=== PATIENT | male | born 1960 | race Caucasian/White ===

== ENCOUNTER 2017-08-20 17:11 | Emergency (ER) | payer MEDICARE, MEDICAID ==
[~2017-08-20] VITALS: Ht 185.4 cm; Wt 86.0 kg
[~2017-08-20 17:11] MED LIST: ALBU8.5H8 IH; ALBU8.5H8 INH; DIPH-423 PO; METH4TAB81 PO; VITC500T PO
[2017-08-20 17:20] VITALS: BP 121/67
[2017-08-20] MEDS ORDERED: THI100T PO (17:27)
[2017-08-20] MEDS ORDERED: LORA-269 PO (17:27)
[2017-08-20] MEDS ORDERED: FOLI0.4T2 PO (17:27)
[2017-08-20] MEDS ORDERED: MULT-38 PO (17:27)
== END 2017-08-20 17:44 | disposition home or self-care (01) ==
LOC: ER 17:13
DX: F10.10 Alcohol abuse, uncomplicated (principal); F84.0 Autistic disorder; G89.29 Other chronic pain; J44.9 Chronic obstructive pulmonary disease, unspecified; Z79.899 Other long term (current) drug therapy; Y90.9 Presence of alcohol in blood, level not specified
CPT/HCPCS: 99283

== ENCOUNTER 2017-08-25 20:06 | Emergency (ER) | payer MEDICARE, MEDICAID ==
[~2017-08-25] VITALS: Ht 185.4 cm; Wt 83.0 kg
[~2017-08-25 20:06] MED LIST changes: +FOLI0.4T2 PO; +LORA-269 PO; +MULT-38 PO; +THI100T PO
[2017-08-25 21:52] LABS: URINE AMPHETAMINE SCREEN NEGATIVE (Neg); URINE BARBITUATE SCREEN NEGATIVE (Neg); URINE BENZODIAZEPINES SCREEN NEGATIVE (Neg); URINE CANNABINOID SCREEN POSITIVE (Neg); URINE COCAINE SCREEN NEGATIVE (Neg); URINE METHADONE SCREEN NEGATIVE (Neg); URINE OPIATE SCREEN NEGATIVE (Neg); URINE PHENCYCLIDINE SCREEN NEGATIVE (Neg)
[2017-08-25] MEDS ORDERED: ondansetron 4mg rapidly disintigrating tab PO ONE (22:00)
[2017-08-25 22:09] LABS: BASOPHILS # (AUTO) 0.1 X10'3 (0-0.2); BASOPHILS % (AUTO) 1.3 % (0-1); EOSINOPHILS # (AUTO) 0.1 X10'3 (0-0.9); EOSINOPHILS % (AUTO) 1.6 % (0-6); HEMATOCRIT 44.8 % (42.0-52.0); HEMOGLOBIN 15.6 g/dl (14.0-17.9); LYMPHOCYTES # (AUTO) 1.2 X10'3 (1.1-4.8); LYMPHOCYTES % (AUTO) 13.4 % (21-51); MEAN CORPUSCULAR HEMOGLOBIN 32.9 PG (27.0-31.0); MEAN CORPUSCULAR HGB CONC 34.7 % (33.0-36.5); MEAN CORPUSCULAR VOLUME 94.7 FL (78-98); MONOCYTES # (AUTO) 0.9 X10'3 (0-0.9); NEUTROPHILS # (AUTO) 6.8 X10'3 (1.8-7.7); NEUTROPHILS % (AUTO) 73.7 % (42-75); PLATELET COUNT 386 X10'3 (140-440); RED BLOOD COUNT 4.73 X10'6 (4.70-6.10); RED CELL DISTRIBUTION WIDTH 13.9 % (11.5-14.5); WHITE BLOOD COUNT 9.2 X10'3 (4.5-11.0)
[2017-08-25 22:23] LABS: ALANINE AMINOTRANSFERASE 26 U/L (12-78); ALBUMIN 3.2 G/DL (3.4-5.0); ALBUMIN/GLOBULIN RATIO 0.7 (1.1-1.5); ALKALINE PHOSPHATASE 90 IU/L (46-116); ANION GAP 12 (8-16); ASPARTATE AMINO TRANSFERASE 15 U/L (10-37); BILIRUBIN,TOTAL 0.5 MG/DL (0.1-1.0); BLOOD UREA NITROGEN 11 MG/DL (7-18); BUN/CREATININE RATIO 12.9 (5.4-32.0); CHLORIDE 102 MMOL/L (99-107); CREATININE 0.85 MG/DL (0.60-1.10); ETHANOL 0.014 GM/DL (0.0-0.010); GLUCOSE 87 MG/DL (70-104); POTASSIUM 4.5 MMOL/L (3.5-5.1); SODIUM 140 MMOL/L (135-145); TOTAL CARBON DIOXIDE 25.7 MMOL/L (24-32); TOTAL PROTEIN 8.1 G/DL (6.4-8.2); eGFR > 90 ML/MIN
[2017-08-26] MEDS ORDERED: nicotine 14mg patch - 24hr TD ONE (06:05)
[2017-08-26] MEDS ORDERED: LORazepam 1 MG tablet PO ONE (07:05)
[2017-08-27] MEDS ORDERED: ziprasidone 20mg capsule PO PRN (00:10)
[2017-08-27] MEDS ORDERED: LORazepam 1 MG tablet PO PRN ×2 (00:10→00:30)
[2017-08-27] MEDS ORDERED: ziprasidone IM 20mg inj **IM only IM PRN (00:10)
[2017-08-27] MEDS ORDERED: nicotine 14mg patch - 24hr TD ONE (05:00)
[2017-08-27 05:59] VITALS: BP 119/82
[2017-08-27] MEDS ORDERED: gabapentin 100mg capsule PO SCH (08:00)
== END 2017-08-27 13:11 | disposition home or self-care (01) ==
LOC: ER 20:07
DX: R45.851 Suicidal ideations (principal); F10.20 Alcohol dependence, uncomplicated; Y90.9 Presence of alcohol in blood, level not specified; F12.10 Cannabis abuse, uncomplicated; G89.29 Other chronic pain; J45.909 Unspecified asthma, uncomplicated; M19.90 Unspecified osteoarthritis, unspecified site; F41.9 Anxiety disorder, unspecified; F32.9 Major depressive disorder, single episode, unspecified; Z88.8 Allergy status to other drugs, medicaments and biological substances; Z98.890 Other specified postprocedural states; Z90.89 Acquired absence of other organs; Z79.899 Other long term (current) drug therapy
CPT/HCPCS: 36415; 80053; 80305; 80320; 84443; 85025; 99284; J7030

== ENCOUNTER 2017-08-30 15:34 | Emergency (ER) | payer MEDICARE, MEDICAID ==
[~2017-08-30] VITALS: Ht 6122.6 cm; Wt 83.5 kg
[~2017-08-30 15:34] MED LIST changes: -DIPH-423 PO; -METH4TAB81 PO; -VITC500T PO
[2017-08-30 20:34] LABS: CLARITY,URINE CLEAR (Clear); COLOR,URINE YELLOW (Yellow); GLUCOSE, URINE NEGATIVE (Neg); KETONES,URINE NEGATIVE (Neg); LEUKOCYTE ESTERASE ,URINE NEGATIVE (Neg); NITRITES, URINE NEGATIVE (Neg); OCCULT BLOOD,URINE NEGATIVE (Neg); PH,URINE 5.5 (4.8-8.0); PROTEIN,URINE NEGATIVE (Neg); UROBILINOGEN,URINE 0.2 E.U/dL (0.2-1.0)
[2017-08-30 20:41] LABS: URINE AMPHETAMINE SCREEN NEGATIVE (Neg); URINE BARBITUATE SCREEN NEGATIVE (Neg); URINE BENZODIAZEPINES SCREEN NEGATIVE (Neg); URINE CANNABINOID SCREEN POSITIVE (Neg); URINE COCAINE SCREEN NEGATIVE (Neg); URINE METHADONE SCREEN NEGATIVE (Neg); URINE OPIATE SCREEN NEGATIVE (Neg); URINE PHENCYCLIDINE SCREEN NEGATIVE (Neg)
[2017-08-30 20:44] LABS: UA COLLECTION TYPE CLN CATCH MIDSTREAM
[2017-08-30 20:52] LABS: BASOPHILS # (AUTO) 0.1 X10'3 (0-0.2); BASOPHILS % (AUTO) 0.7 % (0-1); EOSINOPHILS # (AUTO) 0.1 X10'3 (0-0.9); EOSINOPHILS % (AUTO) 1.8 % (0-6); HEMATOCRIT 41.5 % (42.0-52.0); HEMOGLOBIN 14.3 g/dl (14.0-17.9); LYMPHOCYTES # (AUTO) 2.3 X10'3 (1.1-4.8); LYMPHOCYTES % (AUTO) 28.9 % (21-51); MEAN CORPUSCULAR HEMOGLOBIN 33.1 PG (27.0-31.0); MEAN CORPUSCULAR HGB CONC 34.3 % (33.0-36.5); MEAN CORPUSCULAR VOLUME 96.3 FL (78-98); MEAN PLATELET VOLUME 7.3 FL (7.4-10.4); MONOCYTES # (AUTO) 0.5 X10'3 (0-0.9); MONOCYTES % (AUTO) 6.2 % (2-12); NEUTROPHILS % (AUTO) 62.4 % (42-75); PLATELET COUNT 456 X10'3 (140-440); RED BLOOD COUNT 4.32 X10'6 (4.70-6.10); RED CELL DISTRIBUTION WIDTH 14.1 % (11.5-14.5); WHITE BLOOD COUNT 7.9 X10'3 (4.5-11.0)
[2017-08-30 21:16] LABS: ALANINE AMINOTRANSFERASE 26 U/L (12-78); ALBUMIN 3.3 G/DL (3.4-5.0); ALBUMIN/GLOBULIN RATIO 0.8 (1.1-1.5); ALKALINE PHOSPHATASE 77 IU/L (46-116); ANION GAP 12 (8-16); ASPARTATE AMINO TRANSFERASE 13 U/L (10-37); BILIRUBIN,TOTAL 0.8 MG/DL (0.1-1.0); BLOOD UREA NITROGEN 13 MG/DL (7-18); BUN/CREATININE RATIO 14.1 (5.4-32.0); CALCIUM 9.3 MG/DL (8.5-10.1); CHLORIDE 103 MMOL/L (99-107); CREATININE 0.92 MG/DL (0.60-1.10); GLUCOSE 115 MG/DL (70-104); POTASSIUM 3.8 MMOL/L (3.5-5.1); SODIUM 141 MMOL/L (135-145); TOTAL CARBON DIOXIDE 25.7 MMOL/L (24-32); TOTAL PROTEIN 7.6 G/DL (6.4-8.2); eGFR 85 ML/MIN
[2017-08-30 21:29] LABS: ETHANOL < 0.010 GM/DL (0.0-0.010)
[2017-08-30] MEDS ORDERED: LORazepam 2 mg/ml vial IM ONE (22:00)
[2017-08-30] MEDS ORDERED: haloperidol lactate 5mg/ml inj IM ONE (22:00)
[2017-08-30] MEDS ORDERED: diphenhydrAMINE 50 mg/ml inj IM ONE (22:00)
[2017-08-31] MEDS ORDERED: LORA1TAB PO (18:02)
[2017-08-31] MEDS ORDERED: MONT10TA24 PO (18:02)
[2017-08-31] MEDS ORDERED: TIOT4MIS5 IH (18:02)
[2017-08-31] MEDS ORDERED: ZIPR20CA2 PO (18:02)
[2017-08-31] MEDS ORDERED: ALBU18HF2 IH (18:02)
[2017-08-31] MEDS ORDERED: albuterol 2.5 MG/3 ML nebule NEB PRN (18:15)
[2017-08-31] MEDS: ipratropium 0.5 MG/2.5ML nebule IH SCH (20:54)
[2017-09-01] MEDS: ipratropium 0.5 MG/2.5ML nebule IH SCH ×4 (03:07→21:32)
[2017-09-01] MEDS: ziprasidone 20mg capsule PO PRN ×2 (06:34→13:39)
[2017-09-01] MEDS: LORazepam 1 MG tablet PO PRN ×2 (08:11→21:25)
[2017-09-01] MEDS: montelukast 10mg tablet PO SCH (08:11)
[2017-09-02] MEDS: ipratropium 0.5 MG/2.5ML nebule IH SCH ×4 (03:39→20:22)
[2017-09-02] MEDS: montelukast 10mg tablet PO SCH (07:39)
[2017-09-02] MEDS: LORazepam 1 MG tablet PO PRN ×2 (15:32→19:55)
[2017-09-03] MEDS: ipratropium 0.5 MG/2.5ML nebule IH SCH ×4 (02:30→20:20)
[2017-09-03] MEDS ORDERED: ibuprofen tablet 400 MG TABLET PO PRN (06:40)
[2017-09-03] MEDS: montelukast 10mg tablet PO SCH (06:59)
[2017-09-03] MEDS: LORazepam 1 MG tablet PO PRN (09:03)
[2017-09-03] MEDS: ziprasidone 20mg capsule PO PRN (09:03)
[2017-09-04] MEDS: LORazepam 1 MG tablet PO PRN (00:22)
[2017-09-04] MEDS: ipratropium 0.5 MG/2.5ML nebule IH SCH ×4 (02:19→22:01)
[2017-09-04] MEDS: montelukast 10mg tablet PO SCH (09:28)
[2017-09-04] MEDS: ziprasidone 20mg capsule PO PRN (16:46)
[2017-09-04] MEDS: ziprasidone 20mg capsule PO SCH (21:07)
[2017-09-05] MEDS: ipratropium 0.5 MG/2.5ML nebule IH SCH ×2 (02:35→09:00)
[2017-09-05] MEDS: montelukast 10mg tablet PO SCH (09:02)
[2017-09-05] MEDS: ziprasidone 20mg capsule PO SCH ×2 (09:02→14:33)
[2017-09-05] MEDS: ziprasidone 20mg capsule PO PRN (19:18)
[2017-09-06] MEDS: ziprasidone 20mg capsule PO PRN ×3 (01:23→12:41)
[2017-09-06] MEDS: ipratropium 0.5 MG/2.5ML nebule IH SCH ×2 (01:34→11:36)
[2017-09-06 05:22] VITALS: BP 115/78
[2017-09-06] MEDS: ziprasidone 20mg capsule PO SCH (07:36)
[2017-09-06] MEDS: montelukast 10mg tablet PO SCH (07:36)
[2017-09-06] MEDS: LORazepam 1 MG tablet PO PRN ×2 (07:37→12:41)
[2017-09-06] MEDS ORDERED: nicotine 14mg patch - 24hr TD ONE (08:00)
== END 2017-09-06 17:39 ==
LOC: ER 15:37
DX: R45.851 Suicidal ideations (principal); F10.129 Alcohol abuse with intoxication, unspecified; G89.29 Other chronic pain; M19.90 Unspecified osteoarthritis, unspecified site; J45.909 Unspecified asthma, uncomplicated; F12.10 Cannabis abuse, uncomplicated; F17.200 Nicotine dependence, unspecified, uncomplicated; Z59.0 Homelessness; Z88.8 Allergy status to other drugs, medicaments and biological substances; Z79.899 Other long term (current) drug therapy; Y90.0 Blood alcohol level of less than 20 mg/100 ml
CPT/HCPCS: 36415; 80053; 80305; 80320; 81003; 84443; 85025; 94640; 94760; 99285

== ENCOUNTER 2017-09-07 09:09 | Emergency (ER) | payer MEDICARE, MEDICAID ==
[~2017-09-07] VITALS: Ht 165.1 cm; Wt 81.0 kg
[~2017-09-07 09:09] MED LIST changes: +ALBU18HF2 IH; -ALBU8.5H8 IH; -ALBU8.5H8 INH; -FOLI0.4T2 PO; -LORA-269 PO; +LORA1TAB PO; +MONT10TA24 PO; -MULT-38 PO; -THI100T PO; +TIOT4MIS5 IH; +ZIPR20CA2 PO
[2017-09-07] MEDS ORDERED: normal saline 1000ML IV soln IVB ONE (09:50)
[2017-09-07] MEDS ORDERED: LORazepam 2 mg/ml vial IV ONE (09:50)
[2017-09-07 10:04] LABS: BASOPHILS % (AUTO) 0.1 % (0-1); EOSINOPHILS # (AUTO) 0.2 X10'3 (0-0.9); EOSINOPHILS % (AUTO) 1.5 % (0-6); HEMATOCRIT 50.3 % (42.0-52.0); HEMOGLOBIN 17.2 g/dl (14.0-17.9); LYMPHOCYTES # (AUTO) 1.5 X10'3 (1.1-4.8); LYMPHOCYTES % (AUTO) 10.6 % (21-51); MEAN CORPUSCULAR HEMOGLOBIN 32.5 PG (27.0-31.0); MEAN CORPUSCULAR HGB CONC 34.2 % (33.0-36.5); MEAN CORPUSCULAR VOLUME 95.2 FL (78-98); MEAN PLATELET VOLUME 8.5 FL (7.4-10.4); MONOCYTES # (AUTO) 0.5 X10'3 (0-0.9); MONOCYTES % (AUTO) 3.7 % (2-12); NEUTROPHILS % (AUTO) 84.1 % (42-75); PLATELET COUNT 347 X10'3 (140-440); RED BLOOD COUNT 5.29 X10'6 (4.70-6.10); RED CELL DISTRIBUTION WIDTH 14.2 % (11.5-14.5); WHITE BLOOD COUNT 14.3 X10'3 (4.5-11.0)
[2017-09-07 10:39] LABS: ALANINE AMINOTRANSFERASE 32 U/L (12-78); ALBUMIN 3.9 G/DL (3.4-5.0); ALBUMIN/GLOBULIN RATIO 0.9 (1.1-1.5); ALKALINE PHOSPHATASE 97 IU/L (46-116); ANION GAP 15 (8-16); ASPARTATE AMINO TRANSFERASE 18 U/L (10-37); BILIRUBIN,TOTAL 0.6 MG/DL (0.1-1.0); BLOOD UREA NITROGEN 15 MG/DL (7-18); BUN/CREATININE RATIO 14.4 (5.4-32.0); CALCIUM 9.1 MG/DL (8.5-10.1); CHLORIDE 103 MMOL/L (99-107); CREATININE 1.04 MG/DL (0.60-1.10); ETHANOL < 0.010 GM/DL (0.0-0.010); GLUCOSE 113 MG/DL (70-104); POTASSIUM 4.1 MMOL/L (3.5-5.1); SODIUM 140 MMOL/L (135-145); TOTAL CARBON DIOXIDE 21.8 MMOL/L (24-32); TOTAL PROTEIN 8.2 G/DL (6.4-8.2); eGFR 74 ML/MIN
[2017-09-07 10:58] LABS: PARTIAL THROMBOPLASTIN TIME 28 SECONDS (22-32); PROTHROMBIN TIME 10.3 SECONDS (9.0-12.0)
[2017-09-07 11:23] LABS: CLARITY,URINE CLEAR (Clear); COLOR,URINE YELLOW (Yellow); GLUCOSE, URINE NEGATIVE (Neg); KETONES,URINE NEGATIVE (Neg); LEUKOCYTE ESTERASE ,URINE NEGATIVE (Neg); NITRITES, URINE NEGATIVE (Neg); OCCULT BLOOD,URINE NEGATIVE (Neg); PH,URINE 5.5 (4.8-8.0); PROTEIN,URINE NEGATIVE (Neg); UROBILINOGEN,URINE 0.2 E.U/dL (0.2-1.0)
[2017-09-07 11:24] LABS: UA COLLECTION TYPE CLN CATCH MIDSTREAM
[2017-09-07 11:32] LABS: URINE AMPHETAMINE SCREEN NEGATIVE (Neg); URINE BARBITUATE SCREEN NEGATIVE (Neg); URINE BENZODIAZEPINES SCREEN NEGATIVE (Neg); URINE CANNABINOID SCREEN NEGATIVE (Neg); URINE COCAINE SCREEN NEGATIVE (Neg); URINE METHADONE SCREEN NEGATIVE (Neg); URINE OPIATE SCREEN NEGATIVE (Neg); URINE PHENCYCLIDINE SCREEN NEGATIVE (Neg)
[2017-09-07 12:47] VITALS: BP 143/102
== END 2017-09-07 12:48 | disposition home or self-care (01) ==
LOC: ER 09:10
DX: M54.9 Dorsalgia, unspecified (principal); M19.90 Unspecified osteoarthritis, unspecified site; F12.10 Cannabis abuse, uncomplicated; Z88.8 Allergy status to other drugs, medicaments and biological substances
CPT/HCPCS: 36415; 80053; 80305; 80320; 81003; 82140; 84484; 85025; 85610; 85730; 93005; 96361; 96374; 99285; J2060; J7030

== ENCOUNTER 2018-01-25 13:19 | Emergency (ER) | payer MEDICARE, MEDICAID ==
[~2018-01-25] VITALS: Ht 185.4 cm; Wt 76.7 kg
[2018-01-25] MEDS ORDERED: symbicort INH (15:26)
[2018-01-25 15:48] LABS: BASOPHILS % (AUTO) 0.4 % (0-1); EOSINOPHILS # (AUTO) 0.1 X10'3 (0-0.9); EOSINOPHILS % (AUTO) 1.9 % (0-6); HEMATOCRIT 42.7 % (42.0-52.0); LYMPHOCYTES # (AUTO) 0.7 X10'3 (1.1-4.8); LYMPHOCYTES % (AUTO) 9.5 % (21-51); MEAN CORPUSCULAR HEMOGLOBIN 33.6 PG (27.0-31.0); MEAN CORPUSCULAR HGB CONC 35.1 % (33.0-36.5); MEAN CORPUSCULAR VOLUME 95.8 FL (78-98); MEAN PLATELET VOLUME 7.7 FL (7.4-10.4); MONOCYTES # (AUTO) 0.5 X10'3 (0-0.9); MONOCYTES % (AUTO) 7.1 % (2-12); NEUTROPHILS # (AUTO) 5.7 X10'3 (1.8-7.7); NEUTROPHILS % (AUTO) 81.1 % (42-75); PLATELET COUNT 188 X10'3 (140-440); RED BLOOD COUNT 4.46 X10'6 (4.70-6.10); RED CELL DISTRIBUTION WIDTH 14.5 % (11.5-14.5)
[2018-01-25] MEDS ORDERED: dexamethasone 4mg tablet PO ONE (15:50)
[2018-01-25 16:03] LABS: ALANINE AMINOTRANSFERASE 27 U/L (12-78); ALBUMIN 3.4 G/DL (3.4-5.0); ALKALINE PHOSPHATASE 88 IU/L (46-116); ANION GAP 7 (8-16); ASPARTATE AMINO TRANSFERASE 23 U/L (10-37); BILIRUBIN,TOTAL 0.6 MG/DL (0.1-1.0); BLOOD UREA NITROGEN 8 MG/DL (7-18); BUN/CREATININE RATIO 9.1 (5.4-32.0); CALCIUM 8.6 MG/DL (8.5-10.1); CHLORIDE 99 MMOL/L (99-107); CREATININE 0.88 MG/DL (0.60-1.10); ETHANOL < 0.010 GM/DL (0.0-0.010); GLUCOSE 137 MG/DL (70-104); POTASSIUM 3.7 MMOL/L (3.5-5.1); SODIUM 133 MMOL/L (135-145); TOTAL CARBON DIOXIDE 27.3 MMOL/L (24-32); TOTAL PROTEIN 6.7 G/DL (6.4-8.2); eGFR 89 ML/MIN
[2018-01-25 16:13] LABS: URINE AMPHETAMINE SCREEN NEGATIVE (Neg); URINE BARBITUATE SCREEN NEGATIVE (Neg); URINE BENZODIAZEPINES SCREEN NEGATIVE (Neg); URINE CANNABINOID SCREEN POSITIVE (Neg); URINE COCAINE SCREEN NEGATIVE (Neg); URINE METHADONE SCREEN NEGATIVE (Neg); URINE OPIATE SCREEN NEGATIVE (Neg); URINE PHENCYCLIDINE SCREEN NEGATIVE (Neg)
[2018-01-25 16:37] LABS: CLARITY,URINE CLEAR (Clear); COLOR,URINE YELLOW (Yellow); GLUCOSE, URINE NEGATIVE (Neg); KETONES,URINE NEGATIVE (Neg); LEUKOCYTE ESTERASE ,URINE NEGATIVE (Neg); NITRITES, URINE NEGATIVE (Neg); OCCULT BLOOD,URINE TRACE-LYSED (Neg); PROTEIN,URINE NEGATIVE (Neg)
[2018-01-25 16:41] LABS: BACTERIA,URINE NONE SEEN /HPF (Neg); RBC,URINE 0-2 /HPF (0-2); SQUAMOUS EPITHELIAL CELL,UR FEW /LPF (FEW); UA COLLECTION TYPE CLN CATCH MIDSTREAM; WBC,URINE 0-4 /HPF (0-4)
[2018-01-25] MEDS: BUDESONIDE 0.25 MG/2 ML AMPUL.NEB IH SCH (21:03)
[2018-01-26] MEDS: LORazepam 0.5 MG tablet PO PRN ×2 (00:53→19:27)
[2018-01-26] MEDS: haloperidol 1mg tablet PO PRN ×2 (00:54→19:27)
[2018-01-26] MEDS: BUDESONIDE 0.25 MG/2 ML AMPUL.NEB IH SCH ×2 (09:44→20:45)
[2018-01-27] MEDS: LORazepam 0.5 MG tablet PO PRN ×2 (04:41→19:45)
[2018-01-27] MEDS ORDERED: acetaminophen 325mg tablet PO ONE (05:10)
[2018-01-27] MEDS: nicotine 14mg patch - 24hr TD SCH (08:34)
[2018-01-27] MEDS: BUDESONIDE 0.25 MG/2 ML AMPUL.NEB IH SCH ×2 (09:10→21:13)
[2018-01-27] MEDS: acetaminophen 325mg tablet PO PRN ×2 (12:39→19:45)
[2018-01-27] MEDS: haloperidol 1mg tablet PO PRN (19:46)
[2018-01-28 05:30] VITALS: BP 121/72
[2018-01-28] MEDS: nicotine 14mg patch - 24hr TD SCH (07:09)
[2018-01-28] MEDS: acetaminophen 325mg tablet PO PRN (07:10)
[2018-01-28] MEDS: LORazepam 0.5 MG tablet PO PRN (07:10)
[2018-01-28] MEDS: BUDESONIDE 0.25 MG/2 ML AMPUL.NEB IH SCH (09:42)
== END 2018-01-28 12:54 ==
LOC: ER 13:19
DX: F32.9 Major depressive disorder, single episode, unspecified (principal); F23 Brief psychotic disorder; F41.9 Anxiety disorder, unspecified; J45.909 Unspecified asthma, uncomplicated; M19.90 Unspecified osteoarthritis, unspecified site; G89.29 Other chronic pain; F12.90 Cannabis use, unspecified, uncomplicated; Z98.890 Other specified postprocedural states; Z59.0 Homelessness; Z88.8 Allergy status to other drugs, medicaments and biological substances; Z79.899 Other long term (current) drug therapy
CPT/HCPCS: 36415; 80053; 80305; 80320; 81001; 85025; 94640; 94760; 99285; J8540

== ENCOUNTER 2018-02-01 20:20 | Emergency (ER) | payer MEDICARE, MEDICAID ==
[~2018-02-01] VITALS: Ht 185.4 cm; Wt 78.6 kg
[~2018-02-01 20:20] MED LIST changes: -ALBU18HF2 IH; -LORA1TAB PO; -MONT10TA24 PO; -TIOT4MIS5 IH; -ZIPR20CA2 PO; +symbicort INH
[2018-02-01 20:35] VITALS: BP 104/69
[2018-02-01] MEDS ORDERED: DICL50TA8 PO (20:56)
== END 2018-02-01 21:15 | disposition home or self-care (01) ==
LOC: ER 20:21
DX: M54.5 Low back pain (principal); F12.10 Cannabis abuse, uncomplicated; J45.909 Unspecified asthma, uncomplicated; G89.29 Other chronic pain; F41.9 Anxiety disorder, unspecified; F32.9 Major depressive disorder, single episode, unspecified; Z59.0 Homelessness; Z88.8 Allergy status to other drugs, medicaments and biological substances
CPT/HCPCS: 99283

== ENCOUNTER 2018-05-08 06:15 | Emergency (ER) | payer MEDICARE, MEDICAID ==
[~2018-05-08] VITALS: Ht 185.4 cm; Wt 77.2 kg
[~2018-05-08 06:15] MED LIST changes: +DICL50TA8 PO
[2018-05-08] MEDS ORDERED: albuterol 2.5 MG/3 ML nebule CONTNEB PRN (06:25)
[2018-05-08] MEDS ORDERED: methylPREDNISolone sod succ 125mg/2ml vial IV ONE (06:25)
[2018-05-08] MEDS ORDERED: ipratropium/albuterol 3ml nebule NEB ONE (06:25)
[2018-05-08] MEDS ORDERED: normal saline 1000ML IV soln IVB ONE (06:25)
[2018-05-08] MEDS ORDERED: azithromycin 250mg tablet PO ONE (06:30)
[2018-05-08] MEDS ORDERED: PRED20TA PO (07:55)
[2018-05-08] MEDS ORDERED: AZIT-63 PO (07:55)
[2018-05-08] MEDS ORDERED: ALBU8.5H8 IH (07:55)
[2018-05-08 08:16] VITALS: BP 137/83
== END 2018-05-08 08:19 | disposition home or self-care (01) ==
LOC: ER 06:16
DX: J45.901 Unspecified asthma with (acute) exacerbation (principal); M19.90 Unspecified osteoarthritis, unspecified site; G89.29 Other chronic pain; F12.90 Cannabis use, unspecified, uncomplicated; F17.200 Nicotine dependence, unspecified, uncomplicated; Z86.69 Personal history of other diseases of the nervous system and sense organs; Z98.890 Other specified postprocedural states; Z59.0 Homelessness; Z88.8 Allergy status to other drugs, medicaments and biological substances; Z79.2 Long term (current) use of antibiotics; Z79.899 Other long term (current) drug therapy
CPT/HCPCS: 94644; 94760; 96361; 96374; 99285; J2930; 94640

== ENCOUNTER 2018-06-07 08:15 | Emergency (ER) | payer MEDICARE, MEDICAID ==
[~2018-06-07] VITALS: Ht 185.4 cm; Wt 78.0 kg
[~2018-06-07 08:15] MED LIST changes: +ALBU8.5H8 IH
[2018-06-07] MEDS ORDERED: ketorolac tromethamine 15mg/ml inj. IM ONE (08:45)
[2018-06-07] MEDS ORDERED: orphenadrine citrate 60mg/2ml inj. IM ONE (08:45)
[2018-06-07 08:46] VITALS: BP_SYST 101
[2018-06-07 09:15] VITALS: BP_DIAS 101
== END 2018-06-07 09:16 | disposition home or self-care (01) ==
LOC: ER 08:16
DX: S00.03XA Contusion of scalp, initial encounter (principal); F10.20 Alcohol dependence, uncomplicated; J45.909 Unspecified asthma, uncomplicated; G89.29 Other chronic pain; F12.90 Cannabis use, unspecified, uncomplicated; F17.210 Nicotine dependence, cigarettes, uncomplicated; Z90.89 Acquired absence of other organs; Z98.890 Other specified postprocedural states; Z88.8 Allergy status to other drugs, medicaments and biological substances; Z59.0 Homelessness; Y90.9 Presence of alcohol in blood, level not specified; Y04.0XXA Assault by unarmed brawl or fight, initial encounter; Y93.89 Activity, other specified; Y92.89 Other specified places as the place of occurrence of the external cause; Y99.8 Other external cause status
CPT/HCPCS: 96372; 99284; J1885; J2360

== ENCOUNTER 2018-07-22 06:02 | Emergency (ER) | payer MEDICARE, OTHER ==
[~2018-07-22] VITALS: Ht 185.4 cm; Wt 74.5 kg
[2018-07-22 07:28] LABS: BASOPHILS % (AUTO) 0.9 % (0-1); EOSINOPHILS % (AUTO) 0.2 % (0-6); HEMATOCRIT 45.2 % (42.0-52.0); HEMOGLOBIN 15.7 g/dl (14.0-17.9); LYMPHOCYTES # (AUTO) 0.9 X10'3 (1.1-4.8); LYMPHOCYTES % (AUTO) 15.8 % (21-51); MEAN CORPUSCULAR HGB CONC 34.7 g/dL (33.0-36.5); MEAN PLATELET VOLUME 7.6 FL (7.4-10.4); MONOCYTES # (AUTO) 0.2 X10'3 (0-0.9); MONOCYTES % (AUTO) 3.6 % (2-12); NEUTROPHILS # (AUTO) 4.3 X10'3 (1.8-7.7); NEUTROPHILS % (AUTO) 79.5 % (42-75); PLATELET COUNT 319 X10'3 (140-440); RED BLOOD COUNT 4.62 X10'6 (4.70-6.10); RED CELL DISTRIBUTION WIDTH 14.1 % (11.5-14.5); WHITE BLOOD COUNT 5.4 X10'3 (4.5-11.0)
[2018-07-22 07:42] LABS: ALANINE AMINOTRANSFERASE 28 U/L (12-78); ALBUMIN 3.9 G/DL (3.4-5.0); ALBUMIN/GLOBULIN RATIO 1.1 (1.1-1.5); ALKALINE PHOSPHATASE 82 IU/L (46-116); ANION GAP 18 (8-16); ASPARTATE AMINO TRANSFERASE 38 U/L (10-37); BILIRUBIN,TOTAL 0.6 MG/DL (0.1-1.0); BLOOD UREA NITROGEN 7 MG/DL (7-18); BUN/CREATININE RATIO 8.5 (5.4-32.0); CALCIUM 8.7 MG/DL (8.5-10.1); CHLORIDE 99 MMOL/L (99-107); CREATININE 0.82 MG/DL (0.60-1.10); GLUCOSE 63 MG/DL (70-104); POTASSIUM 4.4 MMOL/L (3.5-5.1); SODIUM 139 MMOL/L (135-145); TOTAL CARBON DIOXIDE 22.3 MMOL/L (24-32); TOTAL PROTEIN 7.3 G/DL (6.4-8.2); eGFR > 90 ML/MIN
[2018-07-22 07:52] LABS: ETHANOL 0.094 GM/DL (0.0-0.010)
[2018-07-22 08:22] LABS: CLARITY,URINE CLEAR (Clear); COLOR,URINE YELLOW (Yellow); GLUCOSE, URINE NEGATIVE (Neg); KETONES,URINE 15 mg/dl (Neg); LEUKOCYTE ESTERASE ,URINE NEGATIVE (Neg); NITRITES, URINE NEGATIVE (Neg); OCCULT BLOOD,URINE NEGATIVE (Neg); PROTEIN,URINE NEGATIVE (Neg); UROBILINOGEN,URINE 0.2 E.U/dL (0.2-1.0)
[2018-07-22 08:27] LABS: UA COLLECTION TYPE NON-SPECIFIED
[2018-07-22 08:34] LABS: URINE AMPHETAMINE SCREEN NEGATIVE (Neg); URINE BARBITUATE SCREEN NEGATIVE (Neg); URINE BENZODIAZEPINES SCREEN NEGATIVE (Neg); URINE CANNABINOID SCREEN NEGATIVE (Neg); URINE COCAINE SCREEN NEGATIVE (Neg); URINE METHADONE SCREEN NEGATIVE (Neg); URINE OPIATE SCREEN NEGATIVE (Neg); URINE PHENCYCLIDINE SCREEN NEGATIVE (Neg)
[2018-07-22] MEDS ORDERED: TIOT4MIS5 INH (08:48)
[2018-07-22] MEDS ORDERED: ALBU18HF2 INH (08:49)
--- NOTE | 2018-07-22 09:40 | NUR ---
SOC PSYCHIATRIST CALLS FOR A REPORT. TELE PSYCH IS IN THE ROOM AND READY FOR HIS CALL.
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
[2018-07-22] MEDS: TYPE IN GENERIC & BRAND NAME OF PATIENT MED STRENGTH & FORM IH SCH (11:15)
[2018-07-22] MEDS ORDERED: albuterol 2.5 MG/3 ML nebule NEB PRN (11:15)
--- NOTE | 2018-07-22 11:17 | NUR ---
REPORT GIVEN TO KENNETH MARIANO IN OVERFLOW. PT AMBULATES FROM ROOM 13 WITH TECH TO OF BED 27 IN FRONT OF NURSING STATION.
[2018-07-22] MEDS: QUEtiapine 25mg tablet PO SCH ×2 (11:22→19:53)
[2018-07-22] MEDS: clonazePAM 1mg tablet PO SCH ×2 (11:22→19:53)
[2018-07-22] MEDS ORDERED: nicotine 21mg patch - 24 hr TD ONE (11:30)
--- NOTE | 2018-07-22 11:31 | NUR ---
Pt. to martinez bed 27 from main ED after receiving report from Rose MARIANO. Meds given to pt. without incident. Pt. talking to himself. Apologizing to staff repeatedly but not making sense.
--- NOTE | 2018-07-22 13:33 | NUR ---
Pt. eating lunch. No longer talking out loud to self.
--- NOTE | 2018-07-22 18:29 | NUR ---
Rec'd report from GARCÍA Flaherty. The patient is sitting calmly on on side of bed eating dinner, he is A&O x3 and LION however he is mumbling and talking to himself. I will continue to monitor.
[2018-07-22] MEDS: quetiapine 100mg tablet PO SCH (21:00)
[2018-07-23] MEDS: TYPE IN GENERIC & BRAND NAME OF PATIENT MED STRENGTH & FORM IH SCH (05:46)
[2018-07-23] MEDS: clonazePAM 1mg tablet PO SCH ×2 (07:24→20:22)
[2018-07-23] MEDS ORDERED: ibuprofen tablet 400 MG TABLET PO ONE (07:45)
--- NOTE | 2018-07-23 08:01 | NUR ---
Pt. awake and cooperative. C/O hand pain secondary to "arthritis." Requesting Ibuprofen. RN obtained order for Motrin from Dr. Fuller. Motrin given to pt.
--- NOTE | 2018-07-23 13:50 | NUR ---
Pt. lying on right side with eyes closed. Even, unlabored respirations noted. Nieves from [facility] stated she will write a 5150 for pt.
--- NOTE | 2018-07-23 19:21 | NUR ---
PT RESTING IN BED AFTER DINNER. PT COOPERATIVE, AND GIVEN DECAF COFFEE REQUESTED. PT MAKING GRANDIOSE STATEMENTS OF BEING ROYALTY. MANIC BEHAVIOR, BUT COMPLIANT. NO S/S OF DISTRESS OR PAIN. WILL CONTINUE TO MONITOR.
[2018-07-23] MEDS: quetiapine 100mg tablet PO SCH (20:22)
--- NOTE | 2018-07-23 20:43 | NUR ---
PT GAVE ME HIS "CALL LIST": "CALL LIST ONE OF IMPORTANCE AUGUSTINE [facility], OR SHE CALLS ME BUY MY [facility] TITLE AND OUR [place] IS CANCELED AND TERMINATED."
--- NOTE | 2018-07-23 22:28 | NUR ---
PT RESTING IN BED. OCCASIONALLY UP TO TOILET. PT ON RIGHT SIDE, 15 BREATHS PER MINUTE. NO S/S OF DISTRESS OR PAIN. WILL CONTINUE TO MONITOR.
--- NOTE | 2018-07-24 02:19 | NUR ---
PATIENT IN BED EYES CLOSED COVERS ON RR EVEN UN LABORED NO S/S OF ACUTE STRESS AT THIS TIME
--- NOTE | 2018-07-24 03:07 | NUR ---
PATIENT LEFT ME A NOTE TIMED/DATE STAMP PATIENT STICKER AND IN BINGER
--- NOTE | 2018-07-24 04:54 | NUR ---
PATIENT LYING ON RIGHT SIDE IN BED COVERS ON EYES CLOSED RR EVEN UN LABORED NO OBSERVABLE S/S OF ACUTE STRESS AT THIS TIME
--- NOTE | 2018-07-24 06:30 | NUR ---
report from edgar greene
[2018-07-24] MEDS: TYPE IN GENERIC & BRAND NAME OF PATIENT MED STRENGTH & FORM IH SCH (07:18)
[2018-07-24] MEDS: QUEtiapine 25mg tablet PO SCH (07:18)
[2018-07-24] MEDS: clonazePAM 1mg tablet PO SCH ×2 (07:18→20:11)
[2018-07-24] MEDS ORDERED: nicotine 14mg patch - 24hr TD ONE (07:25)
--- NOTE | 2018-07-24 08:30 | NUR ---
pt ate breakfast took meds, got nicotine patch ordered from pt thankful for patch.
--- NOTE | 2018-07-24 10:36 | NUR ---
pt resting james, will continue to monitor
--- NOTE | 2018-07-24 12:30 | NUR ---
pt eating lunch, pt got decaf coffee
--- NOTE | 2018-07-24 16:15 | NUR ---
talking to brother on the phone
--- NOTE | 2018-07-24 17:38 | NUR ---
pt talked to brother on phone and now resting quietly
--- NOTE | 2018-07-24 18:32 | NUR ---
report given to edgar nation
--- NOTE | 2018-07-24 19:45 | NUR ---
PATIENT IS CONVERSING WITH PATIENT IN ROOM 22
[2018-07-24] MEDS: quetiapine 100mg tablet PO SCH (20:11)
--- NOTE | 2018-07-24 22:00 | NUR ---
SPOKE WITH SUZETTE MARIANO FROM [facility] IN [place]
--- NOTE | 2018-07-24 22:30 | NUR ---
SPOKE WITH GENE [facility] ACCE[facility]ED THE PATIENT [phone] MARTELL PT TO BE PICKED UP AT 0700
--- NOTE | 2018-07-25 00:57 | NUR ---
PATIENT APPEARS TO BE SLEEPING ON HIS RIGHT SIDE RR EVEN AND UNLABORED
--- NOTE | 2018-07-25 02:30 | NUR ---
patient appears to be sleeping on his back rr even unlabored
--- NOTE | 2018-07-25 04:28 | NUR ---
PATIENT APPEARS TO BE SLEEPING LYING ON LEFT SIDE RR EVN UNLABORED
[2018-07-25 05:47] VITALS: BP 121/69
--- NOTE | 2018-07-25 06:30 | NUR ---
PATIENT APPEARS TO BE SLEEPING
[2018-07-25] MEDS: clonazePAM 1mg tablet PO SCH (07:46)
[2018-07-25] MEDS: QUEtiapine 25mg tablet PO SCH (07:46)
[2018-07-25] MEDS: TYPE IN GENERIC & BRAND NAME OF PATIENT MED STRENGTH & FORM IH SCH (08:00)
--- NOTE | 2018-07-25 09:00 | NUR ---
PATIENT SITTING UP AT BEDSIDE EATING BREAKFAST. ATE 100%
--- NOTE | 2018-07-25 11:30 | NUR ---
PATIENT UP TO BATHROOM
--- NOTE | 2018-07-25 12:37 | NUR ---
REPORT TO KATLYN MARIANO. PT CO LOW BACK PAIN, MD AWARE TYLENOL ORDERED. PATIENT SITTING IN CHAIR CALM AFFECT
--- NOTE | 2018-07-25 12:39 | NUR ---
PATIENT DOING STRETCHING EXCERSIZES
[2018-07-25] MEDS ORDERED: acetaminophen 325mg tablet PO ONE (12:40)
--- NOTE | 2018-07-25 13:06 | NUR ---
LUNCH MEAL TRAY PLACED AT PT BEDSIDE, PT SITTING UP IN BED EATING NOW
== END 2018-07-25 15:10 ==
LOC: ER 06:03
DX: F32.9 Major depressive disorder, single episode, unspecified (principal); R45.851 Suicidal ideations; F10.129 Alcohol abuse with intoxication, unspecified; Y90.9 Presence of alcohol in blood, level not specified; J45.909 Unspecified asthma, uncomplicated; M19.90 Unspecified osteoarthritis, unspecified site; G89.29 Other chronic pain; Z90.89 Acquired absence of other organs; Z98.890 Other specified postprocedural states; F12.90 Cannabis use, unspecified, uncomplicated; Z88.5 Allergy status to narcotic agent; Z88.8 Allergy status to other drugs, medicaments and biological substances; Z79.899 Other long term (current) drug therapy; Z59.0 Homelessness
CPT/HCPCS: 36415; 80053; 80305; 80320; 81003; 84443; 85025; 99285

== ENCOUNTER 2019-08-22 16:28 | Emergency (ER) | payer MEDICARE ==
[~2019-08-22] VITALS: Ht 185.4 cm; Wt 68.0 kg
[~2019-08-22 16:28] MED LIST changes: +ALBU18HF2 INH; -ALBU8.5H8 IH; -DICL50TA8 PO; +TIOT4MIS5 INH; -symbicort INH
[2019-08-22 17:33] LABS: BASOPHILS # (AUTO) 0.1 X10'3 (0-0.2); BASOPHILS % (AUTO) 0.5 % (0-1); EOSINOPHILS % (AUTO) 0.2 % (0-6); HEMOGLOBIN 16.1 g/dl (14.0-17.9); LYMPHOCYTES # (AUTO) 1.5 X10'3 (1.1-4.8); LYMPHOCYTES % (AUTO) 14.2 % (21-51); MEAN CORPUSCULAR HEMOGLOBIN 33.2 PG (27.0-31.0); MEAN CORPUSCULAR HGB CONC 34.2 g/dL (33.0-36.5); MEAN CORPUSCULAR VOLUME 97.1 FL (78-98); MEAN PLATELET VOLUME 8.5 FL (7.4-10.4); MONOCYTES # (AUTO) 0.7 X10'3 (0-0.9); MONOCYTES % (AUTO) 6.6 % (2-12); NEUTROPHILS # (AUTO) 8.4 X10'3 (1.8-7.7); NEUTROPHILS % (AUTO) 78.5 % (42-75); PLATELET COUNT 291 X10'3 (140-440); RED BLOOD COUNT 4.84 X10'6 (4.70-6.10); RED CELL DISTRIBUTION WIDTH 14.2 % (11.5-14.5); WHITE BLOOD COUNT 10.7 X10'3 (4.5-11.0)
[2019-08-22 18:01] LABS: ALANINE AMINOTRANSFERASE 51 U/L (12-78); ALBUMIN/GLOBULIN RATIO 1.2 (1.1-1.5); ALKALINE PHOSPHATASE 80 IU/L (46-116); ANION GAP 10 (8-16); ASPARTATE AMINO TRANSFERASE 162 U/L (10-37); BILIRUBIN,TOTAL 1.3 MG/DL (0.1-1.0); BLOOD UREA NITROGEN 11 MG/DL (7-18); BUN/CREATININE RATIO 10.9 (5.4-32.0); CALCIUM 9.6 MG/DL (8.5-10.1); CHLORIDE 102 MMOL/L (99-107); CREATININE 1.01 MG/DL (0.60-1.10); GLUCOSE 129 MG/DL (70-104); SODIUM 138 MMOL/L (135-145); TOTAL CARBON DIOXIDE 25.9 MMOL/L (24-32); TOTAL PROTEIN 7.3 G/DL (6.4-8.2); eGFR 76 ML/MIN
[2019-08-22 18:08] LABS: ETHANOL < 0.010 GM/DL (0.0-0.010); VALPROATE < 3.0 UG/ML (50-100)
[2019-08-22 18:12] LABS: ACETAMINOPHEN < 2.0 UG/ML (10-30)
[2019-08-22 18:53] LABS: CLARITY,URINE CLEAR (Clear); COLOR,URINE YELLOW (Yellow); GLUCOSE, URINE NEGATIVE (Neg); KETONES,URINE 15 mg/dl (Neg); LEUKOCYTE ESTERASE ,URINE TRACE (Neg); NITRITES, URINE NEGATIVE (Neg); OCCULT BLOOD,URINE NEGATIVE (Neg); PH,URINE 6.5 (4.8-8.0); PROTEIN,URINE TRACE mg/dl (Neg)
[2019-08-22 19:04] LABS: URINE AMPHETAMINE SCREEN NEGATIVE (Neg); URINE BARBITUATE SCREEN NEGATIVE (Neg); URINE BENZODIAZEPINES SCREEN NEGATIVE (Neg); URINE CANNABINOID SCREEN POSITIVE (Neg); URINE COCAINE SCREEN NEGATIVE (Neg); URINE METHADONE SCREEN NEGATIVE (Neg); URINE OPIATE SCREEN NEGATIVE (Neg); URINE PHENCYCLIDINE SCREEN NEGATIVE (Neg)
[2019-08-22 19:06] LABS: UA COLLECTION TYPE URINAL
[2019-08-22 19:09] LABS: BACTERIA,URINE NONE SEEN /HPF (Neg); MUCUS STRANDS MANY /LPF (Neg); RBC,URINE NONE SEEN /HPF (0-2); SQUAMOUS EPITHELIAL CELL,UR FEW /LPF (FEW); YEAST MODERATE /HPF (NEGATIVE)
--- NOTE | 2019-08-22 20:00 | NUR ---
PT SLEEPING, LYING ON HIS BACK WITH BLANKETS COVERING TO HER CHEST. RR 14 AND UNLABORED. PT MOVED FROM MAIN ER ROOM 15 TO OVERFLOW 27. TRANSFERED TO NEW ROOM WITH NO PROBLEMS.
--- NOTE | 2019-08-22 20:15 | NUR ---
Patient arrived from [facility]. He was reported to be sleeping quietly prior to moving to Overflow room 27. This patient is oriented to person, place, and time. Patient exhibits much anxiety, he is paranoid, patient states his family is Lumanati and Gestapo, "my mother would have done Hitler proud." Patient is responding to internal stimuli. He denies hallucinations. The patient denies S/I or H/I, "but I can become suicidal at any time because of stress and my family." This continuity writer will consult with the ER FLAVOR TANK TENDER about an Ativan order for anxiety.
[2019-08-22] MEDS ORDERED: LORazepam 1 MG tablet PO PRN (20:30)
[2019-08-22] MEDS ORDERED: LORazepam 1 MG tablet PO ONE (20:30)
--- NOTE | 2019-08-22 20:44 | NUR ---
Patient is mid fowlers position in bed. He has eaten a sandwich and consumed juice. Ativan has been given PO for anxiety. The patient is cooperative with this bond writer at this time.
--- NOTE | 2019-08-22 21:44 | NUR ---
Patient is awake, he is sitting up eating bishop crackers.
[2019-08-22] MEDS ORDERED: albuterol 2.5 MG/3 ML nebule NEB PRN (21:55)
--- NOTE | 2019-08-22 23:00 | NUR ---
Patient sleeping quietly on his left side. On occasion patient talks in his sleep.
--- NOTE | 2019-08-23 01:39 | NUR ---
Patient awakens, states he is afraid his blood sugar is going to drop! Patient is not a diabetic. Patient is reassured that he is safe. Patient still exhibits paranoia and responds to some sort of internal stimuli. After a snack the patient returns to sleep.
--- NOTE | 2019-08-23 02:30 | NUR ---
Patient sleeping on his right side in bed.
--- NOTE | 2019-08-23 03:18 | NUR ---
Patient awakens from a slumber. He is mumbling statements about the Nazi's. Patient then falls back to sleep.
--- NOTE | 2019-08-23 04:10 | NUR ---
Patient is sleeping on his left side in bed.
--- NOTE | 2019-08-23 05:10 | NUR ---
Patient sleeping quietly.
--- NOTE | 2019-08-23 06:04 | NUR ---
Patient is sleeping on his left side in bed.
--- NOTE | 2019-08-23 06:27 | NUR ---
PACKET FAXED TO [facility] OFFICE.
[2019-08-23] MEDS ORDERED: nicotine 14mg patch - 24hr TD ONE (08:00)
[2019-08-23] MEDS ORDERED: ipratropium 0.5 MG/2.5ML nebule NEB PRN (08:00)
[2019-08-23] MEDS ORDERED: ipratropium 0.5 MG/2.5ML nebule NEB SCH (08:00)
--- NOTE | 2019-08-23 09:25 | NUR ---
assumed care, pt is in bed eyes open, calm, no s/s of agitation observed
--- NOTE | 2019-08-23 10:15 | NUR ---
Hailey from [facility] at bedside, pt calm and agreeable to discussion
--- NOTE | 2019-08-23 11:00 | NUR ---
Pt placed on [facility] per [facility]
--- NOTE | 2019-08-23 11:20 | NUR ---
pt is sitting up in bed drinking coffee and eating crackers, calm no agitation observed
--- NOTE | 2019-08-23 12:34 | NUR ---
pt is laying on his left side, blanket over his head, regular breathing observed, does not appear to be in distress
--- NOTE | 2019-08-23 13:36 | NUR ---
pt is laying on his left side, blanket over his head, was just speaking with staff, no s/s of agitation observed
--- NOTE | 2019-08-23 14:46 | NUR ---
pt just finished his lunch, he is laying on his left side, calm
--- NOTE | 2019-08-23 15:28 | NUR ---
PT MOTHER CALLED, PT STATES THAT "HE DOES NOT WANT TO TALK TO "THAT BITUZAIR" STARTED CUSSING AND CRYING, HE ASKED THAT HIS BROTHER KELLI SHOULD BRING HIS BELONGINGS, I TOLD HIM THAT HE WOULD NOT BE ALLOWED TO HAVE HIS THINGS UNTIL HE LEFT, HE STATES HE KNOWS THAT HE IS BEING TRANSFERED TO [facility].. PT CALMED DOWN
--- NOTE | 2019-08-23 16:25 | NUR ---
PT IS AWAKE COMMENTING ON OTHER PATIENTS
--- NOTE | 2019-08-23 18:19 | NUR ---
pt is supine in bed, eyes open, regular breathing no agitaion observed
--- NOTE | 2019-08-23 19:22 | NUR ---
This patient is well oriented, dellusional, and responding to internal stimuli. Neida Garcia, director of assessing from the Behavioral [facility] has just phoned and she states they are prepared to accept this patient to their unit. Admitting is completing their side of the admission proccess. Patient is cooperative with staff.
[2019-08-23 19:30] VITALS: BP 142/98
== END 2019-08-23 19:38 ==
LOC: ER 16:30
DX: R45.851 Suicidal ideations (principal); F32.9 Major depressive disorder, single episode, unspecified; F43.10 Post-traumatic stress disorder, unspecified; J45.909 Unspecified asthma, uncomplicated; M19.90 Unspecified osteoarthritis, unspecified site; G89.29 Other chronic pain; F41.9 Anxiety disorder, unspecified; F17.200 Nicotine dependence, unspecified, uncomplicated; F12.90 Cannabis use, unspecified, uncomplicated; Z98.890 Other specified postprocedural states; Z86.69 Personal history of other diseases of the nervous system and sense organs; Z59.0 Homelessness; Z88.8 Allergy status to other drugs, medicaments and biological substances; Z79.899 Other long term (current) drug therapy
CPT/HCPCS: 36415; 80053; 80164; 80178; 80305; 80320; 80329; 81001; 84443; 85025; 99285

== ENCOUNTER 2019-08-23 16:55 | Inpatient (IN) | payer MEDICARE ==
[~2019-08-23] VITALS: Ht 185.4 cm; Wt 83.5 kg
[2019-08-23] MEDS ORDERED: mag hydrox/Alum hydrox/simeth 30ml oral suspension PO PRN (21:05)
[2019-08-23] MEDS ORDERED: loperamide 2mg capsule PO PRN (21:05)
[2019-08-23] MEDS ORDERED: magnesium hydroxide 30ml (MOM) UD suspension PO PRN (21:05)
[2019-08-23] MEDS ORDERED: acetaminophen 325mg tablet PO PRN (21:05)
[2019-08-23 22:28] VITALS: BP 130/90
[2019-08-23] MEDS: LORazepam 1 MG tablet PO PRN (23:09)
--- NOTE | 2019-08-23 23:39 | NUR ---
ADMIT NOTE: LEGAL HOLD: 5150 for DTS. Client arrived on unit at 21:15 in a wheelchair accompanied by Polly Scott. The clients personal belongings were inventoried, vital signs, a physical, and skin assessment were performed. The client took a shower and changed into green scrubs. He was cooperative throughout the admission process. Client was admitted to ED after making threats of suicide. He stated, "If I'm discharged I'll kill myself." Client was living with his parents and reported he was "kicked-out and started a downward spiral". The client believes he is being persecuted by the illuminati and that his parents are members. Client is particularly angry with his mother and stated, "Today is her birthday, and I don't care! F*ck her! Let the Nazi's have her!". When not discussing his family, client is pleasant and cooperative.
[2019-08-24 07:19] LABS: CHOL/HDL RATIO 2.4 (0.00-4.99); CHOLESTEROL 153 MG/DL (0-200); HDL CHOLESTEROL 63 MG/DL (35-60); LDL CHOLESTEROL 75 MG/DL (50-100); TRIGLYCERIDES 74 MG/DL (20-135)
[2019-08-24 07:31] LABS: HEMOGLOBIN A1C 5.3 % (4.5-6.2)
[2019-08-24] MEDS: ipratropium 0.5 MG/2.5ML nebule NEB SCH ×3 (08:00→20:26)
[2019-08-24 08:46] VITALS: BP 105/64
[2019-08-24] MEDS: albuterol 2.5 MG/3 ML nebule NEB PRN (09:48)
--- NOTE | 2019-08-24 10:01 | NUR ---
Pt states he smokes 1 pack a day and requests a nicotine patch.
[2019-08-24] MEDS: nicotine 21mg patch - 24 hr TD SCH (15:25)
--- NOTE | 2019-08-24 16:59 | NUR ---
[facility] Nursing Progress Note: LEGAL HOLD: 5150 for DTS. Why they are here: Client was admitted to ED after making threats of suicide. He stated, "If I'm discharged I'll kill myself." Client was living with his parents and reported he was "kicked-out and started a downward spiral". The client believes he is being persecuted by the illuminati and that his parents are members. Client is particularly angry with his mother and stated, "Today is her birthday, and I don't care! F*ck her! Let the Nazi's have her!". Assessment What has happened this shift: Pt was up before breakfast in tv room. Attended breakfast and was engaging with other residents without difficulty. He showered on day shift and shaved with PCT observation. Pt agrees to nicotine patch and states this helps his anxiety. Assessment difficult to obtain as pt is happy but very tangential and when asked how he is doing the conversation shifts and he becomes agitated and aggressively starts talking about natzis or illuiminati. He then went to dining room and watched a movie and talked with other residents. S/I, H/I: Denies A/VH: Denies Sleep: 5.5 per noc shift assessment ADL's: Independent Group attendance: Yes Were Meds taken: Yes Any med S/E: None noted Mental Status Exam Appearance: Showered on day shift. Shaved with PCT observation. Eye contact: Direct Behavior: Engaging. Cooperative. Speech: WNL. Mood: Good Affect: Somewhat congruent to mood. Thought process: Tangential Thought Content: Difficult to assess or understand Cognition: A/O X 4 Insight: Fair Judgment: Poor Interventions PRN's used: None Therapeutic interventions: 1:1 assessment, active listening, therapeutic conversation, medication administration/education/monitoring, behavior monitoring and intervention; reality orientation, limit setting, show of support, positive reinforcement, Q15 minute safety checks. Restraints/seclusion/emergency medication: N/A Justification of Continued Inpatient Treatment: Continued therapeutic support and medication management needed to provide stabilization, prevent decompensation, and improve coping mechanisms decreasing risk to patient and re-admittance.
[2019-08-24 19:00] VITALS: BP 111/92
[2019-08-24] MEDS: hydrOXYzine 25 MG tablet PO PRN (21:26)
[2019-08-24] MEDS: LORazepam 1 MG tablet PO PRN (21:26)
[2019-08-25] MEDS: ipratropium 0.5 MG/2.5ML nebule NEB SCH ×4 (02:00→20:00)
--- NOTE | 2019-08-25 02:55 | NUR ---
Nursing Progress Note: LEGAL HOLD: 5150 for DTS. Report received from GARCÍA Mistry with use of SBAR: Why they are here: Client was admitted to ED after making threats of suicide. He stated, "If I'm discharged I'll kill myself." Client was living with his parents and reported he was "kicked-out and started a downward spiral". The client believes he is being persecuted by the illuminati and that his parents are members. Client is particularly angry with his mother and stated, "Today is her birthday, and I don't care! F*ck her! Let the Nazi's have her!". Assessment What has happened this shift: This patient is self isolating in bed following shift change. The patient is well oriented, some minor internal stimuli is evident. This patients thought process is linear. The patient denies S/I, H/I, or hallucinations. Later when passing medications and speaking with the patient in the community room, he presents as labile at times, his speech is tangential at times, his speech is fast and animated. Calming measures are used with fair success. The patient eventually retires to bed. S/I, H/I: Denies. A/VH: Denies Sleep: Will tally in am. ADL's: Independent Group attendance: No group on nights. Were Meds taken: Yes, patient is medication compliant. Any med S/E: None. Mental Status Exam Appearance: Patient is clean but unkept. Eye contact: Direct. Behavior: Self isolating. Speech: Rapid and loud. Mood: Good Affect: Somewhat congruent to mood. Thought process: Tangential. Thought Content: Difficult to assess or understand Cognition: A/O X 4 Insight: Fair Judgment: Poor Interventions PRN's used: None Therapeutic interventions: 1:1 assessment, active listening, therapeutic conversation, medication administration/education/monitoring, behavior monitoring and intervention; reality orientation, limit setting, show of support, positive reinforcement, Q15 minute safety checks. Restraints/seclusion/emergency medication: N/A Justification of Continued Inpatient Treatment: Continued therapeutic support and medication management needed to provide stabilization, prevent decompensation, and improve coping mechanisms decreasing risk to patient and re-admittance.
[2019-08-25 08:00] VITALS: BP 110/73
[2019-08-25] MEDS: nicotine 21mg patch - 24 hr TD SCH (09:00)
[2019-08-25] MEDS: albuterol 2.5 MG/3 ML nebule NEB PRN (09:41)
--- NOTE | 2019-08-25 17:01 | NUR ---
Nursing Progress Note: LEGAL HOLD: 5150 for DTS. Why they are here: Client was admitted to ED after making threats of suicide. He stated, "If I'm discharged I'll kill myself." Client was living with his parents and reported he was "kicked-out and started a downward spiral". The client believes he is being persecuted by the illuminati and that his parents are members. Client is particularly angry with his mother and stated, "Today is her birthday, and I don't care! F*ck her! Let the Nazi's have her!". Assessment What has happened this shift: Received Pt in bed sleeping w/o distress at beginning of shift. Pt pleasant and cooperative with vitals and ate breakfast late by self in community room. Pt hyperverbal at times, mixing facts with his own delusions and in a funny way at times. He speaks about corrupt politicians, judges and people who run the [employer]. Pt often switches topics rapidly and has difficulty with staff attempts to change subjects or get concrete answers. Pt got his hair cut today and showered. Took a nap in morning and afternoon. S/I, H/I: Denies A/VH: Denies Sleep: Napped ADL's: Independent Group attendance: No groups today Were Meds taken: Nicotine Patch only Any med S/E: None noted Mental Status Exam Appearance: Casual. Eye contact: Direct Behavior: Engaging. Cooperative. Speech: Pressured speech Mood: Tense Affect: Congruent with mood Thought process: Tangential Thought Content: Difficult to assess or understand Cognition: A/O X 4 Insight: Fair Judgment: Poor Interventions PRN's used: None Therapeutic interventions: 1:1 assessment, active listening, therapeutic conversation, medication administration/education/monitoring, behavior monitoring and intervention; reality orientation, limit setting, show of support, positive reinforcement, Q15 minute safety checks. Restraints/seclusion/emergency medication: N/A Justification of Continued Inpatient Treatment: Continued therapeutic support and medication management needed to provide stabilization, prevent decompensation, and improve coping mechanisms decreasing risk to patient and re-admittance.
[2019-08-25 20:29] VITALS: BP 141/86
--- NOTE | 2019-08-25 22:12 | NUR ---
[facility]am[facility] Progress Note: LEGAL HOLD: 5150 for DTS. Why they are here: Client was admitted to ED after making threats of suicide. He stated, "If I'm discharged I'll kill myself." Client was living with his parents and reported he was "kicked-out and started a downward spiral". The client believes he is being persecuted by the illuminati and that his parents are members. Client is particularly angry with his mother and stated, "Today is her birthday, and I don't care! F*ck her! Let the Nazi's have her!". Assessment What has happened this shift: Received Pt in bed sleeping w/o distress at beginning of shift. Pt pleasant and cooperative with vitals and isolated to his room. Pt hyperverbal at times, mixing facts with his own delusions. Pt refused his nebulizer txand went to bed. S/I, H/I: Denies A/VH: Denies Sleep: Napped ADL's: Independent Group attendance: No groups today Were Meds taken: Nicotine Patch only Any med S/E: None noted Mental Status Exam Appearance: Casual. Eye contact: Direct Behavior: Engaging. Cooperative. Speech: Pressured speech Mood: Tense Affect: Congruent with mood Thought process: Tangential Thought Content: Difficult to assess or understand Cognition: A/O X 4 Insight: Fair Judgment: Poor Interventions PRN's used: None Therapeutic interventions: 1:1 assessment, active listening, therapeutic conversation, medication administration/education/monitoring, behavior monitoring and intervention; reality orientation, limit setting, show of support, positive reinforcement, Q15 minute safety checks. Restraints/seclusion/emergency medication: N/A Justification of Continued Inpatient Treatment: Continued therapeutic support and medication management needed to provide stabilization, prevent decompensation, and improve coping mechanisms decreasing risk to patient and re-admittance.
[2019-08-26] MEDS: ipratropium 0.5 MG/2.5ML nebule NEB SCH ×4 (02:00→20:00)
[2019-08-26 08:00] VITALS: BP 118/74
[2019-08-26] MEDS: nicotine 21mg patch - 24 hr TD SCH (09:09)
[2019-08-26] MEDS: acetaminophen 325mg tablet PO PRN ×2 (09:53→17:22)
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
[2019-08-26 20:00] VITALS: BP 127/82
--- NOTE | 2019-08-26 21:33 | NUR ---
Nursing Progress Note: LEGAL HOLD: 5150 for DTS. Why they are here: Client was admitted to ED after making threats of suicide. He stated, "If I'm discharged I'll kill myself." Client was living with his parents and reported he was "kicked-out and started a downward spiral". The client believes he is being persecuted by the illuminati and that his parents are members. Client is particularly angry with his mother and stated, "Today is her birthday, and I don't care! F*ck her! Let the Nazi's have her!". Assessment What has happened this shift: Pt up dressed and watching TV at the begining of shift. Pt pleasant and cooperative with vitals and ate snack in community room. Pt hyperverbal at times, mixing facts with his own delusions and in a funny way at times. He speaks about people of [employer] audra, then states I am not anti- semintic though. Pt often switches topics rapidly and has difficulty with staff attempts to change subjects or get concrete answers. S/I, H/I: Denies A/VH: Denies Sleep: Napped ADL's: Independent Group attendance: No groups today Were Meds taken: Nicotine Patch only Any med S/E: None noted Mental Status Exam Appearance: Casual. Eye contact: Direct Behavior: Engaging. Cooperative. Speech: Pressured speech Mood: Tense Affect: Congruent with mood Thought process: Tangential Thought Content: Difficult to assess or understand Cognition: A/O X 4 Insight: Fair Judgment: Poor Interventions PRN's used: Therapeutic interventions: 1:1 assessment, active listening, therapeutic conversation, medication administration/education/monitoring, behavior monitoring and intervention; reality orientation, limit setting, show of support, positive reinforcement, Q15 minute safety checks. Restraints/seclusion/emergency medication: N/A Justification of Continued Inpatient Treatment: Continued therapeutic support and medication management needed to provide stabilization, prevent decompensation, and improve coping mechanisms decreasing risk to patient and re-admittance.
[2019-08-27] MEDS: ipratropium 0.5 MG/2.5ML nebule NEB SCH ×4 (02:00→20:00)
[2019-08-27] MEDS: LORazepam 1 MG tablet PO PRN ×2 (02:03→20:46)
[2019-08-27 07:48] VITALS: BP 109/75
[2019-08-27] MEDS: nicotine 21mg patch - 24 hr TD SCH (08:06)
--- NOTE | 2019-08-27 11:20 | NUR ---
Initial: Pt admit with depression with SI. Currently on a regular diet documented with 100% PO intake meeting nutrient needs. LBM 08/25. No edema or wounds. No nutrition diagnosis at this time. Will continue to follow. Recommendations: 1) Continue regular diet 2) Bowel care PRN 3) Wt per rx Addendum: 08/27/19 at [address] Amended: Links added.
--- NOTE | 2019-08-27 14:32 | NUR ---
Nursing Progress Note: LEGAL HOLD: 5250 Client on involuntary status for DTS Why they are here: Client was admitted to ED after making threats of suicide. He stated, "If I'm discharged I'll kill myself." Client was living with his parents and reported he was "kicked-out and started a downward spiral". The client believes he is being persecuted by the illuminati and that his parents are members. Client is particularly angry with his mother and stated, "Today is her birthday, and I don't care! F*ck her! Let the Nazi's have her!". Assessment What has happened this shift: Pt was up for breakfast laughing, hyperverbal, rambling. Pt is disorganized and tangential. Pt mumbled something about the [employer] then stated, "I don't care if you don't believe me." Pt was cooperative with meds and physical assessment. Pt watches TV at times in the rec room. Observed pt watching Alejandro Kirk in black and white. Pt spoke of watching black and white TV as a child until his dad got a color RCA then "it was like the Wizard of Oz everyday." Pt laughed after telling the story. Pt denied depression, SI/AH/VH/HI. Pt asked why we ask him about this every shift. 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 Pt spoke of how hard it is to quit smoking cigarettes, stated that patches are the only thing that helps, not gum or lozenges. Pt continues on routine nebulizer treatments. S/I, H/I: Pt denies A/VH: Pt denies Sleep: Pt slept 6.25 hours per noc shift report. ADL's: Independent Group attendance: No groups today Were Meds taken: Yes Any med S/E: None noted or reported. Mental Status Exam Appearance: Clean, dressed in street clothes. Eye contact: Good Behavior: Disorganized, cooperative Speech: Pressured, hyperverbal, mumbles, difficult to understand at times. Mood: Good Affect: Cheerful Thought process: Tangential, delusional Thought Content: Believes he doesn't have mental health issues only autism and ADHD. Cognition: A/O X 4 Insight: Poor Judgment: Poor Interventions PRN's used: None Therapeutic interventions: 1:1 assessment, active listening, therapeutic conversation, medication administration/education/monitoring, behavior monitoring and intervention; reality orientation, Q15 minute safety checks. Restraints/seclusion/emergency medication: N/A Justification of Continued Inpatient Treatment: Continued therapeutic support and medication management needed to provide stabilization, prevent decompensation, and improve coping mechanisms decreasing risk to patient and re-admittance.
[2019-08-27 19:42] VITALS: BP 118/80
--- NOTE | 2019-08-27 22:16 | NUR ---
Nursing Progress Note: LEGAL HOLD: 5250 Client on involuntary status for DTS Report recvd from Fede MARIANO Why they are here: Client was admitted to ED after making threats of suicide. He stated, "If I'm discharged I'll kill myself." Client was living with his parents and reported he was "kicked-out and started a downward spiral". The client believes he is being persecuted by the illuminati and that his parents are members. Client is particularly angry with his mother and stated, "Today is her birthday, and I don't care! F*ck her! Let the Nazi's have her!". Assessment What has happened this shift: Pt was in rec room watching tv and talking about government conspiracies at change of shift. Pt spent evening in rec room watching tv and engaging with peers. Pt took meds but states he is a member of the "[place] [employer]" and if he becomes ill from the medicines he will come after the hospital. He warns he will "go ballistic" if he gets sick from medicines. Pt talks about being sick in the past from medication. S/I, H/I: Pt denies A/VH: Pt denies Sleep: Pt reports not sleeping well previous night ADL's: Independent Group attendance: No groups today Were Meds taken: Yes Any med S/E: None noted or reported. Mental Status Exam Appearance: Clean, dressed in street clothes. Eye contact: Good Behavior: Disorganized, cooperative Speech: Pressured, hyperverbal, mumbles, difficult to understand at times. Mood: Good Affect: Cheerful Thought process: Tangential, delusional Thought Content: talking about getting sick from medication and being a member of the [employer]. Cognition: A/O X 4 Insight: Poor Judgment: Poor Interventions PRN's used: None Therapeutic interventions: 1:1 assessment, active listening, therapeutic conversation, medication administration/education/monitoring, behavior monitoring and intervention; reality orientation, Q15 minute safety checks. Restraints/seclusion/emergency medication: N/A Justification of Continued Inpatient Treatment: Continued therapeutic support and medication management needed to provide stabilization, prevent decompensation, and improve coping mechanisms decreasing risk to patient and re-admittance.
[2019-08-28] MEDS: ipratropium 0.5 MG/2.5ML nebule NEB SCH ×4 (02:00→21:06)
[2019-08-28] MEDS: nicotine 21mg patch - 24 hr TD SCH (07:42)
[2019-08-28 08:24] VITALS: BP 106/64
[2019-08-28] MEDS: acetaminophen 325mg tablet PO PRN (12:46)
--- NOTE | 2019-08-28 14:51 | NUR ---
NURSING PROGRESS NOTE LEGAL HOLD: 5250 Client on involuntary status for DTS Report received from VAZQUEZ Huitron with use of SBAR Why they are here: Client was admitted to ED after making threats of suicide. He stated, "If I'm discharged I'll kill myself." Client was living with his parents and reported he was "kicked-out and started a downward spiral". The client believes he is being persecuted by the illuminati and that his parents are members. Client is particularly angry with his mother and stated, "Today is her birthday, and I don't care! F*ck her! Let the Nazi's have her!". Assessment What has happened this shift: Up and having coffee early in group room with roommate. Eats all food at meals and snacks, medication compliant. Hyperverbal, pressured speech, laughing. disorganized and tangential thoughts. Jumps form [employer] [place], the [employer], to wanting construction paper for [employer]. Asks nurse, "Were you a model?" Answer no. "Well you should be." Then tells nurse, matter of factly, "We'll go out later." In afternoon asked for Tylenol for back pain, which was given and patient fell asleep. Denies all SI, HI, VH, AH. S/I, H/I: Pt denies A/VH: Pt denies Sleep: napped ADL's: Independent Group attendance: No groups today Were Meds taken: Yes Any med S/E: None noted or reported. Mental Status Exam Appearance: Clean, dressed in street clothes. Eye contact: Good Behavior: Disorganized, cooperative Speech: Pressured, hyperverbal Mood: "Great" Affect: Cheerful Thought process: Tangential, delusional Thought Content: Tangential Cognition: Alert Insight: Poor Judgment: Poor Interventions PRN's used: Tylenol x1 Therapeutic interventions: 1:1 assessment, active listening, therapeutic conversation, medication administration/education/monitoring, behavior monitoring and intervention; reality orientation, Q15 minute safety checks. Restraints/seclusion/emergency medication: N/A Justification of Continued Inpatient Treatment: Continued therapeutic support and medication management needed to provide stabilization, prevent decompensation, and improve coping mechanisms decreasing risk to patient and re-admittance.
[2019-08-28 20:01] VITALS: BP 136/76
[2019-08-28] MEDS: LORazepam 1 MG tablet PO PRN (20:16)
--- NOTE | 2019-08-28 23:27 | NUR ---
NURSING PROGRESS NOTE LEGAL HOLD: 5250 Client on involuntary status for DTS Report received from VAZQUEZ Huitron with use of SBAR Why they are here: Client was admitted to ED after making threats of suicide. He stated, "If I'm discharged I'll kill myself." Client was living with his parents and reported he was "kicked-out and started a downward spiral". The client believes he is being persecuted by the illuminati and that his parents are members. Client is particularly angry with his mother and stated, "Today is her birthday, and I don't care! F*ck her! Let the Nazi's have her!". Assessment What has happened this shift: Pt was watching news in the rec room and talking about the [place] [employer] and being tired of Trump. Pt is pleasant and complimentary to staff and pers. Pt became agitated during med pass, threatening that the [place] [employer] will be angry about his meds increasing and calling staff liars. Pt did eventually agree to take increase dose of medication and apologized for yelling stating "Im not a bad vivien." S/I, H/I: Pt denies A/VH: Pt denies Sleep: napped ADL's: Independent Group attendance: No groups today Were Meds taken: Yes Any med S/E: None noted or reported. Mental Status Exam Appearance: Clean, dressed in street clothes. Eye contact: Good Behavior: Disorganized, cooperative Speech: Pressured, hyperverbal Mood: euthymic Affect: Cheerful Thought process: Tangential, delusional Thought Content: talking about [place] [employer] and using romanian words Cognition: Alert Insight: Poor Judgment: Poor Interventions PRN's used: ativan Therapeutic interventions: 1:1 assessment, active listening, therapeutic conversation, medication administration/education/monitoring, behavior monitoring and intervention; reality orientation, Q15 minute safety checks. Restraints/seclusion/emergency medication: N/A Justification of Continued Inpatient Treatment: Continued therapeutic support and medication management needed to provide stabilization, prevent decompensation, and improve coping mechanisms decreasing risk to patient and re-admittance.
[2019-08-29] MEDS: ipratropium 0.5 MG/2.5ML nebule NEB SCH ×4 (02:00→20:00)
[2019-08-29] MEDS: nicotine 21mg patch - 24 hr TD SCH (07:33)
[2019-08-29 08:00] VITALS: BP 106/74
[2019-08-29] MEDS: LORazepam 1 MG tablet PO PRN ×2 (08:58→20:07)
--- NOTE | 2019-08-29 15:03 | NUR ---
NURSING PROGRESS NOTE LEGAL HOLD: 5250 Client on involuntary status for DTS Report received from VAZQUEZ Huitron with use of SBAR Why they are here: Client was admitted to ED after making threats of suicide. He stated, "If I'm discharged I'll kill myself." Client was living with his parents and reported he was "kicked-out and started a downward spiral". The client believes he is being persecuted by the illuminati and that his parents are members. Client is particularly angry with his mother and stated, "Today is her birthday, and I don't care! F*ck her! Let the Nazi's have her!". Assessment What has happened this shift: In room this morning, anxious and agitated regarding medication increase last night. Came out for breakfast. Disorganized and tangential thoughts with rapid pressured speech. "You know I'm the [facility], we fried all the Jews, I have medication rights, I don't give a fuck about her, she can , [facility] does things, have you ever got a mortgage? you agree and all of it stays the same the whole time, who made him God." Eats all food at meals and snacks, medication compliant. Denies all SI, HI, VH, AH. Was given Ativan prn and tylenol with good effect this morning. S/I, H/I: Pt denies A/VH: Pt denies Sleep: napped ADL's: Independent Group attendance: No groups today Were Meds taken: Yes Any med S/E: None noted or reported. Mental Status Exam Appearance: Clean, dressed in street clothes. Eye contact: Good Behavior: Disorganized, cooperative Speech: Pressured, hyperverbal Mood: "I'm really pissed off" Affect: Constricted Thought process: Tangential, delusional Thought Content: delusional Cognition: Alert Insight: Poor Judgment: Poor Interventions PRN's used: Tylenol x1, Ativan x1 Therapeutic interventions: 1:1 assessment, active listening, therapeutic conversation, medication administration/education/monitoring, behavior monitoring and intervention; reality orientation, Q15 minute safety checks. Restraints/seclusion/emergency medication: N/A Justification of Continued Inpatient Treatment: Continued therapeutic support and medication management needed to provide stabilization, prevent decompensation, and improve coping mechanisms decreasing risk to patient and re-admittance.
[2019-08-29 19:00] VITALS: BP 125/74
--- NOTE | 2019-08-29 22:15 | NUR ---
NURSING PROGRESS NOTE LEGAL HOLD: 5250 Client on involuntary status for DTS Report received from VAZQUEZ Monae with use of SBAR Why they are here: Client was admitted to ED after making threats of suicide. He stated, "If I'm discharged I'll kill myself." Client was living with his parents and reported he was "kicked-out and started a downward spiral". The client believes he is being persecuted by the illuminati and that his parents are members. Client is particularly angry with his mother and stated, "Today is her birthday, and I don't care! F*ck her! Let the Nazi's have her!". Assessment What has happened this shift: Pt was in the rec room watching tv at change of shift. C/o the show on tv and states he needs to close his [employer] acct and transfer his funds to a [employer]. Pt states his day was good and he is pleasant and cooperative. Discussed meds with patient and he was agreeable but during med pass he becomes agitated each night. Began yelling at this engineering technical writer after taking his meds "I took them tonight you fucking bitch, but Im not taking them again, you can shove them up your ass, you fucking illuminati" He then walked down the [place] calling the techs "illuminated" and yelled at his roommate before getting into bed. Pt was redirected to lower his voice and he went to sleep. S/I, H/I: Pt denies A/VH: Pt denies Sleep: napped ADL's: Independent Group attendance: No groups today Were Meds taken: Yes Any med S/E: None noted or reported. Mental Status Exam Appearance: Clean, dressed in street clothes. Eye contact: Good Behavior: Disorganized, cooperative Speech: Pressured, hyperverbal Mood: Pleasant mood until med pass each night he becomes very agitated Affect: Constricted Thought process: Tangential, delusional Thought Content: delusional Cognition: Alert Insight: Poor Judgment: Poor Interventions PRN's used: Ativan x1 Therapeutic interventions: 1:1 assessment, active listening, therapeutic conversation, medication administration/education/monitoring, behavior monitoring and intervention; reality orientation, Q15 minute safety checks. Restraints/seclusion/emergency medication: N/A Justification of Continued Inpatient Treatment: Continued therapeutic support and medication management needed to provide stabilization, prevent decompensation, and improve coping mechanisms decreasing risk to patient and re-admittance.
[2019-08-30] MEDS: ipratropium 0.5 MG/2.5ML nebule NEB SCH ×4 (02:00→20:41)
[2019-08-30] MEDS: nicotine 21mg patch - 24 hr TD SCH (07:39)
[2019-08-30 08:00] VITALS: BP 121/73
[2019-08-30] MEDS: triamcinolone acet 0.1% cream 15gm TP SCH ×3 (08:00→21:12)
--- NOTE | 2019-08-30 11:57 | NUR ---
NURSING PROGRESS NOTE LEGAL HOLD: 5250 Client on involuntary status for DTS Report received from GARCÍA Robison with use of SBAR Why they are here: Client was admitted to ED after making threats of suicide. He stated, "If I'm discharged I'll kill myself." Client was living with his parents and reported he was "kicked-out and started a downward spiral". The client believes he is being persecuted by the illuminati and that his parents are members. Client is particularly angry with his mother and stated, "Today is her birthday, and I don't care! F*ck her! Let the Nazi's have her!". Assessment What has happened this shift: Disorganized and tangential thoughts with rapid pressured speech. Irritated and delusional, talking this morning about his family bringing his belongings, but then telling nurse "if they do, to tell them to fuck off", then talking about the [employer] and Nazi's. His roommate is leaving and he wants his bed so he just moved his things over to the other bed. He was redirected but patient was using bad language with nurse and tech had to intervene. Patient was redirectable. Eats all food at meals and snacks, medication compliant. Denies all SI, HI, VH, AH. S/I, H/I: Pt denies A/VH: Pt denies Sleep: napped ADL's: Independent Group attendance: No groups today Were Meds taken: Yes Any med S/E: None noted or reported. Mental Status Exam Appearance: Clean, dressed in street clothes. Eye contact: Good Behavior: Disorganized, cooperative Speech: Pressured, hyperverbal Mood: "I'm really pissed off" Affect: Constricted Thought process: Tangential, delusional Thought Content: delusional Cognition: Alert Insight: Poor Judgment: Poor Interventions PRN's used: None Therapeutic interventions: 1:1 assessment, active listening, therapeutic conversation, medication administration/education/monitoring, behavior monitoring and intervention; reality orientation, Q15 minute safety checks. Restraints/seclusion/emergency medication: N/A Justification of Continued Inpatient Treatment: Continued therapeutic support and medication management needed to provide stabilization, prevent decompensation, and improve coping mechanisms decreasing risk to patient and re-admittance.
[2019-08-30] MEDS: acetaminophen 325mg tablet PO PRN (15:01)
[2019-08-30] MEDS: LORazepam 1 MG tablet PO PRN (15:01)
[2019-08-30 19:00] VITALS: BP 92/72
--- NOTE | 2019-08-30 21:00 | NUR ---
Pt. refused to have nicotine patch removed at HS despite education, will endorse to AM shift.
[2019-08-30] MEDS: hydrOXYzine 25 MG tablet PO PRN (21:11)
[2019-08-31] MEDS: ipratropium 0.5 MG/2.5ML nebule NEB SCH ×4 (01:07→20:08)
--- NOTE | 2019-08-31 01:22 | NUR ---
Nursing Progress Note: Legal hold: 5250 Client on involuntary status for DTS Report received from nurse with use of SBAR: GARCÍA Marie Why are they here: Client was admitted to ED after making threats of suicide. He stated, "If I'm discharged I'll kill myself." Client was living with his parents and reported he was "kicked-out and started a downward spiral". The client has delusional thoughts and believes that he is being persecuted by the illuminati and that his parents are members. Client is particularly angry with his mother and stated, "Today is her birthday, and I don't care! F*ck her! Let the Nazi's have her!". Assessment What has happened this shift: Pt. talking with the MD in her office at the beginning of the shift, he is later sitting in the Recreation Room, watching TV and interacting appropriately with others. Pt. requests to switch beds because the light from the hallway shines in his eyes and keeps him awake at night, MD and nurse agree that this is acceptable. This scientific technical writer introduces self and establishes rapport, pt. presents as cooperative, anxious, impulsive at times, and appears hypomanic. He states animatedly, "Don't I know you from [place]? Do you know Cydney? Do you go to the [email or web address]?" Pt's speech is Pressured, racing, and hyperverbal, however he is able to be redirected. No episodes of increased agitation exhibited this shift, however pt. makes several hypersexual statements r/t his belief that others believe his is adhikari. 1:1 complete at bedside, pt. denies S/I, H/I, or any A/V/MURDOCK and he does not appear to be internally preoccupied. However, pt. continues to make many paranoid and grandiose delusional statements. He states, "My family has a conspiracy theory to poison me." Pt. talks incessantly about all of the models he has dated and the ones that he plans to . He then states, "I am [place], that means I'm powerful. Janeen is like I.P.A[employer] it means God!" PRN Atrax administered at HS with effectiveness r/t pt. report of anxiety. S/I, H/I: Denies A/VH: Denies, does not appear internally preoccupied Sleep: Pt. reports he has been sleeping well ADL's: Pt. requires redirection at times Group attendance: Pt. attended HS snack Were meds taken: Yes Any med S/E: None Mental Status Exam Appearance: Pt. appears slightly disheveled, however is appropriately dressed Eye contact: Good, intense at times Behavior: Cooperative, anxious, impulsive at times, and appears hypomanic Speech: Pressured, racing, and hyperverbal Mood: Slight irritability at times with animation Affect: Labile, however able to be redirected Thought process: Tangental with disorganization Thought Content: Ongoing paranoid and grandiose delusions Cognition: A&O X4 Insight: Poor Judgment: Poor Interventions PRN's used: Atrax Therapeutic interventions: Introduced self and established rapport, ensured contract for safety, maintained a safe and therapeutic environment, provided clear and simple instructions, attempted to reorient to reality, monitored behavior and need for intervention, provided redirection as needed, and maintained Q 15min safety checks. Restraints/seclusion/emergency medication: N/A Justification of Continued Inpatient Treatment: BHARTI Urena, pt. appears to be gravely disabled r/t his ongoing delusional thinking. He is currently homeless and was making H/I statements earlier regarding possible discharge to the [facility]. He continues to require medication adjustments and a safe and therapeutic environment.
[2019-08-31] MEDS: LORazepam 1 MG tablet PO PRN ×2 (05:12→15:42)
--- NOTE | 2019-08-31 05:15 | NUR ---
Pt. awoke with c/o anxiety, states, "I woke up seeing the face of the DA that put me in half-way. No one should have to wake up to the face of that bitch!" PRN Ativan administered and pt. encouraged to relax, will continue to monitor.
[2019-08-31 07:39] VITALS: BP 124/64
[2019-08-31] MEDS: triamcinolone acet 0.1% cream 15gm TP SCH ×3 (09:00→21:00)
[2019-08-31] MEDS: nicotine 21mg patch - 24 hr TD SCH (09:05)
[2019-08-31] MEDS: albuterol 2.5 MG/3 ML nebule NEB PRN (15:54)
--- NOTE | 2019-08-31 18:10 | NUR ---
Nursing Progress Note: Legal hold: 5250 Client on involuntary status for DTS Report received from luis f Phillips RN with use of SBAR: Why are they here: Client was admitted to ED after making threats of suicide. He stated, "If I'm discharged I'll kill myself." Client was living with his parents and reported he was "kicked-out and started a downward spiral". The client has delusional thoughts and believes that he is being persecuted by the illuminati and that his parents are members. Client is particularly angry with his mother and stated, "Today is her birthday, and I don't care! F*ck her! Let the Nazi's have her!". Assessment What has happened this shift: Pt presents pleasant but hyperverbal and delusional. He handed 2 separate notes to RN with writings about government conspiracy such as [place] outflows mechanisms are totally disabled rendering the dam a useless 14 state federal grid supplier and just a +600 ft waterfall of uncontrolled outflows. Can [facility] . (This is verbatim from the letter. ) Pt requested Ativan once. He denies SI/HI. S/I, H/I: Denies A/VH: Writings of voices and delusions as stated above. Sleep: 7.75 per noc assessment ADL's: Independent Group attendance: None at this time. Were meds taken: Yes Any med S/E: None Mental Status Exam Appearance: Dressed in unit scrubs and coat. Hair combed. Eye contact: Good, Behavior: Cooperative but labile. Calm then rants about conspiracies. Speech: Pressured mixed with calm. Mood: Good Affect: Animated mixed with calm. Thought process: Disorganized Tangential Thought Content: paranoid delusions Cognition: A&O X4 Insight: Poor Judgment: Poor Interventions PRN's used: Ativan Therapeutic interventions: Introduced self and established rapport, ensured contract for safety, maintained a safe and therapeutic environment, provided clear and simple instructions, attempted to reorient to reality, monitored behavior and need for intervention, provided redirection as needed, and maintained Q 15min safety checks. Restraints/seclusion/emergency medication: N/A Justification of Continued Inpatient Treatment: Per BHARTI Torrez, pt. appears to be gravely disabled r/t his ongoing delusional thinking. He is currently homeless and was making H/I statements earlier regarding possible discharge to the [facility]. He continues to require medication adjustments and a safety and therapeutic environment
[2019-08-31 19:00] VITALS: BP 117/69
[2019-08-31] MEDS: oseltamivir phos 75mg capsule PO SCH (20:00)
--- NOTE | 2019-08-31 21:09 | NUR ---
Nursing Progress Note: Legal hold: 5250 Client on involuntary status for DTS Report received from Letha MARIANO with use of SBAR: Why are they here: Client was admitted to ED after making threats of suicide. He stated, "If I'm discharged I'll kill myself." Client was living with his parents and reported he was "kicked-out and started a downward spiral". The client has delusional thoughts and believes that he is being persecuted by the illuminati and that his parents are members. Client is particularly angry with his mother and stated, "Today is her birthday, and I don't care! F*ck her! Let the Nazi's have her!". Assessment What has happened this shift: Pt presents pleasant but hyperverbal and delusional. He denies SI/HI. and was med compliant. He c/o the people who bilt the hospital are idiots they they bilt it facing the wrong way. Pt in rec room watching tv till snack then went to bed. S/I, H/I: Denies A/VH: Writings of voices and delusions as stated above. Sleep: 7.75 per noc assessment ADL's: Independent Group attendance: None at this time. Were meds taken: Yes Any med S/E: None Mental Status Exam Appearance: Dressed in unit scrubs and coat. Hair combed. Eye contact: Good, Behavior: Cooperative but labile. Calm then rants about conspiracies. Speech: Pressured mixed with calm. Mood: Good Affect: Animated mixed with calm. Thought process: Disorganized Tangential Thought Content: paranoid delusions Cognition: A&O X4 Insight: Poor Judgment: Poor Interventions PRN's used: Therapeutic interventions: Introduced self and established rapport, ensured contract for safety, maintained a safe and therapeutic environment, provided clear and simple instructions, attempted to reorient to reality, monitored behavior and need for intervention, provided redirection as needed, and maintained Q 15min safety checks. Restraints/seclusion/emergency medication: N/A Justification of Continued Inpatient Treatment: Per BHARTI Torrez, pt. appears to be gravely disabled r/t his ongoing delusional thinking. He is currently homeless and was making H/I statements earlier regarding possible discharge to the [facility]. He continues to require medication adjustments and a safety and therapeutic environment
[2019-09-01] MEDS: ipratropium 0.5 MG/2.5ML nebule NEB SCH ×4 (02:00→20:00)
[2019-09-01] MEDS: acetaminophen 325mg tablet PO PRN ×2 (04:54→15:22)
[2019-09-01 08:00] VITALS: BP 136/91
[2019-09-01] MEDS: triamcinolone acet 0.1% cream 15gm TP SCH ×3 (08:00→21:00)
[2019-09-01] MEDS: oseltamivir phos 75mg capsule PO SCH (08:00)
[2019-09-01] MEDS: nicotine 21mg patch - 24 hr TD SCH (08:39)
--- NOTE | 2019-09-01 17:57 | NUR ---
Nursing Progress Note: JI Legal hold: 5250 Client on involuntary status for DTS Report received from Neida Garcia RN with use of SBAR: Why are they here: Client was admitted to ED after making threats of suicide. He stated, "If I'm discharged I'll kill myself." Client was living with his parents and reported he was "kicked-out and started a downward spiral". The client has delusional thoughts and believes that he is being persecuted by the illuminati and that his parents are members. Client is particularly angry with his mother and stated, "Today is her birthday, and I don't care! F*ck her! Let the Nazi's have her!". Assessment What has happened this shift: Pt presents pleasant but hyper verbal and delusional. He denies SI/HI. Pt was amendable to 1:1 assessment at bedside. Pt took all medications but Tamiflu. He reports, I have God-like DNA, I cant get sick, Im impenetrable. Later found ranting to other patients saying, All they care about around here is psychotropics. The psychotropics are all laced with LSD. They tried injecting me with Small Pox 25. Pt talked of Hilter and how he idolized him. Pt denies any SEs, reports Im perfect, I dont experience those things, I never have and never will. Pt c/o not having double portions on his plate during meals, reports he has spoke with the doctor about it. Im forty punds underweight, this wouldnt happen in [facility]! Pt requested Tylenol for his back pain, degenerative disc disease. No other concerns voiced at time time. S/I, H/I: Denies A/VH: Multiple delusions as stated above. Sleep: 6.25 hrs NOC assessment ADL's: Independent Group attendance: Yes Were meds taken: Yes, all but Tamiflu Any med S/E: None Mental Status Exam Appearance: Dressed in unit scrubs and coat. Eye contact: Direct Behavior: Cooperative. Multiple annoyances Speech: Pressured, calm, sporadic Mood: Fine Affect: Animated Thought process: Disorganized, Tangential Thought Content: paranoid delusions Cognition: A&O X4 Insight: Poor Judgment: Poor Interventions PRN's used: tylenol X1 Therapeutic interventions: Introduced self and established rapport, ensured contract for safety, maintained a safe and therapeutic environment, provided clear and simple instructions, attempted to reorient to reality, monitored behavior and need for intervention, provided redirection as needed, and maintained Q 15min safety checks. Restraints/seclusion/emergency medication: N/A Justification of Continued Inpatient Treatment: BHARTI Urena, pt. appears to be gravely disabled r/t his ongoing delusional thinking. He is currently homeless and was making H/I statements earlier regarding possible discharge to the [facility]. He continues to require medication adjustments and a safety and therapeutic environment
[2019-09-01 20:00] VITALS: BP 122/83
[2019-09-01] MEDS: LORazepam 1 MG tablet PO PRN (20:23)
[2019-09-01 20:47] VITALS: BP 122/83
--- NOTE | 2019-09-01 21:19 | NUR ---
Nursing Progress Note: JI Legal hold: 5250 Client on involuntary status for DTS Report received from Letha MARIANO with use of SBAR: Why are they here: Client was admitted to ED after making threats of suicide. He stated, "If I'm discharged I'll kill myself." Client was living with his parents and reported he was "kicked-out and started a downward spiral". The client has delusional thoughts and believes that he is being persecuted by the illuminati and that his parents are members. Client is particularly angry with his mother and stated, "Today is her birthday, and I don't care! F*ck her! Let the Nazi's have her!". Assessment What has happened this shift: Pt presents pleasant but hyper verbal and delusional. He denies SI/HI. Pt was amendable to 1:1 assessment at bedside. Pt took all medications this shift. Pt denies any SEs, reports Im perfect, I dont experience those things, I never have and never will. Pt requested Ativan for sleep and stress. No other concerns voiced at time time. S/I, H/I: Denies A/VH: Multiple delusions as stated above. Sleep: 6.25 hrs NOC assessment ADL's: Independent Group attendance: Yes Were meds taken: Yes, all but Tamiflu Any med S/E: None Mental Status Exam Appearance: Dressed in unit scrubs and coat. Eye contact: Direct Behavior: Cooperative. Multiple annoyances Speech: Pressured, calm, sporadic Mood: Fine Affect: Animated Thought process: Disorganized, Tangential Thought Content: paranoid delusions Cognition: A&O X4 Insight: Poor Judgment: Poor Interventions PRN's used: Ativan Therapeutic interventions: Introduced self and established rapport, ensured contract for safety, maintained a safe and therapeutic environment, provided clear and simple instructions, attempted to reorient to reality, monitored behavior and need for intervention, provided redirection as needed, and maintained Q 15min safety checks. Restraints/seclusion/emergency medication: N/A Justification of Continued Inpatient Treatment: BHARTI Urena, pt. appears to be gravely disabled r/t his ongoing delusional thinking. He is currently homeless and was making H/I statements earlier regarding possible discharge to the [facility]. He continues to require medication adjustments and a safety and therapeutic environment
[2019-09-02] MEDS: ipratropium 0.5 MG/2.5ML nebule NEB SCH ×4 (01:47→20:00)
[2019-09-02 07:52] VITALS: BP 110/79
[2019-09-02] MEDS: nicotine 21mg patch - 24 hr TD SCH ×2 (08:00→08:18)
[2019-09-02] MEDS: oseltamivir phos 75mg capsule PO SCH (08:00)
[2019-09-02] MEDS: triamcinolone acet 0.1% cream 15gm TP SCH ×3 (08:19→20:35)
[2019-09-02] MEDS: LORazepam 1 MG tablet PO PRN ×2 (08:26→20:30)
--- NOTE | 2019-09-02 16:23 | NUR ---
Nursing Progress Note: JI Legal hold: 5250 Client on involuntary status for DTS Report received from Letha MARIANO with use of SBAR: Why are they here: Client was admitted to ED after making threats of suicide. He stated, "If I'm discharged I'll kill myself." Client was living with his parents and reported he was "kicked-out and started a downward spiral". The client has delusional thoughts and believes that he is being persecuted by the illuminati and that his parents are members. Client is particularly angry with his mother and stated, "Today is her birthday, and I don't care! F*ck her! Let the Nazi's have her!". Assessment What has happened this shift: Pt presents pleasant but hyper verbal and delusional. He denies SI/HI. Pt was amendable to 1:1 assessment at bedside. Pt took all medications except nicotine patch. Pt reports he believes that the nicotine patch is causing him to have a rash on his legs. Pt denies any SEs. He isolates to his room most of the day. When he does come out he has pressured, disorganized speech. S/I, H/I: Denies A/VH: None reported today Sleep: 4.25 hrs NOC assessment ADL's: Independent Group attendance: n/a Were meds taken: refused nicotine patch Any med S/E: None Mental Status Exam Appearance: Dressed in unit scrubs and coat. Eye contact: Direct Behavior: Cooperative but easily agitated Speech: Pressured, calm, sporadic Mood: pissed Affect: Animated Thought process: Disorganized, Tangential Thought Content: paranoid delusions, angry about food portions Cognition: A&O X4 Insight: Poor Judgment: Poor Interventions PRN's used: Therapeutic interventions: Introduced self and established rapport, ensured contract for safety, maintained a safe and therapeutic environment, provided clear and simple instructions, attempted to reorient to reality, monitored behavior and need for intervention, provided redirection as needed, and maintained Q 15min safety checks. Restraints/seclusion/emergency medication: N/A Justification of Continued Inpatient Treatment: Per BHARTI Torrez, pt. appears to be gravely disabled r/t his ongoing delusional thinking. He is currently homeless and was making H/I statements earlier regarding possible discharge to the [facility]. He continues to require medication adjustments and a safety and therapeutic environment
[2019-09-02 20:23] VITALS: BP 136/87
--- NOTE | 2019-09-02 21:15 | NUR ---
Nursing Progress Note: JI Legal hold: 5250 Client on involuntary status for DTS Report received from Letha MARIANO with use of SBAR: Why are they here: Client was admitted to ED after making threats of suicide. He stated, "If I'm discharged I'll kill myself." Client was living with his parents and reported he was "kicked-out and started a downward spiral". The client has delusional thoughts and believes that he is being persecuted by the illuminati and that his parents are members. Client is particularly angry with his mother and stated, "Today is her birthday, and I don't care! F*ck her! Let the Nazi's have her!". Assessment What has happened this shift: Pt presents pleasant but hyper verbal and delusional. He denies SI/HI. Pt was amendable to 1:1 assessment at bedside. Pt took all medications and a prn Ativan. Pt denies any SEs. He isolates to his room most of the day. When he does come out he has pressured, disorganized speech. Pt c/o not getting enough food and feels people are targeting him only. S/I, H/I: Denies A/VH: None reported today Sleep: 4.25 hrs NOC assessment ADL's: Independent Group attendance: n/a Were meds taken: refused nicotine patch Any med S/E: None Mental Status Exam Appearance: Dressed in unit scrubs and coat. Eye contact: Direct Behavior: Cooperative but easily agitated Speech: Pressured, calm, sporadic Mood: pissed Affect: Animated Thought process: Disorganized, Tangential Thought Content: paranoid delusions, angry about food portions Cognition: A&O X4 Insight: Poor Judgment: Poor Interventions PRN's used: Ativan Therapeutic interventions: Introduced self and established rapport, ensured contract for safety, maintained a safe and therapeutic environment, provided clear and simple instructions, attempted to reorient to reality, monitored behavior and need for intervention, provided redirection as needed, and maintained Q 15min safety checks. Restraints/seclusion/emergency medication: N/A Justification of Continued Inpatient Treatment: BHARTI Urena, pt. appears to be gravely disabled r/t his ongoing delusional thinking. He is currently homeless and was making H/I statements earlier regarding possible discharge to the [facility]. He continues to require medication adjustments and a safety and therapeutic environment
[2019-09-03] MEDS: ipratropium 0.5 MG/2.5ML nebule NEB SCH ×4 (02:00→19:48)
[2019-09-03 07:54] VITALS: BP 130/81
[2019-09-03] MEDS: oseltamivir phos 75mg capsule PO SCH (07:56)
[2019-09-03] MEDS: nicotine 21mg patch - 24 hr TD SCH (07:58)
[2019-09-03] MEDS: triamcinolone acet 0.1% cream 15gm TP SCH ×3 (08:01→20:24)
[2019-09-03] MEDS: LORazepam 1 MG tablet PO PRN ×2 (10:09→20:23)
--- NOTE | 2019-09-03 11:25 | NUR ---
Reassessment: Pt 75-100% avg regular diet meeting needs. LBM 08/31. No nutrition concerns at this time. Will continue to monitor. Recommendations: 1) Continue regular diet 2) Bowel care PRN 3) Wt per rx Addendum: 09/03/19 at [address] Amended: Links added.
--- NOTE | 2019-09-03 14:07 | NUR ---
DISCHARGE PLANNING Met with Mitch to discuss discharge planning. He asked if he could go to [facility]. Asked him if he has Medi-theodore and he reported he applied a couple weeks ago. Spoke to Ariadna with [facility] and she came onto the unit to have Mitch sign a release so she can find out the disposition of this Medi-theodore. If Mitch's Medi-theodore is pending, sign writer letterer or painter will refer him to [facility]. Ariadna reported she will know by tomorrow. MAG Flynn
--- NOTE | 2019-09-03 17:37 | NUR ---
Nursing Progress Note: Legal hold: 5250 Client on involuntary status for DTS Report received from Elana MARIANO with use of SBAR: Why are they here: Client was admitted to ED after making threats of suicide. He stated, "If I'm discharged I'll kill myself." Client was living with his parents and reported he was "kicked-out and started a downward spiral". The client has delusional thoughts and believes that he is being persecuted by the illuminati and that his parents are members. Client is particularly angry with his mother and stated, "Today is her birthday, and I don't care! F*ck her! Let the Nazi's have her!". Assessment What has happened this shift: Pt. asleep at start of shift. Pt. ate all meals. Pt. took all medications except nicotine patch. 1:1 done at bedside, pt. is hyperverbal with pressured speech. Pt. has d/o, tangential thought process talking about Czech and Dannish people and then his ex-girlfriends, and then Nazis and Jews. Pt. states, "I'm not racist, I just don't like people in the banking industry". Pt. has paranoid delusions, pointing outside his window and stating, "they've got us!" Pt. denies SI/HI, A/V hallucinations. Pt. is cooperative during interview, but difficult to redirect whe he goes on tangents. Pt. became angry about food protions at lunch, stating, "It's always wrong!" Pt. was redirectable. Pt. more pleasant in the afternoon, seen in recreation room with other patients and conversing with staff more appropriately. S/I, H/I: Denies A/VH: Denies Sleep: Pt. napped x1 on day shift. ADL's: Independent Group attendance: n/a Were meds taken: refused nicotine patch Any med S/E: None Mental Status Exam Appearance: Clean, unshaven, dressed in street clothes. Eye contact: Direct Behavior: Cooperative, isolates at times Speech: Pressured and hyperverbal Mood: Agitated and anxious Affect: Congruent with affect Thought process: Disorganized, Tangential Thought Content: paranoid delusions, angry about food portions Cognition: A&O X4 Insight: Poor Judgment: Poor Interventions PRN's used: None Therapeutic interventions: Introduced self and established rapport, ensured contract for safety, maintained a safe and therapeutic environment, provided clear and simple instructions, attempted to reorient to reality, monitored behavior and need for intervention, provided redirection as needed, and maintained Q 15min safety checks. Restraints/seclusion/emergency medication: N/A Justification of Continued Inpatient Treatment: BHARTI Urena, pt. appears to be gravely disabled r/t his ongoing delusional thinking. He is currently homeless and was making H/I statements earlier regarding possible discharge to the [facility]. He continues to require medication adjustments and a safety and therapeutic environment
[2019-09-03 20:00] VITALS: BP 114/80
--- NOTE | 2019-09-03 21:27 | NUR ---
Nursing Progress Note: Legal hold: 5250 Client on involuntary status for DTS Report received from Burt RN with use of SBAR: Why are they here: Client was admitted to ED after making threats of suicide. He stated, "If I'm discharged I'll kill myself." Client was living with his parents and reported he was "kicked-out and started a downward spiral". The client has delusional thoughts and believes that he is being persecuted by the illuminati and that his parents are members. Client is particularly angry with his mother and stated, "Today is her birthday, and I don't care! F*ck her! Let the Nazi's have her!". Assessment What has happened this shift: Pt. up in rec room at start of shift. Pt. took all medications 1:1 done at bedside, pt. is hyperverbal with pressured speech. Pt. has d/o, tangential thought process talking about [place] and Dannish people and then his ex-girlfriends, and then Nazis and Jews. Pt. states, "I'm not racist, I just don't like people in the banking industry". Pt. has paranoid delusions. Pt. more pleasant in the afternoon, seen in recreation room with other patients and conversing with staff more appropriately. S/I, H/I: Denies A/VH: Denies Sleep: Pt. napped x1 on day shift. ADL's: Independent Group attendance: n/a Were meds taken: refused nicotine patch Any med S/E: None Mental Status Exam Appearance: Clean, unshaven, dressed in street clothes. Eye contact: Direct Behavior: Cooperative, isolates at times Speech: Pressured and hyperverbal Mood: Agitated and anxious Affect: Congruent with affect Thought process: Disorganized, Tangential Thought Content: paranoid delusions, angry about food portions Cognition: A&O X4 Insight: Poor Judgment: Poor Interventions PRN's used: Ativan Therapeutic interventions: Introduced self and established rapport, ensured contract for safety, maintained a safe and therapeutic environment, provided clear and simple instructions, attempted to reorient to reality, monitored behavior and need for intervention, provided redirection as needed, and maintained Q 15min safety checks. Restraints/seclusion/emergency medication: N/A Justification of Continued Inpatient Treatment: Per BHARTI Torrez, pt. appears to be gravely disabled r/t his ongoing delusional thinking. He is currently homeless and was making H/I statements earlier regarding possible discharge to the [facility]. He continues to require medication adjustments and a safety and therapeutic environment
[2019-09-04] MEDS: ipratropium 0.5 MG/2.5ML nebule NEB SCH ×4 (02:00→21:00)
[2019-09-04] MEDS: LORazepam 1 MG tablet PO PRN ×3 (03:35→20:52)
[2019-09-04] MEDS: triamcinolone acet 0.1% cream 15gm TP SCH ×3 (08:00→21:00)
[2019-09-04] MEDS: oseltamivir phos 75mg capsule PO SCH (08:00)
[2019-09-04] MEDS: nicotine 21mg patch - 24 hr TD SCH (08:00)
[2019-09-04 08:42] VITALS: BP 110/67
--- NOTE | 2019-09-04 09:41 | NUR ---
patient in shower, no svn given at this time. i will come back for afternoon treatment Addendum: 09/04/19 at 0942 by Sun [address]ley RT Amended: Links added.
[2019-09-04] MEDS: JUVEN Shake w/Arg/Glut/Ca2+Bmb (Juven 19.3gm) pkt 240ml PO SCH ×2 (13:37→18:00)
--- NOTE | 2019-09-04 15:12 | NUR ---
[facility] REFERRAL Faxed completed [facility] referral to [facility] office. [facility] called and confirmed that his Medi-theodore is pending. MAG Flynn
--- NOTE | 2019-09-04 17:52 | NUR ---
Mitch Nursing Progress Note: Legal hold: 5250 Client on involuntary status for DTS Report received from VAZQUEZ Huitron with use of SBAR : Why are they here: Client was admitted to ED after making threats of suicide. He stated, "If I'm discharged I'll kill myself." Client was living with his parents and reported he was "kicked-out and started a downward spiral". The client has delusional thoughts and believes that he is being persecuted by the illuminati and that his parents are members. Client is particularly angry with his mother and stated, "Today is her birthday, and I don't care! F*ck her! Let the Nazi's have her!". Assessment What has happened this shift: Pt had several page letter outside his room door at beginning of shift with his lineage traced back to Alex and Eryn. He became upset at breakfast because he did not get his full meal which was missing a protein shake. At this point he began his tangential and disorganized speaking about [facility] being part of a plan. He refused all morning medication. He mumbles things about his mother was a crazy bitch had [place], you cant make up this satanic shit. He later requested Ativan. He received his shake for lunch and dinner but then began talking about how he needs sweet and low not sugar, my sugar is out of control, its way too high. He remained calm and cooperative. S/I, H/I: Denies A/VH: Denies Sleep: 9 h per noc assessment ADL's: Independent Group attendance: No groups at this time. Were meds taken: refused morning meds then asked for Ativan in afternoon Any med S/E: None Mental Status Exam Appearance: Wears unit scrubs and his own coat. Clean and tiddy appearance. Eye contact: Direct Behavior: Cooperative, pleasant most of the time unless agitated about something. Speech: Pressured and hyperverbal Mood: Somewhat labile Affect: Congruent with affect Thought process: Disorganized, Tangential Thought Content: paranoid delusions, angry about food portions Cognition: A&O X4 Insight: Poor Judgment: Poor Interventions PRN's used: Ativan Therapeutic interventions: Introduced self and established rapport, ensured contract for safety, maintained a safe and therapeutic environment, provided clear and simple instructions, attempted to reorient to reality, monitored behavior and need for intervention, provided redirection as needed, and maintained Q 15min safety checks. Restraints/seclusion/emergency medication: N/A Justification of Continued Inpatient Treatment: BHARTI Urena, pt. appears to be gravely disabled r/t his ongoing delusional thinking. He is currently homeless and was making H/I statements earlier regarding possible discharge to the [facility]. He continues to require medication adjustments and a safety and therapeutic environment
[2019-09-04 20:37] VITALS: BP 114/66
[2019-09-05] MEDS: ipratropium 0.5 MG/2.5ML nebule NEB SCH ×4 (02:00→21:34)
--- NOTE | 2019-09-05 02:44 | NUR ---
Nursing Progress Note: Legal hold: 5250 Client on involuntary status for DTS Report received from VAZQUEZ Mai with use of SBAR Why are they here: Client was admitted to ED after making threats of suicide. He stated, "If I'm discharged I'll kill myself." Client was living with his parents and reported he was "kicked-out and started a downward spiral". The client has delusional thoughts and believes that he is being persecuted by the illuminati and that his parents are members. Client is particularly angry with his mother and stated, "Today is her birthday, and I don't care! F*ck her! Let the Nazi's have her!". Assessment What has happened this shift: Pt watching TV most of shift before retiring to his room. During assessment, pt able to answer direct questions but becomes disorganized and tangential should the conversation continue. Pt states he isnt worried about the virus because "you either have the DNA to handle it or you don't. No point worrying; people need to go anyway." Pt discussed family lineage at length, stating there were sorcerers and wizards that can be traced to [place]. He also mentioned his "form Marian, a true beauty" and offered to show this RN how to exorcise a demon via finger dance. Pt would laugh and quickly change between topics, and had to be asked questions a couple times before pt able to provide related answer. S/I, H/I: Denies both A/VH: Denies both Sleep: See Sleep Assessment ADL's: Independent Group attendance: N/A Were meds taken: Yes Any med S/E: None observed nor reported Mental Status Exam Appearance: Appropriate in unit green scrubs and personal jacket, and nonskid socks Eye contact: Good Behavior: Cooperative, Watching TV Speech: Clear, hyperverbal Mood: "I'm good", Presents as calm Affect: Congruent with mood Thought process: Disorganized, Tangential Thought Content: pandemic, delusional statements Cognition: A&Ox4 Insight: Poor Judgment: Poor to fair Interventions PRN's used: Ativan 1mg, Maalox Therapeutic interventions: Introduced self and established rapport, ensured contract for safety, maintained a safe and therapeutic environment, provided clear and simple instructions, attempted to reorient to reality, monitored behavior and need for intervention, provided redirection as needed, and maintained Q 15min safety checks. Restraints/seclusion/emergency medication: N/A Justification of Continued Inpatient Treatment: Pt continues to have his ongoing delusional thinking. He is currently homeless and continues to require medication adjustments in a safe and therapeutic environment.
[2019-09-05] MEDS: nicotine 21mg patch - 24 hr TD SCH (08:00)
[2019-09-05] MEDS: oseltamivir phos 75mg capsule PO SCH (08:00)
[2019-09-05] MEDS: triamcinolone acet 0.1% cream 15gm TP SCH ×3 (08:03→20:27)
[2019-09-05 08:10] VITALS: BP 106/66
[2019-09-05] MEDS: LORazepam 1 MG tablet PO PRN ×2 (08:17→20:34)
[2019-09-05] MEDS: JUVEN Shake w/Arg/Glut/Ca2+Bmb (Juven 19.3gm) pkt 240ml PO SCH ×3 (08:17→17:47)
[2019-09-05] MEDS ORDERED: tuberculin, purif. prot. deriv. 5 units/0.1ml ID ONE (09:00)
--- NOTE | 2019-09-05 13:31 | NUR ---
Nursing Progress Note: Legal hold: 5250 Client on involuntary status for DTS Report received from VAZQUEZ Huitron with use of SBAR Why are they here: Client was admitted to ED after making threats of suicide. He stated, "If I'm discharged I'll kill myself." Client was living with his parents and reported he was "kicked-out and started a downward spiral". The client has delusional thoughts and believes that he is being persecuted by the illuminati and that his parents are members. Client is particularly angry with his mother and stated, "Today is her birthday, and I don't care! F*ck her! Let the Nazi's have her!". Assessment What has happened this shift: Pt was irritable, delusional, grandiose, and verbally abusive to this RN during morning med pass. Pt asked this RN if I had his Ativan then became angry and verbally aggressive when learned I did not bring Ativan as it is not routine but PRN and he had not asked for it. Pt asked, "Do I have to tell you people every time?!" "Do they not tell you how bad my back is!?" "I could end up paralyzed, I'm tired of dealing with idiots!" Limit setting provided (no calling staff names) and medication education. Encouraged pt to speak with the doctor about how his Ativan was ordered. Pt retorted, "it's not up to the doctor, it's up to me!" He continued to rant for a bit. Offered to bring pt the Ativan now as now I was aware he needed it. Medicated with PRN Ativan 1 mg @ 0817. Pt refused his nicotine patch for the 3rd day in a row stating that he no longer needs it. Pt also refused Tamiflu stating "I don't want that, I don't need it. I have a superior immune system. You might think I'm crazy, but it's not even human." PPD administered left forearm today, to be read on 09/07/19 after 1100. Nicotine patch was D/c'd. When asked about depression, pt replied, "yes, melancholy." He rated his depression at a 5/10, pt denied SI, replying "never have." When asked about AH, he replied, "never have" again. S/I, H/I: Pt denies. A/VH: Pt denies. Sleep: Pt slept 8 hours last night per noc shift report ADL's: Independent Group attendance: N/A Were meds taken: Yes, all but Tamiflu and nicotine patch Any med S/E: None noted or reported. Mental Status Exam Appearance: Clean, appropriate Eye contact: Good Behavior: Irritable, agitated and verbally aggressive during morning med pass. Speech: Clear, audible, hyperverbal Mood: "melancholy" Affect: Irritable, disdainful Thought process: Delusional, grandiose, loose associations. Thought Content: He can't catch the flu due to his superior immune system, staff should know to bring him Ativan every morning. Cognition: A/O x 4 Insight: Poor Judgment: Poor Interventions PRN's used: Ativan 1 mg Therapeutic interventions: 1:1 assessment, active listening, ensured contract for safety, medication administration/education/monitoring, behavior monitoring and intervention; reality orientation, limit setting, verbal de-escalation, Q 15min safety checks. Restraints/seclusion/emergency medication: N/A Justification of Continued Inpatient Treatment: Pt continues to have his ongoing delusional thinking. He is currently homeless and continues to require medication adjustment and monitoring in a safe and therapeutic environment. Pt's medi-theodore is pending.
[2019-09-05 20:02] VITALS: BP 116/74
[2019-09-05] MEDS: LORazepam 1 MG tablet PO SCH (21:00)
--- NOTE | 2019-09-06 00:17 | NUR ---
Nursing Progress Note: Legal hold: 5250 Client on involuntary status for DTS Report received from VAZQUEZ Mistry with use of SBAR Why are they here: Client was admitted to ED after making threats of suicide. He stated, "If I'm discharged I'll kill myself." Client was living with his parents and reported he was "kicked-out and started a downward spiral". The client has delusional thoughts and believes that he is being persecuted by the illuminati and that his parents are members. Client is particularly angry with his mother and stated, "Today is her birthday, and I don't care! F*ck her! Let the Nazi's have her!". Assessment What has happened this shift: Pt was sitting in chair outside of nursing station during shift change. When this RN greeted him, he states that he is doing good. He points to a paper house that he made and states that its his house. Pt spent some time in his room sitting in his chair with the lights off. Pt was cooperative with 1:1 physical assessment and took all his HS meds without any issues. Pt requested his Ativan with his scheduled medication and stated that this should be given with his meds. He begins to talk about how his doctor and everybody else do not know how important this medication is to him. This RN obtained Ativan for him. This was not schedule but was available as a PRN. However, changed order to be a scheduled medication. Pt has multiple grandiose delusions and states that he is a [employer] agent and also that he is a very smart person. He starts going off about his mother and how he hates her because he believes she is a diabolic creature. Pt also believes he is a wizard He requested some tea before going to sleep. S/I, H/I: Denies A/VH: Denies Sleep: Currently sleeping, see sleep assessment for total hours. ADL's: Independent Group attendance: N/A Were meds taken: Yes Any med S/E: None observed nor reported Mental Status Exam Appearance: Appropriate in unit green scrubs Eye contact: Good Behavior: Cooperative, appears somewhat anxious and agitated, specially about Ativan Speech: Somewhat pressured, hyperverbal Mood: "I'm good" Affect: Constricted Thought process: Disorganized, Tangential Thought Content: The mansion he made out of paper, grandiose delusions Cognition: A&Ox4 Insight: Poor Judgment: Poor Interventions PRN's used: Ativan 1mg Therapeutic interventions: Introduced self and established rapport, ensured contract for safety, maintained a safe and therapeutic environment, provided clear and simple instructions, attempted to reorient to reality, monitored behavior and need for intervention, provided redirection as needed, and maintained Q 15min safety checks. Restraints/seclusion/emergency medication: N/A Justification of Continued Inpatient Treatment: Pt continues to have his ongoing delusional thinking. He is currently homeless and continues to require medication adjustments in a safe and therapeutic environment.
[2019-09-06] MEDS: ipratropium 0.5 MG/2.5ML nebule NEB SCH ×4 (03:11→20:00)
[2019-09-06] MEDS: triamcinolone acet 0.1% cream 15gm TP SCH ×3 (07:44→20:16)
[2019-09-06] MEDS: LORazepam 1 MG tablet PO SCH ×2 (07:44→12:43)
[2019-09-06 08:00] VITALS: BP 101/67
[2019-09-06] MEDS: oseltamivir phos 75mg capsule PO SCH (08:00)
[2019-09-06] MEDS: JUVEN Shake w/Arg/Glut/Ca2+Bmb (Juven 19.3gm) pkt 240ml PO SCH ×3 (08:13→18:14)
--- NOTE | 2019-09-06 10:35 | NUR ---
1:1 with Mitch. Mitch continues to be delusional, grandiose, and paranoid. He is in particular paranoid about family. Discussed [facility] and he is willing to go and participate in the program. [employer] will check in with Mitch on Monday to see if he is appropriate for an interview. Discussed alcohol treatment. He reported he does not need it. He reported he quit drinking 3 weeks ago. Mitch then continued to ramble on about various family members, his mother's adventist, etc. He reported he slept well last night after getting ativan. MAG Flynn
--- NOTE | 2019-09-06 15:40 | NUR ---
Nursing Progress Note: Legal hold: 5250 Client on involuntary status for DTS Report received from VAZQUEZ Soria with use of SBAR Why are they here: Client was admitted to ED after making threats of suicide. He stated, "If I'm discharged I'll kill myself." Client was living with his parents and reported he was "kicked-out and started a downward spiral". The client has delusional thoughts and believes that he is being persecuted by the illuminati and that his parents are members. Client is particularly angry with his mother and stated, "Today is her birthday, and I don't care! F*ck her! Let the Nazi's have her!". Assessment What has happened this shift: Pt was up for breakfast, brought morning medications to the patient in his room. Pt asked this RN if his Ativan was in there. This RN confirmed that yes it was as the doctor had changed the order from prn to routine. Pt stated, "oh good, I'm glad we got it straightened out. See? I'm not such a bad prick am I?" When asked pt about his depression he replied, "I'm not depressed, just bored as Hell...thanks for asking." Pt refused Tamiflu. Pt continues to be delusional and grandiose. Pt's Ativan was decreased from 1 mg to 0.5 mg TID scheduled today, he has a new order for Atarax 50 mg Q 6H prn. S/I, H/I: Pt denies. A/VH: Pt denies. Sleep: Pt slept 6.25 hours last night per noc shift report ADL's: Independent Group attendance: N/A Were meds taken: Yes, all but Tamiflu Any med S/E: None noted or reported. Mental Status Exam Appearance: Clean, appropriate Eye contact: Good Behavior: Cooperative Speech: Clear, audible Mood: Bored Affect: [place] Thought process: Delusional, grandiose Thought Content: Happy to be getting routine Ativan, he's bored. Cognition: A/O x 4 Insight: Poor Judgment: Poor Interventions PRN's used: N/A Therapeutic interventions: 1:1 assessment, active listening, therapeutic conversation, ensured contract for safety, medication administration/education/monitoring, behavior monitoring and intervention as needed; reality orientation, Q 15min safety checks. Restraints/seclusion/emergency medication: N/A Justification of Continued Inpatient Treatment: Pt continues to have his ongoing delusional thinking. He is currently homeless and continues to require medication adjustment and monitoring in a safe and therapeutic environment. Pt's medi-theodore is pending.
[2019-09-06 19:34] VITALS: BP 120/74
[2019-09-06] MEDS: LORazepam 0.5 MG tablet PO SCH (20:16)
--- NOTE | 2019-09-06 23:20 | NUR ---
Nursing Progress Note: Legal hold: 5250 Client on involuntary status for DTS Report received from VAZQUEZ Mistry with use of SBAR Why are they here: Client was admitted to ED after making threats of suicide. He stated, "If I'm discharged I'll kill myself." Client was living with his parents and reported he was "kicked-out and started a downward spiral". The client has delusional thoughts and believes that he is being persecuted by the illuminati and that his parents are members. Client is particularly angry with his mother and stated, "Today is her birthday, and I don't care! F*ck her! Let the Nazi's have her!". Assessment What has happened this shift: Pt was in TV room during shift change. When asked how he was doing he states better now. He continues to rant about his delusional thoughts. Pt spent the rest of the evening in his room sitting in his chair. He was cooperative during 1:1 physical assessment and took all his HS meds without any issues. When asked if he was having any hallucination pt states Why do you guys ask that every day. Then went on to saying Yeah, I hear demons telling me to kill people. Not sure if this was true or if he was just upset because the question was being asked. He continues to make delusional statements of grandiose. Also continues to talk about how much he hates his mother and his brother for kicking him out. He also talks about how when he was in [facility] he used to watch people kill themselves because they were so depressed. They used to grab a sheet and wrap it around their neck and tie to the toilet. Asked pt if he would do anything like that, he states Are you kidding me, Im just telling you about how it was in there. It was horrible. Pt continued to sit in the chair and finished his snack before going to sleep. S/I, H/I: Denies A/VH: Denies Sleep: Currently sleeping, see sleep assessment for total hours. ADL's: Independent Group attendance: N/A Were meds taken: Yes Any med S/E: None observed nor reported Mental Status Exam Appearance: Appropriate in unit green scrubs Eye contact: Good Behavior: Cooperative, does make inappropriate statements Speech: Somewhat pressured, hyperverbal, hard to understand at times Mood: Calm mostly, appears anxious at times and labile Affect: Constricted Thought process: Disorganized, Tangential Thought Content: Cognition: A&Ox4 Insight: Poor Judgment: Poor Interventions PRN's used: None Therapeutic interventions: Introduced self and established rapport, ensured contract for safety, maintained a safe and therapeutic environment, provided clear and simple instructions, attempted to reorient to reality, monitored behavior and need for intervention, provided redirection as needed, and maintained Q 15min safety checks. Restraints/seclusion/emergency medication: N/A Justification of Continued Inpatient Treatment: Pt continues to have his ongoing delusional thinking. He is currently homeless and continues to require medication adjustments in a safe and therapeutic environment.
[2019-09-07] MEDS: ipratropium 0.5 MG/2.5ML nebule NEB SCH ×4 (02:00→20:00)
[2019-09-07] MEDS: LORazepam 0.5 MG tablet PO SCH ×3 (07:48→20:36)
[2019-09-07] MEDS: triamcinolone acet 0.1% cream 15gm TP SCH ×3 (07:50→20:36)
[2019-09-07] MEDS: JUVEN Shake w/Arg/Glut/Ca2+Bmb (Juven 19.3gm) pkt 240ml PO SCH ×3 (07:52→18:22)
[2019-09-07] MEDS: oseltamivir phos 75mg capsule PO SCH (07:53)
[2019-09-07 08:52] VITALS: BP 119/77
--- NOTE | 2019-09-07 15:44 | NUR ---
Nursing Progress Note: Legal hold: 5250 Client on involuntary status for DTS Report received from RN with use of SBAR Why are they here: Client was admitted to ED after making threats of suicide. He stated, "If I'm discharged I'll kill myself." Client was living with his parents and reported he was "kicked-out and started a downward spiral". The client has delusional thoughts and believes that he is being persecuted by the illuminati and that his parents are members. Client is particularly angry with his mother and stated, "Today is her birthday, and I don't care! F*ck her! Let the Nazi's have her!". Assessment What has happened this shift: Received Pt awake and in no distress in his room at change of shift. Pt ate breakfast well and asked for more food. He took AM meds but refused Tamiflu and received nebulizer Tx. Pt engagable in conversation where he dominates with rapid speech centered on grandiose ideas and relationships he has had. He weaves Nazi talk into a lot of situations and says uses sexual innuendo at times. Overall cooperative, focused on food and gets mentally overwhelmed with delusional thinking about politicians and corruption. Weekly weight completed-74.65 kg/164.5 lbs. S/I, H/I: Pt denies. A/VH: Pt denies. Sleep: Did not sleep this shift ADL's: Independent Group attendance: N/A Were meds taken: Yes, all but Tamiflu Any med S/E: None noted or reported. Mental Status Exam Appearance: Clean, appropriate Eye contact: Good Behavior: Cooperative Speech: Clear, audible Mood: Bored Affect: Animated at times Thought process: Delusional, grandiose Thought Content: Often about grand relationships and being wronged Cognition: A/O x 4 Insight: Poor Judgment: Poor Interventions PRN's used: N/A Therapeutic interventions: 1:1 assessment, active listening, therapeutic conversation, ensured contract for safety, medication administration/education/monitoring, behavior monitoring and intervention as needed; reality orientation, Q 15min safety checks. Restraints/seclusion/emergency medication: N/A Justification of Continued Inpatient Treatment: Pt continues to have his ongoing delusional thinking. He is currently homeless and continues to require medication adjustment and monitoring in a safe and therapeutic environment. Pt's medi-theodore is pending.
[2019-09-07 19:39] VITALS: BP 113/66
--- NOTE | 2019-09-08 00:08 | NUR ---
Nursing Progress Note: Legal hold: 5250 Client on involuntary status for DTS Report received from VAZQUEZ Mistry with use of SBAR Why are they here: Client was admitted to ED after making threats of suicide. He stated, "If I'm discharged I'll kill myself." Client was living with his parents and reported he was "kicked-out and started a downward spiral". The client has delusional thoughts and believes that he is being persecuted by the illuminati and that his parents are members. Client is particularly angry with his mother and stated, "Today is her birthday, and I don't care! F*ck her! Let the Nazi's have her!". Assessment What has happened this shift: Pt was in his room sitting in his chair during shift change. Pt continues to make delusional statements. He goes on off his the rashes he has on his legs, how his sleeping cycle is so messed up. 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 He points to his back and states "see right here, these are my wings." Continues to have pressured speech which is filled with a lot of profanity. Pt is cooperative and agreeable to all care provided. He denies any S/I, and no hallucinations were reported. Pt retired to sleep after medication pass. S/I, H/I: Denies S/I, passive H/I A/VH: Denies Sleep: Currently sleeping, see sleep assessment for total hours. ADL's: Independent Group attendance: N/A Were meds taken: Yes Any med S/E: None observed nor reported Mental Status Exam Appearance: Appropriate in unit green scrubs Eye contact: Good Behavior: Cooperative, somewhat manic and animated Speech: Somewhat pressured, hyperverbal, hard to understand at times Mood: "Good" Affect: Constricted Thought process: Disorganized, Tangential Thought Content: The mission, the time he was in alf, sleep cycle. Cognition: A&Ox4 Insight: Poor Judgment: Poor Interventions PRN's used: None Therapeutic interventions: Introduced self and established rapport, ensured contract for safety, maintained a safe and therapeutic environment, provided clear and simple instructions, attempted to reorient to reality, monitored behavior and need for intervention, provided redirection as needed, and maintained Q 15min safety checks. Restraints/seclusion/emergency medication: N/A Justification of Continued Inpatient Treatment: Pt continues to have his ongoing delusional thinking. He is currently homeless and continues to require medication adjustments in a safe and therapeutic environment.
[2019-09-08] MEDS: ipratropium 0.5 MG/2.5ML nebule NEB SCH ×4 (02:00→19:45)
[2019-09-08] MEDS: acetaminophen 325mg tablet PO PRN (05:36)
[2019-09-08 07:30] VITALS: BP 104/67
[2019-09-08] MEDS: oseltamivir phos 75mg capsule PO SCH ×2 (08:00→08:09)
[2019-09-08] MEDS: triamcinolone acet 0.1% cream 15gm TP SCH ×3 (08:08→21:00)
[2019-09-08] MEDS: LORazepam 0.5 MG tablet PO SCH ×3 (08:09→20:12)
[2019-09-08] MEDS: JUVEN Shake w/Arg/Glut/Ca2+Bmb (Juven 19.3gm) pkt 240ml PO SCH ×3 (08:39→18:40)
[2019-09-08] MEDS: tizanidine 4mg tablet PO PRN (11:07)
--- NOTE | 2019-09-08 14:27 | NUR ---
Nursing Progress Note: Legal hold: 5250 Client on involuntary status for DTS Report received from RN with use of SBAR Why are they here: Client was admitted to ED after making threats of suicide. He stated, "If I'm discharged I'll kill myself." Client was living with his parents and reported he was "kicked-out and started a downward spiral". The client has delusional thoughts and believes that he is being persecuted by the illuminati and that his parents are members. Client is particularly angry with his mother and stated, "Today is her birthday, and I don't care! F*ck her! Let the Nazi's have her!". Assessment What has happened this shift: Patient was in his room at change of shift. Patient took his medication as prescribed but refused his Tamiflu and started talking about how it is a big coverup. Then patient went on to talk about politicians and the Mafia. Patient making delusional statements. Patient with pressured speech. Patient then apologizes for RN having to listen to him talk so much. Patient denies suicidal ideation. In the afternoon patient hands RN a hand written paper about [facility] and how they are inferior to the "[employer]anna [employer] stag....[facility]...[employer] President, Neida Anclarence RAUSCH... S/I, H/I: Pt denies A/VH: Pt denies. Sleep: Did not sleep this shift. ADL's: Independent Group attendance: None Were meds taken: Yes, refused Tamiflu Any med S/E: None noted or reported. Mental Status Exam Appearance: Clean, appropriate Eye contact: Good Behavior: Cooperative Speech: Clear and pressured at times Mood: Pleasant Affect: Animated at times Thought process: Delusional, Thought Content: Politicians, Michelle Virus, [employer] Cognition: A/O x 4 Insight: Poor Judgment: Poor Interventions PRN's used: N/A Therapeutic interventions: 1:1 assessment, active listening, therapeutic conversation, ensured contract for safety, medication administration/education/monitoring, behavior monitoring and intervention as needed; reality orientation, Q 15min safety checks. Restraints/seclusion/emergency medication: N/A Justification of Continued Inpatient Treatment: Pt continues to have his ongoing delusional thinking. He is currently homeless and continues to require medication adjustment and monitoring in a safe and therapeutic environment. Pt's medi-theodore is pending.
[2019-09-08 19:09] VITALS: BP 110/66
--- NOTE | 2019-09-09 01:36 | NUR ---
Nursing Progress Note: Legal hold: 5250 Client on involuntary status for DTS Report received from Fede SHUKLA with use of SBAR Why are they here: Client was admitted to ED after making threats of suicide. He stated, "If I'm discharged I'll kill myself." Client was living with his parents and reported he was "kicked-out and started a downward spiral". The client has delusional thoughts and believes that he is being persecuted by the illuminati and that his parents are members. Client is particularly angry with his mother and stated, "Today is her birthday, and I don't care! F*ck her! Let the Nazi's have her!". Assessment What has happened this shift: Pt up in [place] at start of shift. Thoughts tangential and delusional. Pt makes multiple delusional statements dealing with Nazis. At one point said "my moms a bitch she is part of the illuminati" His comments are punctuated by loud inappropriate laughter. Pt cooperative with care took all medications. S/I, H/I: Pt denies A/VH: Pt denies. Sleep: Asleep at this time ADL's: Independent Group attendance: None Were meds taken: Yes, Any med S/E: None noted or reported. Mental Status Exam Appearance: Clean, appropriate Eye contact: Good Behavior: Cooperative Speech: Clear and pressured at times Mood: Pleasant Affect: Animated at times Thought process: Delusional, Thought Content: Mom, illuminati, Nazis Cognition: A/O x 4 Insight: Poor Judgment: Poor Interventions PRN's used: N/A Therapeutic interventions: 1:1 assessment, active listening, therapeutic conversation, ensured contract for safety, medication administration/education/monitoring, behavior monitoring and intervention as needed; reality orientation, Q 15min safety checks. Restraints/seclusion/emergency medication: N/A Justification of Continued Inpatient Treatment: Pt continues to have his ongoing delusional thinking. He is currently homeless and continues to require medication adjustment and monitoring in a safe and therapeutic environment. Pt's medi-theodore is pending.
[2019-09-09] MEDS: ipratropium 0.5 MG/2.5ML nebule NEB SCH ×4 (02:00→20:00)
[2019-09-09 07:21] VITALS: BP 114/68
[2019-09-09] MEDS: LORazepam 0.5 MG tablet PO SCH ×3 (07:48→20:02)
[2019-09-09] MEDS: JUVEN Shake w/Arg/Glut/Ca2+Bmb (Juven 19.3gm) pkt 240ml PO SCH ×3 (07:49→18:00)
[2019-09-09] MEDS: oseltamivir phos 75mg capsule PO SCH (07:50)
[2019-09-09] MEDS: triamcinolone acet 0.1% cream 15gm TP SCH ×3 (08:00→21:44)
--- NOTE | 2019-09-09 15:06 | NUR ---
Nursing Progress Note: Legal hold: 527 Client on involuntary status for DTS Report received from RN with use of SBAR Why are they here: Client was admitted to ED after making threats of suicide. He stated, "If I'm discharged I'll kill myself." Client was living with his parents and reported he was "kicked-out and started a downward spiral". The client has delusional thoughts and believes that he is being persecuted by the illuminati and that his parents are members. Client is particularly angry with his mother and stated, "Today is her birthday, and I don't care! F*ck her! Let the Nazi's have her!". Assessment What has happened this shift: Received Pt sleeping in bed w/o distress at beginning of shift. Pt awoke for vitals, ate breakfast in his room and took AM meds except Tamiflu, stating I dont need it. Pt received nebulizer Tx in the AM and soaked his feet to clean his nails. Pt continues to talk about Nazis, royalty and government officials as if he knows connections and secrets about people in power. Pt remains cooperative redirectable and funny at times. He thought he may be leaving today, but explained to him that the referral process to [facility] takes more time and he may have to wait for a bed. He is amenable to staying on [facility]. Pt met with Dr Hercules and will be placed on 5270 hold, as he remains impulsive and labile r/t SI. S/I, H/I: Pt denies. A/VH: Pt denies. Sleep: Did not sleep this shift ADL's: Independent Group attendance: N/A Were meds taken: Yes, all but Tamiflu Any med S/E: None noted or reported. Mental Status Exam Appearance: Clean, appropriate Eye contact: Good Behavior: Cooperative Speech: Clear, audible Mood: Bored Affect: Animated at times Thought process: Delusional, grandiose Thought Content: Germans and Nazis. Cognition: A/O x 4 Insight: Poor Judgment: Poor Interventions PRN's used: N/A Therapeutic interventions: 1:1 assessment, active listening, therapeutic conversation, ensured contract for safety, medication administration/education/monitoring, behavior monitoring and intervention as needed; reality orientation, Q 15min safety checks. Restraints/seclusion/emergency medication: N/A Justification of Continued Inpatient Treatment: Pt continues to have his ongoing delusional thinking. He is currently homeless and continues to require medication adjustment and monitoring in a safe and therapeutic environment. Pt's medi-theodore is pending.
[2019-09-09] MEDS: acetaminophen 325mg tablet PO PRN (20:22)
[2019-09-09] MEDS: hydrOXYzine 25 MG tablet PO PRN (20:23)
--- NOTE | 2019-09-09 22:51 | NUR ---
Nursing Progress Note: Legal hold: 5270 Client on involuntary status for DTS Report received from RN with use of SBAR Why are they here: Client was admitted to ED after making threats of suicide. He stated, "If I'm discharged I'll kill myself." Client was living with his parents and reported he was "kicked-out and started a downward spiral". The client has delusional thoughts and believes that he is being persecuted by the illuminati and that his parents are members. Client is particularly angry with his mother and stated, "Today is her birthday, and I don't care! F*ck her! Let the Nazi's have her!". Assessment What has happened this shift: Pt in room at start of shift. Pt refused VS. Pt is Yelling, angry and agitated. Thoughts tangential and delusional. Pt makes multiple delusional statements dealing with Nazis and Baptist people. Repeated a delusion that his mom is part of the illuminati. His thought content is the same as it has been but he is very angry. Later when pt calmer he apologized for being so angry. He had no explanation only said he felt like his head would explode. Rest of shift pt pleasant and cooperative but remained delusional. S/I, H/I: Pt denies. A/VH: Pt denies. Sleep: asleep at this time ADL's: Independent Group attendance: N/A Were meds taken: Yes, Any med S/E: None noted or reported. Mental Status Exam Appearance: Clean, appropriate Eye contact: Good Behavior: Cooperative Speech: Clear, audible Mood: Bored Affect: Animated at times Thought process: Delusional, grandiose Thought Content: Germans and Nazis. Cognition: A/O x 4 Insight: Poor Judgment: Poor Interventions PRN's used: N/A Therapeutic interventions: 1:1 assessment, active listening, therapeutic conversation, ensured contract for safety, medication administration/education/monitoring, behavior monitoring and intervention as needed; reality orientation, Q 15min safety checks. Restraints/seclusion/emergency medication: N/A Justification of Continued Inpatient Treatment: Pt continues to have his ongoing delusional thinking. He is currently homeless and continues to require medication adjustment and monitoring in a safe and therapeutic environment. Pt's medi-theodore is pending.
[2019-09-10] MEDS: ipratropium 0.5 MG/2.5ML nebule NEB SCH ×4 (02:00→20:00)
[2019-09-10] MEDS: LORazepam 1 MG tablet PO PRN (02:39)
[2019-09-10] MEDS: LORazepam 0.5 MG tablet PO SCH ×3 (07:37→20:30)
[2019-09-10] MEDS: oseltamivir phos 75mg capsule PO SCH (07:39)
[2019-09-10] MEDS: triamcinolone acet 0.1% cream 15gm TP SCH ×3 (07:40→20:34)
[2019-09-10] MEDS: JUVEN Shake w/Arg/Glut/Ca2+Bmb (Juven 19.3gm) pkt 240ml PO SCH ×2 (08:34→13:00)
--- NOTE | 2019-09-10 08:45 | NUR ---
patient refused svn tx Addendum: 09/10/19 at 0846 by Diana Arguelles RT Amended: Links added.
--- NOTE | 2019-09-10 10:02 | NUR ---
Reassessment: Pt continues with 75-100% PO intake of meals meeting nutrient needs. Noted that Dat shake was ordered TID and pt consuming 100%. D/w RN recommendation to discontinue ONS as Dat shake is for patients with wound healing needs and pt with no wounds at this time. RN reports ONS was ordered for satiety, informed RN that we can send a regular shake TID, d/w dietary. [facility] 09/07. Will continue to follow. Recommendations: 1) Continue regular diet 2) Regular shake TID for satiety 3) Bowel care PRN 4) Wt per rx Addendum: 09/10/19 at [address] Amended: Links added.
[2019-09-10] MEDS ORDERED: traMADol 50MG tablet PO ONE (11:15)
--- NOTE | 2019-09-10 17:41 | NUR ---
Nursing Progress Note: Legal hold: 6140 Client on involuntary status for DTS Report received from Elana MARIANO with use of SBAR Why are they here: Client was admitted to ED after making threats of suicide. He stated, "If I'm discharged I'll kill myself." Client was living with his parents and reported he was "kicked-out and started a downward spiral". The client has delusional thoughts and believes that he is being persecuted by the illuminati and that his parents are members. Client is particularly angry with his mother and stated, "Today is her birthday, and I don't care! F*ck her! Let the Nazi's have her!". Assessment What has happened this shift: Pt. sleeping at start of shift. Pt. very agitated upon waking up. Pt. states, Why do they smash my art work? I cant believe this! Pt. is loud and cursing and difficult to redirect. Pt. took medications and ate all meals in his room. 1:1 done at bedside. Pt. denies SI/HI, A/V hallucinations. Pt. is hyperverbal with pressured speech, talking at length about how terrible [place] women are and then changed subject abruptly to talking about Jews, pt. states, I dont hate Jews, I just dont like people who dont work. Pt. is labile becoming extremely agitated when his tray was not delivered with the other trays, stating, I knew they were out to get me, someone has it in for me. I dont even want the food, they can keep it!. Pt. gave Naelicias salute and RN informed pt. that that is not appropriate, pt. smiles and says, Oh its not so bad, it doesnt mean anything like that. S/I, H/I: Pt denies. A/VH: Pt denies. Sleep: Pt. napped x1 in afternoon ADL's: Independent Group attendance: N/A Were meds taken: Yes Any med S/E: None noted or reported. Mental Status Exam Appearance: Clean, wearing green scrubs Eye contact: Good Behavior: Cooperative Speech: hyperverbal, pressured speech. Mood: Euthymic becoming easily agitated at times Affect: Animated Thought process: Delusional, grandiose, tangential Thought Content: Women, Nazis, Jews. Cognition: A/O x 4 Insight: Poor Judgment: Poor Interventions PRN's used: N/A Therapeutic interventions: 1:1 assessment, active listening, therapeutic conversation, ensured contract for safety, medication administration/education/monitoring, behavior monitoring and intervention as needed; reality orientation, Q 15min safety checks. Restraints/seclusion/emergency medication: N/A Justification of Continued Inpatient Treatment: Pt continues to have his ongoing delusional thinking. He is currently homeless and continues to require medication adjustment and monitoring in a safe and therapeutic environment. Pt's medi-theodore is pending.
[2019-09-10] MEDS: lactose-reduced food (Ensure Enlive) - 237ml bottle PO SCH (18:34)
[2019-09-10 20:55] VITALS: BP 111/73
--- NOTE | 2019-09-11 01:04 | NUR ---
Nursing Progress Note: Legal hold: 5270 Client on involuntary status for DTS Report received from GARCÍA Mistry with use of SBAR Why are they here: Client was admitted to ED after making threats of suicide. He stated, "If I'm discharged I'll kill myself." Client was living with his parents and reported he was "kicked-out and started a downward spiral". The client has delusional thoughts and believes that he is being persecuted by the illuminati and that his parents are members. Client is particularly angry with his mother and stated, "Today is her birthday, and I don't care! F*ck her! Let the Nazi's have her!". Assessment What has happened this shift: The patient was seen at bedside for 1:1 assessment. He was cooperative, but gets angry very easily. "Lot of money goes to waste. Everybody is in on it. Put a head in a Reagan jar, but you gotta do it slow so they feel it." He continues to be tangential and delusional, especially about the Illuminati. "The Illuminati is in here, they make people disappear. Entire tribes being wiped out. Them people run everything, I hate 'em." The patient is labile, going from nice to mean very quickly. He is now thinking the Doctors are persecuting him, "I talked to the Doctor today about Tegretol, and he said he would order it, but he didn't. I'm not talking to them anymore." The patient stayed isolated to his room all night. S/I, H/I: Denies. A/VH: Denies. Sleep: See sleep assessment ADL's: Independent Group attendance: No groups at night Were meds taken: Yes, Any med S/E: None observed or reported. Mental Status Exam Appearance: Disheveled, wearing dirty street clothes Eye contact: Good Behavior: Cooperative, delusional, labile Speech: Clear, audible Mood: "Fine" Affect: Angry Thought process: Delusional, grandiose Thought Content: The Illuminati. Cognition: A/O x 4 Insight: Poor Judgment: Poor Interventions PRN's used: Ativan Therapeutic interventions: 1:1 assessment, active listening, therapeutic conversation, ensured contract for safety, medication administration/education/monitoring, behavior monitoring and intervention as needed; reality orientation, Q 15min safety checks. Restraints/seclusion/emergency medication: N/A Justification of Continued Inpatient Treatment: Pt continues to have his ongoing delusional thinking. He is currently homeless and continues to require medication adjustment and monitoring in a safe and therapeutic environment. Pt's medi-theodore is pending.
[2019-09-11] MEDS: ipratropium 0.5 MG/2.5ML nebule NEB SCH ×3 (02:00→15:32)
[2019-09-11] MEDS: LORazepam 1 MG tablet PO PRN (02:30)
[2019-09-11] MEDS: LORazepam 0.5 MG tablet PO SCH ×3 (07:18→20:20)
[2019-09-11 08:00] VITALS: BP 111/72
[2019-09-11] MEDS: triamcinolone acet 0.1% cream 15gm TP SCH ×3 (08:00→20:20)
[2019-09-11] MEDS: lactose-reduced food (Ensure Enlive) - 237ml bottle PO SCH ×3 (08:00→18:23)
--- NOTE | 2019-09-11 09:23 | NUR ---
patient doesnt want them Addendum: 09/11/19 at 6676 by Diana Arguelles RT Amended: Links added.
[2019-09-11] MEDS: traMADol 50MG tablet PO PRN (12:33)
--- NOTE | 2019-09-11 15:32 | NUR ---
patient doesnt want svn tx Addendum: 09/11/19 at 1537 by Dinaa Arguelles RT Amended: Links added.
--- NOTE | 2019-09-11 16:18 | NUR ---
CANCELED SCHEDULED NEBULIZERS EDITED FOR PRN DUE TO PATIENT REFUSING AND PER RT NOT NEEDED THAT OFTEN.
[2019-09-11] MEDS ORDERED: ipratropium 0.5 MG/2.5ML nebule NEB PRN (16:20)
--- NOTE | 2019-09-11 16:20 | NUR ---
NURSING PROGRESS NOTE Legal hold: 5270 Client on involuntary status for DTS Report received from GARCÍA Huitron with use of SBAR Why are they here: Client was admitted to ED after making threats of suicide. He stated, "If I'm discharged I'll kill myself." Client was living with his parents and reported he was "kicked-out and started a downward spiral". The client has delusional thoughts and believes that he is being persecuted by the illuminati and that his parents are members. Client is particularly angry with his mother and stated, "Today is her birthday, and I don't care! F*ck her! Let the Nazi's have her!". Assessment What has happened this shift: Foul mood this morning. Delusional, talking of illuminati, nazi's and how the government is not paying attention. Pressured speech and tangential. Redirectable. Scheduled nebs stopped due to refusal and not needed per RT. S/I, H/I: Denies. A/VH: Denies. Sleep: naps at times ADL's: Independent Group attendance: No groups Were meds taken: Yes Any med S/E: None observed or reported. Mental Status Exam Appearance: Disheveled Eye contact: Good Behavior: Cooperative, delusional, labile Speech: Clear, audible Mood: Irritable Affect: Angry Thought process: Delusional, grandiose Thought Content: The Illuminati. Cognition: Alert Insight: Poor Judgment: Poor Interventions PRN's used: None Therapeutic interventions: 1:1 assessment, active listening, therapeutic conversation, ensured contract for safety, medication administration/education/monitoring, behavior monitoring and intervention as needed; reality orientation, Q 15min safety checks. Restraints/seclusion/emergency medication: N/A Justification of Continued Inpatient Treatment: Pt continues to have his ongoing delusional thinking. He is currently homeless and continues to require medication adjustment and monitoring in a safe and therapeutic environment. Pt's medi-theodore is pending.
[2019-09-11 20:51] VITALS: BP 116/96
--- NOTE | 2019-09-11 23:41 | NUR ---
Nursing Progress Note: Legal hold: 4310 Client on involuntary status for DTS Report received from GARCÍA Mistry with use of SBAR Why are they here: Client was admitted to ED after making threats of suicide. He stated, "If I'm discharged I'll kill myself." Client was living with his parents and reported he was "kicked-out and started a downward spiral". The client has delusional thoughts and believes that he is being persecuted by the illuminati and that his parents are members. Client is particularly angry with his mother and stated, "Today is her birthday, and I don't care! F*ck her! Let the Nazi's have her!". Assessment What has happened this shift: The patient was seen at bedside for assessment. He reports that the Illuminati are running everything, and nobodies paying attention. "They've been after me for a long time, AND THEY WILL GET ME. They get into my stuff and manipulate it. They can take all my stuff, I don't care." He continues, "My dad had 29 gold mines. I'm royalty, I don't give a rats ass what they do. As for my dad, He can kiss my ass too." Continues to be disorganized and tangential, but can be redirected. Angers easily. The patient does not believe he was given Tramadol last night, but he asked for and it was given. He stayed isolated in his room, took HS meds then went to bed. S/I, H/I: Denies. A/VH: Denies. Sleep: See sleep assessment ADL's: Independent Group attendance: No groups at night Were meds taken: Yes, Any med S/E: None observed or reported. Mental Status Exam Appearance: Disheveled, sweaty, malodorous, wearing dirty street clothes Eye contact: Good Behavior: Cooperative, delusional, labile, angry Speech: Clear, audible Mood: "Great" Affect: Angry Thought process: Delusional, grandiose Thought Content: The Illuminati. Cognition: A/O x 4 Insight: Poor Judgment: Poor Interventions PRN's used: Ativan Therapeutic interventions: 1:1 assessment, active listening, therapeutic conversation, ensured contract for safety, medication administration/education/monitoring, behavior monitoring and intervention as needed; reality orientation, Q 15min safety checks. Restraints/seclusion/emergency medication: N/A Justification of Continued Inpatient Treatment: Pt continues to have his ongoing delusional thinking. He is currently homeless and continues to require medication adjustment and monitoring in a safe and therapeutic environment. Pt's medi-theodore is pending. s
[2019-09-12] MEDS: tizanidine 4mg tablet PO PRN (00:52)
[2019-09-12] MEDS: LORazepam 1 MG tablet PO PRN ×2 (00:52→16:20)
[2019-09-12] MEDS: LORazepam 0.5 MG tablet PO SCH ×3 (07:42→21:19)
[2019-09-12] MEDS: triamcinolone acet 0.1% cream 15gm TP SCH ×3 (07:43→21:20)
[2019-09-12] MEDS: lactose-reduced food (Ensure Enlive) - 237ml bottle PO SCH ×3 (07:43→18:00)
[2019-09-12 07:48] VITALS: BP 107/73
--- NOTE | 2019-09-12 12:45 | NUR ---
Met with Mitch to assess if he is ready to interview for [employer]. Mitch was concerned about what is happening with his SSI. He reported he normally gets automatic deposit. 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 Explained that if he was indeed really working he would not receive SSI. He stated he works for [employer] "on the sly". Mitch continued to ramble on. Encouraged him to call his bank to check his balance. At this time Mitch does not appear to be ready to interview for [employer]. Will continue to assess for readiness for [employer] interview. MAG Flynn
--- NOTE | 2019-09-12 18:30 | NUR ---
Nursing Progress Note: Legal hold: 5270 Client on involuntary status for DTS Report received from RN with use of SBAR Why are they here: Client was admitted to ED after making threats of suicide. He stated, "If I'm discharged I'll kill myself." Client was living with his parents and reported he was "kicked-out and started a downward spiral". The client has delusional thoughts and believes that he is being persecuted by the illuminati and that his parents are members. Client is particularly angry with his mother and stated, "Today is her birthday, and I don't care! F*ck her! Let the Nazi's have her!". Assessment What has happened this shift: Received Pt sleeping in bed w/o distress at beginning of shift. Pt awoke for vitals, ate breakfast in his room and took AM meds. Pt did not need or request nebulizer Tx today. Pt continues to talk about germans, royalty and judges as part of his fixed delusions of power and influence. Pt remains cooperative redirectable and funny at times, with staff and other Pts. Pt had 5270 hearing today and was placed on 5270. He was upset and hyperverbal with pressured speech. Pt responded well to PRN Ativan. Pt remains impulsive and labile r/t SI. S/I, H/I: Pt denies. A/VH: Pt denies. Sleep: Did not sleep this shift ADL's: Independent Group attendance: N/A Were meds taken: Yes Any med S/E: None noted or reported. Mental Status Exam Appearance: Clean, appropriate Eye contact: Good Behavior: Cooperative Speech: Clear, audible Mood: Bored Affect: Animated at times Thought process: Delusional, grandiose Thought Content: Germans and judges Cognition: A/O x 4 Insight: Poor Judgment: Poor Interventions PRN's used: N/A Therapeutic interventions: 1:1 assessment, active listening, therapeutic conversation, ensured contract for safety, medication administration/education/monitoring, behavior monitoring and intervention as needed; reality orientation, Q 15min safety checks. Restraints/seclusion/emergency medication: N/A Justification of Continued Inpatient Treatment: Pt continues to have his ongoing delusional thinking. He is currently homeless and continues to require medication adjustment and monitoring in a safe and therapeutic environment. Pt's medi-theodore is pending.
[2019-09-12] MEDS: hydrOXYzine 25 MG tablet PO PRN (22:44)
--- NOTE | 2019-09-13 00:08 | NUR ---
Nursing Progress Note: Legal hold: 8584 Client on involuntary status for DTS Report received from nurse with use of SBAR: Letha RN Why are they here: Client was admitted to ED after making threats of suicide. He stated, "If I'm discharged I'll kill myself." Client was living with his parents and reported he was "kicked-out and started a downward spiral". The client has delusional thoughts and believes that he is being persecuted by the illuminati and that his parents are members. Client is particularly angry with his mother and stated, "Today is her birthday, and I don't care! F*ck her! Let the Nazi's have her!". Assessment What has happened this shift: Pt. up in the Recreation Room at the beginning of the shift, he begins talking crudely to a staff member about putting on pornography, and is redirected by staff that this is inappropriate. Pt. becomes mildly agitated and states, "You guys need to stop putting that in my mind then!" However, he appears to be able to redirect his own behavior, and retreats to his room isolating here throughout the rest of the shift. Pt. refuses to have his V/S completed and presents as restless, anxious, agitated at times, and withdrawn. 1:1 complete at bedside, pt's speech is pressured and hyperverbal. He uses excessive foul language r/t being upset about being kept at this facility on a hold, pt. states, "I am going to chin! The doctors can't tell all these lies and keep me here!" Pt. is able to be redirected by this procedure writer, however he remains angry and reports that he would like to go to [facility]. Pt. continues to make many grandiose delusional statements r/t his belief that he and his family are of [place] power. He adamantly reports that they own the [employer] in [place] and [employer] here. Pt. repeatedly states, "They say these are delusions, but it's all true! There are probably cameras in here right now recording me!" He denies S/I, H/I, or any A/V/MURDOCK and does not appear to be internally preoccupied. Pt. continues to exhibit lability, be restless/appear hypomanic, and is impulsive at times. PRN Atrax administered at HS per request with effectiveness, will continue to monitor. S/I, H/I: Denies A/VH: Denies, does not appear internally preoccupied Sleep: Pt. reports some insomnia, PRN Atrax administered at HS with effectiveness ADL's: Pt. requires redirection at times Group attendance: N/A Were meds taken: Yes Any med S/E: None Mental Status Exam Appearance: Pt. appears neat and is appropriately dressed Eye contact: Good, intense at times Behavior: RTC, slightly agitated,, anxious, impulsive at times, and appears hypomanic Speech: Pressured and hyperverbal Mood: Slight irritability at times with animation (some inappropriate laughter) Affect: Labile, however able to be redirected Thought process: Tangental with disorganization Thought Content: Ongoing paranoid and grandiose delusions Cognition: A&O X4 Insight: Poor Judgment: Poor Interventions PRN's used: Atrax Therapeutic interventions: Ensured contract for safety, maintained a safe and therapeutic environment, provided clear and simple instructions, attempted to reorient to reality, monitored behavior and need for intervention, provided active listening, provided redirection as needed, and maintained Q 15min safety checks. Restraints/seclusion/emergency medication: N/A Justification of Continued Inpatient Treatment: Mustapha Ortiz, pt. continues to be manic delusional and is not suitable for a [facility] referral at this time. He needs further stabilization, medication adjustments, and a safe and therapeutic environment.
[2019-09-13] MEDS: hydrOXYzine 25 MG tablet PO PRN (04:40)
[2019-09-13 07:42] VITALS: BP 118/62
[2019-09-13] MEDS: LORazepam 0.5 MG tablet PO SCH ×3 (08:35→20:43)
[2019-09-13] MEDS: triamcinolone acet 0.1% cream 15gm TP SCH ×3 (08:35→20:44)
[2019-09-13] MEDS: lactose-reduced food (Ensure Enlive) - 237ml bottle PO SCH ×3 (08:35→18:06)
--- NOTE | 2019-09-13 18:03 | NUR ---
Nursing Progress Note: Legal hold: 5270 Client on involuntary status for DTS Report received from VAZQUEZ Deal with use of SBAR Why are they here: Client was admitted to ED after making threats of suicide. He stated, "If I'm discharged I'll kill myself." Client was living with his parents and reported he was "kicked-out and started a downward spiral". The client has delusional thoughts and believes that he is being persecuted by the illuminati and that his parents are members. Client is particularly angry with his mother and stated, "Today is her birthday, and I don't care! F*ck her! Let the Nazi's have her!". Assessment What has happened this shift: Pt is angry and hypomanic today. He states he is upset over going to court. He states he disagrees that he is unable to care for himself. He expressed his anger over pooping on the floor and rubbing in on the verde. He denies it was him and then began talking about monkeys in [place] are learning to talk and they tape their mouths. S/I, H/I: Pt denies. A/VH: Pt denies. Sleep: Did not sleep this shift ADL's: Independent Group attendance: Outside Were meds taken: Yes Any med S/E: None noted or reported. Mental Status Exam Appearance: Clean, appropriate Eye contact: Good Behavior: Labile Speech: Clear, pressured Mood: Bored Affect: Animated Thought process: Delusional, grandiose Thought Content: Germans and monkeys from [place] Cognition: A/O x 4 Insight: Poor Judgment: Poor Interventions PRN's used: Ativan Therapeutic interventions: 1:1 assessment, active listening, therapeutic conversation, medication administration/education/monitoring, behavior monitoring and intervention as needed; reality orientation, Q 15min safety checks. Restraints/seclusion/emergency medication: N/A Justification of Continued Inpatient Treatment: Pt continues to have his ongoing delusional thinking. He is currently homeless and continues to require medication adjustment and monitoring in a safe and therapeutic environment. Pt's medi-theodore is pending.
[2019-09-13 19:00] VITALS: BP 110/69
--- NOTE | 2019-09-14 01:41 | NUR ---
Nursing Progress Note: Legal hold: 5270 Client on involuntary status for DTS Report received from nurse with use of SBAR: GARCÍA Monae Why are they here: Client was admitted to ED after making threats of suicide. He stated, "If I'm discharged I'll kill myself." Client was living with his parents and reported he was "kicked-out and started a downward spiral". The client has delusional thoughts and believes that he is being persecuted by the illuminati and that his parents are members. Client is particularly angry with his mother and stated, "Today is her birthday, and I don't care! F*ck her! Let the Nazi's have her!". Assessment What has happened this shift: Pt. in bed asleep at the beginning of the shift, he presents with some irritation and is withdrawn, and remains in bed throughout much of the shift. 1:1 completed at bedside, pt's speech is at first normal and calm, and then becomes pressured and hyperverbal. He expresses irritably regarding being kept on a hold, and his desire to discharge to the [facility]. Pt's thought process quickly becomes tangental and takes the form of delusional rants. He continues to make many paranoid and grandiose delusional statements. Pt. reports the paranoid delusion that his family is conspiring with Hitler, and states agitatedly using many profanities, "They were trying to control me and my medications." Pt. then reports that he has alexis thorns in his right foot from when he was gardening in his parent's yard prior to coming to the hospital. He states, "The thorns are what are causing my toenail fungus!" This underwriter examined pt's right foot, some discoloration and dryness noted, however no thorns visible and pt. denies any pain. Moisturizing cream applied by this underwriter to bilateral feet, will endorse to AM shift and continue to monitor. Pt. also incessantly makes grandiose delusional statements regarding his belief that has a [place] girlfriend waiting for him, and that the name "Janeen means God." He then states, "As delusional as it all may sound my ancestors are from the angles." Pt. later appears to be resting comfortably, will continue to monitor. S/I, H/I: Denies A/VH: Denies, does not appear internally preoccupied Sleep: Pt. presents with some fatigue/withdrawn and remains in bed throughout much of the shift. He appears to be resting comfortably. ADL's: Pt. requires redirection at times Group attendance: N/A Were meds taken: Yes Any med S/E: None Mental Status Exam Appearance: Pt. appears neat and is appropriately dressed Eye contact: Good, intense at times Behavior: Withdrawn, slightly agitated, restless, and appears hypomanic Speech: Normal and calm and then will become pressured and hyperverbal Mood: Mildly labile with bouts of irritation and then animation with laughter Affect: Constricted with lability, however able to be redirected Thought process: Tangental with disorganization Thought Content: Ongoing paranoid and grandiose delusions Cognition: A&O X4 Insight: Poor Judgment: Poor Interventions PRN's used: None Therapeutic interventions: Ensured contract for safety, maintained a safe and therapeutic environment, provided clear and simple instructions, attempted to reorient to reality, monitored behavior and need for intervention, provided active listening, provided redirection as needed, applied moisturizing cream to feet, and maintained Q 15min safety checks. Restraints/seclusion/emergency medication: N/A Justification of Continued Inpatient Treatment: Per BHARTI Torrez, pt. remains gravely disabled and requires further stabilization, medication adjustments, and a safe and therapeutic environment.
[2019-09-14] MEDS: hydrOXYzine 25 MG tablet PO PRN (04:06)
[2019-09-14] MEDS: tizanidine 4mg tablet PO PRN (04:07)
--- NOTE | 2019-09-14 04:11 | NUR ---
Nursing Note: Pt. awoke with slight irritation and c/o pain in right hip possibly r/t muscle spasms. PRN Atrax and Zanaflex administered, pt. stated irritably, "You guys don't know anything about me, call [facility], they will tell you I'm royalty!" He was able to be successfully redirected, will monitor.
[2019-09-14 07:50] VITALS: BP 104/69
[2019-09-14] MEDS: LORazepam 0.5 MG tablet PO SCH ×3 (07:50→20:28)
[2019-09-14] MEDS: triamcinolone acet 0.1% cream 15gm TP SCH ×3 (07:50→21:52)
[2019-09-14] MEDS: lactose-reduced food (Ensure Enlive) - 237ml bottle PO SCH ×3 (08:00→18:30)
[2019-09-14] MEDS: albuterol 2.5 MG/3 ML nebule NEB PRN (11:28)
--- NOTE | 2019-09-14 17:51 | NUR ---
Nursing Progress Note: Legal hold: 5270 Client on involuntary status for DTS Report received from VAZQUEZ Deal with use of SBAR Why are they here: Client was admitted to ED after making threats of suicide. He stated, "If I'm discharged I'll kill myself." Client was living with his parents and reported he was "kicked-out and started a downward spiral". The client has delusional thoughts and believes that he is being persecuted by the illuminati and that his parents are members. Client is particularly angry with his mother and stated, "Today is her birthday, and I don't care! F*ck her! Let the Nazi's have her!". Assessment What has happened this shift: Pt received asleep in bed. Pt awoke for breakfast. Pt in a pleasant mood most of the day with only 2 bouts of agitation r/t delusional thought content. Most of the day when he would interact with staff, he would joke around and smile. Pt denies depression and denies suicidal ideation. Pt did voice some paranoia r/t medication and later r/t his brother. S/I, H/I: Pt denies. A/VH: Pt denies. Sleep: Did not sleep this shift ADL's: Independent Group attendance: Outside Were meds taken: Yes Any med S/E: None noted or reported. Mental Status Exam Appearance: Clean, appropriate Eye contact: Good Behavior: Labile Speech: Clear, pressured Mood: Bored Affect: Animated Thought process: Delusional, grandiose Thought Content: Germans and monkeys from [place] Cognition: A/O x 4 Insight: Poor Judgment: Poor Interventions PRN's used: Therapeutic interventions: 1:1 assessment, active listening, therapeutic conversation, medication administration/education/monitoring, behavior monitoring and intervention as needed; reality orientation, Q 15min safety checks. Restraints/seclusion/emergency medication: N/A Justification of Continued Inpatient Treatment: Pt continues to have his ongoing delusional thinking. He is currently homeless and continues to require medication adjustment and monitoring in a safe and therapeutic environment. Pt's medi-theodore is pending.
[2019-09-14 19:00] VITALS: BP 100/57
--- NOTE | 2019-09-15 01:09 | NUR ---
Nursing Progress Note: Legal hold: 5270 Client on involuntary status for DTS Report received from VAZQUEZ Monae with use of SBAR Why are they here: Client was admitted to ED after making threats of suicide. He stated, "If I'm discharged I'll kill myself." Client was living with his parents and reported he was "kicked-out and started a downward spiral". The client has delusional thoughts and believes that he is being persecuted by the illuminati and that his parents are members. Client is particularly angry with his mother and stated, "Today is her birthday, and I don't care! F*ck her! Let the Nazi's have her!". Assessment What has happened this shift: Pt asleep in bed at the start of shift. Pt in a pleasant mood most of shift. At med pass Pt talked about the Germans and there there control over the medical field. He remained in bed after med pass and fell asleep. He had a few complaints about a med he should have that his Dr. prescribed before coming here. S/I, H/I: Pt denies. A/VH: Pt denies. Sleep: sleep this shift ADL's: Independent Group attendance: Outside Were meds taken: Yes Any med S/E: None noted or reported. Mental Status Exam Appearance: Clean, appropriate Eye contact: Good Behavior: Labile Speech: Clear, pressured Mood: Bored Affect: Animated Thought process: Delusional, grandiose Thought Content: Germans and monkeys from [place] Cognition: A/O x 4 Insight: Poor Judgment: Poor Interventions PRN's used: none Therapeutic interventions: 1:1 assessment, active listening, therapeutic conversation, medication administration/education/monitoring, behavior monitoring and intervention as needed; reality orientation, Q 15min safety checks. Restraints/seclusion/emergency medication: N/A Justification of Continued Inpatient Treatment: Pt continues to have his ongoing delusional thinking. He is currently homeless and continues to require medication adjustment and monitoring in a safe and therapeutic environment. Pt's medi-theodore is pending.
[2019-09-15 07:38] VITALS: BP 98/62
[2019-09-15] MEDS: LORazepam 0.5 MG tablet PO SCH ×3 (08:31→20:29)
[2019-09-15] MEDS: lactose-reduced food (Ensure Enlive) - 237ml bottle PO SCH ×3 (08:31→18:04)
[2019-09-15] MEDS: triamcinolone acet 0.1% cream 15gm TP SCH ×3 (08:31→20:42)
--- NOTE | 2019-09-15 16:16 | NUR ---
Nursing Progress Note: Legal hold: 5270 Client on involuntary status for DTS Report received from VAZQUEZ Deal with use of SBAR Why are they here: Client was admitted to ED after making threats of suicide. He stated, "If I'm discharged I'll kill myself." Client was living with his parents and reported he was "kicked-out and started a downward spiral". The client has delusional thoughts and believes that he is being persecuted by the illuminati and that his parents are members. Client is particularly angry with his mother and stated, "Today is her birthday, and I don't care! F*ck her! Let the Nazi's have her!". Assessment What has happened this shift: Pt sleeping at start of shift. He later is overheard having a very loose association conversation with his roommate. He continues to be angry at times during the day due to his delusions. S/I, H/I: Pt denies. A/VH: Pt denies. Sleep: Napped ADL's: Independent Group attendance: Movie for a brief time Were meds taken: Yes Any med S/E: None noted or reported. Mental Status Exam Appearance: Clean, appropriate Eye contact: Good Behavior: Labile Speech: Clear, pressured Mood: Labile Affect: Animated Thought process: Delusional, grandiose Thought Content: Nazi's Cognition: A/O x 4 Insight: Poor Judgment: Poor Interventions PRN's used: Therapeutic interventions: 1:1 assessment, active listening, therapeutic conversation, medication administration/education/monitoring, behavior monitoring and intervention as needed, Q 15min safety checks. Restraints/seclusion/emergency medication: N/A Justification of Continued Inpatient Treatment: Pt continues to have his ongoing delusional thinking. He is currently homeless and continues to require medication adjustment and monitoring in a safe and therapeutic environment. Pt's medi-theodore is pending.
[2019-09-15] MEDS ORDERED: gabapentin 300mg capsule PO ONE (18:35)
[2019-09-15 20:00] VITALS: BP 116/73
--- NOTE | 2019-09-16 01:34 | NUR ---
Nursing Progress Note: Legal hold: 5270 Client on involuntary status for DTS Report received from VAZQUEZ Monae with use of SBAR Why are they here: Client was admitted to ED after making threats of suicide. He stated, "If I'm discharged I'll kill myself." Client was living with his parents and reported he was "kicked-out and started a downward spiral". The client has delusional thoughts and believes that he is being persecuted by the illuminati and that his parents are members. Client is particularly angry with his mother and stated, "Today is her birthday, and I don't care! F*ck her! Let the Nazi's have her!". Assessment What has happened this shift: Pt was napping off and on at the start of the shift. In conversations at times with his room mate. Per BHARTI Torrez a one time order for Neurontin 300mg was given . Pt went to sleep after meds. S/I, H/I: Pt denies. A/VH: Pt denies. Sleep: Napped ADL's: Independent Group attendance: Movie for a brief time Were meds taken: Yes Any med S/E: None noted or reported. Mental Status Exam Appearance: Clean, appropriate Eye contact: Good Behavior: Labile Speech: Clear, pressured Mood: Labile Affect: Animated Thought process: Delusional, grandiose Thought Content: Nazi's Cognition: A/O x 4 Insight: Poor Judgment: Poor Interventions PRN's used: Therapeutic interventions: 1:1 assessment, active listening, therapeutic conversation, medication administration/education/monitoring, behavior monitoring and intervention as needed, Q 15min safety checks. Restraints/seclusion/emergency medication: N/A Justification of Continued Inpatient Treatment: Pt continues to have his ongoing delusional thinking. He is currently homeless and continues to require medication adjustment and monitoring in a safe and therapeutic environment. Pt's medi-theodore is pending.
[2019-09-16 07:26] VITALS: BP 123/81
[2019-09-16] MEDS: gabapentin 300mg capsule PO SCH ×2 (08:30→20:31)
[2019-09-16] MEDS: triamcinolone acet 0.1% cream 15gm TP SCH ×3 (08:30→20:35)
[2019-09-16] MEDS: lactose-reduced food (Ensure Enlive) - 237ml bottle PO SCH ×3 (08:30→18:02)
[2019-09-16] MEDS: LORazepam 0.5 MG tablet PO SCH ×3 (08:30→20:31)
[2019-09-16] MEDS: albuterol 2.5 MG/3 ML nebule NEB PRN (10:43)
[2019-09-16] MEDS: LIDOcaine 5% patch TP PRN (11:25)
--- NOTE | 2019-09-16 17:40 | NUR ---
Nursing Progress Note: Legal hold: 5270 Client on involuntary status for DTS Report received from VAZQUEZ Mistry with use of SBAR Why are they here: Client was admitted to ED after making threats of suicide. He stated, "If I'm discharged I'll kill myself." Client was living with his parents and reported he was "kicked-out and started a downward spiral". The client has delusional thoughts and believes that he is being persecuted by the illuminati and that his parents are members. Client is particularly angry with his mother and stated, "Today is her birthday, and I don't care! F*ck her! Let the Nazi's have her!". Assessment What has happened this shift: Pt. asleep at start of shift. Pt. took all meds and ate all meals. 1:1 done at bedside. Pt. is hyperverbal with pressured speech. Pt. tangential, talking at length about [place] and [place] women involvement in the [facility], and then talk about a woman who broke his heart because she was a witch and he was a warloc. Pt. points to a drawing above his bed and explains this is what gives him protection. Pt. denies SI/HI, A/V hallucinations. Pt. needed to be redirected multiple times after overheard yelling in his room. Pt. c/o of back pain and given PRN lidocaine patch and tramadol. S/I, H/I: Pt denies. A/VH: Pt denies. Sleep: Napped x1 on day shift. ADL's: Independent Group attendance: Pt. attended group movie [employer]. Pt. seen minimially interacting with other patients. Were meds taken: Yes Any med S/E: None noted or reported. Mental Status Exam Appearance: Clean, shaven wearing street top and green scrub bottoms. Eye contact: Good Behavior: Isolative to room at times, seen interacting minimally with other patients in hallway. Speech: Clear, hyperverbal, pressured Mood: Labile Affect: Animated Thought process: Delusional, grandiose, tangetial Thought Content: Sc[place]avian women Cognition: A/O x 4 Insight: Poor Judgment: Poor Interventions PRN's used: Tramadol 25mg x1, Lidocaine patch x1 Therapeutic interventions: 1:1 assessment, active listening, therapeutic conversation, medication administration/education/monitoring, behavior monitoring and intervention as needed, Q 15min safety checks. Restraints/seclusion/emergency medication: N/A Justification of Continued Inpatient Treatment: Pt continues to have his ongoing delusional thinking. He is currently homeless and continues to require medication adjustment and monitoring in a safe and therapeutic environment. Pt's medi-theodore is pending.
[2019-09-16 20:00] VITALS: BP 163/67
--- NOTE | 2019-09-17 01:11 | NUR ---
Nursing Progress Note: Legal hold: 5270 Client on involuntary status for DTS Report received from VAZQUEZ Monae with use of SBAR Why are they here: Client was admitted to ED after making threats of suicide. He stated, "If I'm discharged I'll kill myself." Client was living with his parents and reported he was "kicked-out and started a downward spiral". The client has delusional thoughts and believes that he is being persecuted by the illuminati and that his parents are members. Client is particularly angry with his mother and stated, "Today is her birthday, and I don't care! F*ck her! Let the Nazi's have her!". Assessment What has happened this shift: Patient in his room at shift change napping. He was in conversation with room mate about the [place] and the nazis. Pt was med compliant. Pt has new order for Neurontin 300 mg PO Bid. Pt's lidocaine patch removed and pt returned to bed. S/I, H/I: Pt denies. A/VH: Pt denies. Sleep: Napped x1 on day shift. ADL's: Independent Group attendance: Pt. attended group movie [employer]. Pt. seen minimially interacting with other patients. Were meds taken: Yes Any med S/E: None noted or reported. Mental Status Exam Appearance: Clean, shaven wearing street top and green scrub bottoms. Eye contact: Good Behavior: Isolative to room at times, seen interacting minimally with other patients in hallway. Speech: Clear, hyperverbal, pressured Mood: Labile Affect: Animated Thought process: Delusional, grandiose, tangetial Thought Content: [place] women Cognition: A/O x 4 Insight: Poor Judgment: Poor Interventions PRN's used: Therapeutic interventions: 1:1 assessment, active listening, therapeutic conversation, medication administration/education/monitoring, behavior monitoring and intervention as needed, Q 15min safety checks. Restraints/seclusion/emergency medication: N/A Justification of Continued Inpatient Treatment: Pt continues to have his ongoing delusional thinking. He is currently homeless and continues to require medication adjustment and monitoring in a safe and therapeutic environment. Pt's medi-theodore is pending.
[2019-09-17] MEDS: LORazepam 0.5 MG tablet PO SCH ×3 (07:47→20:31)
[2019-09-17] MEDS: gabapentin 300mg capsule PO SCH ×2 (07:47→20:33)
[2019-09-17 08:00] VITALS: BP 104/70
[2019-09-17] MEDS: lactose-reduced food (Ensure Enlive) - 237ml bottle PO SCH ×3 (08:44→18:00)
[2019-09-17] MEDS: triamcinolone acet 0.1% cream 15gm TP SCH ×3 (08:45→21:00)
[2019-09-17] MEDS: LIDOcaine 5% patch TP PRN (11:08)
--- NOTE | 2019-09-17 11:57 | NUR ---
Reassessment: Pt PO 75-100% avg meals meeting needs. Pt receiving ensure enlive TIDWM instead of Dat shakes for additional kcals per RN. Pt is receiving normal shakes TID and does not need ensures w/ meals to meet needs given PO hx. This has been d/w RN previously. LBM 09/15. No nutrition concerns at this time. Will continue to monitor. Recommendations: 1) Continue regular diet 2) Regular shake TID for satiety 3) Bowel care PRN 4) Wt per rx Addendum: 09/17/19 at [address] Amended: Links added.
--- NOTE | 2019-09-17 17:26 | NUR ---
Nursing Progress Note: Legal hold: 9370 Client on involuntary status for DTS Report received from VAZQUEZ Mistry with use of SBAR Why are they here: Client was admitted to ED after making threats of suicide. He stated, "If I'm discharged I'll kill myself." Client was living with his parents and reported he was "kicked-out and started a downward spiral". The client has delusional thoughts and believes that he is being persecuted by the illuminati and that his parents are members. Client is particularly angry with his mother and stated, "Today is her birthday, and I don't care! F*ck her! Let the Nazi's have her!". Assessment What has happened this shift: Pt. awake at change of shift. Pt. sitting up in his room requesting coffee. Pt. took all medications and ate all meals in his room. 1:1 done at bedside. Pt. denies SI/HI,A/V hallucinations. Pt. reports being frustrated that he is still here and is hoping to go to the [facility]. Pt. continues to have some tangential thought process as well as delusions of grandeur, pt. states, Im ready to retire, I have stocks in [employer], [employer] Look out this window, look at those properties, do you want one? I can make a phone call and get you one right now!. Pt. appears more calm today, but also more depressed. Pt. got into less verbal altercations with his roommate today. Pt. given Lidocaine patch for back pain but refused Tramadol. Pt. inquires throughout the day regarding discharge plans. RN informed by social work that [facility] is a possibility, however, there are no beds available as of yet. When pt. informed, he responded, That sucks. That really sucks. S/I, H/I: Pt denies. A/VH: Pt denies. Sleep: Napped x1 on day shift. ADL's: Independent Group attendance: No groups today. Were meds taken: Yes Any med S/E: None noted or reported. Mental Status Exam Appearance: Clean, shaven wearing street top and green scrub bottoms. Eye contact: Good Behavior: Isolative to room at times, seen interacting minimally with other patients in hallway. Speech: Clear, hyperverbal, pressured Mood: Depressed with periods of excitement Affect: Congruent with mood Thought process: tangential with delusions of grandeur Thought Content: Focused on discharge Cognition: A/O x 4 Insight: Poor Judgment: Poor Interventions PRN's used: Tramadol 25mg x1, Lidocaine patch x1 Therapeutic interventions: 1:1 assessment, active listening, therapeutic conversation, medication administration/education/monitoring, behavior monitoring and intervention as needed, Q 15min safety checks. Restraints/seclusion/emergency medication: N/A Justification of Continued Inpatient Treatment: Pt continues to have his ongoing delusional thinking. He is currently homeless and continues to require medication adjustment and monitoring in a safe and therapeutic environment. Pt's medi-theodore is pending. Possible discharge to [facility] when beds available.
[2019-09-17 20:23] VITALS: BP 125/75
--- NOTE | 2019-09-18 00:50 | NUR ---
Nursing Progress Note: Legal hold: 5270 Client on involuntary status for DTS Report received from VAZQUEZ Monae with use of SBAR Why are they here: Client was admitted to ED after making threats of suicide. He stated, "If I'm discharged I'll kill myself." Client was living with his parents and reported he was "kicked-out and started a downward spiral". The client has delusional thoughts and believes that he is being persecuted by the illuminati and that his parents are members. Client is particularly angry with his mother and stated, "Today is her birthday, and I don't care! F*ck her! Let the Nazi's have her!". Assessment What has happened this shift: Pt was awake and in the rec room at change of shift watching Tv with peers. Pt was pleasant and laughing with peers. Pt made a few statements about nazi Jin but did not go into depth about it. Took med this shift with comments about them. S/I, H/I: Pt denies. A/VH: Pt denies. Sleep: slept most of shift. ADL's: Independent Group attendance: No groups today. Were meds taken: Yes Any med S/E: None noted or reported. Mental Status Exam Appearance: Clean, shaven wearing street top and green scrub bottoms. Eye contact: Good Behavior: Isolative to room at times, seen interacting minimally with other patients in hallway. Speech: Clear, hyperverbal, pressured Mood: Depressed with periods of excitement Affect: Congruent with mood Thought process: tangential with delusions of grandeur Thought Content: Focused on discharge Cognition: A/O x 4 Insight: Poor Judgment: Poor Interventions PRN's used: none Therapeutic interventions: 1:1 assessment, active listening, therapeutic conversation, medication administration/education/monitoring, behavior monitoring and intervention as needed, Q 15min safety checks. Restraints/seclusion/emergency medication: N/A Justification of Continued Inpatient Treatment: Pt continues to have his ongoing delusional thinking. He is currently homeless and continues to require medication adjustment and monitoring in a safe and therapeutic environment. Pt's medi-theodore is pending. Possible discharge to [facility] when beds available.
[2019-09-18] MEDS: LORazepam 1 MG tablet PO PRN (02:40)
[2019-09-18 07:30] VITALS: BP 104/71
[2019-09-18] MEDS: gabapentin 300mg capsule PO SCH ×2 (07:37→13:17)
[2019-09-18] MEDS: LORazepam 0.5 MG tablet PO SCH ×3 (07:37→20:21)
[2019-09-18] MEDS: triamcinolone acet 0.1% cream 15gm TP SCH ×3 (08:35→20:21)
[2019-09-18] MEDS: lactose-reduced food (Ensure Enlive) - 237ml bottle PO SCH ×5 (08:35→19:11)
[2019-09-18] MEDS: LIDOcaine 5% patch TP PRN (10:09)
--- NOTE | 2019-09-18 18:09 | NUR ---
Nursing Progress Note: Legal hold: 5270 Client on involuntary status for DTS Report received from VAZQUEZ Mistry with use of SBAR Why are they here: Client was admitted to ED after making threats of suicide. He stated, "If I'm discharged I'll kill myself." Client was living with his parents and reported he was "kicked-out and started a downward spiral". The client has delusional thoughts and believes that he is being persecuted by the illuminati and that his parents are members. Client is particularly angry with his mother and stated, "Today is her birthday, and I don't care! F*ck her! Let the Nazi's have her!". Assessment What has happened this shift: Pt. awake at change of shift. Pt. sitting up in his room requesting coffee. Pt. took all medications and ate all meals in his room. 1:1 done at bedside. Pt. denies SI/HI,A/V hallucinations. 1:1 done at bedside. Pt. sitting in chair by window sunning himself with shirt off. Pt. reports his mood is good today, pt. continues to be hyper verbal with pressured speech. Pt. continues to have delusions of grandeur, stating, I have bank accounts with [employer], I can get you an amazing property, I just have to make one phone call. Pt. isolates to room most of the day. Pt. given Lidocaine patch for upper back pain with good effect. S/I, H/I: Pt denies. A/VH: Pt denies. Sleep: Napped 2 hours on day shift. ADL's: Independent Group attendance: No groups today. Were meds taken: Yes Any med S/E: None noted or reported. Mental Status Exam Appearance: Clean, shaven wearing street top and green scrub bottoms. Eye contact: Good Behavior: Isolative to room at times, seen interacting minimally with other patients in hallway. Speech: Clear, hyperverbal, pressured Mood: Depressed with periods of excitement Affect: Congruent with mood Thought process: tangential with delusions of grandeur Thought Content: Focused on discharge Cognition: A/O x 4 Insight: Poor Judgment: Poor Interventions PRN's used: Lidocaine patch x1 Therapeutic interventions: 1:1 assessment, active listening, therapeutic conversation, medication administration/education/monitoring, behavior monitoring and intervention as needed, Q 15min safety checks. Restraints/seclusion/emergency medication: N/A Justification of Continued Inpatient Treatment: Pt continues to have his ongoing delusional thinking. He is currently homeless and continues to require medication adjustment and monitoring in a safe and therapeutic environment. Pt's medi-theodore is pending. Possible discharge to [facility] when beds available.
[2019-09-18 20:00] VITALS: BP 119/89
[2019-09-18] MEDS: gabapentin 400mg capsule PO SCH (20:21)
--- NOTE | 2019-09-18 21:35 | NUR ---
This patient was moved to [address]m [address] as there was a conflict with his previous roommate that was escalating and needed to be addressed.
--- NOTE | 2019-09-19 00:49 | NUR ---
Nursing Progress Note Legal hold:5270 Client on an involuntary hold for being a danger to himself Report received from Burt MARIANO with use of SBAR Why are they here: The patient was admitted through the ER. He was making suicidal statements and exclaimed that if he were to be discharged he would kill himself. H was also making paranoid delusional statements. He had been kicked out of his parents home. Assessment What has happened this shift: The patient was up on the unit but he was very antagonistic towards his roommate. The situation and hostility escalated with his roommate that the the patient had to be moved to another room. He was very labile during the assessment from laughing to swearing and threatening. He stated that his number one reason for being here in the hospital was his spine. He immediately became agitated and his speech was fast and pressured. He rambled about hating Christians and being a ashton and stated, "I'm a direct descendant of Gato" When asked if he had a psychiatric illness he replied "Bipolar is an absolutely nonsense! I'm an autistic savant!" He became agitated with med pass and threatened to chin the hospital staff over his medications. His thoughts were very grandiose and his replies to any question was very tangential. S/I, H/I: Denies A/VH: Denies ADL's: The patient appeared clean and well groomed. Were meds taken: the patient did take his medications but was very angry about them. At one point he came down the martinez and announced to the nursing staff, "Tell the doctor that I'm not taking antipsychotic medications and that he can shove them up his ass! My back is better" "I'm not doing it!" He then abruptly walked away and went back to bed. Any med S/E The patient appeared to have extra saliva Mental Status Exam Appearance: Appeared well groomed Eye contact: intermittent Behavior: labile, agitated hostile Speech: Fast pressured with elevated volume Mood: Labile and very easily agitated Affect: lablile Thought process: flight of ideas, loose associations, disorganized Thought Content: anger towards medications, grandiose and delusional thought processes Cognition: alert Insight: very poor Judgment: very poor Interventions PRN's used: Therapeutic interventions: One to one with the patient to build therapeutic rapport. Assessed severity of thought disorder. Patient moved to a different room due to conflict with peer. Restraints/seclusion/emergency medication: Justification of Continued Inpatient Treatment: The patient is clearly struggling to maintain on the unit without becoming agitated to the point he becomes assaultive. He has such animosity about taking his psychiatric medications that it is unlikely that he will continue his psychiatric medications once discharged.
[2019-09-19] MEDS: triamcinolone acet 0.1% cream 15gm TP SCH ×3 (08:00→20:56)
[2019-09-19] MEDS: gabapentin 400mg capsule PO SCH ×3 (08:01→20:56)
[2019-09-19] MEDS: LORazepam 0.5 MG tablet PO SCH ×3 (08:01→20:56)
[2019-09-19 08:19] VITALS: BP 120/85
--- NOTE | 2019-09-19 14:53 | NUR ---
Nursing Progress Note: Legal hold: 5270 Client on involuntary status for DTS Report received from RN with use of SBAR Why are they here: Client was admitted to ED after making threats of suicide. He stated, "If I'm discharged I'll kill myself." Client was living with his parents and reported he was "kicked-out and started a downward spiral". The client has delusional thoughts and believes that he is being persecuted by the illuminati and that his parents are members. Client is particularly angry with his mother and stated, "Today is her birthday, and I don't care! F*ck her! Let the Nazi's have her!". Assessment What has happened this shift: Patient was asleep at change of shift and up before breakfast. When staff attempted to do vital signs with patient, patient started cussing and stated "Fuck you! Get the fuck out of here!" Later patient was given a cup of coffee by RN and was overly pleasant. Patient refused his anti-psychotic meds but took his pain and anxiety meds. Patient denies suicidal/homicidal ideation. Patient denies hearing voices. Patient appears psychotic and labile. S/I, H/I: Pt denies. A/VH: Pt denies. Sleep: none during the day. ADL's: Independent Group attendance: No groups today. Were meds taken: No psych meds. Any med S/E: None noted or reported. Mental Status Exam Appearance: Clean, shaven wearing green scrub bottoms. Eye contact: Good Behavior: [employer] alliance party, very social today Speech: hyperverbal, pressured Mood: labile Affect: Congruent with mood Thought process: tangential with delusions of grandeur Thought Content: joking and laughing Cognition: A/O x 4 Insight: Poor Judgment: Poor Interventions PRN's used: None Therapeutic interventions: 1:1 assessment, active listening, therapeutic conversation, medication administration/education/monitoring, behavior monitoring and intervention as needed, Q 15min safety checks. Restraints/seclusion/emergency medication: N/A Justification of Continued Inpatient Treatment: Pt continues to have his ongoing delusional thinking. He is currently homeless and continues to require medication adjustment and monitoring in a safe and therapeutic environment. Pt's medi-theodore is pending. Possible discharge to [facility] when beds available.
[2019-09-19] MEDS: LIDOcaine 5% patch TP PRN (16:07)
[2019-09-19 19:00] VITALS: BP 124/73
--- NOTE | 2019-09-20 00:51 | NUR ---
Nursing Progress Note Legal hold:5270 Client on an involuntary hold for being a danger to himself Report received from VAZQUEZ Mistry with use of SBAR Why are they here: The patient was admitted through the ER. He was making suicidal statements and exclaimed that if he were to be discharged he would kill himself. H was also making paranoid delusional statements. He had been kicked out of his parents home. Assessment What has happened this shift: Pt was in his room during shift change. Asked for coffee and to use the phone. Pt is very labile and psychotic with grandiose delusions. He was cooperative during 1:1 physical assessment but only took some of his medications. Refused his perphenazine. He states that he is no longer going to take this because he believes that he doesnt need this medication because he is not psychotic. Pt became very agitated after this RN explained to him why he should take it. He states I have every right to refuse. Pt states that he spoke to his doctor about not wanting to take this medication. Pt talks about how he has trillions and trillions of dollars and that he is not homeless because he is psychotic. He point to a drawing he did thats hanging on the wall. you see that, that is mine and if I want to I can get out of here and go there any time. Pt continues to cuss almost every other word. Pt states that he has been trying to get accepted at [facility] and does not understand why they dont accept him. When explained to pt that part of the reason he needed to take his medications was so that he could get accepted, he became even more agitated and stated No I dont need to take them and what youre doing is black mailing me. I will take you to court. Just get out of here, I dont want to talk to you. Later pt was observed out of his room asking for water and he was pleasant at this time. S/I, H/I: Denies A/VH: Denies ADL's: Independent Were meds taken: yes but refused perphenazine Any med S/E: None noted or reported Mental Status Exam Appearance: Appropriate, wearing green unit scrubs, well groomed Eye contact: Good, direct Behavior: Cooperative for the most part, became agitated when giving him his HS meds Speech: Pressured, cussing every other word, elevated volume Mood: Labile, becomes angry and hostile due to medications Affect: Congruent with mood Thought process: flight of ideas, disorganized Thought Content: Grandiose delusions, focused on being superior and able to leave whenever he wants to, not wanting to take his psychotic meds. Cognition: alert and oriented x3 Insight: Poor Judgment: Poor Interventions PRN's used: None Therapeutic interventions: One to one with the patient to build therapeutic rapport. Assessed severity of thought disorder. Patient moved to a different room due to conflict with peer. Restraints/seclusion/emergency medication: N/A Justification of Continued Inpatient Treatment: The patient is clearly struggling to maintain on the unit without becoming agitated to the point he becomes assaultive. He has such animosity about taking his psychiatric medications that it is unlikely that he will continue his psychiatric medications once discharged.
[2019-09-20 07:47] VITALS: BP 102/73
[2019-09-20] MEDS: lactose-reduced food (Ensure Enlive) - 237ml bottle PO SCH ×3 (08:00→17:21)
[2019-09-20] MEDS: LORazepam 0.5 MG tablet PO SCH ×3 (08:28→20:52)
[2019-09-20] MEDS: gabapentin 400mg capsule PO SCH ×3 (08:29→20:52)
[2019-09-20] MEDS: triamcinolone acet 0.1% cream 15gm TP SCH ×3 (08:30→20:52)
[2019-09-20] MEDS: LORazepam 1 MG tablet PO PRN ×2 (10:13→19:16)
[2019-09-20] MEDS: LIDOcaine 5% patch TP PRN (12:40)
--- NOTE | 2019-09-20 14:54 | NUR ---
Nursing Progress Note: Legal hold: 5270 Client on an involuntary hold for being a danger to himself Report received from VAZQUEZ Rothman with use of SBAR Why are they here: The patient was admitted through the ER. He was making suicidal statements and exclaimed that if he were to be discharged he would kill himself. H was also making paranoid delusional statements. He had been kicked out of his parents home. Assessment What has happened this shift: Patient was out of room ambulating in martinez, observed as being in a pleasant mood. Approaches staff and states Neetu is coming, Mateo is resurrecting the , it is going to be a zombie Apocalypse. When asked about recent BM states I had one this morning, took it out of the toilet and measured it, it was 2 feet long, I put it back and saluted it as I flushed it away. Friendly and cooperative with both physical and MH assessment. Requested to have his shoes sprayed with lysol as they got wet and are full of fungus. Took meds except Trilafon, states he does not need this. C/O pain in toes due to toenails growing into skin, assisted with trimming nails, has very thick (Fungal) nails, but did state the pain was less. Provided with band aids and gauze to pad toes so patient could wear his shoes. Was med complaint at lunch time, but stated I am going to be really high if I take these, but okay. Remained pleasant throughout the afternoon. S/I, H/I: Denies A/VH: Denies Sleep: 5 hours ADL's: Independent Were meds taken: yes but refused perphenazine Any med S/E: None noted or reported Mental Status Exam Appearance: Well groomed, showered, wearing green scrubs Eye contact: direct Behavior: Friendly, cooperative Speech: normal rate, does use significant profanity when speaking Mood: calm, cooperative Affect: Congruent with mood Thought process: circumstantial, Thought Content: Delusional I dont have a mental illness, toenails being painful Cognition: alert and oriented x3 Insight: Poor Judgment: Poor Interventions PRN's used: None Therapeutic interventions: One to one with the patient to build therapeutic rapport. Assessed severity of thought disorder. Patient moved to a different room due to conflict with peer. Restraints/seclusion/emergency medication: N/A Justification of Continued Inpatient Treatment: The patient is clearly struggling to maintain on the unit without becoming agitated to the point he becomes assaultive. He has such animosity about taking his psychiatric medications that it is unlikely that he will continue his psychiatric medications once discharged.
[2019-09-20 19:00] VITALS: BP 127/74
--- NOTE | 2019-09-21 00:28 | NUR ---
Nursing Progress Note Legal hold:5270 Client on an involuntary hold for being a danger to himself Report received from VAZQUEZ Mistry with use of SBAR Why are they here: The patient was admitted through the ER. He was making suicidal statements and exclaimed that if he were to be discharged he would kill himself. H was also making paranoid delusional statements. He had been kicked out of his parents home. Assessment What has happened this shift: Pt was in his room during shift change asking for coffee. Continues to make a lot of delusional statements. Focused on his discharge and not being happy with it. He states that he is upset because they did not let him know if he was accepted or not. Offered pt Ativan for increased agitation and he agreed to take it. Thinks the illuminati are after him. Pt was cooperative during 1:1 physical assessment but again refused to take his perphenazine. Denies any AV/H, S/I, and when asked if he was having any depression or anxiety, he states the only anxiety I have is from people that are trying to keep me here. Pts mood continues to be very labile, going from very angry, to being pleasant and appreciate very quickly. S/I, H/I: Denies A/VH: Denies ADL's: Independent Were meds taken: yes but refused perphenazine Any med S/E: None noted or reported Mental Status Exam Appearance: Appropriate, wearing green unit scrubs, well groomed Eye contact: Good, direct Behavior: Cooperative for the most part, became agitated and verbally abusive to staff and other patients in the unit Speech: Pressured, cussing every other word, elevated volume at times Mood: Labile, becomes angry and hostile due to medications Affect: Congruent with mood Thought process: flight of ideas, disorganized, tangential Thought Content: Grandiose delusions, his luggage that was brought in recently, discharge Cognition: alert and oriented x3 Insight: Poor Judgment: Poor Interventions PRN's used: Ativan 1mg Therapeutic interventions: One to one with the patient to build therapeutic rapport. Assessed severity of thought disorder. Patient moved to a different room due to conflict with peer. Restraints/seclusion/emergency medication: N/A Justification of Continued Inpatient Treatment: The patient is clearly struggling to maintain on the unit without becoming agitated to the point he becomes assaultive. He has such animosity about taking his psychiatric medications that it is unlikely that he will continue his psychiatric medications once discharged.
[2019-09-21] MEDS: hydrOXYzine 25 MG tablet PO PRN ×2 (04:01→21:26)
[2019-09-21 07:24] VITALS: BP 125/83
[2019-09-21] MEDS: gabapentin 400mg capsule PO SCH ×3 (08:14→21:24)
[2019-09-21] MEDS: LORazepam 0.5 MG tablet PO SCH ×3 (08:14→21:24)
[2019-09-21] MEDS: lactose-reduced food (Ensure Enlive) - 237ml bottle PO SCH ×3 (08:15→13:00)
[2019-09-21] MEDS: triamcinolone acet 0.1% cream 15gm TP SCH ×3 (08:16→21:24)
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
[2019-09-21] MEDS: LIDOcaine 5% patch TP PRN (16:17)
--- NOTE | 2019-09-21 17:33 | NUR ---
Nursing Progress Note Legal hold:5270 Client on an involuntary hold for being a danger to himself Report received from VAZQUEZ Deal with use of SBAR Why are they here: The patient was admitted through the ER. He was making suicidal statements and exclaimed that if he were to be discharged he would kill himself. H was also making paranoid delusional statements. He had been kicked out of his parents home. Assessment What has happened this shift: Pt was up in his room at beginning of shift. He made comments about the floor having mold and fungus and was using toothpaste to clean it. He states he used to work at the [employer] and this violates code and there will be a lawsuit. Later during breakfast when RN was giving his medication he asks if his Trilafon was cancelled yet and states again this will be a lawsuit. He refused to take Trilafon. He then began a tangential conversation about the president. Throughout the morning he made several aggressive comments like you work here you should know a simple question, this is bull shit, and when approached about his aggressive speech with loud cursing he smiles at RN and states You dont need to change my diaper. Pt later apologized for his language, but I dont need to be treated like a child. He requested a Lidocaine patch for upper back pain. S/I, H/I: Denies A/VH: Denies Sleep: 6.5 h per noc assessment ADL's: Independent Were meds taken: Refused Trilafon Any med S/E: None noted or reported Mental Status Exam Appearance: Clean, took shower, wearing shorts, shirt, sock, tennis shoes. Eye contact: Direct Behavior: Labile. Cooperative, then becomes aggressive with speech, verbally abusive to staff but then smiles while he speaks aggressively. Then quickly apologizes and motions for a fist bump. Speech: Pressured, Mood: Agitated Affect: Smiles, incongruent to behavior and mood Thought process: Disorganized Thought Content: Tangential Delusions Cognition: AxOx3 Insight: Poor Judgment: Poor Interventions PRN's used: Lidocaine patch Therapeutic interventions: One to one with the patient to build therapeutic rapport. Assessed severity of thought disorder. Patient moved to a different room due to conflict with peer. Restraints/seclusion/emergency medication: N/A Justification of Continued Inpatient Treatment: The patient is clearly struggling to maintain on the unit without becoming agitated to the point he becomes assaultive. He has such animosity about taking his psychiatric medications that it is unlikely that he will continue his psychiatric medications once discharged.
[2019-09-21 19:49] VITALS: BP 128/90
--- NOTE | 2019-09-22 00:22 | NUR ---
Nursing Progress Note Legal hold:5270 Client on an involuntary hold for being a danger to himself Report received from VAZQUEZ Mistry with use of SBAR Why are they here: The patient was admitted through the ER. He was making suicidal statements and exclaimed that if he were to be discharged he would kill himself. H was also making paranoid delusional statements. He had been kicked out of his parents home. Assessment What has happened this shift: Pt was in his room during shift change. Pt approached this keno writer/runner with a note in his hand. States that this a legal note stating that he was going to agree to take his meds in order to get discharged and go to the [facility]. Continues to have grandiose delusions. PT was cooperative during 1:1 physical assessment and when his HS meds were brought he asked this RN if there was an increase in his Trilafon. When informed that there was, pt got really upset and started to make threats about suing his doctors and this RN. He states that it absolutely illegal for his doctors to change his medications without informing him. Eventually convinced pt to take the dose that he was taking before this was increased. Pt states be thankful Im not a Nazi. When pt is redirected with another question that doesnt have to do with his Trilafon, pt is pleasant and cooperative. Pt continues to have grandiose and paranoid delusions. Offered pt Atarax for his increased agitation and he agreed to take with good effect. S/I, H/I: Denies S/I, Passive H/I A/VH: Denies ADL's: Independent Were meds taken: yes but took less than prescribed of his Trilafon Any med S/E: None noted or reported Mental Status Exam Appearance: Appropriate, wearing green unit scrubs, well groomed Eye contact: Good, direct Behavior: Paranoid, accusatory, verbally abusive Speech: Pressured speech Mood: Labile, becomes angry and hostile due to medications, irritable Affect: Congruent with mood Thought process: flight of ideas, disorganized, tangential Thought Content: Grandiose and paranoid delusions, medications, discharge. Cognition: alert and oriented x3 Insight: Poor Judgment: Poor Interventions PRN's used: Atarax X1 Therapeutic interventions: One to one with the patient to build therapeutic rapport. Assessed severity of thought disorder. Patient moved to a different room due to conflict with peer. Restraints/seclusion/emergency medication: N/A Justification of Continued Inpatient Treatment: The patient is clearly struggling to maintain on the unit without becoming agitated to the point he becomes assaultive. He has such animosity about taking his psychiatric medications that it is unlikely that he will continue his psychiatric medications once discharged
[2019-09-22] MEDS: acetaminophen 325mg tablet PO PRN (03:35)
[2019-09-22 07:00] VITALS: BP 127/90
[2019-09-22] MEDS: triamcinolone acet 0.1% cream 15gm TP SCH ×3 (07:56→21:33)
[2019-09-22] MEDS: gabapentin 400mg capsule PO SCH ×3 (07:56→21:32)
[2019-09-22] MEDS: LORazepam 0.5 MG tablet PO SCH ×3 (07:56→21:32)
[2019-09-22] MEDS: lactose-reduced food (Ensure Enlive) - 237ml bottle PO SCH ×3 (08:00→17:56)
--- NOTE | 2019-09-22 08:12 | NUR ---
REFUSED 2MG OF PERPHENAZINE
--- NOTE | 2019-09-22 16:18 | NUR ---
Nursing Progress Note Legal hold: 5270 Client on an involuntary hold for being a danger to himself Report received from VAZQUEZ Deal with use of SBAR Why are they here: The patient was admitted through the ER. He was making suicidal statements and exclaimed that if he were to be discharged he would kill himself. H was also making paranoid delusional statements. He had been kicked out of his parents home. Assessment What has happened this shift: Pt was up in his room at beginning of shift with shorts and nothing else on. He began talking to this RN with his back turned quickly turned around and began pointing to things hanging on his wall and questioning this nurse, do you know where this came from and why it is on my wall? During morning medication pass he began saying, that SOB better not be trying to sneak in more of the Trilafon. 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 Pt later sang a song about Augustine and his balls. S/I, H/I: Denies A/VH: Denies Sleep: Up all shift ADL's: Independent Were meds taken: Refused Trilafon 2mg PO Any med S/E: Pt denies stating he only wants to take the amount of Trilafon I am supposed to take. Mental Status Exam Appearance: Shorts, t-shirt and socks Eye contact: Direct Behavior: Labile. Speech: Pressured, rapid Mood: Agitated Affect: Smiles, incongruent to behavior and mood Thought process: Disorganized Thought Content: Tangential delusions Cognition: AxOx3 Insight: Poor Judgment: Poor Interventions PRN's used: Lidocaine patch Therapeutic interventions: Provided therapeutic communication w/active listening, medication education, administration, and monitoring for effects, one to one with the patient to assess severity of thought disorder, and Q15 min. safety checks. Justification of Continued Inpatient Treatment: The patient is clearly struggling to maintain on the unit without becoming agitated to the point he becomes assaultive. He has such animosity about taking his psychiatric medications that it is unlikely that he will continue his psychiatric medications once discharged. He remains at risk of inpatient psychiatric hospitalization due to noncompliance with medication orders.
[2019-09-22] MEDS: LIDOcaine 5% patch TP PRN (17:56)
[2019-09-22 19:23] VITALS: BP 137/77
[2019-09-22] MEDS: hydrOXYzine 25 MG tablet PO PRN (22:26)
--- NOTE | 2019-09-23 02:46 | NUR ---
Nursing Progress Note Legal hold: 5270 Client on an involuntary hold for DTS. Report received from VAZQUEZ Mistry with use of SBAR Why are they here: The patient was admitted through the ER. He was making suicidal statements and exclaimed that if he were to be discharged he would kill himself. H was also making paranoid delusional statements. He had been kicked out of his parents home. Assessment What has happened this shift: The patient was seen in his room right after he had been moved to new room. "Don't ask me how I feel. Please don't try to talk to me. I don't want to be interviewed. All I have to say is, I hate the hospitality of this place. Fuck this place." The patient had just been moved to a new room to accommodate a new admit. He was quite upset, and did his usual rambling about the Illuminati, Nazis, Trump, Jews. Then he went on to rambling about all his government friends in the FDA, FBI, ESTELLE, and others that are going to come to his defense when he sues the hospital, nurses, and "evil" doctors that change his meds without "my knowledge." The patient was so busy making paranoid delusional threats that he didn't question his meds and took them all. A little later he c/o anxiety and was given Atarax with good effect. He slept until ~0345 when he came out of his room anxious, but calm, apologetic, and appreciative. He was given Ativan, and is back in his room sitting in his chair. S/I, H/I: Denies S/I, passively makes threats of violence. A/VH: Denies ADL's: Independent Were meds taken: Yes Any med S/E: None reported or observed Mental Status Exam Appearance: Appropriate, wearing green unit scrubs, well groomed Eye contact: Direct Behavior: Paranoid, accusatory, verbally abusive, threatening Speech: Pressured speech Mood: Labile, gets angry then apologetic later. Affect: Congruent with mood Thought process: flight of ideas, disorganized, tangential Thought Content: Grandiose and paranoid delusions, medications, discharge. Cognition: A/O x3 Insight: Poor Judgment: Poor Interventions PRN's used: Atarax X1, Ativan x1 Therapeutic interventions: One to one with the patient to build therapeutic rapport. Assessed severity of thought disorder. Patient moved to a different room due to conflict with peer. Restraints/seclusion/emergency medication: N/A Justification of Continued Inpatient Treatment: The patient is clearly struggling to maintain on the unit without becoming agitated to the point he becomes assaultive. He has such animosity about taking his psychiatric medications that it is unlikely that he will continue his psychiatric medications once discharged
[2019-09-23] MEDS: LORazepam 1 MG tablet PO PRN ×2 (03:38→21:37)
[2019-09-23 08:00] VITALS: BP 111/69
[2019-09-23] MEDS: LORazepam 0.5 MG tablet PO SCH ×3 (08:19→20:35)
[2019-09-23] MEDS: gabapentin 400mg capsule PO SCH ×3 (08:19→20:35)
[2019-09-23] MEDS: triamcinolone acet 0.1% cream 15gm TP SCH ×3 (08:20→21:00)
[2019-09-23] MEDS: lactose-reduced food (Ensure Enlive) - 237ml bottle PO SCH ×3 (08:22→18:52)
[2019-09-23] MEDS ORDERED: LORazepam 1 MG tablet PO ONE (08:35)
--- NOTE | 2019-09-23 09:42 | NUR ---
Reassessment: Pt PO 75-100% meals and ensure enlive TIDWM meeting needs. LBM 09/19. No nutrition concerns at this time. Will continue to monitor. Recommendations: 1) Continue regular diet 2) Regular shake TID for satiety; ensure enlive TIDWM per MD 3) Bowel care PRN 4) Wt per rx Addendum: 09/23/19 at [address] Amended: Links added.
[2019-09-23] MEDS: LIDOcaine 5% patch TP PRN (13:19)
--- NOTE | 2019-09-23 16:04 | NUR ---
Nursing Progress Note Legal hold: 5270 Client on an involuntary hold for DTS. Report received from VAZQUEZ Miller with use of SBAR Why are they here: The patient was admitted through the ER. He was making suicidal statements and exclaimed that if he were to be discharged he would kill himself. H was also making paranoid delusional statements. He had been kicked out of his parents home. Assessment What has happened this shift: The patient was seen in his room for morning med pass and 1:1 assessment. Pt remains hypomanic with pressured speech. Pt is easily distracted requiring redirection over and over to remain focused on the topic. PRN Ativan given for anxiety. Writ of Habeas Corpus filled out and given to GARCÍA Santiago, Clinical Sleep Technician. S/I, H/I: Denies both A/VH: Denies ADL's: Independent Were Meds taken: Yes Any med S/E: None reported or observed Mental Status Exam Appearance: [place] [facility] scrubs from yesterday Eye contact: Direct Behavior: Paranoid Speech: Pressured speech Mood: Labile Affect: Congruent with mood Thought process: flight of ideas, disorganized, tangential Thought Content: Grandiose and paranoid delusions, Writ of Habeas Corpus Cognition: A/O x3 Insight: Poor Judgment: Poor Interventions PRN's used: Ativan x1 Therapeutic interventions: Provided therapeutic communication w/active listening, medication education, administration, and monitoring for effects, one to one with the patient to assess severity of thought disorder, and Q15 min. safety checks. Justification of Continued Inpatient Treatment: The patient is clearly struggling to maintain on the unit without becoming agitated to the point he becomes assaultive. He has such animosity about taking his psychiatric medications that it is unlikely that he will continue his psychiatric medications once discharged
[2019-09-23] MEDS: traMADol 50MG tablet PO PRN (19:26)
[2019-09-23 20:00] VITALS: BP 128/67
--- NOTE | 2019-09-24 03:45 | NUR ---
Nursing Progress Note Legal hold: 5270 Client on an involuntary hold for DTS. Report received from VAZQUEZ Mistry with use of SBAR Why are they here: The patient was admitted through the ER. He was making suicidal statements and exclaimed that if he were to be discharged he would kill himself. H was also making paranoid delusional statements. He had been kicked out of his parents home. Assessment What has happened this shift: The patient was out on the unit at shift change. He agreed to 1:1 at his bedside, but does not provide any useful information. "Forcing or using psyche meds to achieve patient cooperation is an FDA un-human rights violation." In between his ranting about the Illuminati, and all the other things he hates, he says, "tell the staffing administrator this dept. is liable for dispensing psychotropic meds that are known to cause Tardive Dyskinesia and Parkinson's Disease-like symptoms that I have been experiencing. What an evil so-called professionals to cause more harm than good. These quacks of this facility are in jeopardy of losing their license to practice." The patient spent the evening on the unit or in his room writing rambling notes that he slips under the door about the Illuminati, [employer], Constitution, [place], or the Nazis, and how much he hates us and this hospital. He refused his Perphenizine tonight, "I'm not psychotic, I don't need antipsychotic medicine. S/I, H/I: Denies S/I, passively makes threats of violence. A/VH: Denies ADL's: Independent Were meds taken: All but Perphenizine Any med S/E: None reported or observed Mental Status Exam Appearance: Appropriate, wearing green unit scrubs, well groomed Eye contact: Direct Behavior: Paranoid, accusatory, verbally abusive, threatening Speech: Pressured speech Mood: Labile, gets angry then apologetic later. Affect: Congruent with mood Thought process: flight of ideas, disorganized, tangential Thought Content: Grandiose and paranoid delusions, medications, discharge. Cognition: A/O x3 Insight: Poor Judgment: Poor Interventions PRN's used: Ativan x1, Ultrum for pain. Therapeutic interventions: One to one with the patient to build therapeutic rapport. Assessed severity of thought disorder. Patient moved to a different room due to conflict with peer. Restraints/seclusion/emergency medication: N/A Justification of Continued Inpatient Treatment: The patient is clearly struggling to maintain on the unit without becoming agitated to the point he becomes assaultive. He has such animosity about taking his psychiatric medications that it is unlikely that he will continue his psychiatric medications once discharged
[2019-09-24] MEDS: gabapentin 400mg capsule PO SCH ×3 (07:33→20:39)
[2019-09-24] MEDS: LORazepam 0.5 MG tablet PO SCH ×3 (07:33→20:39)
[2019-09-24] MEDS: triamcinolone acet 0.1% cream 15gm TP SCH ×3 (07:34→21:00)
[2019-09-24 08:00] VITALS: BP 104/71
[2019-09-24] MEDS: lactose-reduced food (Ensure Enlive) - 237ml bottle PO SCH ×3 (08:07→18:18)
--- NOTE | 2019-09-24 09:12 | NUR ---
Spoke with patient regarding his writ of SENSIMED to educate him that he will be released that day if he wins the writ, in which case he won't be here for us to help him find housing. He states "that's okay, I'm a trillionaire, that's me (points to map on the wall with dots all over the world). My aunt was a billionaire. Bryan cruz, Vidhya Gil - took it all. MEGHAN, FBI - they were involved. That's my house in [facility] (points to a drawing of a mansion that is hanging on the wall). I don't need money or help, I have it all. Thank you". Spoke with Dr. Hercules to let him know that patient is filing a writ.
--- NOTE | 2019-09-24 10:32 | NUR ---
Nursing Progress Note Legal hold: 5270 Client on an involuntary hold for DTS. Report received from VAZQUEZ Miller with use of SBAR Why are they here: The patient was admitted through the ER. He was making suicidal statements and exclaimed that if he were to be discharged he would kill himself. H was also making paranoid delusional statements. He had been kicked out of his parents home. Assessment What has happened this shift: Patient was sitting in chair in hallway at change of shift. He is pleasant and cooperative but continues to have tangential thinking and loose associations. He was talking about how his aunt was a billionaire and how he was heir to the [employer]. S/I, H/I: Denies both A/VH: Denies ADL's: Independent Were Meds taken: Yes Any med S/E: None reported or observed Mental Status Exam Appearance: [facility] scrubs from yesterday Eye contact: Direct Behavior: Paranoid Speech: Pressured speech Mood: euthymic with some albility seen after breakfast Affect: Congruent with mood Thought process: flight of ideas, disorganized, tangential Thought Content: Grandiose and paranoid delusions, Writ of Habeas Corpus, states "I am leaving here today. I am going to chin the [facility] and the [facility]". Cognition: A/O x3 Insight: Poor Judgment: Poor Interventions PRN's used:none Therapeutic interventions: Provided therapeutic communication w/active listening, medication education, administration, and monitoring for effects, one to one with the patient to assess severity of thought disorder, and Q15 min. safety checks. Justification of Continued Inpatient Treatment: The patient is clearly struggling to maintain on the unit without becoming agitated to the point he becomes assaultive. He has such animosity about taking his psychiatric medications that it is unlikely that he will continue his psychiatric medications once discharged
--- NOTE | 2019-09-24 12:30 | NUR ---
RN assumed care of patient. Addendum: 09/24/19 at 1727 by Sergei Banuelos RN Pt. was seen socializing with other patients in the afternoon. Pt. reports being concerned with his discharge planning. Pt. states that he was informed he wouldn't be accepted to the [facility]. RN unable to verify. Pt. reported feeling anxious and asking for PRN. RN gave pt. Atarax 50mg po. Pt. became agitated after talking with his provider, swearing at her RN able to redirect pt. Addendum: 09/24/19 at 1739 by Sergei Banuelos RN Pt. sitting in community room watching TV. Pt. has pressured speech, talking about his rights, the [place] constitution, the Jews, and a laborer chemical processing. Pt. states, "If Kalen would have finished his job. These Scientologist courts wouldn't be doing this". Pt. given verbal redirection regrading racist language. Pt. then states, "It's not the Jews, it's the illuminati, that's who I hate". Pt. given Ativan 1mg po. Addendum: 09/24/19 at 1748 by Sergei Banuelos RN Pt. reports his provider told him that he needs further hospitlization to be stablized. Pt. continues to be agitated. Making threats against Jews. making threatening statements about his providers. Pt. states, "They better watch themselves. They better watch their families. I am getting out of here or else!"
[2019-09-24] MEDS: hydrOXYzine 25 MG tablet PO PRN (17:10)
[2019-09-24] MEDS: LORazepam 1 MG tablet PO PRN (17:34)
[2019-09-24 19:44] VITALS: BP 129/74
--- NOTE | 2019-09-25 02:24 | NUR ---
Nursing Progress Note Legal hold: 5270 Client on an involuntary hold for DTS. Report received from VAZQUEZ Mistry with use of SBAR Why are they here: The patient was admitted through the ER. He was making suicidal statements and exclaimed that if he were to be discharged he would kill himself. H was also making paranoid delusional statements. He had been kicked out of his parents home. Assessment What has happened this shift: The patient was seen in his room. He started ranting right away, "today they brought in Judges against me, a bunch of smiling little fucks. Dr. Hercules just sat there and didn't stand up for me." Tried to re-direct and speak about how taking his medication might help him and get him placed. "I know I agreed to take a lower dose, but it was bullshit. I'm not psychotic, so I'm not taking any psychotropic medications. They can kiss my ass. There's four Doctors here that are going to lose their licenses. This whole hospital is going to be shut down when my touch up edger sues. I'm a billionaire, I should probably buy it. it will have a new name. Maybe even my name." The patient spent most of the evening in his room writing notes. He occasionally comes out to rant about the illuminati, FBI, ESTELLE, still operator helper and such. The patient refused Perphenazine as he said he would. S/I, H/I: Denies S/I, passively makes threats of violence. "People are going to sorry for doing this to me." A/VH: Denies ADL's: Independent Were meds taken: All but Perphenazine Any med S/E: None reported or observed Mental Status Exam Appearance: Disheveled, needs a shower, wearing dirty street clothes. Eye contact: Direct Behavior: Paranoid, accusatory, verbally abusive, threatening Speech: Pressured speech, loud. Mood: Labile, gets angry then apologetic later. Affect: Congruent with mood Thought process: flight of ideas, disorganized, tangential, angry Thought Content: Grandiose and paranoid delusions, medications, discharge. Cognition: A/O x3 Insight: Poor Judgment: Poor Interventions PRN's use: . Therapeutic interventions: One to one with the patient to build therapeutic rapport. Assessed severity of thought disorder. Patient moved to a different room due to conflict with peer. Restraints/seclusion/emergency medication: N/A Justification of Continued Inpatient Treatment: The patient is clearly struggling to maintain on the unit without becoming agitated to the point he becomes assaultive. He has such animosity about taking his psychiatric medications that it is unlikely that he will continue his psychiatric medications once discharged
[2019-09-25] MEDS: triamcinolone acet 0.1% cream 15gm TP SCH ×3 (08:00→20:21)
[2019-09-25] MEDS: lactose-reduced food (Ensure Enlive) - 237ml bottle PO SCH ×3 (08:00→18:00)
[2019-09-25] MEDS: LORazepam 0.5 MG tablet PO SCH ×3 (08:04→20:21)
[2019-09-25] MEDS: gabapentin 400mg capsule PO SCH ×3 (08:05→20:21)
[2019-09-25 08:25] VITALS: BP 107/72
--- NOTE | 2019-09-25 12:45 | NUR ---
Pt filed for Writ of [employer]. Has hearing tomorrow at [address] [place]. Asked patient if there is any family that he wants us to call. Reported his brother, Wilber. Gave two phone numbers [phone], [phone]. Neither phone number was in service.
[2019-09-25] MEDS: hydrOXYzine 25 MG tablet PO PRN (14:50)
--- NOTE | 2019-09-25 16:53 | NUR ---
Nursing Progress Note Legal hold: 5270 Client on an involuntary hold for DTS. Report received from GARCÍA Robison with use of SBAR Why are they here: The patient was admitted through the ER. He was making suicidal statements and exclaimed that if he were to be discharged he would kill himself. He was also making paranoid delusional statements. He had been kicked out of his parents home. Assessment What has happened this shift: Pt see sitting in the chair in his room or taking brief naps in his bed. Will walk around the unit frequently and ask for coffee. He occasionally rants about the illuminati, FBI, ESTELLE, application security architect and such. The patient refused Perphenazine. S/I, H/I: Denies S/I A/VH: Denies ADL's: Independent Were meds taken: All but Perphenazine Any med S/E: None reported or observed Mental Status Exam Appearance: appears groomed in his street clothes. Eye contact: Direct Behavior: Paranoid, accusatory, verbally abusive, threatening Speech: Pressured speech, loud. Mood: Labile, gets angry then apologetic later. Affect: Congruent with mood Thought process: flight of ideas, disorganized, tangential, angry Thought Content: Grandiose and paranoid delusions, medications, discharge. Cognition: A/O x3 Insight: Poor Judgment: Poor Interventions PRN's use: Atarax Therapeutic interventions: One to one with the patient to build therapeutic rapport. Restraints/seclusion/emergency medication: N/A Justification of Continued Inpatient Treatment: The patient has done well with having a roommate. Compared to previous notes written of pt becoming agitated. He has such animosity about taking his psychiatric medications that it is unlikely that he will continue his psychiatric medications once discharged
[2019-09-25 20:12] VITALS: BP 127/73
--- NOTE | 2019-09-26 00:44 | NUR ---
Nursing Progress Note Legal hold: 5270 Client on an involuntary hold for being gravely disabled Report received from Burt MARIANO with the the SBAR format Why are they here: The patient was admitted to [facility] on 08/22. He was seen in the ER and was reporting that he had been kicked out of his parent's home and was in a downward spiral. He was making suicidal statements to jump off of a bridge or by shooting himself. Assessment What has happened this shift: The patient was either in his room this evening or on the periphery of the unit. He was cooperative with the evening assessment but was very tangential and hard to follow his train of thought. His speech was fast and pressured to the extent at times he was having difficulty articulating his words/thoughts. He stated that if he won his court case tomorrow that the nurses would get higher wages and better working conditions and that the physicians with get a pay cut. "The doctors flock to [place] to fuck every one up" He refused to take his HS Trilafon and stated that it was part of a blackmail plot. S/I, H/I: none reported A/VH: none reported but he is very delusional. ADL's: Independent Were meds taken: the patient refused the Trilafon Any med S/E none reported or observed. Mental Status Exam Appearance: The patient appears his stated age and was dressed appropriately for the unit. Eye contact: intermittent Behavior: isolative to his bed. Minimal socialization with others Speech: Rambling, fast pressured Mood: Labile and quickly becomes agitated when discussing his hospitalization Affect: labile Thought process: Disorganized, tangential Thought Content: delusional and grandiose themes Cognition: alert Insight: none Judgment: very poor Interventions PRN's used: none Therapeutic interventions: One to one with the patient to assess severity of thought disorder and to educate to medications ordered Restraints/seclusion/emergency medication: none Justification of Continued Inpatient Treatment: The patient remains psychiatrically unstable. He has very poor insight and is wanting to pick and choose his medications. He is grandiose. He is not able to verbalize a realistic plan for food, snf or clothing.
[2019-09-26] MEDS: LORazepam 1 MG tablet PO PRN (02:20)
[2019-09-26] MEDS: tizanidine 4mg tablet PO PRN ×3 (05:48→19:17)
[2019-09-26] MEDS: acetaminophen 325mg tablet PO PRN (06:40)
[2019-09-26 08:00] VITALS: BP 107/68
[2019-09-26] MEDS: lactose-reduced food (Ensure Enlive) - 237ml bottle PO SCH ×3 (08:00→18:00)
[2019-09-26] MEDS: triamcinolone acet 0.1% cream 15gm TP SCH ×3 (08:13→21:43)
[2019-09-26] MEDS: LORazepam 0.5 MG tablet PO SCH ×3 (08:13→21:43)
[2019-09-26] MEDS: gabapentin 400mg capsule PO SCH ×3 (08:13→21:43)
--- NOTE | 2019-09-26 17:05 | NUR ---
Nursing Progress Note Legal hold: 5270 Client on an involuntary hold for being gravely disabled Report received from Burt MARIANO with the the SBAR format Why are they here: The patient was admitted to [facility] on 08/22. He was seen in the ER and was reporting that he had been kicked out of his parent's home and was in a downward spiral. He was making suicidal statements to jump off of a bridge or by shooting himself. Assessment What has happened this shift: The patient was either in his room or on the periphery of the unit. He was cooperative with the evening assessment but was very tangential and hard to follow his train of thought. His speech was fast and pressured to the extent at times he was having difficulty articulating his words/thoughts. Pt had court today and will now be on the unit until the end of September. He refused to take his Trilafon. S/I, H/I: none reported A/VH: none reported but he is very delusional. ADL's: Independent Were meds taken: the patient refused the Trilafon Any med S/E none reported or observed. Mental Status Exam Appearance: The patient appears his stated age and was dressed appropriately for the unit. Eye contact: intermittent Behavior: isolative to his bed. Minimal socialization with others Speech: Rambling, fast pressured Mood: Labile and quickly becomes agitated when discussing his hospitalization Affect: labile Thought process: Disorganized, tangential Thought Content: delusional and grandiose themes Cognition: alert Insight: none Judgment: very poor Interventions PRN's used: none Therapeutic interventions: One to one with the patient to assess severity of thought disorder and to educate to medications ordered Restraints/seclusion/emergency medication: none Justification of Continued Inpatient Treatment: The patient remains psychiatrically unstable. He has very poor insight and is wanting to pick and choose his medications. He is grandiose. He is not able to verbalize a realistic plan for food, jail or clothing.
[2019-09-26 19:00] VITALS: BP 134/78
[2019-09-26] MEDS: hydrOXYzine 25 MG tablet PO PRN (19:17)
--- NOTE | 2019-09-27 00:45 | NUR ---
Nursing Progress Note: Legal hold: 5270 Client on involuntary status for DTS Report received from nurse with use of SBAR: GARCÍA Monae Why are they here: Client was admitted to ED after making threats of suicide. He stated, "If I'm discharged I'll kill myself." Client was living with his parents and reported he was "kicked-out and started a downward spiral". The client has delusional thoughts and believes that he is being persecuted by the illuminati and that his parents are members. Client is particularly angry with his mother and stated, "Today is her birthday, and I don't care! F*ck her! Let the Nazi's have her!". Assessment What has happened this shift: Pt. sitting in bed writing at the beginning of the shift, he hands this teletypewriter operator a letter to give to the unit websphere administrator and states agitatedly, "Dr. Hercules defiled my name in court today! I am going to purchase the [facility]!" Pt. continues to present with grandiose and paranoid delusional thinking, he states, "I'm a descendent of Yarsani the eighth!" Pt's speech is pressured, hyperverbal, he exhibits inappropriate laughter, and appears hypomanic. His thought process remains tangental, disorganized, and very hard to follow most of the time. Pt's mood is very labile, and he presents with with agitation and then abruptly changes to joking with inappropriate laughter. Pt. jokes with this teletypewriter operator, "I'm lactating and with baby Juan because I'm gravely disabled and delusional! Where should I give ?!" PRN Atrax administered, and pt. requested PRN Zanaflex r/t muscle spasms, medications administered with effectiveness. Pt. shows this teletypewriter operator with pride all of the cleaning he did on the bathroom floor this shift (it was reported by AM shift that pt. had been cleaning the BR floor with a toothbrush). He continues to isolate in his room throughout most of the shift, awoke to administer HS medications. Pt. continues to refuse Trilafon, states, "I'm not psychotic!" This teletypewriter operator attempted to provide education, however pt. continued to refuse, will endorse to AM shift. S/I, H/I: Denies A/VH: Denies, does not appear internally preoccupied Sleep: Awoke pt. to administer HS medications, he is able to return back to sleep, appears to bed resting comfortably. Awakens at approximately 0100, continuing to talk tangentially and appears restless, PRN Atrax administered and will monitor. ADL's: Pt. requires redirection at times Group attendance: N/A Were meds taken: Pt. refused Trilafon Any med S/E: None Mental Status Exam Appearance: Pt. appears neat and is appropriately dressed Eye contact: Good, intense at times Behavior: Cooperative/RTC, agitated, anxious, withdrawn, and continues to appear hypomanic Speech: Pressured and hyperverbal, pt. exhibits inappropriate laughter Mood: Very labile, with agitation and then joking with laughter Affect: Labile Thought process: Tangental with disorganization Thought Content: Ongoing paranoid and grandiose delusions Cognition: A&O X2 (not to time or why here) Insight: Poor Judgment: Poor Interventions PRN's used: Zanaflex and Atrax Therapeutic interventions: Ensured contract for safety, maintained a safe and therapeutic environment, provided clear and simple instructions, attempted to reorient to reality, monitored behavior and need for intervention, provided active listening and redirection as needed, provided positive encouragement, and maintained Q 15min safety checks. Restraints/seclusion/emergency medication: N/A Justification of Continued Inpatient Treatment: Per BHARTI Luciano, pt. remains Bipolar and agitated, he requires further stabilization, medication adjustments, and a safe and therapeutic environment. May consider Rimo.
[2019-09-27] MEDS: hydrOXYzine 25 MG tablet PO PRN (01:10)
[2019-09-27] MEDS: triamcinolone acet 0.1% cream 15gm TP SCH ×3 (07:38→21:00)
[2019-09-27] MEDS: gabapentin 400mg capsule PO SCH ×3 (07:39→21:00)
[2019-09-27] MEDS: LORazepam 0.5 MG tablet PO SCH ×3 (07:39→21:00)
[2019-09-27] MEDS: lactose-reduced food (Ensure Enlive) - 237ml bottle PO SCH ×4 (07:39→17:40)
[2019-09-27 07:48] VITALS: BP 123/67
[2019-09-27] MEDS: LORazepam 1 MG tablet PO PRN (08:32)
--- NOTE | 2019-09-27 11:14 | NUR ---
DISCHARGE PLANNING Requested a Clinician from [facility] meet with Mitch while he is on the unit to open him to services. They are going to try to send a Clinician today to do so. MAG Flynn
--- NOTE | 2019-09-27 15:05 | NUR ---
Nursing Progress Note: Legal hold: 5270 Client on involuntary status for DTS Report received from nurse with use of SBAR: Neida Garcia, RN Why are they here: Client was admitted to ED after making threats of suicide. He stated, "If I'm discharged I'll kill myself." Client was living with his parents and reported he was "kicked-out and started a downward spiral". The client has delusional thoughts and believes that he is being persecuted by the illuminati and that his parents are members. Client is particularly angry with his mother and stated, "Today is her birthday, and I don't care! F*ck her! Let the Nazi's have her!". Assessment What has happened this shift: Pt was agitated early this shift. He was making delusional statements and ranting about WWII and Nazi Jin. Pt expressed much anger towards Dr Hercules and about what was said and decided at court yesterday. Pt refused Trilafon stating, "I don't have to take it, I feel better without it, I know my constitutional rights. Pt took his morning Ativan and Neurontin. Pt later apologized to this RN for his outbursts. While this RN was on morning break pt became agitated again and another RN gave him prn Ativan 1 mg at 0832. Pt appeared fatigued when this RN went to administer 1300 Ativan and Neurontin, pt refused the medication stating that he felt tired and didn't think he needed it. Per Hailey Yang from [facility] will be coming to speak with the pt today to establish services. S/I, H/I: Pt denies A/VH: Pt denies. Sleep: Pt slept 4.5 hours last night per noc shift report, he napped before lunch. ADL's: Independent Group attendance: N/A Were meds taken: Pt refused Trilafon and his lunchtime Ativan and gabapentin. Any med S/E: Pt seemed tired after morning meds and prn Ativan 1 mg. Mental Status Exam Appearance: Short brown haired man with facial stubble dressed in shorts and a t-shirt. Eye contact: Good Behavior: Becomes agitated and loud at times, resistant to antipsychotic medication. Mood: Agitated Thought process: Delusional, perseverative Thought Content: Angry about losing hearing, angry at psychiatrist Dr Hercules, does not believe he needs antipsychotic medication. Cognition: A/O X 2 Insight: Poor Judgment: Poor Interventions PRN's used: Ativan 1 mg Therapeutic interventions: 1:1 assessment, active listening, therapeutic conversation, medication administration/education/monitoring, encouragement to take antipsychotic medication, behavior monitoring and intervention, reality orientation, limit setting, redirection, verbal de-escalation. Q 15min safety checks. Restraints/seclusion/emergency medication: N/A Justification of Continued Inpatient Treatment: Per Mustapha PA, pt. remains Bipolar and agitated, he requires further stabilization, medication adjustments, and a safe and therapeutic environment. May consider Grey.
--- NOTE | 2019-09-27 16:45 | NUR ---
After refusing 1300 routine Ativan and gabapentin for c/o feeling too tired, asked this RN for something to help him sleep. Explained that it was not even 5:00 pm, too early to give him any sleeping medication. Pt stated that he really just wanted to sleep but expressed understanding that he would have to wait until closer to bedtime.
[2019-09-27 19:29] VITALS: BP 128/65
[2019-09-28] MEDS: LORazepam 1 MG tablet PO PRN (05:02)
[2019-09-28] MEDS: traMADol 50MG tablet PO PRN (05:07)
--- NOTE | 2019-09-28 05:08 | NUR ---
Nursing Progress Note: Legal hold: 6919 Client on involuntary status for DTS Report received from nurse with use of SBAR: GARCÍA Monae Why are they here: Client was admitted to ED after making threats of suicide. He stated, "If I'm discharged I'll kill myself." Client was living with his parents and reported he was "kicked-out and started a downward spiral". The client has delusional thoughts and believes that he is being persecuted by the illuminati and that his parents are members. Client is particularly angry with his mother and stated, "Today is her birthday, and I don't care! F*ck her! Let the Nazi's have her!". Assessment What has happened this shift: Patient laying in bed at the beginning of shift. Patient briefly came out of his room and brought a paper with "I don't want you fing meds nor sympathy," and circling a swastika he'd drawn to staff and rambled on his way back to his room. Patient refused assessments and all medication this shift. "I just want to be left alone." Patient woke early in the morning and walked out to staff stating, "I'm a millionaire. I can get any five star service anywhere in the world. Mental health can suck my cock. I feel betrayed," and went back to his bedroom after receiving water. Later on patient requested pain medication for his back stating explaining, "it hurts like hell." Patient also took Ativan at this time. Patient continued to make negative comments, such as, "Dr. Hercules can go to hell. I'm not bipolar, not delusional and he wants to make fun of my name? I can't wait for him to go back to his country. So what I'm [place] that's my belief." Patient then thanked typewriter mechanic for his medication and laid down again. S/I, H/I: Refused assessment A/VH: Refused assessment Sleep: Refer to sleep assessment ADL's: Pt. requires redirection at times Group attendance: N/A Were meds taken: Refused all meds Any med S/E: None observed or reported Mental Status Exam Appearance: Disheveled, appropriate attire for the unit Eye contact: Intense Behavior: Resistive to care, agitated Speech: Pressured and hyperverbal Mood: Labile Affect: Labile Thought process: Tangental with disorganization, persecutory Thought Content: Paranoid and grandiose delusions Cognition: A&O X2 (not to time or why here) Insight: Poor Judgment: Poor Interventions PRN's used: Ativan and Tramadol Therapeutic interventions: Ensured contract for safety, maintained a safe and therapeutic environment, provided clear and simple instructions, attempted to reorient to reality, monitored behavior and need for intervention, provided active listening and redirection as needed, provided positive encouragement, and maintained Q 15min safety checks. Restraints/seclusion/emergency medication: N/A Justification of Continued Inpatient Treatment: Per Mustapha PA, pt. remains Bipolar and agitated, he requires further stabilization, medication adjustments, and a safe and therapeutic environment. May consider Grey.
[2019-09-28] MEDS: LORazepam 0.5 MG tablet PO SCH ×3 (07:38→20:34)
[2019-09-28] MEDS: gabapentin 400mg capsule PO SCH ×3 (07:39→20:34)
[2019-09-28] MEDS: triamcinolone acet 0.1% cream 15gm TP SCH ×3 (07:39→20:35)
[2019-09-28 07:48] VITALS: BP 113/69
[2019-09-28] MEDS: lactose-reduced food (Ensure Enlive) - 237ml bottle PO SCH ×3 (07:59→18:00)
--- NOTE | 2019-09-28 14:29 | NUR ---
Nursing Progress Note: Legal hold: 5270 Client on involuntary status for DTS Report received from nurse with use of SBAR: Binta RN Why are they here: Client was admitted to ED after making threats of suicide. He stated, "If I'm discharged I'll kill myself." Client was living with his parents and reported he was "kicked-out and started a downward spiral". The client has delusional thoughts and believes that he is being persecuted by the illuminati and that his parents are members. Client is particularly angry with his mother and stated, "Today is her birthday, and I don't care! F*ck her! Let the Nazi's have her!". Assessment What has happened this shift: Patient was cooperative with his part of his meds. Said he wanted to wean off one of his meds. Also feels his Gabapentin dose is wrong it should only be half of what is ordered according to him. Patient was talkative during med pass. Mentioned he hated [facility] and it was corrupt. Mentions wanting to move down to [facility]. Patient joking with me he wasnt ready to talk to the Dr putting his glasses crooked on his face. S/I, H/I: Refused assessment A/VH: Refused assessment Sleep: Refer to sleep assessment ADL's: Pt. requires redirection at times Group attendance: N/A Were meds taken: take some meds refused others Any med S/E: None observed or reported Mental Status Exam Appearance: in his jacket Eye contact: Intense Behavior: agitated highly excitable Speech: Pressured and hyperverbal Mood: Labile Affect: Labile Thought process: Tangental with disorganization, persecutory Thought Content: Paranoid and grandiose delusions Cognition: A&O X2 (not to time or why here) Insight: Poor Judgment: Poor Interventions PRN's used: Therapeutic interventions: Ensured contract for safety, maintained a safe and therapeutic environment, provided clear and simple instructions, attempted to reorient to reality, monitored behavior and need for intervention, provided active listening and redirection as needed, provided positive encouragement, and maintained Q 15min safety checks. Restraints/seclusion/emergency medication: N/A Justification of Continued Inpatient Treatment: Per BHARTI Luciano, pt. remains Bipolar and agitated, he requires further stabilization, medication adjustments, and a safe and therapeutic environment. May consider Riese.
[2019-09-28 19:00] VITALS: BP 119/77
--- NOTE | 2019-09-29 00:04 | NUR ---
Nursing Progress Note: Legal hold: 0930 Client on involuntary status for DTS Report received from nurse with use of SBAR: Letha RN Why are they here: Client was admitted to ED after making threats of suicide. He stated, "If I'm discharged I'll kill myself." Client was living with his parents and reported he was "kicked-out and started a downward spiral". The client has delusional thoughts and believes that he is being persecuted by the illuminati and that his parents are members. Client is particularly angry with his mother and stated, "Today is her birthday, and I don't care! F*ck her! Let the Nazi's have her!". Assessment What has happened this shift: Patient observed sitting in his bedside chair at the beginning of shift. Pleasant and mostly cooperative this shift; compliant with most medication. Refused Trilafon, stated, "I don't know why they keep trying to get me to take it. I'm not going to and if Dr. Hercules knew how bad my back hurts he wouldn't either." Patient continues to make sever persecutory comments toward Dr. Hercules, [place] President from past and present. Patient remained in his bedroom through most of the shift. Denies SI, HI, A/VH but appears to respond to IS. S/I, H/I: Denies A/VH: Denies, observed responding to internal stimuli Sleep: Refer to sleep assessment ADL's: Pt. requires redirection Group attendance: N/A Were meds taken: Refused Trilafon Any med S/E: None observed or reported Mental Status Exam Appearance: Disheveled, appropriate attire for the unit Eye contact: Intense Behavior: Mostly cooperative, isolative Speech: Pressured and hyperverbal Mood: Labile Affect: Labile Thought process: Tangental with disorganization, persecutory Thought Content: Paranoid and grandiose delusions Cognition: A&O X2 (not to time or why here) Insight: Poor Judgment: Poor Interventions PRN's used: None Therapeutic interventions: Ensured contract for safety, maintained a safe and therapeutic environment, provided clear and simple instructions, attempted to reorient to reality, monitored behavior and need for intervention, provided active listening and redirection as needed, provided positive encouragement, and maintained Q 15min safety checks. Restraints/seclusion/emergency medication: N/A Justification of Continued Inpatient Treatment: Per BHARTI Luciano, pt. remains Bipolar and agitated, he requires further stabilization, medication adjustments, and a safe and therapeutic environment. May consider Riese.
[2019-09-29 08:00] VITALS: BP 112/72
[2019-09-29] MEDS: triamcinolone acet 0.1% cream 15gm TP SCH ×3 (08:00→21:00)
[2019-09-29] MEDS: LORazepam 1 MG tablet PO PRN (08:29)
[2019-09-29] MEDS: LORazepam 0.5 MG tablet PO SCH ×3 (08:29→20:43)
[2019-09-29] MEDS: gabapentin 400mg capsule PO SCH ×3 (08:30→20:43)
[2019-09-29] MEDS: tizanidine 4mg tablet PO PRN (08:30)
[2019-09-29] MEDS: lactose-reduced food (Ensure Enlive) - 237ml bottle PO SCH ×3 (08:31→18:06)
--- NOTE | 2019-09-29 10:29 | NUR ---
Reassessment: Pt PO 75-100% meals and ensure enlive TIDWM meeting needs. LBM 09/26. No nutrition concerns at this time. Will continue to monitor. Recommendations: 1) Continue regular diet 2) Regular shake TID for satiety; ensure enlive TIDWM per MD 3) Bowel care PRN 4) Wt per rx Addendum: 09/29/19 at [address] Amended: Links added.
--- NOTE | 2019-09-29 15:49 | NUR ---
Nursing Progress Note: Legal hold: 5270 Client on involuntary status for DTS Report received from nurse with use of SBAR: MARII Judd Why are they here: Client was admitted to ED after making threats of suicide. He stated, "If I'm discharged I'll kill myself." Client was living with his parents and reported he was "kicked-out and started a downward spiral". The client has delusional thoughts and believes that he is being persecuted by the illuminati and that his parents are members. Client is particularly angry with his mother and stated, "Today is her birthday, and I don't care! F*ck her! Let the Nazi's have her!". Assessment What has happened this shift: Patient was sitting in a chair in the [facility] at change of shift. Pt continues to express anger towards Dr Hercules and about what was said and decided at court, stating "he is a liar". Pt refused Trilafon again. Pt took his other medications without incident. he continues to be hyperverbal and tangential. He talks about the court hearing and then starts speaking words in czech and talking about the third Donovan. Patient has been isolating in his room but was seen interacting with peers in the morning. He is animated during interaction. He denies A/VH, SI and HI. He is heard talking about the [employer] and mumbling with other staff. He wrote a letter and asked the community outreach coordinator to send it off, but he states "I don't have the address, it is in all of my stuff". He is seen ambulating in the afternoon and interacting with peers. He is overheard talking about the illuminati and the nazis S/I, H/I: Pt denies A/VH: Pt denies. Sleep: rests intermittently throughout the day. ADL's: Independent Group attendance: N/A Were meds taken: Pt refused Trilafon but took his other medications Any med S/E: none reported and none observed Mental Status Exam Appearance: tall man with short brown hair and with facial stubble dressed in green scrubs and a hill sweater Eye contact: Good Behavior: Becomes agitated and loud at times, resistant to antipsychotic medication. hypomanic Mood: labile Thought process: Delusional, perseverative Thought Content: Angry about losing hearing, angry at psychiatrist Dr Hercules, does not believe he needs antipsychotic medication. Cognition: A/O X 2 Insight: Poor Judgment: Poor Interventions PRN's used: Lidocaine patch Therapeutic interventions: 1:1 assessment, active listening, therapeutic conversation, medication administration/education/monitoring, encouragement to take antipsychotic medication, behavior monitoring and intervention, reality orientation, limit setting, redirection, verbal de-escalation. Q 15min safety checks. Restraints/seclusion/emergency medication: N/A Justification of Continued Inpatient Treatment: Per BHARTI Luciano, pt. remains Bipolar and agitated, he requires further stabilization, medication adjustments, and a safe and therapeutic environment. May consider Grey. Addendum: 09/29/19 at 1747 by Chelsea Sanchez RN Patient used tizanidine in the AM for back spasm
[2019-09-29] MEDS: LIDOcaine 5% patch TP PRN (16:25)
[2019-09-29 20:00] VITALS: BP 121/61
--- NOTE | 2019-09-30 01:54 | NUR ---
Nursing Progress Note: Legal hold: 7380 Client on involuntary status for DTS Report received from nurse with use of SBAR: Letha MARIANO Why are they here: Client was admitted to ED after making threats of suicide. He stated, "If I'm discharged I'll kill myself." Client was living with his parents and reported he was "kicked-out and started a downward spiral". The client has delusional thoughts and believes that he is being persecuted by the illuminati and that his parents are members. Client is particularly angry with his mother and stated, "Today is her birthday, and I don't care! F*ck her! Let the Nazi's have her!". Assessment What has happened this shift: Pt was in the group room at change of shift. He is c/o 8/10 pain and in his neck and back, he requests ultram. Pt reports this helped. Pt is labile in mood, but mostly pleasant. He refuses his trilafon and states, don't get me started about that! I'm not taking it and you don't want to hear it, trust me. Pt went to bed then woke about 0130 and wrote a note about "the [place] and Germans and Gods and a checking account connected to [employer] S/I, H/I: Pt denies A/VH: Pt denies. Sleep: see sleep hours ADL's: Independent Group attendance: N/A Were meds taken: Pt refused Trilafon. Fell asleep before pharmacy had more Kenalog available. Any med S/E: none reported and none observed Mental Status Exam Appearance: tall man with short brown hair and with facial stubble dressed in green scrubs and a hill sweater Eye contact: Good Behavior: Becomes agitated and loud at times, resistant to antipsychotic medication. hypomanic Mood: labile Thought process: Delusional, perseverative Thought Content: talking about the "third Donovan" Cognition: A/O X 2 Insight: Poor Judgment: Poor Interventions PRN's used: Therapeutic interventions: 1:1 assessment, active listening, therapeutic conversation, medication administration/education/monitoring, encouragement to take antipsychotic medication, behavior monitoring and intervention, reality orientation, limit setting, redirection, verbal de-escalation. Q 15min safety checks. Restraints/seclusion/emergency medication: N/A Justification of Continued Inpatient Treatment: Per BAHRTI Luciano, pt. remains Bipolar and agitated, he requires further stabilization, medication adjustments, and a safe and therapeutic environment. May consider Rimo.
[2019-09-30] MEDS: LORazepam 0.5 MG tablet PO SCH ×3 (07:10→20:09)
[2019-09-30] MEDS: triamcinolone acet 0.1% cream 15gm TP SCH ×3 (07:10→20:09)
[2019-09-30] MEDS: gabapentin 400mg capsule PO SCH ×3 (07:10→20:09)
[2019-09-30] MEDS: traMADol 50MG tablet PO PRN ×2 (07:19→16:50)
[2019-09-30 08:00] VITALS: BP 117/72
[2019-09-30] MEDS: lactose-reduced food (Ensure Enlive) - 237ml bottle PO SCH ×3 (08:00→18:03)
[2019-09-30] MEDS: tizanidine 4mg tablet PO PRN (12:07)
--- NOTE | 2019-09-30 15:44 | NUR ---
Nursing Progress Note: Legal hold: 5270 Client on involuntary status for DTS Report received from nurse with use of SBAR: GARCÍA Robison Why are they here: Client was admitted to ED after making threats of suicide. He stated, "If I'm discharged I'll kill myself." Client was living with his parents and reported he was "kicked-out and started a downward spiral". The client has delusional thoughts and believes that he is being persecuted by the illuminati and that his parents are members. Client is particularly angry with his mother and stated, "Today is her birthday, and I don't care! F*ck her! Let the Nazi's have her!". Assessment What has happened this shift: Patient was seen ambulating at change of shift. Pt refused Trilafon again. Pt took his other medications without incident. He continues to be hyperverbal and tangential. He talks about the "twelfth son of Cynthia" and "my [place] girlfriend is so hot". Patient has been isolating in his room but was seen interacting with peers in the morning. He is animated during interaction. He denies A/VH, SI and HI. He went out to the patio with staff and peers. S/I, H/I: Pt denies A/VH: Pt denies. Sleep: Patient did not nap ADL's: Independent Group attendance: N/A, went out to the patio Were meds taken: Pt refused Trilafon but took his other medications Any med S/E: none reported and none observed Mental Status Exam Appearance: Dressed in short and a long sleeved shirt Eye contact: Good Behavior: Becomes agitated and loud at times, resistant to antipsychotic medication. hypomanic Mood: labile Thought process: Delusional, perseverative Thought Content: Cynthia, nazis, illuminati, does not believe he needs antipsychotic medication. Cognition: A/O X 2 Insight: Poor Judgment: Poor Interventions PRN's used: Lidocaine patch Therapeutic interventions: 1:1 assessment, active listening, therapeutic conversation, medication administration/education/monitoring, encouragement to take antipsychotic medication, behavior monitoring and intervention, reality orientation, limit setting, redirection, verbal de-escalation. Q 15min safety checks. Restraints/seclusion/emergency medication: N/A Justification of Continued Inpatient Treatment: Per BHARTI Luciano, pt. remains Bipolar and agitated, he requires further stabilization, medication adjustments, and a safe and therapeutic environment. May consider Grey.
[2019-09-30 20:53] VITALS: BP 116/75
--- NOTE | 2019-09-30 21:58 | NUR ---
Nursing Progress Note: Legal hold: 5270 Client on involuntary status for DTS Report received from nurse with use of SBAR: Letha RN Why are they here: Client was admitted to ED after making threats of suicide. He stated, "If I'm discharged I'll kill myself." Client was living with his parents and reported he was "kicked-out and started a downward spiral". The client has delusional thoughts and believes that he is being persecuted by the illuminati and that his parents are members. Client is particularly angry with his mother and stated, "Today is her birthday, and I don't care! F*ck her! Let the Nazi's have her!". Assessment What has happened this shift: Pt was in the hallway at change of shift. He was more calm this evening than last night, he spent time watching tv and talking with peers. Pt was med compliant tonight, stating "Im tired of fighting with everyone, I worked [employer] before at my job in [place]" Pt c/o briefly about other patients and talks about things that went on during the day and when I asked he states "You wouldnt believe it if I told you." S/I, H/I: Pt denies A/VH: Pt denies. 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 Q 15min safety checks. Restraints/seclusion/emergency medication: N/A Justification of Continued Inpatient Treatment: Per BHARTI Luciano, pt. remains Bipolar and agitated, he requires further stabilization, medication adjustments, and a safe and therapeutic environment. May consider Grey.
[2019-10-01 08:00] VITALS: BP 122/76
[2019-10-01] MEDS: gabapentin 400mg capsule PO SCH ×3 (08:05→20:48)
[2019-10-01] MEDS: triamcinolone acet 0.1% cream 15gm TP SCH ×3 (08:05→20:48)
[2019-10-01] MEDS: LORazepam 0.5 MG tablet PO SCH ×3 (08:05→20:47)
[2019-10-01] MEDS: lactose-reduced food (Ensure Enlive) - 237ml bottle PO SCH ×3 (08:06→18:27)
[2019-10-01 19:18] VITALS: BP 115/81
[2019-10-01] MEDS: CARIPRAZINE 1.5 MG CAPSULE PO SCH (20:47)
--- NOTE | 2019-10-01 22:16 | NUR ---
Nursing Progress Note: Legal hold: 5270 Client on involuntary status for DTS Report received from nurse with use of SBAR: Letha RN Why are they here: Client was admitted to ED after making threats of suicide. He stated, "If I'm discharged I'll kill myself." Client was living with his parents and reported he was "kicked-out and started a downward spiral". The client has delusional thoughts and believes that he is being persecuted by the illuminati and that his parents are members. Client is particularly angry with his mother and stated, "Today is her birthday, and I don't care! F*ck her! Let the Nazi's have her!". Assessment What has happened this shift: Pt was in the rec room at change of shift. Pt spent some time talking with staff and other patients before going to his room. Pt reports having a good day, c/o his roommate walking in and out of his room, but he states he is just going to go to sleep. Pt is med compliant. S/I, H/I: Pt denies A/VH: Pt denies. Sleep: see sleep hours ADL's: Independent Group attendance: no evening groups Were meds taken: yes Any med S/E: none reported and none observed Mental Status Exam Appearance: Dressed in shorts and a long sleeved shirt Eye contact: Good Behavior: sitting quietly watching tv before going to bed Mood: labile Thought process: Delusional, perseverative Thought Content: complaining about roommate Cognition: A/O X 2 Insight: Poor Judgment: Poor Interventions PRN's used: none Therapeutic interventions: 1:1 assessment, active listening, therapeutic conversation, medication administration/education/monitoring, encouragement to take antipsychotic medication, behavior monitoring and intervention, reality orientation, limit setting, redirection, verbal de-escalation. Q 15min safety checks. Restraints/seclusion/emergency medication: N/A Justification of Continued Inpatient Treatment: Per BHARTI Luciano, pt. remains Bipolar and agitated, he requires further stabilization, medication adjustments, and a safe and therapeutic environment. May consider Riese.
[2019-10-02 08:00] VITALS: BP 103/60
[2019-10-02] MEDS: triamcinolone acet 0.1% cream 15gm TP SCH ×3 (08:42→20:28)
[2019-10-02] MEDS: gabapentin 400mg capsule PO SCH ×3 (08:43→20:17)
[2019-10-02] MEDS: LORazepam 0.5 MG tablet PO SCH ×3 (08:43→20:18)
[2019-10-02] MEDS: lactose-reduced food (Ensure Enlive) - 237ml bottle PO SCH ×3 (08:43→17:42)
[2019-10-02] MEDS: LIDOcaine 5% patch TP PRN (09:06)
[2019-10-02] MEDS: traMADol 50MG tablet PO PRN (14:50)
--- NOTE | 2019-10-02 16:24 | NUR ---
Nursing Progress Note: Legal hold: 5270 Client on involuntary status for DTS Report received from nurse with use of SBAR: Enriqueta RN Why are they here: Client was admitted to ED after making threats of suicide. He stated, "If I'm discharged I'll kill myself." Client was living with his parents and reported he was "kicked-out and started a downward spiral". The client has delusional thoughts and believes that he is being persecuted by the illuminati and that his parents are members. Client is particularly angry with his mother and stated, "Today is her birthday, and I don't care! F*ck her! Let the Nazi's have her!". Assessment What has happened this shift: Patient was up at change of shift. Patient ate breakfast in his room. Patient was better behaved today and RN did not hear any cussing from patient. Patient went to morning group and participated. Patient c/o upper back pain and RN placed a Lidoderm patch on patient. Patient denies suicidal/homicidal ideation. Patient also denies hearing voices. Patient was talking about government and RN could not follow his logic but appears to be very intelligent. Patient took a nap in the afternoon and hung out in the T.V. room with other patient watching T.V. Patient is very social and was not inappropriate today. S/I, H/I: Pt denies A/VH: Pt denies. Sleep: Patient took a couple of naps. ADL's: Independent Group attendance: Yes to morning group. Were meds taken: yes Any med S/E: patient states he urinated in his sleep last night due to his medication Mental Status Exam Appearance: Dressed in street clothes Eye contact: Good Behavior: Hypomanic but appears to be less today Mood: Content Thought process: Delusional Thought Content: Wants to change medications Cognition: A/O X 2 Insight: Poor Judgment: Poor Interventions PRN's used: Lidocaine patch Therapeutic interventions: 1:1 assessment, active listening, therapeutic conversation, medication administration/education/monitoring, encouragement to take antipsychotic medication, behavior monitoring and intervention, reality orientation, limit setting, redirection, verbal de-escalation. Q 15min safety checks. Restraints/seclusion/emergency medication: N/A Justification of Continued Inpatient Treatment: Per BHARTI Luciano, pt. remains Bipolar and agitated, he requires further stabilization, medication adjustments, and a safe and therapeutic environment. May consider Riese.
[2019-10-02 20:00] VITALS: BP 124/74
[2019-10-02] MEDS: CARIPRAZINE 1.5 MG CAPSULE PO SCH (20:18)
--- NOTE | 2019-10-03 02:22 | NUR ---
Nursing Progress Note: Legal hold: 5270 Client on involuntary status for DTS Report received from nurse with use of SBAR: Burt RN Why are they here: Client was admitted to ED after making threats of suicide. He stated, "If I'm discharged I'll kill myself." Client was living with his parents and reported he was "kicked-out and started a downward spiral". The client has delusional thoughts and believes that he is being persecuted by the illuminati and that his parents are members. Client is particularly angry with his mother and stated, "Today is her birthday, and I don't care! F*ck her! Let the Nazi's have her!". Assessment What has happened this shift: Pt isolates to his room the entire shift. He sits in the dark and is talkative with staff comes in. He makes delusional statements about [place], the Germans and government conspiracies. He shows entry writer a paper boast he made and an airplane. He remains hyperverbal and hypomanic. Pt is med compliant. S/I, H/I: Pt denies A/VH: Pt denies. Sleep: see sleep hours ADL's: Independent Group attendance: no evening groups Were meds taken: yes Any med S/E: reports, "I piss myself " Mental Status Exam Appearance: Dressed in shorts and a long sleeved shirt Eye contact: Good Behavior: sitting quietly watching tv before going to bed Mood: labile Thought process: Delusional, perseverative Thought Content: complaining about roommate Cognition: A/O X 2 Insight: Poor Judgment: Poor Interventions PRN's used: none Therapeutic interventions: 1:1 assessment, active listening, therapeutic conversation, medication administration/education/monitoring, encouragement to take antipsychotic medication, behavior monitoring and intervention, reality orientation, limit setting, redirection, verbal de-escalation. Q 15min safety checks. Restraints/seclusion/emergency medication: N/A Justification of Continued Inpatient Treatment: Per BHARTI Luciano, pt. remains Bipolar and agitated, he requires further stabilization, medication adjustments, and a safe and therapeutic environment. May consider Grey
[2019-10-03] MEDS: gabapentin 400mg capsule PO SCH ×3 (08:00→21:32)
[2019-10-03] MEDS: LORazepam 0.5 MG tablet PO SCH ×3 (08:00→21:31)
[2019-10-03] MEDS: triamcinolone acet 0.1% cream 15gm TP SCH ×3 (08:23→21:00)
[2019-10-03] MEDS: lactose-reduced food (Ensure Enlive) - 237ml bottle PO SCH ×3 (08:23→18:00)
[2019-10-03 08:51] VITALS: BP 117/69
--- NOTE | 2019-10-03 17:44 | NUR ---
Nursing Progress Note: Legal hold: 5270 Client on involuntary status for DTS Report received from nurse with use of SBAR: Elana RN Why are they here: Client was admitted to ED after making threats of suicide. He stated, "If I'm discharged I'll kill myself." Client was living with his parents and reported he was "kicked-out and started a downward spiral". The client has delusional thoughts and believes that he is being persecuted by the illuminati and that his parents are members. Client is particularly angry with his mother and stated, "Today is her birthday, and I don't care! F*ck her! Let the Nazi's have her!". Assessment What has happened this shift: Patient was up at change of shift. Patient ate breakfast in his room. Pt is hyperverbal and tangential during interactions. Pt continues to go off on delusional tangents, I just like drinking whiskey . . . no one understands how a deteriorating spine feels, but sirisha, Im 60 years old and can do just about anything. Pt spent most the day in his room, but did watch television briefly in the recreation room. Pt did not exhibit agitation this shift and interacted well with bright affect with select peers. S/I, H/I: Pt denies A/VH: Pt denies. Sleep: Patient took a couple of naps. ADL's: Independent Group attendance: Yes to morning group. Were meds taken: yes Any med S/E: none stated Mental Status Exam Appearance: Dressed in street clothes Eye contact: Good Behavior: Hypomanic but appears to be less today Mood: Content Thought process: Delusional Thought Content: Wants to change medications Cognition: A/O X 2 Insight: Poor Judgment: Poor Interventions PRN's used: none Therapeutic interventions: 1:1 assessment, active listening, therapeutic conversation, medication administration/education/monitoring, encouragement to take antipsychotic medication, behavior monitoring and intervention, reality orientation, limit setting, redirection, verbal de-escalation. Q 15min safety checks. Restraints/seclusion/emergency medication: N/A Justification of Continued Inpatient Treatment: Per Mustapha PA, pt. remains Bipolar and agitated, he requires further stabilization, medication adjustments, and a safe and therapeutic environment. May consider Riese.
[2019-10-03 19:00] VITALS: BP 112/71
[2019-10-03] MEDS: CARIPRAZINE 1.5 MG CAPSULE PO SCH (21:32)
[2019-10-03] MEDS: LIDOcaine 5% patch TP PRN (21:43)
--- NOTE | 2019-10-04 02:07 | NUR ---
Nursing Progress Note: Legal hold: 6070 Client on involuntary status for DTS Report received from nurse with use of SBAR: Fede RN Why are they here: Client was admitted to ED after making threats of suicide. He stated, "If I'm discharged I'll kill myself." Client was living with his parents and reported he was "kicked-out and started a downward spiral". The client has delusional thoughts and believes that he is being persecuted by the illuminati and that his parents are members. Client is particularly angry with his mother and stated, "Today is her birthday, and I don't care! F*ck her! Let the Nazi's have her!". Assessment What has happened this shift: Pt isolates to his room the entire shift except to come out to say "I don't piss myself, it's the medications!" He is agitated and extremely upset at . "He thinks he can just hand me over to a social economist, some bitch, I could snap that bitch in half!" "In half!" "He can go back to [place]. I am not anyone here but I am in [place]! Us Germans don't put up with that shit!" "This is fucking bullshit I won't fucking put up with it. I will get the fuck out of hear!" He apologies for cursing and take his HS medications which includes ativan. He is able to calm down and lay down after taking his medications, although he could be heard still cursing under his breath. Pt reports hearing "ringing" in his ears. S/I, H/I: Pt denies A/VH: Pt denies. Sleep: see sleep hours ADL's: Independent Group attendance: no evening groups Were meds taken: yes Any med S/E: reports, "I piss myself " Mental Status Exam Appearance: Dressed in own clothing Eye contact: Good Behavior: sitting in his room, irate Mood: labile Thought process: Delusional, perseverative Thought Content:perseverating on Cognition: A/O X 2 Insight: Poor Judgment: Poor Interventions PRN's used: lidocaine patch Therapeutic interventions: 1:1 assessment, active listening, therapeutic conversation, medication administration/education/monitoring, encouragement to take antipsychotic medication, behavior monitoring and intervention, reality orientation, limit setting, redirection, verbal de-escalation. Q 15min safety checks. Restraints/seclusion/emergency medication: N/A Justification of Continued Inpatient Treatment: Per BHARTI Luciano, pt. remains Bipolar and agitated, he requires further stabilization, medication adjustments, and a safe and therapeutic environment. May consider Grey
[2019-10-04] MEDS: LORazepam 0.5 MG tablet PO SCH ×3 (07:42→20:17)
[2019-10-04] MEDS: gabapentin 400mg capsule PO SCH ×3 (07:42→20:20)
[2019-10-04] MEDS: triamcinolone acet 0.1% cream 15gm TP SCH ×3 (07:43→20:30)
[2019-10-04] MEDS: lactose-reduced food (Ensure Enlive) - 237ml bottle PO SCH ×3 (07:43→18:12)
[2019-10-04 08:51] VITALS: BP 99/59
[2019-10-04] MEDS: tizanidine 4mg tablet PO PRN (13:21)
--- NOTE | 2019-10-04 16:31 | NUR ---
Nursing Progress Note: Legal hold: 5270 Client on involuntary status for DTS Report received from nurse with use of SBAR: Elana RN Why are they here: Client was admitted to ED after making threats of suicide. He stated, "If I'm discharged I'll kill myself." Client was living with his parents and reported he was "kicked-out and started a downward spiral". The client has delusional thoughts and believes that he is being persecuted by the illuminati and that his parents are members. Client is particularly angry with his mother and stated, "Today is her birthday, and I don't care! F*ck her! Let the Nazi's have her!". Assessment What has happened this shift: Patient was up at change of shift and initiated taking a shower prior to breakfast. Patient ate breakfast in his room. Pt is hyperverbal, circumstantial and tangential during interactions. Pt continues to go off on delusional tangents that sometimes spin back to make some sense though based on delusional content. Pt does exhibit some paranoia, Im not an experiment, this is not [place] Pt did state also that he appreciated the recent med change taking him off trilifon because he no longer is incontinent at [facility]. Pt spent most the day in his room, but did watch television briefly in the recreation room. S/I, H/I: Pt denies A/VH: Pt denies. Sleep: Patient took a couple of naps. ADL's: Independent took shower today Group attendance: n/a Were meds taken: yes Any med S/E: none stated Mental Status Exam Appearance: Dressed in street clothes Eye contact: Good Behavior: Hypomanic but appears to be less today Mood: Content Thought process: Delusional Thought Content: tangential Cognition: A/O X 2 Insight: Poor Judgment: Poor Interventions PRN's used: none Therapeutic interventions: 1:1 assessment, active listening, therapeutic conversation, medication administration/education/monitoring, encouragement to take antipsychotic medication, behavior monitoring and intervention, reality orientation, limit setting, redirection, verbal de-escalation. Q 15min safety checks. Restraints/seclusion/emergency medication: N/A Justification of Continued Inpatient Treatment: Per BHARTI Luciano, pt. remains Bipolar and agitated, he requires further stabilization, medication adjustments, and a safe and therapeutic environment. May consider Riese.
[2019-10-04 19:00] VITALS: BP 126/71
[2019-10-04] MEDS: CARIPRAZINE 1.5 MG CAPSULE PO SCH (20:20)
[2019-10-04] MEDS: LIDOcaine 5% patch TP PRN (20:29)
--- NOTE | 2019-10-05 01:30 | NUR ---
Nursing Progress Note: Legal hold: 5270 Client on involuntary status for DTS Report received from nurse with use of SBAR: Fede MARIANO Why are they here: Client was admitted to ED after making threats of suicide. He stated, "If I'm discharged I'll kill myself." Client was living with his parents and reported he was "kicked-out and started a downward spiral". The client has delusional thoughts and believes that he is being persecuted by the illuminati and that his parents are members. Client is particularly angry with his mother and stated, "Today is her birthday, and I don't care! F*ck her! Let the Nazi's have her!". Assessment What has happened this shift: Pt is visible on the unit, wearing long nguyen and a flannel shirt that is mostly unbuttoned. He tells health technical writer his girlfriend is the [facility]. He has assembled a cup sculpture at the foot of his bed that has a [place] flag in the middle. "That is the [employer] flag, they become one country in the 1700s." He has multiple origami pieces decorating the room and little notes on his bed stand. He gives staff multiple notes with drawings on them and words that do not make sense. He remains hyperverbal and hypomanic. Pt is med compliant. S/I, H/I: Pt denies A/VH: Pt denies. Sleep: see sleep hours ADL's: Independent Group attendance: no evening groups Were meds taken: yes Any med S/E: reports, "I piss myself " Mental Status Exam Appearance: dressed in long nguyen and a flannel Eye contact: Good Behavior: talkative, happy Mood: labile Thought process: Delusional, perseverative Thought Content: [place], Germans Cognition: A/O X 2 Insight: Poor Judgment: Poor Interventions PRN's used: none Therapeutic interventions: 1:1 assessment, active listening, therapeutic conversation, medication administration/education/monitoring, encouragement to take antipsychotic medication, behavior monitoring and intervention, reality orientation, limit setting, redirection, verbal de-escalation. Q 15min safety checks. Restraints/seclusion/emergency medication: N/A Justification of Continued Inpatient Treatment: Per BHARTI Luciano, pt. remains Bipolar and agitated, he requires further stabilization, medication adjustments, and a safe and therapeutic environment. May consider Grey
[2019-10-05 08:00] VITALS: BP 112/74
[2019-10-05] MEDS: LORazepam 0.5 MG tablet PO SCH ×3 (08:06→20:04)
[2019-10-05] MEDS: gabapentin 400mg capsule PO SCH ×3 (08:06→20:04)
[2019-10-05] MEDS: triamcinolone acet 0.1% cream 15gm TP SCH ×3 (08:06→20:05)
[2019-10-05] MEDS: lactose-reduced food (Ensure Enlive) - 237ml bottle PO SCH ×3 (08:08→18:08)
--- NOTE | 2019-10-05 15:31 | NUR ---
Nursing Progress Note Legal hold: 7212 Client on involuntary status for DTS Report received from RN with use of SBAR Why are they here: Client was admitted to ED after making threats of suicide. He stated, "If I'm discharged I'll kill myself." Client was living with his parents and reported he was "kicked-out and started a downward spiral". The client has delusional thoughts and believes that he is being persecuted by the illuminati and that his parents are members. Client is particularly angry with his mother and stated, "Today is her birthday, and I don't care! F*ck her! Let the Nazi's have her!". Assessment What has happened this shift: Received Pt awake in his room in no distress at change of shift. Pt had vitals taken and ate breakfast and all meals in his room. Pt pleasant and cooperative and took AM meds with no issue. Pt remains hyperverbal and delusional r/t his knowledge and involvement with [employer] and high level politicians. Pt showed this RN some of his drawings and paper art work which have and third marcelino themes. He interacted appropriately with some other Pts today and did some drawing in the community room. Spent time watching TV as well in Recreation room and talking with others. Poor verbal boundaries and pressured speech is difficult to stop or redirect at times. He reported that the Lidocane patch on his upper back last night helped him sleep and he felt better today. S/I, H/I: Pt denies A/VH: Pt denies. Sleep: Not on this shift ADL's: Independent Group attendance: No groups today Were meds taken: Yes Any med S/E: None stated Mental Status Exam Appearance: Casual/neat/dressed in street clothes Eye contact: Good Behavior: Pleasant, hyperverbal Mood: Elevated Thought process: Delusional Thought Content: Tangential Cognition: A/O X 4 Insight: Poor Judgment: Poor Interventions PRN's used: None Therapeutic interventions: 1:1 assessment, active listening, therapeutic conversation, medication administration/education/monitoring, encouragement to take antipsychotic medication, behavior monitoring and intervention, reality orientation, limit setting, redirection, verbal de-escalation. Q 15min safety checks. Restraints/seclusion/emergency medication: N/A Justification of Continued Inpatient Treatment: Per BHARTI Luciano, pt. remains Bipolar and agitated, he requires further stabilization, medication adjustments, and a safe and therapeutic environment. May consider Rimo. Addendum: 10/05/19 at 1709 by Wilber Celaya RN Pt c/o upper medial back pain 10/19 and was given Tylenol and xanaflex PRN.
[2019-10-05] MEDS: tizanidine 4mg tablet PO PRN (17:02)
[2019-10-05] MEDS: acetaminophen 325mg tablet PO PRN (17:02)
[2019-10-05 19:42] VITALS: BP 147/82
[2019-10-05] MEDS: CARIPRAZINE 1.5 MG CAPSULE PO SCH (20:04)
[2019-10-05] MEDS: LIDOcaine 5% patch TP PRN (21:13)
--- NOTE | 2019-10-06 | NUR ---
Nursing Progress Note: Legal hold: 5270 Client on involuntary status for DTS Report received from nurse with use of SBAR: Fede MARIANO Why are they here: Client was admitted to ED after making threats of suicide. He stated, "If I'm discharged I'll kill myself." Client was living with his parents and reported he was "kicked-out and started a downward spiral". The client has delusional thoughts and believes that he is being persecuted by the illuminati and that his parents are members. Client is particularly angry with his mother and stated, "Today is her birthday, and I don't care! F*ck her! Let the Nazi's have her!". Assessment What has happened this shift: Pt was in rec room at change of shift watching tv. pt was observed interacting with other pt's appropriately during the evening. Pt was cooperative for 1:1, denying being si/hi. pt denies ever hearing voices. Pt continues to perseverate about nazis and libby, making nonsensical statements about the "germans and that vivien that haunted my house after parking in front of a train." Pt accepted meds and went to bed at approx 2200. S/I, H/I: Pt denies A/VH: Pt denies. Sleep: see sleep hours ADL's: Independent Group attendance: no evening groups Were meds taken: yes Any med S/E: none reported Mental Status Exam Appearance: dressed in long nguyen and a flannel Eye contact: Good Behavior: talkative, friendly Mood: upbeat Thought process: Delusional, perseverative Thought Content: [place], Germans Cognition: A/O X 2 Insight: Poor Judgment: Poor Interventions PRN's used: none Therapeutic interventions: 1:1 assessment, active listening, therapeutic conversation, medication administration/education/monitoring, encouragement to take antipsychotic medication, behavior monitoring and intervention, reality orientation, limit setting, redirection, verbal de-escalation. Q 15min safety checks. Restraints/seclusion/emergency medication: N/A Justification of Continued Inpatient Treatment: Per BHARTI Luciano, pt. remains Bipolar and agitated, he requires further stabilization, medication adjustments, and a safe and therapeutic environment.
[2019-10-06] MEDS: acetaminophen 325mg tablet PO PRN (03:54)
[2019-10-06] MEDS: LORazepam 0.5 MG tablet PO SCH ×3 (07:54→20:29)
[2019-10-06] MEDS: gabapentin 400mg capsule PO SCH ×3 (07:54→20:30)
[2019-10-06] MEDS: triamcinolone acet 0.1% cream 15gm TP SCH ×3 (07:57→21:34)
[2019-10-06 08:00] VITALS: BP 107/70
[2019-10-06] MEDS: lactose-reduced food (Ensure Enlive) - 237ml bottle PO SCH ×3 (08:00→18:43)
--- NOTE | 2019-10-06 10:19 | NUR ---
Reassessment: Pt PO 75-100% meals and ensure enlive TIDWM meeting needs. LBM 10/04. No nutrition concerns at this time. Will continue to monitor. Recommendations: 1) Continue regular diet 2) Regular shake TID for satiety; ensure enlive TIDWM per MD 3) Bowel care PRN 4) Wt per rx Addendum: 10/06/19 at [address] Amended: Links added.
--- NOTE | 2019-10-06 15:56 | NUR ---
Nursing Progress Note: Legal hold: 5270 Client on involuntary status for DTS Report received from nurse with use of SBAR: Toyin RN Why are they here: Client was admitted to ED after making threats of suicide. He stated, "If I'm discharged I'll kill myself." Client was living with his parents and reported he was "kicked-out and started a downward spiral". The client has delusional thoughts and believes that he is being persecuted by the illuminati and that his parents are members. Client is particularly angry with his mother and stated, "Today is her birthday, and I don't care! F*ck her! Let the Nazi's have her!". Assessment What has happened this shift: Patient was up at change of shift and after breakfast initiated taking a shower. Pt remains hyperverbal, circumstantial and tangential during interactions. Pt does exhibit some paranoia, [place] my aunt . The luminati have kept me here Pt more visible on the unit today, hanging out watching television with his peers. S/I, H/I: Pt denies A/VH: Pt denies. Sleep: Patient took a couple of short naps. ADL's: Independent took shower today Group attendance: [facility] Were meds taken: yes Any med S/E: none stated Mental Status Exam Appearance: Dressed in street clothes Eye contact: Good Behavior: Hypomanic but appears to be less today Mood: Content Thought process: Delusional Thought Content: tangential Cognition: A/O X 2 Insight: Poor Judgment: Poor Interventions PRN's used: none Therapeutic interventions: 1:1 assessment, active listening, therapeutic conversation, medication administration/education/monitoring, encouragement to take antipsychotic medication, behavior monitoring and intervention, reality orientation, limit setting, redirection, verbal de-escalation. Q 15min safety checks. Restraints/seclusion/emergency medication: N/A Justification of Continued Inpatient Treatment: Per BHARTI Luciano, pt. remains Bipolar and agitated, he requires further stabilization, medication adjustments, and a safe and therapeutic environment. May consider Riese.
[2019-10-06 20:00] VITALS: BP 128/76
[2019-10-06] MEDS: CARIPRAZINE 1.5 MG CAPSULE PO SCH (20:29)
--- NOTE | 2019-10-07 01:13 | NUR ---
Nursing Progress Note: Legal hold: 5270 Client on involuntary status for DTS Report received from nurse with use of SBAR: Toyin RN Why are they here: Client was admitted to ED after making threats of suicide. He stated, "If I'm discharged I'll kill myself." Client was living with his parents and reported he was "kicked-out and started a downward spiral". The client has delusional thoughts and believes that he is being persecuted by the illuminati and that his parents are members. Client is particularly angry with his mother and stated, "Today is her birthday, and I don't care! F*ck her! Let the Nazi's have her!". Assessment What has happened this shift: Patient was up in hallway at change of shift talking with peers. He was in and out of rec room watching tv. After snack he went to his room lying in bed. He was talking about the [place]ian people and there domination and they control the world today. He continues to make paranoid and delusional statements. S/I, H/I: Pt denies A/VH: Pt denies. Sleep: Patient took a couple of short naps. ADL's: Independent took shower today Group attendance: [facility] Were meds taken: yes Any med S/E: none stated Mental Status Exam Appearance: Dressed in street clothes Eye contact: Good Behavior: Hypomanic but appears to be less today Mood: Content Thought process: Delusional Thought Content: tangential Cognition: A/O X 2 Insight: Poor Judgment: Poor Interventions PRN's used: none Therapeutic interventions: 1:1 assessment, active listening, therapeutic conversation, medication administration/education/monitoring, encouragement to take antipsychotic medication, behavior monitoring and intervention, reality orientation, limit setting, redirection, verbal de-escalation. Q 15min safety checks. Restraints/seclusion/emergency medication: N/A Justification of Continued Inpatient Treatment: Per BHARTI Luciano, pt. remains Bipolar and agitated, he requires further stabilization, medication adjustments, and a safe and therapeutic environment. May consider Riese.
[2019-10-07] MEDS: gabapentin 400mg capsule PO SCH ×3 (07:22→20:27)
[2019-10-07] MEDS: LORazepam 0.5 MG tablet PO SCH ×3 (07:22→20:26)
[2019-10-07] MEDS: acetaminophen 325mg tablet PO PRN ×2 (07:22→20:55)
[2019-10-07 08:00] VITALS: BP 128/81
[2019-10-07] MEDS: lactose-reduced food (Ensure Enlive) - 237ml bottle PO SCH ×3 (08:40→17:58)
[2019-10-07] MEDS: triamcinolone acet 0.1% cream 15gm TP SCH ×3 (08:40→20:46)
[2019-10-07] MEDS: tizanidine 4mg tablet PO PRN (12:33)
--- NOTE | 2019-10-07 14:24 | NUR ---
DISCHARGE PLANNING Mitch reported he would like to go to the [facility] upon discharge. He called to ensure they have rooms available. He is agreeable to follow up with [facility]. Left message with Litzy to request an appointment with a psychiatrist day of discharge. HCFS, Lizz, reported she needs to meet with Mitch to have him sign some [employer] paperwork. MAG Flynn
--- NOTE | 2019-10-07 15:54 | NUR ---
Nursing Progress Note: Legal hold: 5270 Client on involuntary status for DTS Report received from nurse with use of SBAR: GARCÍA Hernandez Why are they here: Client was admitted to ED after making threats of suicide. He stated, "If I'm discharged I'll kill myself." Client was living with his parents and reported he was "kicked-out and started a downward spiral". The client has delusional thoughts and believes that he is being persecuted by the illuminati and that his parents are members. Client is particularly angry with his mother and stated, "Today is her birthday, and I don't care! F*ck her! Let the Nazi's have her!". Assessment What has happened this shift: Received pt awake and visible on the unit interacting with staff and peers. Pt remains disorganized and tangential most of the time. Pt was in good mood most of shift, laughing and making jokes which a lot of times dont make sense. Pt did get into one verbal altercation with female peer, but he was able to be verbally redirected as female pt was not. S/I, H/I: Pt denies A/VH: Pt denies. Sleep: Patient took a couple of short naps. ADL's: Independent took shower today Group attendance: [facility] Were meds taken: yes Any med S/E: none stated Mental Status Exam Appearance: Dressed in street clothes Eye contact: Good Behavior: Hypomanic but appears to be less today Mood: Content Thought process: Delusional Thought Content: tangential Cognition: A/O X 2 Insight: Poor Judgment: Poor Interventions PRN's used: Tylenol and zanaflex Therapeutic interventions: 1:1 assessment, active listening, therapeutic conversation, medication administration/education/monitoring, encouragement to take antipsychotic medication, behavior monitoring and intervention, reality orientation, limit setting, redirection, verbal de-escalation. Q 15min safety checks. Restraints/seclusion/emergency medication: N/A Justification of Continued Inpatient Treatment: Per BHARTI Luciano, pt. remains Bipolar and agitated, he requires further stabilization, medication adjustments, and a safe and therapeutic environment. May consider Riese.
[2019-10-07 20:00] VITALS: BP 118/80
[2019-10-07] MEDS: CARIPRAZINE 1.5 MG CAPSULE PO SCH (20:25)
--- NOTE | 2019-10-07 23:39 | NUR ---
Nursing Progress Note: Legal hold: 5270 Client on involuntary status for DTS Report received from nurse with use of SBAR: GARCÍA Mistry Why are they here: Client was admitted to ED after making threats of suicide. He stated, "If I'm discharged I'll kill myself." Client was living with his parents and reported he was "kicked-out and started a downward spiral". The client has delusional thoughts and believes that he is being persecuted by the illuminati and that his parents are members. Client is particularly angry with his mother and stated, "Today is her birthday, and I don't care! F*ck her! Let the Nazi's have her!". Assessment What has happened this shift: Patient was up and social with peers and staff. Pt remains tangential most of the time. Pt was cheerful and pleasant and went to bed after snack. He denies any SI/HI and AH/VH. S/I, H/I: Pt denies A/VH: Pt denies. Sleep: Patient took a couple of short naps. ADL's: Independent took shower today Group attendance: [facility] Were meds taken: yes Any med S/E: none stated Mental Status Exam Appearance: Dressed in street clothes Eye contact: Good Behavior: Hypomanic but appears to be less today Mood: Content Thought process: Delusional Thought Content: tangential Cognition: A/O X 2 Insight: Poor Judgment: Poor Interventions PRN's used: Tylenol Therapeutic interventions: 1:1 assessment, active listening, therapeutic conversation, medication administration/education/monitoring, encouragement to take antipsychotic medication, behavior monitoring and intervention, reality orientation, limit setting, redirection, verbal de-escalation. Q 15min safety checks. Restraints/seclusion/emergency medication: N/A Justification of Continued Inpatient Treatment: Per BHARTI uLciano, pt. remains Bipolar and agitated, he requires further stabilization, medication adjustments, and a safe and therapeutic environment. May consider Grey.
[2019-10-08] MEDS: triamcinolone acet 0.1% cream 15gm TP SCH ×3 (07:43→21:00)
[2019-10-08] MEDS: gabapentin 400mg capsule PO SCH ×3 (07:43→20:31)
[2019-10-08] MEDS: LORazepam 0.5 MG tablet PO SCH ×3 (07:43→20:31)
[2019-10-08] MEDS: lactose-reduced food (Ensure Enlive) - 237ml bottle PO SCH ×3 (08:01→18:00)
[2019-10-08 08:20] VITALS: BP 116/73
--- NOTE | 2019-10-08 13:23 | NUR ---
DISCHARGE PLANNING Assisted Mitch with calling [facility] to complete the process of starting services. Chairman Of The Board is working with [facility] to secure Mitch an appointment with Dr Zhou tomorrow upon discharge. Mitch plans on staying at the [facility] after his appt. MAG Flynn
--- NOTE | 2019-10-08 16:58 | NUR ---
Nursing Progress Note: Legal hold: 5270 Client on involuntary status for DTS Report received from GARCÍA Huitron with use of SBAR Why are they here: Client was admitted to ED after making threats of suicide. He stated, "If I'm discharged I'll kill myself." Client was living with his parents and reported he was "kicked-out and started a downward spiral". The client has delusional thoughts and believes that he is being persecuted by the illuminati and that his parents are members. Client is particularly angry with his mother and stated, "Today is her birthday, and I don't care! F*ck her! Let the Nazi's have her!". Assessment What has happened this shift: Patient awoke shortly after shift change. Patient eats all meals in his room, is medication compliant. Pt. is cooperative this shift. Pt. making delusional statements about the President being 666, the sign of the devil. Pt. does make irritating remarks to peers on the unit. Pt.s speech is slightly slurred making it difficult to understand him at times. S/I, H/I: Pt denies A/VH: Pt denies. Sleep: 7.25 hrs, napped. ADL's: Independent Group attendance: Outside patio. Were meds taken: yes Any med S/E: none stated Mental Status Exam Appearance: Clean and neat in personal attire. Eye contact: Good Behavior: Anxious, cooperative. Mood: Euthymic. Thought process: Delusional Thought Content: Goes from one delusional topic to the next. Cognition: A/O X 2 Insight: Poor Judgment: Poor Interventions PRN's used: None. Therapeutic interventions: 1:1 assessment, active listening, therapeutic conversation, medication administration/education/monitoring, encouragement to take antipsychotic medication, behavior monitoring and intervention, reality orientation, limit setting, redirection, verbal de-escalation. Q 15min safety checks. Restraints/seclusion/emergency medication: N/A Justification of Continued Inpatient Treatment: Per BHARTI Luciano, pt. remains Bipolar and agitated, he requires further stabilization, medication adjustments, and a safe and therapeutic environment. May consider Riese.
[2019-10-08 20:00] VITALS: BP 138/78
[2019-10-08] MEDS: CARIPRAZINE 1.5 MG CAPSULE PO SCH (20:31)
--- NOTE | 2019-10-09 00:02 | NUR ---
Nursing Progress Note: Legal hold: 5270 Client on involuntary status for DTS Report received from nurse with use of SBAR: GARCÍA Mistry Why are they here: Client was admitted to ED after making threats of suicide. He stated, "If I'm discharged I'll kill myself." Client was living with his parents and reported he was "kicked-out and started a downward spiral". The client has delusional thoughts and believes that he is being persecuted by the illuminati and that his parents are members. Client is particularly angry with his mother and stated, "Today is her birthday, and I don't care! F*ck her! Let the Nazi's have her!". Assessment What has happened this shift: Patient was sitting on rec room staring out the window at change of shift. When approached pt was friendly and cooperative for 1:1. 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 Pt did not make any hateful statements nor did he mention nazis. Pt was in a good mood all evening. He denies any SI/HI and AH/VH. S/I, H/I: Pt denies A/VH: Pt denies. Sleep: see sleep assessment ADL's: Independent took shower today Group attendance: n/a Were meds taken: yes Any med S/E: none stated Mental Status Exam Appearance: Dressed in street clothes Eye contact: Good Behavior: friendly, hyperverbal Mood: Content Thought process: Delusional Thought Content: tangential Cognition: A/O X 2 Insight: Poor Judgment: Poor Interventions PRN's used:none Therapeutic interventions: 1:1 assessment, active listening, therapeutic conversation, medication administration/education/monitoring, encouragement to take antipsychotic medication, behavior monitoring and intervention, reality orientation, limit setting, redirection, verbal de-escalation. Q 15min safety checks. Restraints/seclusion/emergency medication: N/A Justification of Continued Inpatient Treatment: Per BHARTI Luciano, pt. remains Bipolar and agitated, he requires further stabilization, medication adjustments, and a safe and therapeutic environment. May consider Riese.
[2019-10-09] MEDS: gabapentin 400mg capsule PO SCH ×2 (07:42→13:07)
[2019-10-09] MEDS: LORazepam 0.5 MG tablet PO SCH ×2 (07:42→13:07)
[2019-10-09] MEDS: triamcinolone acet 0.1% cream 15gm TP SCH ×2 (07:45→13:08)
[2019-10-09] MEDS: lactose-reduced food (Ensure Enlive) - 237ml bottle PO SCH ×2 (08:00→13:09)
[2019-10-09 08:02] VITALS: BP 119/80
[2019-10-09] MEDS ORDERED: LIDO700A47 TP (08:26)
[2019-10-09] MEDS ORDERED: TIOT4MIS5 INH (08:26)
[2019-10-09] MEDS ORDERED: GABA800T11 PO (08:26)
[2019-10-09] MEDS ORDERED: HYDR-3686 PO (08:26)
[2019-10-09] MEDS ORDERED: CARI4.5C PO (08:26)
[2019-10-09] MEDS ORDERED: ALBU18HF2 INH (08:26)
[2019-10-09] MEDS: LORazepam 1 MG tablet PO PRN (10:28)
--- NOTE | 2019-10-09 14:36 | NUR ---
DISCHARGE NOTE: Patient is being discharged, all belongings were inventoried and sent with patient. Patient denies SI. Has appt. with Dr. Zhou today and then will go to a hotel. Patient is discharged in stable condition.
== END 2019-10-09 13:45 | disposition short-term general hospital (02) | DRG 885 ==
LOC: ADULT MH 16:55 → UNDOADMIN 20:08 → ADULT MH 08-30 21:16
PROVIDERS: ADMIT Psychiatry & Neurology Psychiatry; ATTEND Psychiatry & Neurology Psychiatry
DX: F31.9 Bipolar disorder, unspecified (principal); R45.851 Suicidal ideations; F43.10 Post-traumatic stress disorder, unspecified; F41.8 Other specified anxiety disorders; G89.29 Other chronic pain; M54.30 Sciatica, unspecified side; F10.20 Alcohol dependence, uncomplicated; L30.9 Dermatitis, unspecified; F02.80 Dementia in other diseases classified elsewhere, unspecified severity, without behavioral disturbance, psychotic disturbance, mood disturbance, and anxiety; R21 Rash and other nonspecific skin eruption; B35.1 Tinea unguium; L60.0 Ingrowing nail; Z59.0 Homelessness; Z80.3 Family history of malignant neoplasm of breast; Z91.5 Personal history of self-harm; Z88.8 Allergy status to other drugs, medicaments and biological substances; Z82.5 Family history of asthma and other chronic lower respiratory diseases; Z80.9 Family history of malignant neoplasm, unspecified; Z82.49 Family history of ischemic heart disease and other diseases of the circulatory system
CPT/HCPCS: 36415; 80053; 80061; 80164; 80178; 80305; 80320; 80329; 81001; 83036; 84443; 85025; 87081; 94640; 94760; Q0175; Z7610

== ENCOUNTER 2020-08-04 18:36 | Emergency (ER) | payer MEDICARE, MEDICAID ==
[~2020-08-04] VITALS: Ht 185.4 cm; Wt 79.4 kg
[~2020-08-04 18:36] MED LIST changes: +CARI4.5C PO; +GABA800T11 PO; +HYDR-3686 PO; +LIDO700A47 TP
[2020-08-04] MEDS ORDERED: normal saline 1000ML IV soln IVB ONE (18:40)
[2020-08-04 19:29] LABS: CLARITY,URINE CLEAR (Clear); COLOR,URINE YELLOW (Yellow); GLUCOSE, URINE NEGATIVE (Neg); KETONES,URINE NEGATIVE (Neg); LEUKOCYTE ESTERASE ,URINE NEGATIVE (Neg); NITRITES, URINE NEGATIVE (Neg); OCCULT BLOOD,URINE NEGATIVE (Neg); PROTEIN,URINE NEGATIVE (Neg); UROBILINOGEN,URINE 0.2 E.U/dL (0.2-1.0)
[2020-08-04 19:31] LABS: BASOPHILS # (AUTO) 0.1 X10'3 (0-0.2); BASOPHILS % (AUTO) 0.9 % (0-1); EOSINOPHILS # (AUTO) 0.2 X10'3 (0-0.9); EOSINOPHILS % (AUTO) 2.8 % (0-6); HEMOGLOBIN 12.6 g/dl (14.0-17.9); LYMPHOCYTES # (AUTO) 1.4 X10'3 (1.1-4.8); LYMPHOCYTES % (AUTO) 17.8 % (21-51); MEAN CORPUSCULAR HEMOGLOBIN 33.8 PG (27.0-31.0); MEAN CORPUSCULAR HGB CONC 34.1 g/dL (33.0-36.5); MEAN CORPUSCULAR VOLUME 99.1 FL (78-98); MONOCYTES # (AUTO) 0.8 X10'3 (0-0.9); MONOCYTES % (AUTO) 9.7 % (2-12); NEUTROPHILS # (AUTO) 5.3 X10'3 (1.8-7.7); NEUTROPHILS % (AUTO) 68.8 % (42-75); PLATELET COUNT 347 X10'3 (140-440); RED BLOOD COUNT 3.73 X10'6 (4.70-6.10); RED CELL DISTRIBUTION WIDTH 14.2 % (11.5-14.5); WHITE BLOOD COUNT 7.7 X10'3 (4.5-11.0)
[2020-08-04 19:32] LABS: UA COLLECTION TYPE CLN CATCH MIDSTREAM
[2020-08-04 19:34] LABS: URINE AMPHETAMINE SCREEN NEGATIVE (Neg); URINE BARBITUATE SCREEN NEGATIVE (Neg); URINE BENZODIAZEPINES SCREEN NEGATIVE (Neg); URINE CANNABINOID SCREEN NEGATIVE (Neg); URINE COCAINE SCREEN NEGATIVE (Neg); URINE METHADONE SCREEN NEGATIVE (Neg); URINE OPIATE SCREEN NEGATIVE (Neg); URINE PHENCYCLIDINE SCREEN NEGATIVE (Neg)
[2020-08-04 19:38] LABS: ALANINE AMINOTRANSFERASE 30 U/L (12-78); ALBUMIN 3.7 G/DL (3.4-5.0); ALBUMIN/GLOBULIN RATIO 1.1 (1.1-1.5); ALKALINE PHOSPHATASE 148 IU/L (46-116); ANION GAP 13 (8-16); ASPARTATE AMINO TRANSFERASE 34 U/L (10-37); BILIRUBIN,TOTAL 0.4 MG/DL (0.1-1.0); BLOOD UREA NITROGEN 14 MG/DL (7-18); BUN/CREATININE RATIO 7.9 (5.4-32.0); CALCIUM 8.6 MG/DL (8.5-10.1); CHLORIDE 100 MMOL/L (99-107); CREATININE 1.78 MG/DL (0.60-1.10); ETHANOL < 0.010 GM/DL (0.0-0.010); GLUCOSE 101 MG/DL (70-104); POTASSIUM 3.9 MMOL/L (3.5-5.1); SODIUM 138 MMOL/L (135-145); TOTAL CARBON DIOXIDE 25.2 MMOL/L (24-32); TOTAL PROTEIN 7.2 G/DL (6.4-8.2); eGFR 39 ML/MIN
[2020-08-04 20:07] VITALS: BP 121/76
--- NOTE | 2020-08-04 20:14 | NUR ---
PT DRANK 200 ML OF WATER. PT AMBULATED TO THE BATHROOM WITH STEADY GAIT.
== END 2020-08-04 20:23 | disposition home or self-care (01) ==
LOC: ER 18:37
DX: E86.0 Dehydration (principal); R53.1 Weakness; R41.0 Disorientation, unspecified; F20.9 Schizophrenia, unspecified; J45.909 Unspecified asthma, uncomplicated; M19.90 Unspecified osteoarthritis, unspecified site; G89.29 Other chronic pain; F41.9 Anxiety disorder, unspecified; F32.9 Major depressive disorder, single episode, unspecified; F12.90 Cannabis use, unspecified, uncomplicated; Z86.69 Personal history of other diseases of the nervous system and sense organs; Z90.89 Acquired absence of other organs; Z98.890 Other specified postprocedural states; Z72.89 Other problems related to lifestyle; Z59.0 Homelessness; Z88.8 Allergy status to other drugs, medicaments and biological substances; Z79.899 Other long term (current) drug therapy
CPT/HCPCS: 36415; 71045; 80053; 80305; 80320; 81003; 82948; 85025; 93005; 96360; 99285; J7030

== ENCOUNTER 2020-09-03 07:55 | Emergency (ER) | payer MEDICARE, MEDICAID ==
[~2020-09-03] VITALS: Ht 182.9 cm; Wt 67.7 kg
[2020-09-03 08:47] LABS: CLARITY,URINE CLEAR (Clear); COLOR,URINE YELLOW (Yellow); GLUCOSE, URINE NEGATIVE (Neg); KETONES,URINE NEGATIVE (Neg); LEUKOCYTE ESTERASE ,URINE NEGATIVE (Neg); NITRITES, URINE NEGATIVE (Neg); OCCULT BLOOD,URINE NEGATIVE (Neg); PH,URINE 5.5 (4.8-8.0); PROTEIN,URINE NEGATIVE (Neg); UROBILINOGEN,URINE 0.2 E.U/dL (0.2-1.0)
[2020-09-03 08:48] LABS: UA COLLECTION TYPE CLN CATCH MIDSTREAM
[2020-09-03 08:52] LABS: URINE AMPHETAMINE SCREEN NEGATIVE (Neg); URINE BARBITUATE SCREEN NEGATIVE (Neg); URINE BENZODIAZEPINES SCREEN NEGATIVE (Neg); URINE CANNABINOID SCREEN POSITIVE (Neg); URINE COCAINE SCREEN NEGATIVE (Neg); URINE METHADONE SCREEN NEGATIVE (Neg); URINE OPIATE SCREEN NEGATIVE (Neg); URINE PHENCYCLIDINE SCREEN NEGATIVE (Neg)
[2020-09-03 08:54] LABS: BASOPHILS # (AUTO) 0.1 X10'3 (0-0.2); BASOPHILS % (AUTO) 0.8 % (0-1); EOSINOPHILS # (AUTO) 0.1 X10'3 (0-0.9); EOSINOPHILS % (AUTO) 1.5 % (0-6); HEMATOCRIT 39.9 % (42.0-52.0); HEMOGLOBIN 13.5 g/dl (14.0-17.9); LYMPHOCYTES # (AUTO) 2.1 X10'3 (1.1-4.8); LYMPHOCYTES % (AUTO) 30.9 % (21-51); MEAN CORPUSCULAR HEMOGLOBIN 33.4 PG (27.0-31.0); MEAN CORPUSCULAR HGB CONC 33.8 g/dL (33.0-36.5); MEAN CORPUSCULAR VOLUME 98.6 FL (78-98); MEAN PLATELET VOLUME 7.4 FL (7.4-10.4); MONOCYTES # (AUTO) 0.3 X10'3 (0-0.9); MONOCYTES % (AUTO) 4.9 % (2-12); NEUTROPHILS # (AUTO) 4.2 X10'3 (1.8-7.7); NEUTROPHILS % (AUTO) 61.9 % (42-75); PLATELET COUNT 327 X10'3 (140-440); RED BLOOD COUNT 4.05 X10'6 (4.70-6.10); RED CELL DISTRIBUTION WIDTH 14.7 % (11.5-14.5); WHITE BLOOD COUNT 6.8 X10'3 (4.5-11.0)
[2020-09-03 09:10] LABS: ALANINE AMINOTRANSFERASE 23 U/L (12-78); ALBUMIN 3.7 G/DL (3.4-5.0); ALKALINE PHOSPHATASE 111 IU/L (46-116); ANION GAP 14 (8-16); ASPARTATE AMINO TRANSFERASE 29 U/L (10-37); BILIRUBIN,TOTAL 0.3 MG/DL (0.1-1.0); BLOOD UREA NITROGEN 7 MG/DL (7-18); BUN/CREATININE RATIO 11.5 (5.4-32.0); CALCIUM 8.5 MG/DL (8.5-10.1); CHLORIDE 105 MMOL/L (99-107); CREATININE 0.61 MG/DL (0.60-1.10); ETHANOL 0.171 GM/DL (0.0-0.010); GLUCOSE 88 MG/DL (70-104); POTASSIUM 3.8 MMOL/L (3.5-5.1); SODIUM 142 MMOL/L (135-145); TOTAL CARBON DIOXIDE 23.4 MMOL/L (24-32); TOTAL PROTEIN 7.3 G/DL (6.4-8.2); eGFR > 90 ML/MIN
--- NOTE | 2020-09-03 09:12 | NUR ---
PT RESTING IN BED LAYING ON BACK WITH EYES CLOSED RR EQUAL AND UNLABORED
--- NOTE | 2020-09-03 09:48 | NUR ---
PACKET FAXED TO [facility]
--- NOTE | 2020-09-03 10:12 | NUR ---
PT RESTING ON LEFT SIDED RR EQUAL AND UNLABORED.
--- NOTE | 2020-09-03 12:12 | NUR ---
PT UP TO BR. REQUESTING SNACK
--- NOTE | 2020-09-03 13:07 | NUR ---
Patient eating lunch. No distress observed. Continue to monitor.
--- NOTE | 2020-09-03 15:38 | NUR ---
Britni CHANDLER, evaluating patient. Continue to monitor.
--- NOTE | 2020-09-03 16:05 | NUR ---
Patient telling RN that the [place] is going to break and overflow into [place]. So be careful. Patient appears delusional. Continue to monitor.
[2020-09-03] MEDS ORDERED: NO HOME MEDS (19:31)
--- NOTE | 2020-09-03 19:32 | NUR ---
One to one with the patient who is resting on his bed. He is hyperverbal when engaged. His speech is rapid and pressured. 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 He reports that he has not been taking any medications at home.
--- NOTE | 2020-09-03 20:46 | NUR ---
The patient is resting on his bed.
--- NOTE | 2020-09-03 22:18 | NUR ---
The patient was up briefly to use the bathroom and is now back in bed.
--- NOTE | 2020-09-03 23:21 | NUR ---
The patient appears to be sleeping
--- NOTE | 2020-09-04 01:49 | NUR ---
The patient appears to be sleeping
--- NOTE | 2020-09-04 04:48 | NUR ---
The patient appears to be sleeping
[2020-09-04 05:51] VITALS: BP 133/84
--- NOTE | 2020-09-04 06:39 | NUR ---
pt is sleeping, no s/s of distress noted.
--- NOTE | 2020-09-04 08:28 | NUR ---
pt is conversing with his neighbor, no needs at this time.
--- NOTE | 2020-09-04 10:05 | NUR ---
pt is lying in his bed, conversing with neighbor. pt is cooperative, calm and friendly.
== END 2020-09-04 14:56 ==
LOC: ER 07:55
DX: F32.9 Major depressive disorder, single episode, unspecified (principal); F10.129 Alcohol abuse with intoxication, unspecified; R45.851 Suicidal ideations; J45.909 Unspecified asthma, uncomplicated; M19.90 Unspecified osteoarthritis, unspecified site; G89.29 Other chronic pain; F41.9 Anxiety disorder, unspecified; F12.90 Cannabis use, unspecified, uncomplicated; Z98.890 Other specified postprocedural states; Z90.89 Acquired absence of other organs; Z59.0 Homelessness; Z88.8 Allergy status to other drugs, medicaments and biological substances; Z79.899 Other long term (current) drug therapy; Y90.0 Blood alcohol level of less than 20 mg/100 ml
CPT/HCPCS: 36415; 80053; 80305; 80320; 81003; 85025; 99285

== ENCOUNTER 2020-09-30 22:35 | Emergency (ER) | payer MEDICARE, MEDICAID ==
[~2020-09-30] VITALS: Ht 185.4 cm; Wt 90.9 kg
[~2020-09-30 22:35] MED LIST changes: -ALBU18HF2 INH; +ALBU6.7H9 INH; +ARIP5TAB60 PO; -CARI4.5C PO; +GABA-530 PO; -GABA800T11 PO; -HYDR-3686 PO; +NICO-630 TD; +NO HOME MEDS; -TIOT4MIS5 INH
[2020-10-01 01:13] VITALS: BP 101/75
== END 2020-10-01 00:45 | disposition home or self-care (01) ==
LOC: ER 22:36
DX: Z02.89 Encounter for other administrative examinations (principal); J45.909 Unspecified asthma, uncomplicated; M19.90 Unspecified osteoarthritis, unspecified site; G89.29 Other chronic pain; F41.9 Anxiety disorder, unspecified; F31.9 Bipolar disorder, unspecified; F12.90 Cannabis use, unspecified, uncomplicated; Z86.69 Personal history of other diseases of the nervous system and sense organs; Z90.89 Acquired absence of other organs; Z98.890 Other specified postprocedural states; Z72.89 Other problems related to lifestyle; Z59.0 Homelessness; Z88.8 Allergy status to other drugs, medicaments and biological substances; Z79.899 Other long term (current) drug therapy
CPT/HCPCS: 99281

== ENCOUNTER 2020-11-09 20:28 | Emergency (ER) | payer MEDICARE, MEDICAID ==
[~2020-11-09] VITALS: Ht 185.4 cm; Wt 75.5 kg
[~2020-11-09 20:28] MED LIST changes: -ALBU6.7H9 INH; -ARIP5TAB60 PO; -GABA-530 PO; -LIDO700A47 TP; -NICO-630 TD
[2020-11-09] MEDS ORDERED: normal saline 1000ML IV soln IVB ONE ×2 (21:20→22:25)
[2020-11-09 21:39] LABS: CLARITY,URINE SLIGHTLY CLOUDY (Clear); COLOR,URINE YELLOW (Yellow); GLUCOSE, URINE NEGATIVE (Neg); KETONES,URINE NEGATIVE (Neg); LEUKOCYTE ESTERASE ,URINE NEGATIVE (Neg); NITRITES, URINE NEGATIVE (Neg); OCCULT BLOOD,URINE NEGATIVE (Neg); PROTEIN,URINE NEGATIVE (Neg); UROBILINOGEN,URINE 0.2 E.U/dL (0.2-1.0)
[2020-11-09 21:40] LABS: BASOPHILS # (AUTO) 0.1 X10'3 (0-0.2); BASOPHILS % (AUTO) 1.4 % (0-1); EOSINOPHILS # (AUTO) 0.1 X10'3 (0-0.9); HEMATOCRIT 38.3 % (42.0-52.0); HEMOGLOBIN 13.4 g/dl (14.0-17.9); LYMPHOCYTES # (AUTO) 1.6 X10'3 (1.1-4.8); LYMPHOCYTES % (AUTO) 26.4 % (21-51); MEAN CORPUSCULAR HEMOGLOBIN 34.2 PG (27.0-31.0); MEAN CORPUSCULAR HGB CONC 34.9 g/dL (33.0-36.5); MEAN PLATELET VOLUME 7.3 FL (7.4-10.4); MONOCYTES # (AUTO) 0.4 X10'3 (0-0.9); MONOCYTES % (AUTO) 7.6 % (2-12); NEUTROPHILS # (AUTO) 3.7 X10'3 (1.8-7.7); NEUTROPHILS % (AUTO) 63.6 % (42-75); PLATELET COUNT 250 X10'3 (140-440); RED CELL DISTRIBUTION WIDTH 14.9 % (11.5-14.5); WHITE BLOOD COUNT 5.9 X10'3 (4.5-11.0)
[2020-11-09 21:41] LABS: UA COLLECTION TYPE CLN CATCH MIDSTREAM
[2020-11-09 21:47] LABS: BACTERIA,URINE NONE SEEN /HPF (Neg); MUCUS STRANDS FEW /LPF (Neg); RBC,URINE NONE SEEN /HPF (0-2); SQUAMOUS EPITHELIAL CELL,UR MODERATE /LPF (FEW); WBC,URINE 0-4 /HPF (0-4)
[2020-11-09 21:48] LABS: HYALINE CASTS 0-3 /LPF (NEGATIVE)
[2020-11-09 21:49] LABS: PARTIAL THROMBOPLASTIN TIME 29 SECONDS (22-32)
[2020-11-09 21:51] LABS: ALANINE AMINOTRANSFERASE 17 U/L (12-78); ALBUMIN 3.7 G/DL (3.4-5.0); ALBUMIN/GLOBULIN RATIO 1.1 (1.1-1.5); ALKALINE PHOSPHATASE 90 IU/L (46-116); ANION GAP 15 (8-16); ASPARTATE AMINO TRANSFERASE 19 U/L (10-37); BILIRUBIN,TOTAL 0.6 MG/DL (0.1-1.0); BLOOD UREA NITROGEN 10 MG/DL (7-18); BUN/CREATININE RATIO 11.1 (5.4-32.0); CALCIUM 8.3 MG/DL (8.5-10.1); CHLORIDE 108 MMOL/L (99-107); GLUCOSE 77 MG/DL (70-104); MAGNESIUM 1.9 MG/DL (1.5-2.4); POTASSIUM 3.7 MMOL/L (3.5-5.1); SODIUM 145 MMOL/L (135-145); TOTAL CARBON DIOXIDE 22.1 MMOL/L (24-32); eGFR 86 ML/MIN
[2020-11-09] MEDS ORDERED: albuterol 2.5 MG/3 ML nebule NEB ONE (22:25)
--- NOTE | 2020-11-09 22:37 | NUR ---
RT AT BEDSIDE
[2020-11-09 23:50] VITALS: BP 121/70
== END 2020-11-09 23:56 | disposition home or self-care (01) ==
LOC: ER 20:29
DX: T67.5XXA Heat exhaustion, unspecified, initial encounter (principal); R53.1 Weakness; G40.909 Epilepsy, unspecified, not intractable, without status epilepticus; J44.9 Chronic obstructive pulmonary disease, unspecified; M19.90 Unspecified osteoarthritis, unspecified site; G89.29 Other chronic pain; F12.90 Cannabis use, unspecified, uncomplicated; Z98.890 Other specified postprocedural states; Z90.49 Acquired absence of other specified parts of digestive tract; Z72.89 Other problems related to lifestyle; X30.XXXA Exposure to excessive natural heat, initial encounter; Y93.55 Activity, bike riding; Y92.89 Other specified places as the place of occurrence of the external cause; Y99.8 Other external cause status
CPT/HCPCS: 36415; 80053; 81001; 83735; 85025; 85610; 85730; 94640; 99283; J7030; 94760

== ENCOUNTER 2020-12-13 10:32 | Emergency (ER) | payer MEDICARE, MEDICAID ==
[~2020-12-13] VITALS: Ht 185.4 cm; Wt 72.4 kg
[2020-12-13 10:48] VITALS: BP 113/73
[2020-12-13 11:30] LABS: BASOPHILS # (AUTO) 0.1 X10'3 (0-0.2); BASOPHILS % (AUTO) 1.4 % (0-1); EOSINOPHILS # (AUTO) 0.2 X10'3 (0-0.9); EOSINOPHILS % (AUTO) 3.5 % (0-6); HEMATOCRIT 43.8 % (42.0-52.0); HEMOGLOBIN 14.9 g/dl (14.0-17.9); LYMPHOCYTES # (AUTO) 1.5 X10'3 (1.1-4.8); LYMPHOCYTES % (AUTO) 27.7 % (21-51); MEAN CORPUSCULAR HEMOGLOBIN 33.2 PG (27.0-31.0); MEAN CORPUSCULAR HGB CONC 34.1 g/dL (33.0-36.5); MEAN CORPUSCULAR VOLUME 97.5 FL (78-98); MEAN PLATELET VOLUME 7.7 FL (7.4-10.4); MONOCYTES # (AUTO) 0.4 X10'3 (0-0.9); MONOCYTES % (AUTO) 7.4 % (2-12); NEUTROPHILS # (AUTO) 3.3 X10'3 (1.8-7.7); PLATELET COUNT 280 X10'3 (140-440); RED BLOOD COUNT 4.49 X10'6 (4.70-6.10); RED CELL DISTRIBUTION WIDTH 15.3 % (11.5-14.5); WHITE BLOOD COUNT 5.5 X10'3 (4.5-11.0)
[2020-12-13 11:38] LABS: ALANINE AMINOTRANSFERASE 21 U/L (12-78); ALBUMIN 3.8 G/DL (3.4-5.0); ALKALINE PHOSPHATASE 81 IU/L (46-116); ANION GAP 12 (8-16); BILIRUBIN,TOTAL 0.5 MG/DL (0.1-1.0); BLOOD UREA NITROGEN 12 MG/DL (7-18); BUN/CREATININE RATIO 15.4 (5.4-32.0); CALCIUM 8.1 MG/DL (8.5-10.1); CHLORIDE 108 MMOL/L (99-107); CREATININE 0.78 MG/DL (0.60-1.10); GLUCOSE 65 MG/DL (70-104); SODIUM 142 MMOL/L (135-145); TOTAL CARBON DIOXIDE 22.4 MMOL/L (24-32); TOTAL PROTEIN 7.6 G/DL (6.4-8.2); eGFR > 90 ML/MIN
[2020-12-13 11:39] LABS: ASPARTATE AMINO TRANSFERASE 26 U/L (10-37); POTASSIUM 5.2 MMOL/L (3.5-5.1)
[2020-12-13 11:47] LABS: ETHANOL 0.183 GM/DL (0.0-0.010)
== END 2020-12-13 11:00 | disposition left against medical advice (07) ==
LOC: ER 10:33
DX: R53.1 Weakness (principal); Z53.21 Procedure and treatment not carried out due to patient leaving prior to being seen by health care provider
CPT/HCPCS: 36415; 80053; 80320; 84443; 85025

== ENCOUNTER 2021-01-11 14:42 | Emergency (ER) | payer MEDICAID ==
[~2021-01-11] VITALS: Ht 185.4 cm; Wt 75.0 kg
[2021-01-11 17:03] LABS: BASOPHILS # (AUTO) 0.1 X10'3 (0-0.2); BASOPHILS % (AUTO) 1.3 % (0-1); EOSINOPHILS # (AUTO) 0.1 X10'3 (0-0.9); EOSINOPHILS % (AUTO) 1.7 % (0-6); HEMATOCRIT 39.2 % (42.0-52.0); HEMOGLOBIN 13.4 g/dl (14.0-17.9); LYMPHOCYTES # (AUTO) 1.2 X10'3 (1.1-4.8); LYMPHOCYTES % (AUTO) 23.9 % (21-51); MEAN CORPUSCULAR HEMOGLOBIN 33.3 PG (27.0-31.0); MEAN CORPUSCULAR HGB CONC 34.1 g/dL (33.0-36.5); MEAN CORPUSCULAR VOLUME 97.7 FL (78-98); MEAN PLATELET VOLUME 7.6 FL (7.4-10.4); MONOCYTES # (AUTO) 0.3 X10'3 (0-0.9); MONOCYTES % (AUTO) 6.6 % (2-12); NEUTROPHILS # (AUTO) 3.4 X10'3 (1.8-7.7); NEUTROPHILS % (AUTO) 66.5 % (42-75); PLATELET COUNT 280 X10'3 (140-440); RED BLOOD COUNT 4.01 X10'6 (4.70-6.10); RED CELL DISTRIBUTION WIDTH 14.6 % (11.5-14.5); WHITE BLOOD COUNT 5.2 X10'3 (4.5-11.0)
[2021-01-11 17:17] LABS: ALANINE AMINOTRANSFERASE 16 U/L (12-78); ALBUMIN 3.4 G/DL (3.4-5.0); ALKALINE PHOSPHATASE 75 IU/L (46-116); ANION GAP 14 (8-16); ASPARTATE AMINO TRANSFERASE 16 U/L (10-37); BILIRUBIN,TOTAL 0.4 MG/DL (0.1-1.0); BLOOD UREA NITROGEN 9 MG/DL (7-18); BUN/CREATININE RATIO 12.5 (5.4-32.0); CALCIUM 7.9 MG/DL (8.5-10.1); CHLORIDE 105 MMOL/L (99-107); CREATININE 0.72 MG/DL (0.60-1.10); GLUCOSE 79 MG/DL (70-104); POTASSIUM 3.6 MMOL/L (3.5-5.1); SODIUM 143 MMOL/L (135-145); TOTAL PROTEIN 6.7 G/DL (6.4-8.2); eGFR > 90 ML/MIN
[2021-01-11 17:57] LABS: CLARITY,URINE SLIGHTLY CLOUDY (Clear); COLOR,URINE STRAW (Yellow); GLUCOSE, URINE NEGATIVE (Neg); KETONES,URINE NEGATIVE (Neg); LEUKOCYTE ESTERASE ,URINE NEGATIVE (Neg); NITRITES, URINE NEGATIVE (Neg); OCCULT BLOOD,URINE NEGATIVE (Neg); PH,URINE 5.5 (4.8-8.0); PROTEIN,URINE NEGATIVE (Neg); URINE AMPHETAMINE SCREEN NEGATIVE (Neg); URINE BARBITUATE SCREEN NEGATIVE (Neg); URINE BENZODIAZEPINES SCREEN NEGATIVE (Neg); URINE CANNABINOID SCREEN POSITIVE (Neg); URINE COCAINE SCREEN NEGATIVE (Neg); URINE METHADONE SCREEN NEGATIVE (Neg); URINE OPIATE SCREEN NEGATIVE (Neg); URINE PHENCYCLIDINE SCREEN NEGATIVE (Neg); UROBILINOGEN,URINE 0.2 E.U/dL (0.2-1.0)
[2021-01-11 17:58] LABS: UA COLLECTION TYPE VOIDED
[2021-01-11 18:14] LABS: SQUAMOUS EPITHELIAL CELL,UR FEW /LPF (FEW)
[2021-01-11 18:15] LABS: BACTERIA,URINE NONE SEEN /HPF (Neg); RBC,URINE NONE SEEN /HPF (0-2); WBC,URINE 0-4 /HPF (0-4)
--- NOTE | 2021-01-11 19:01 | NUR ---
The patient was moved to bed 21 in the ER overflow in an agitated manic state. His thoughts are tangential. He is talking rapidly and loudly and gesturing. A meal was given.
--- NOTE | 2021-01-11 19:10 | NUR ---
Packet sent to [facility]
--- NOTE | 2021-01-11 19:10 | NUR ---
Covid swab collected and sent to the lab
[2021-01-11] MEDS ORDERED: GABA-530 PO (19:20)
[2021-01-11] MEDS ORDERED: ALBU8HFA PO (19:20)
[2021-01-11] MEDS ORDERED: ARIP20TA4 PO (19:20)
[2021-01-11] MEDS ORDERED: ARIP5TAB14 PO (19:20)
[2021-01-11] MEDS ORDERED: diphenhydrAMINE 25mg capsule PO ONE (19:30)
[2021-01-11] MEDS ORDERED: olanzapine 10mg tablet PO ONE (19:30)
[2021-01-11] MEDS ORDERED: LORazepam 1 MG tablet PO ONE (19:30)
--- NOTE | 2021-01-11 19:32 | NUR ---
Spoke with Dr. Camargo regarding patient's vane and orders received
[2021-01-11] MEDS ORDERED: albuterol 2.5 MG/3 ML nebule NEB PRN (19:45)
--- NOTE | 2021-01-11 20:01 | NUR ---
repiratory therapy paged to request a breathing treatment for the patient
[2021-01-11] MEDS: gabapentin 100mg capsule PO SCH (20:10)
--- NOTE | 2021-01-11 20:30 | NUR ---
The patient declined a respiratory treatment
--- NOTE | 2021-01-11 20:56 | NUR ---
The patient appears to be sleeping
[2021-01-11] MEDS ORDERED: aripiprazole 5mg tablet PO SCH (21:00)
--- NOTE | 2021-01-11 23:51 | NUR ---
The patient appears to be sleeping
--- NOTE | 2021-01-12 01:21 | NUR ---
The patient appears to be sleeping sell. He was up to use the bathroom twice
--- NOTE | 2021-01-12 02:36 | NUR ---
Nurse to nurse with Baljinder Mar
--- NOTE | 2021-01-12 03:12 | NUR ---
covid results faxed to [facility]. The patient appears to be sleeping
--- NOTE | 2021-01-12 04:56 | NUR ---
The patient appears to be sleeping
[2021-01-12 05:53] VITALS: BP 114/90
--- NOTE | 2021-01-12 07:24 | NUR ---
Pt ambulated to bathroom and back to room, pt reports sleeping very well last night.
[2021-01-12] MEDS ORDERED: ARIPIPRAZOLE 10 MG TABLET PO SCH (08:00)
--- NOTE | 2021-01-12 09:24 | NUR ---
Gave report to nurse Meg at [facility] for eval of possible placement. Faxing Covid result per request.
[2021-01-12] MEDS: gabapentin 100mg capsule PO SCH (09:35)
[2021-01-15] MEDS ORDERED: GABA300C PO (16:12)
[2021-01-15] MEDS ORDERED: NICO-630 TD (16:12)
[2021-01-15] MEDS ORDERED: TRAZ-251 PO (16:12)
[2021-01-15] MEDS ORDERED: ASEN10TA11 SL (16:12)
[2021-01-15] MEDS ORDERED: ALBU2.5V7 NEB (16:12)
== END 2021-01-12 11:45 ==
LOC: ER 14:43
DX: R45.851 Suicidal ideations (principal); Z20.822 Contact with and (suspected) exposure to COVID-19; F20.9 Schizophrenia, unspecified; F29 Unspecified psychosis not due to a substance or known physiological condition; J44.9 Chronic obstructive pulmonary disease, unspecified; M19.90 Unspecified osteoarthritis, unspecified site; G89.29 Other chronic pain; F41.9 Anxiety disorder, unspecified; F15.90 Other stimulant use, unspecified, uncomplicated; Z86.69 Personal history of other diseases of the nervous system and sense organs; Z90.89 Acquired absence of other organs; Z98.890 Other specified postprocedural states; Z72.89 Other problems related to lifestyle; Z88.8 Allergy status to other drugs, medicaments and biological substances; Z79.899 Other long term (current) drug therapy
CPT/HCPCS: 36415; 80053; 80305; 80320; 81001; 85025; 87635; 94760; 99285; C9803; Q0163

== ENCOUNTER 2021-03-18 11:42 | Emergency (ER) | payer MEDICARE, MEDICAID ==
[~2021-03-18] VITALS: Ht 185.4 cm; Wt 64.0 kg
[~2021-03-18 11:42] MED LIST changes: +ALBU2.5V7 NEB; +ASEN10TA11 SL; +GABA300C PO; +NICO-630 TD; -NO HOME MEDS; +TRAZ-251 PO
[2021-03-18 11:44] VITALS: BP 149/108
== END 2021-03-18 12:07 | disposition home or self-care (01) ==
LOC: ER 11:42
DX: Z02.89 Encounter for other administrative examinations (principal); J44.9 Chronic obstructive pulmonary disease, unspecified; M19.90 Unspecified osteoarthritis, unspecified site; G89.29 Other chronic pain; F41.9 Anxiety disorder, unspecified; F12.90 Cannabis use, unspecified, uncomplicated; F32.9 Major depressive disorder, single episode, unspecified; Z72.89 Other problems related to lifestyle; Z86.69 Personal history of other diseases of the nervous system and sense organs; Z90.89 Acquired absence of other organs; Z98.890 Other specified postprocedural states; Z88.8 Allergy status to other drugs, medicaments and biological substances; Z79.899 Other long term (current) drug therapy
CPT/HCPCS: 99281

== ENCOUNTER 2021-03-20 08:48 | Emergency (ER) | payer MEDICARE, MEDICAID ==
[~2021-03-20] VITALS: Ht 185.4 cm; Wt 75.3 kg
[2021-03-20 08:57] VITALS: BP 125/77
[2021-03-20] MEDS ORDERED: ketorolac trometh inj. 60 MG/2 ML VIAL IM ONE (09:00)
--- NOTE | 2021-03-20 09:11 | NUR ---
SEEN AND TREATED BY DR. CANALES. NURSES NOTES NOT DONE.
== END 2021-03-20 09:14 | disposition home or self-care (01) ==
LOC: ER 08:50
DX: M54.89 Other dorsalgia (principal); G89.29 Other chronic pain; J44.9 Chronic obstructive pulmonary disease, unspecified; M19.90 Unspecified osteoarthritis, unspecified site; F41.9 Anxiety disorder, unspecified; F32.9 Major depressive disorder, single episode, unspecified; F12.90 Cannabis use, unspecified, uncomplicated; F19.90 Other psychoactive substance use, unspecified, uncomplicated; Z86.69 Personal history of other diseases of the nervous system and sense organs; Z90.89 Acquired absence of other organs; Z98.890 Other specified postprocedural states; Z72.89 Other problems related to lifestyle; Z88.8 Allergy status to other drugs, medicaments and biological substances; Z79.899 Other long term (current) drug therapy
CPT/HCPCS: 96372; 99283; J1885

== ENCOUNTER 2021-03-23 07:53 | Emergency (ER) | payer MEDICARE, MEDICAID ==
[~2021-03-23] VITALS: Ht 185.4 cm; Wt 76.1 kg
[2021-03-23] MEDS ORDERED: ibuprofen tablet 400 MG TABLET PO ONE (08:25)
[2021-03-23 08:43] VITALS: BP 142/74
== END 2021-03-23 08:40 | disposition home or self-care (01) ==
LOC: ER 07:53
DX: G89.29 Other chronic pain (principal); M54.6 Pain in thoracic spine; R53.1 Weakness; G40.909 Epilepsy, unspecified, not intractable, without status epilepticus; J45.909 Unspecified asthma, uncomplicated; J44.9 Chronic obstructive pulmonary disease, unspecified; M19.90 Unspecified osteoarthritis, unspecified site; F12.90 Cannabis use, unspecified, uncomplicated; Z72.89 Other problems related to lifestyle; Z88.8 Allergy status to other drugs, medicaments and biological substances; Z79.899 Other long term (current) drug therapy
CPT/HCPCS: 99282

== ENCOUNTER 2021-07-20 06:14 | Emergency (ER) | payer BC, MEDICAID ==
[~2021-07-20] VITALS: Ht 185.4 cm; Wt 77.7 kg
[2021-07-20 06:23] VITALS: BP 120/89
[2021-07-20] MEDS ORDERED: LORazepam 2 mg/ml vial IM ONE (06:35)
[2021-07-20] MEDS ORDERED: ipratropium/albuterol 3ml nebule NEB ONE (06:35)
--- NOTE | 2021-07-20 06:44 | NUR ---
RT AT BEDSIDE TO ASSESS PATIENT.
== END 2021-07-20 12:43 | disposition home or self-care (01) ==
LOC: ER 06:15
DX: F41.0 Panic disorder [episodic paroxysmal anxiety] (principal); G40.909 Epilepsy, unspecified, not intractable, without status epilepticus; J44.9 Chronic obstructive pulmonary disease, unspecified; M19.90 Unspecified osteoarthritis, unspecified site; G89.29 Other chronic pain; F32.9 Major depressive disorder, single episode, unspecified; F12.90 Cannabis use, unspecified, uncomplicated; F84.0 Autistic disorder; M54.9 Dorsalgia, unspecified; F17.200 Nicotine dependence, unspecified, uncomplicated; Z72.89 Other problems related to lifestyle; Z88.8 Allergy status to other drugs, medicaments and biological substances; Z79.899 Other long term (current) drug therapy
CPT/HCPCS: 93005; 94640; 96372; 99283; J2060; 94760

== ENCOUNTER 2021-09-13 19:26 | Emergency (ER) | payer BC, MEDICAID ==
[~2021-09-13] VITALS: Ht 185.4 cm; Wt 71.4 kg
[2021-09-13] MEDS ORDERED: normal saline 1000ML IV soln IV ONE (19:35)
[2021-09-13 19:56] LABS: BASOPHILS # (AUTO) 0.1 X10'3 (0-0.2); BASOPHILS % (AUTO) 0.8 % (0-1); EOSINOPHILS # (AUTO) 0.2 X10'3 (0-0.9); EOSINOPHILS % (AUTO) 2.1 % (0-6); HEMATOCRIT 44.1 % (42.0-52.0); LYMPHOCYTES % (AUTO) 26.8 % (21-51); MEAN CORPUSCULAR HEMOGLOBIN 33.1 PG (27.0-31.0); MEAN CORPUSCULAR VOLUME 97.3 FL (78-98); MEAN PLATELET VOLUME 7.6 FL (7.4-10.4); MONOCYTES # (AUTO) 0.4 X10'3 (0-0.9); MONOCYTES % (AUTO) 5.9 % (2-12); NEUTROPHILS # (AUTO) 4.9 X10'3 (1.8-7.7); NEUTROPHILS % (AUTO) 64.4 % (42-75); PLATELET COUNT 300 X10'3 (140-440); RED BLOOD COUNT 4.53 X10'6 (4.70-6.10); RED CELL DISTRIBUTION WIDTH 14.3 % (11.5-14.5); WHITE BLOOD COUNT 7.5 X10'3 (4.5-11.0)
[2021-09-13 20:09] LABS: ALANINE AMINOTRANSFERASE 25 U/L (12-78); ALBUMIN 3.9 G/DL (3.4-5.0); ALBUMIN/GLOBULIN RATIO 1.2 (1.1-1.5); ALKALINE PHOSPHATASE 76 IU/L (46-116); ANION GAP 16 (8-16); ASPARTATE AMINO TRANSFERASE 27 U/L (10-37); BILIRUBIN,TOTAL 0.7 MG/DL (0.1-1.0); BLOOD UREA NITROGEN 9 MG/DL (7-18); BUN/CREATININE RATIO 11.5 (5.4-32.0); CALCIUM 8.3 MG/DL (8.5-10.1); CHLORIDE 98 MMOL/L (99-107); CREATININE 0.78 MG/DL (0.60-1.10); ETHANOL 0.181 GM/DL (0.0-0.010); GLUCOSE 76 MG/DL (70-104); POTASSIUM 3.6 MMOL/L (3.5-5.1); SODIUM 136 MMOL/L (135-145); TOTAL CARBON DIOXIDE 22.5 MMOL/L (24-32); TOTAL PROTEIN 7.1 G/DL (6.4-8.2); eGFR > 90 ML/MIN
--- NOTE | 2021-09-13 22:17 | NUR ---
The patient moved to bed 23 in the ER overflow. He was cooperative with the move. On the way to the unit over he was making bizarre delusional statements about Nazis and libby and his mother.
[2021-09-13 22:30] LABS: URINE AMPHETAMINE SCREEN NEGATIVE (Neg); URINE BARBITUATE SCREEN NEGATIVE (Neg); URINE BENZODIAZEPINES SCREEN NEGATIVE (Neg); URINE CANNABINOID SCREEN POSITIVE (Neg); URINE COCAINE SCREEN NEGATIVE (Neg); URINE METHADONE SCREEN NEGATIVE (Neg); URINE OPIATE SCREEN NEGATIVE (Neg); URINE PHENCYCLIDINE SCREEN NEGATIVE (Neg)
[2021-09-13] MEDS ORDERED: NICOTINE POLACRILEX 4 MG LOZENGE BC PRN (22:35)
[2021-09-13] MEDS ORDERED: albuterol 2.5 MG/3 ML nebule NEB PRN (22:35)
[2021-09-13] MEDS ORDERED: LORazepam 1 MG tablet PO PRN (22:35)
[2021-09-13] MEDS ORDERED: NICOTINE POLACRILEX 2 MG LOZENGE BC PRN (22:40)
--- NOTE | 2021-09-13 23:08 | NUR ---
Packet sent to [facility].
--- NOTE | 2021-09-13 23:21 | NUR ---
Patient sleeping; even non labored respiration and no apparent distress.
--- NOTE | 2021-09-14 01:33 | NUR ---
Patient sleeping; observed self repositioning and no apparent distress.
--- NOTE | 2021-09-14 03:37 | NUR ---
Patient up to void; reported his head is spinning and has some nausea. Emesis bag provided' no vomitting at this time. He remains cooperative and laying down quietly at this time. Water encouraged by staff.
--- NOTE | 2021-09-14 05:28 | NUR ---
Patient woke up for vitals; pleasant and cooperative. Social with staff.
--- NOTE | 2021-09-14 07:00 | NUR ---
Pt up to the bathroom, changed into green scubs. IV intact.
--- NOTE | 2021-09-14 08:55 | NUR ---
Pt ate 100% of his breakfast. Pt told fha underwriter "There is peace in [facility], Putin has been overthrown." Pt reports a headache r/t "the discs in my neck, they are coming back together." Pt denies suicidal thoughts at this time. "I just need to find housing." "I can't live with my mom she is the crazy one." "You know the illuminate... well there it is." Will endorse a Tylenol order to the attending physican.
--- NOTE | 2021-09-14 11:00 | NUR ---
Pt lying in bed, no restless movements. Respirations even and unlabored.
--- NOTE | 2021-09-14 13:05 | NUR ---
Pt sitting on side of bed eating lunch.
[2021-09-14] MEDS ORDERED: acetaminophen 325mg tablet PO ONE (14:30)
[2021-09-14] MEDS ORDERED: NICOTINE POLACRILEX 2 MG LOZENGE BC PRN (14:35)
--- NOTE | 2021-09-14 14:50 | NUR ---
Pt's caseworkers are at bedside, trying to safety plan for discharge. Pt presents with rapid speech and requires some redirection.
--- NOTE | 2021-09-14 15:35 | NUR ---
DISCHARGE NOTE: Patient was discharged from unit at 1520. Pt was A&Ox4. Pt was with case workers, who were going to transport him back to his mom's house. Pt presented with rapid, but was calm with discharge planning. Pt left with all personal belongings.
[2021-09-14 15:39] VITALS: BP 131/71
== END 2021-09-14 15:20 | disposition home or self-care (01) ==
LOC: ER 19:27
DX: R45.851 Suicidal ideations (principal); Z20.822 Contact with and (suspected) exposure to COVID-19; F10.129 Alcohol abuse with intoxication, unspecified; G40.909 Epilepsy, unspecified, not intractable, without status epilepticus; J45.909 Unspecified asthma, uncomplicated; G89.29 Other chronic pain; F41.9 Anxiety disorder, unspecified; F31.9 Bipolar disorder, unspecified; F12.90 Cannabis use, unspecified, uncomplicated; Z98.890 Other specified postprocedural states; Z90.49 Acquired absence of other specified parts of digestive tract; Z88.8 Allergy status to other drugs, medicaments and biological substances; Z79.899 Other long term (current) drug therapy; Y90.6 Blood alcohol level of 120-199 mg/100 ml
CPT/HCPCS: 36415; 80053; 80305; 80320; 85025; 87635; 96360; 96361; 99285; C9803; J7030

== ENCOUNTER 2022-01-12 22:49 | Emergency (ER) | payer BC, MEDICAID ==
[~2022-01-12] VITALS: Ht 177.8 cm; Wt 68.2 kg
[~2022-01-12 22:49] MED LIST changes: +ALBU18HF2 INH
[2022-01-12 23:02] VITALS: BP 127/97
== END 2022-01-13 10:10 | disposition home or self-care (01) ==
LOC: ER 22:50
DX: Z02.79 Encounter for issue of other medical certificate (principal); F10.10 Alcohol abuse, uncomplicated; Y90.9 Presence of alcohol in blood, level not specified; J44.9 Chronic obstructive pulmonary disease, unspecified; G89.29 Other chronic pain; M54.50 Low back pain, unspecified; F31.9 Bipolar disorder, unspecified; F12.90 Cannabis use, unspecified, uncomplicated; Z88.5 Allergy status to narcotic agent; Z88.8 Allergy status to other drugs, medicaments and biological substances
CPT/HCPCS: 99281

== ENCOUNTER 2022-01-20 04:23 | Emergency (ER) | payer BC, MEDICAID ==
[~2022-01-20] VITALS: Ht 185.4 cm; Wt 72.7 kg
[2022-01-20] MEDS ORDERED: LORazepam 2 mg/ml vial IV ONE (04:50)
[2022-01-20] MEDS ORDERED: normal saline 1000ML IV soln IVB ONE (04:50)
[2022-01-20] MEDS ORDERED: pantoprazole 40 MG vial IV ONE (04:50)
[2022-01-20] MEDS ORDERED: ondansetron/PF 4mg/2ml inj IV ONE (04:50)
[2022-01-20] MEDS ORDERED: thiamine 100mg/ml 2ml inj. IV ONE (04:50)
[2022-01-20] MEDS ORDERED: pantoprazole 40MG/NS 100ML BAG 100 ML IV ONE (05:05)
[2022-01-20 05:26] LABS: HEMOGLOBIN 15.3 g/dl (14.0-17.9); PLATELET COUNT 231 X10'3 (140-440)
[2022-01-20 05:27] LABS: BASOPHILS % (AUTO) 0.5 % (0-1); EOSINOPHILS % (AUTO) 0.5 % (0-6); HEMATOCRIT 44.5 % (42.0-52.0); LYMPHOCYTES # (AUTO) 0.7 X10'3 (1.1-4.8); LYMPHOCYTES % (AUTO) 8.9 % (21-51); MEAN CORPUSCULAR HEMOGLOBIN 34.4 PG (27.0-31.0); MEAN CORPUSCULAR HGB CONC 34.3 g/dL (33.0-36.5); MEAN CORPUSCULAR VOLUME 100.3 FL (78-98); MEAN PLATELET VOLUME 7.5 FL (7.4-10.4); MONOCYTES # (AUTO) 0.5 X10'3 (0-0.9); MONOCYTES % (AUTO) 6.3 % (2-12); NEUTROPHILS # (AUTO) 6.9 X10'3 (1.8-7.7); NEUTROPHILS % (AUTO) 83.8 % (42-75); RED BLOOD COUNT 4.44 X10'6 (4.70-6.10); RED CELL DISTRIBUTION WIDTH 14.9 % (11.5-14.5); WHITE BLOOD COUNT 8.2 X10'3 (4.5-11.0)
[2022-01-20 05:36] LABS: APTT 30 SECONDS (22-32)
[2022-01-20 05:39] LABS: ALANINE AMINOTRANSFERASE 42 U/L (12-78); ALBUMIN 3.8 G/DL (3.4-5.0); ALKALINE PHOSPHATASE 104 IU/L (46-116); ANION GAP 13 (8-16); ASPARTATE AMINO TRANSFERASE 49 U/L (10-37); BILIRUBIN,TOTAL 0.7 MG/DL (0.1-1.0); BLOOD UREA NITROGEN 11 MG/DL (7-18); BUN/CREATININE RATIO 14.3 (5.4-32.0); CALCIUM 8.7 MG/DL (8.5-10.1); CHLORIDE 101 MMOL/L (99-107); CREATININE 0.77 MG/DL (0.60-1.10); ETHANOL < 0.010 GM/DL (0.0-0.010); GLUCOSE 89 MG/DL (70-104); LIPASE 118 U/L (73-393); MAGNESIUM 1.7 MG/DL (1.5-2.4); POTASSIUM 4.3 MMOL/L (3.5-5.1); SODIUM 140 MMOL/L (135-145); TOTAL CARBON DIOXIDE 25.7 MMOL/L (24-32); TOTAL PROTEIN 7.6 G/DL (6.4-8.2); eGFR > 90 ML/MIN
[2022-01-20] MEDS ORDERED: LORazepam 2 mg/ml vial IV PRN (06:20)
[2022-01-20 10:16] LABS: CLARITY,URINE CLEAR (Clear); COLOR,URINE YELLOW (Yellow); GLUCOSE, URINE NEGATIVE (Neg); KETONES,URINE TRACE mg/dl (Neg); LEUKOCYTE ESTERASE ,URINE NEGATIVE (Neg); NITRITES, URINE NEGATIVE (Neg); OCCULT BLOOD,URINE TRACE-LYSED (Neg); PH,URINE 5.5 (4.8-8.0); PROTEIN,URINE NEGATIVE (Neg); UROBILINOGEN,URINE 0.2 E.U/dL (0.2-1.0)
[2022-01-20 10:20] LABS: UA COLLECTION TYPE CLN CATCH MIDSTREAM
[2022-01-20 10:21] LABS: URINE AMPHETAMINE SCREEN NEGATIVE (Neg); URINE BARBITUATE SCREEN NEGATIVE (Neg); URINE BENZODIAZEPINES SCREEN NEGATIVE (Neg); URINE CANNABINOID SCREEN POSITIVE (Neg); URINE COCAINE SCREEN NEGATIVE (Neg); URINE METHADONE SCREEN NEGATIVE (Neg); URINE PHENCYCLIDINE SCREEN NEGATIVE (Neg)
[2022-01-20 10:52] LABS: MUCUS STRANDS FEW /LPF (Neg); SQUAMOUS EPITHELIAL CELL,UR FEW /LPF (FEW)
[2022-01-20 10:54] LABS: BACTERIA,URINE NONE SEEN /HPF (Neg); RBC,URINE 0-2 /HPF (0-2); WBC,URINE NONE SEEN /HPF (0-4)
[2022-01-20 11:22] VITALS: BP 131/79
[2022-01-20] MEDS ORDERED: ALBU8.5H17 IH (13:10)
[2022-01-20] MEDS ORDERED: TRAZ-256 PO (13:10)
[2022-01-20] MEDS ORDERED: FLUT100B3 PO (13:10)
[2022-01-20] MEDS ORDERED: CHOL200012 PO (13:10)
[2022-01-20] MEDS ORDERED: GABA300C PO (13:10)
== END 2022-01-20 13:56 | disposition home or self-care (01) ==
LOC: ER 04:24
DX: F10.231 Alcohol dependence with withdrawal delirium (principal); Z20.822 Contact with and (suspected) exposure to COVID-19; J44.9 Chronic obstructive pulmonary disease, unspecified; G89.29 Other chronic pain; F41.9 Anxiety disorder, unspecified; D32.9 Benign neoplasm of meninges, unspecified; F32.9 Major depressive disorder, single episode, unspecified; F17.200 Nicotine dependence, unspecified, uncomplicated; F12.10 Cannabis abuse, uncomplicated; Z88.8 Allergy status to other drugs, medicaments and biological substances; Z79.899 Other long term (current) drug therapy; Y90.9 Presence of alcohol in blood, level not specified
CPT/HCPCS: 36415; 71045; 80053; 80305; 80320; 81001; 82140; 83690; 83735; 85025; 85610; 85730; 87811; 93005; 96374; 96375; 99285; C9113; J2060; J2405; J3411; J7030

== ENCOUNTER 2022-02-14 04:27 | Emergency (ER) | payer BC, MEDICAID ==
[~2022-02-14] VITALS: Ht 182.9 cm; Wt 75.9 kg
[~2022-02-14 04:27] MED LIST changes: -ALBU18HF2 INH; -ALBU2.5V7 NEB; +ALBU8.5H17 IH; -ASEN10TA11 SL; +CHOL200012 PO; +FLUT100B3 PO; -NICO-630 TD; -TRAZ-251 PO; +TRAZ-256 PO
[2022-02-14] MEDS ORDERED: normal saline 1000ml 1,000 ML IV ONE (04:30)
[2022-02-14] MEDS ORDERED: LORazepam 2 mg/ml vial IV ONE (04:30)
[2022-02-14] MEDS ORDERED: midazolam 1 mg/ML 2ml injection IV ONE (04:35)
[2022-02-14] MEDS ORDERED: ALBU8.5H17 INH (05:15)
[2022-02-14 06:10] VITALS: BP 133/88
== END 2022-02-14 06:13 | disposition home or self-care (01) ==
LOC: ER 04:27
DX: F41.9 Anxiety disorder, unspecified (principal); J44.1 Chronic obstructive pulmonary disease with (acute) exacerbation; G89.29 Other chronic pain; M54.50 Low back pain, unspecified; F31.9 Bipolar disorder, unspecified; F12.90 Cannabis use, unspecified, uncomplicated; Z88.8 Allergy status to other drugs, medicaments and biological substances
CPT/HCPCS: 71045; 93005; 96361; 96374; 99283; J2250; J7030

== ENCOUNTER 2022-04-03 06:00 | Emergency (ER) | payer BC, MEDICAID ==
[~2022-04-03] VITALS: Ht 185.4 cm; Wt 158.0 kg
[~2022-04-03 06:00] MED LIST changes: +ALBU8.5H17 INH
[2022-04-03] MEDS ORDERED: ipratropium 0.5 MG/2.5ML nebule IH ONE (07:10)
[2022-04-03] MEDS ORDERED: albuterol 2.5 MG/3 ML nebule NEB ONE (07:10)
[2022-04-03] MEDS ORDERED: dexamethasone 4mg tablet PO ONE (07:10)
[2022-04-03 07:17] VITALS: BP 154/118
[2022-04-03 07:38] LABS: BASOPHILS % (AUTO) 0.4 % (0-1); EOSINOPHILS # (AUTO) 0.1 X10'3 (0-0.9); EOSINOPHILS % (AUTO) 0.9 % (0-6); HEMATOCRIT 46.1 % (42.0-52.0); HEMOGLOBIN 15.6 g/dl (14.0-17.9); LYMPHOCYTES # (AUTO) 0.6 X10'3 (1.1-4.8); LYMPHOCYTES % (AUTO) 8.3 % (21-51); MEAN CORPUSCULAR HEMOGLOBIN 33.9 PG (27.0-31.0); MEAN CORPUSCULAR HGB CONC 33.8 g/dL (33.0-36.5); MEAN CORPUSCULAR VOLUME 100.4 FL (78-98); MEAN PLATELET VOLUME 8.1 FL (7.4-10.4); MONOCYTES # (AUTO) 0.6 X10'3 (0-0.9); MONOCYTES % (AUTO) 7.5 % (2-12); NEUTROPHILS # (AUTO) 6.3 X10'3 (1.8-7.7); NEUTROPHILS % (AUTO) 82.9 % (42-75); PLATELET COUNT 291 X10'3 (140-440); RED BLOOD COUNT 4.59 X10'6 (4.70-6.10); RED CELL DISTRIBUTION WIDTH 14.4 % (11.5-14.5); WHITE BLOOD COUNT 7.6 X10'3 (4.5-11.0)
[2022-04-03 08:04] LABS: ALANINE AMINOTRANSFERASE 18 U/L (12-78); ALBUMIN 4.1 G/DL (3.4-5.0); ALBUMIN/GLOBULIN RATIO 1.1 (1.1-1.5); ALKALINE PHOSPHATASE 90 IU/L (46-116); ANION GAP 10 (8-16); ASPARTATE AMINO TRANSFERASE 20 U/L (10-37); BLOOD UREA NITROGEN 10 MG/DL (7-18); BUN/CREATININE RATIO 13.3 (5.4-32.0); CALCIUM 9.3 MG/DL (8.5-10.1); CHLORIDE 101 MMOL/L (99-107); CREATININE 0.75 MG/DL (0.60-1.10); GLUCOSE 119 MG/DL (70-104); POTASSIUM 3.6 MMOL/L (3.5-5.1); SODIUM 135 MMOL/L (135-145); TOTAL CARBON DIOXIDE 24.2 MMOL/L (24-32); TOTAL PROTEIN 7.8 G/DL (6.4-8.2); eGFR > 90 ML/MIN
[2022-04-03] MEDS ORDERED: IPRA4AER IH (08:55)
[2022-04-03] MEDS ORDERED: PRED20TA PO (08:55)
[2022-04-04] MEDS ORDERED: DEXA4TAB67 PO (11:48)
[2022-04-04] MEDS ORDERED: ALBU6.7H14 INH (11:48)
== END 2022-04-03 09:10 | disposition home or self-care (01) ==
LOC: ER 06:01
DX: J44.9 Chronic obstructive pulmonary disease, unspecified (principal); R07.89 Other chest pain; G89.29 Other chronic pain; M54.9 Dorsalgia, unspecified; F31.9 Bipolar disorder, unspecified; Z79.899 Other long term (current) drug therapy; Z79.1 Long term (current) use of non-steroidal anti-inflammatories (NSAID); Z79.2 Long term (current) use of antibiotics; Z88.8 Allergy status to other drugs, medicaments and biological substances
CPT/HCPCS: 36415; 71046; 80053; 83880; 84484; 85025; 85379; 93005; 94640; 94760; 99285

== ENCOUNTER 2022-04-04 05:40 | Emergency (ER) | payer BC, MEDICAID ==
[~2022-04-04] VITALS: Ht 185.4 cm; Wt 71.8 kg
[~2022-04-04 05:40] MED LIST changes: +IPRA4AER IH; +PRED20TA PO
--- NOTE | 2022-04-04 06:05 | NUR ---
CALLED [facility] REQUESTING WELFARE CHECK ON PT'S MOTHER. NICOLA LIVINGSTON CONFIRMED A WELFARE CHECK WILL BE MADE ON PT'S MOTHER WHO LIVES IN [place]. PT CONFIRMED HIS ADDRESS ON FILE IS CORRECT; HE STATES THAT HE LIVES WITH HIS MOTHER.
--- NOTE | 2022-04-04 06:15 | NUR ---
OFFICER CALLED AND CONFIRMED THAT PT'S MOTHER IS "ALIVE AND WELL AT HOME".
[2022-04-04 07:01] VITALS: BP 140/95
--- NOTE | 2022-04-04 07:03 | NUR ---
Pt is wheezing.
--- NOTE | 2022-04-04 07:50 | NUR ---
Pt moved to room 17. Dr. Camargo informed of pt's wheezing.
[2022-04-04] MEDS ORDERED: ipratropium/albuterol 3ml nebule NEB PRN (08:40)
[2022-04-04] MEDS ORDERED: ALPRAZolam 0.5mg tablet PO ONE (08:50)
[2022-04-04] MEDS ORDERED: naproxen 500mg tablet PO ONE (08:50)
[2022-04-04] MEDS ORDERED: acetaminophen w/codeine (30MG) #3 tablet PO ONE (08:50)
[2022-04-04] MEDS ORDERED: predniSONE 20 mg tablet PO ONE (08:50)
[2022-04-04] MEDS ORDERED: ALBU6.7H14 INH (11:48)
[2022-04-04] MEDS ORDERED: DEXA4TAB67 PO (11:48)
--- NOTE | 2022-04-04 11:57 | NUR ---
Pt given and understands d/c instructions. Ambulatory with a steady gait.
== END 2022-04-04 11:58 | disposition home or self-care (01) ==
LOC: ER 05:40
DX: F32.A Depression, unspecified (principal); Z20.822 Contact with and (suspected) exposure to COVID-19; J45.901 Unspecified asthma with (acute) exacerbation; G89.29 Other chronic pain; F31.9 Bipolar disorder, unspecified; Z88.8 Allergy status to other drugs, medicaments and biological substances; Z79.899 Other long term (current) drug therapy; F15.10 Other stimulant abuse, uncomplicated
CPT/HCPCS: 71045; 87811; 94640; 99285; J7512; 94760

== ENCOUNTER 2022-06-02 20:33 | Emergency (ER) | payer BC, MEDICAID ==
[~2022-06-02] VITALS: Ht 185.4 cm; Wt 72.7 kg
[~2022-06-02 20:33] MED LIST changes: +ALBU6.7H14 INH; +DEXA4TAB67 PO; -IPRA4AER IH; -PRED20TA PO
[2022-06-02 21:14] LABS: BASOPHILS # (AUTO) 0.1 X10'3 (0-0.2); BASOPHILS % (AUTO) 1.3 % (0-1); EOSINOPHILS # (AUTO) 0.7 X10'3 (0-0.9); EOSINOPHILS % (AUTO) 7.4 % (0-6); HEMATOCRIT 43.1 % (42.0-52.0); HEMOGLOBIN 14.5 g/dl (14.0-17.9); LYMPHOCYTES # (AUTO) 1.8 X10'3 (1.1-4.8); LYMPHOCYTES % (AUTO) 18.6 % (21-51); MEAN CORPUSCULAR HEMOGLOBIN 33.2 PG (27.0-31.0); MEAN CORPUSCULAR HGB CONC 33.6 g/dL (33.0-36.5); MEAN CORPUSCULAR VOLUME 98.7 FL (78-98); MEAN PLATELET VOLUME 7.2 FL (7.4-10.4); MONOCYTES # (AUTO) 0.7 X10'3 (0-0.9); MONOCYTES % (AUTO) 7.5 % (2-12); NEUTROPHILS # (AUTO) 6.2 X10'3 (1.8-7.7); NEUTROPHILS % (AUTO) 65.2 % (42-75); PLATELET COUNT 340 X10'3 (140-440); RED BLOOD COUNT 4.36 X10'6 (4.70-6.10); RED CELL DISTRIBUTION WIDTH 14.9 % (11.5-14.5); WHITE BLOOD COUNT 9.5 X10'3 (4.5-11.0)
[2022-06-02 21:31] LABS: ALANINE AMINOTRANSFERASE 17 U/L (12-78); ALBUMIN 3.4 G/DL (3.4-5.0); ALBUMIN/GLOBULIN RATIO 0.8 (1.1-1.5); ALKALINE PHOSPHATASE 98 IU/L (46-116); ANION GAP 13 (8-16); ASPARTATE AMINO TRANSFERASE 18 U/L (10-37); BILIRUBIN,TOTAL 0.3 MG/DL (0.1-1.0); BLOOD UREA NITROGEN 8 MG/DL (7-18); BUN/CREATININE RATIO 11.3 (5.4-32.0); CHLORIDE 104 MMOL/L (99-107); CREATININE 0.71 MG/DL (0.60-1.10); GLUCOSE 88 MG/DL (70-104); POTASSIUM 4.2 MMOL/L (3.5-5.1); SODIUM 143 MMOL/L (135-145); TOTAL CARBON DIOXIDE 25.8 MMOL/L (24-32); TOTAL PROTEIN 7.6 G/DL (6.4-8.2); eGFR > 90 ML/MIN
[2022-06-03] MEDS ORDERED: ipratropium/albuterol 3ml nebule NEB ONE (00:20)
[2022-06-03] MEDS ORDERED: iohexol 350MG/ML 100ml bottle IV ONE (00:29)
[2022-06-03] MEDS ORDERED: triamcinolone acetonide 40mg/ml inj IM ONE (01:10)
[2022-06-03] MEDS ORDERED: dexamethasone inj 6 MG in dextrose 5%-water 100 ML IV ONE (01:10)
[2022-06-03] MEDS ORDERED: dexamethasone sod phosphate 10mg/ml inj IV ONE (01:15)
[2022-06-03 03:42] VITALS: BP 124/83
== END 2022-06-03 03:44 | disposition home or self-care (01) ==
LOC: ER 20:34
DX: J45.901 Unspecified asthma with (acute) exacerbation (principal); R07.9 Chest pain, unspecified
CPT/HCPCS: 36415; 71045; 71275; 80053; 83735; 83880; 84484; 85025; 93005; 94640; 96372; 96374; 99285; J1100; J3301; J3490; Q9967; 94760

== ENCOUNTER 2022-10-12 05:25 | Emergency (ER) | payer BC, MEDICAID ==
[~2022-10-12] VITALS: Ht 185.4 cm; Wt 72.7 kg
[2022-10-12 05:59] LABS: BASOPHILS # (AUTO) 0.1 X10'3 (0-0.2); BASOPHILS % (AUTO) 0.9 % (0-1); EOSINOPHILS % (AUTO) 0.1 % (0-6); HEMATOCRIT 47.9 % (42.0-52.0); HEMOGLOBIN 16.5 g/dl (14.0-17.9); LYMPHOCYTES # (AUTO) 0.3 X10'3 (1.1-4.8); LYMPHOCYTES % (AUTO) 2.3 % (21-51); MEAN CORPUSCULAR HEMOGLOBIN 34.6 PG (27.0-31.0); MEAN CORPUSCULAR HGB CONC 34.4 g/dL (33.0-36.5); MEAN CORPUSCULAR VOLUME 100.6 FL (78-98); MEAN PLATELET VOLUME 6.7 FL (7.4-10.4); MONOCYTES # (AUTO) 0.1 X10'3 (0-0.9); MONOCYTES % (AUTO) 0.8 % (2-12); NEUTROPHILS % (AUTO) 95.9 % (42-75); PLATELET COUNT 404 X10'3 (140-440); RED BLOOD COUNT 4.76 X10'6 (4.70-6.10); WHITE BLOOD COUNT 11.5 X10'3 (4.5-11.0)
[2022-10-12 06:14] LABS: ALANINE AMINOTRANSFERASE 27 U/L (12-78); ALBUMIN 4.1 G/DL (3.4-5.0); ALBUMIN/GLOBULIN RATIO 1.1 (1.1-1.5); ALKALINE PHOSPHATASE 98 IU/L (46-116); ANION GAP 12 (8-16); ASPARTATE AMINO TRANSFERASE 35 U/L (10-37); BILIRUBIN,TOTAL 0.9 MG/DL (0.1-1.0); BLOOD UREA NITROGEN 10 MG/DL (7-18); BUN/CREATININE RATIO 12.7 (10.0-20.0); CHLORIDE 102 MMOL/L (99-107); CREATININE 0.79 MG/DL (0.60-1.10); GLUCOSE 113 MG/DL (70-104); POTASSIUM 4.8 MMOL/L (3.5-5.1); SODIUM 138 MMOL/L (135-145); TOTAL CARBON DIOXIDE 24.1 MMOL/L (24-32); eGFR > 90 ML/MIN
[2022-10-12] MEDS ORDERED: normal saline 1000ml 1,000 ML IV ONE (06:20)
[2022-10-12 06:21] LABS: ETHANOL < 0.010 GM/DL (0.0-0.010)
[2022-10-12] MEDS: ipratropium/albuterol 3ml nebule NEB ONE ×2 (06:45→06:54)
--- NOTE | 2022-10-12 07:16 | NUR ---
PT REQUESTS THAT HIS SAFETY PERSON MIK BELLAMY WITH [facility] IS CONTACTED TO LET HIM KNOW PT IS IN ED AT THIS TIME. PT CANNOT PROVIDE A PHONE NUMBER WILL ATTEMPT TO CALL
--- NOTE | 2022-10-12 07:19 | NUR ---
CALL PLACED TO [facility], NO ANSWER, MESSAGE LEFT REQUESTING CALLBACK
[2022-10-12 07:24] LABS: CLARITY,URINE CLEAR (Clear); COLOR,URINE YELLOW (Yellow); GLUCOSE, URINE NEGATIVE (Neg); KETONES,URINE 15 mg/dl (Neg); LEUKOCYTE ESTERASE ,URINE NEGATIVE (Neg); NITRITES, URINE NEGATIVE (Neg); OCCULT BLOOD,URINE NEGATIVE (Neg); PROTEIN,URINE TRACE mg/dl (Neg)
[2022-10-12 07:26] LABS: UA COLLECTION TYPE CLN CATCH MIDSTREAM
[2022-10-12 07:30] LABS: URINE AMPHETAMINE SCREEN NEGATIVE (Neg); URINE BARBITUATE SCREEN NEGATIVE (Neg); URINE BENZODIAZEPINES SCREEN POSITIVE (Neg); URINE CANNABINOID SCREEN POSITIVE (Neg); URINE COCAINE SCREEN NEGATIVE (Neg); URINE METHADONE SCREEN NEGATIVE (Neg); URINE OPIATE SCREEN NEGATIVE (Neg); URINE PHENCYCLIDINE SCREEN NEGATIVE (Neg)
[2022-10-12 07:34] LABS: BACTERIA,URINE FEW /HPF (Neg); MUCUS STRANDS MODERATE /LPF (Neg); RBC,URINE NONE SEEN /HPF (0-2); SQUAMOUS EPITHELIAL CELL,UR MODERATE /LPF (FEW)
[2022-10-12] MEDS ORDERED: multivitamins, therapeutics tablet PO SCH (08:00)
[2022-10-12] MEDS ORDERED: folic acid 1mg/0.2ml inj IV SCH (08:00)
[2022-10-12] MEDS ORDERED: thiamine 100mg/ml 2ml inj. IV SCH (08:00)
--- NOTE | 2022-10-12 08:27 | NUR ---
PT REQUESTS WE CALL HIS BROTHER [phone] FOR A RIDE HOME. THEY STATE THEY WILL COME GET HIM
[2022-10-12 08:33] VITALS: BP 138/89
== END 2022-10-12 08:34 | disposition home or self-care (01) ==
LOC: ER 05:26
DX: F10.10 Alcohol abuse, uncomplicated (principal); R41.0 Disorientation, unspecified; R53.1 Weakness; J44.9 Chronic obstructive pulmonary disease, unspecified; G89.29 Other chronic pain; F41.9 Anxiety disorder, unspecified; F31.9 Bipolar disorder, unspecified; F17.200 Nicotine dependence, unspecified, uncomplicated; F12.90 Cannabis use, unspecified, uncomplicated; Z72.89 Other problems related to lifestyle; Z98.890 Other specified postprocedural states; Z90.89 Acquired absence of other organs; Z88.8 Allergy status to other drugs, medicaments and biological substances; Z79.899 Other long term (current) drug therapy; Y90.9 Presence of alcohol in blood, level not specified
CPT/HCPCS: 36415; 70450; 71045; 80053; 80305; 80320; 81001; 82140; 83735; 83880; 84484; 85025; 93005; 94640; 96374; 96375; 99285; J3411; J3490; J7030; 94760

== ENCOUNTER 2022-11-29 11:40 | Inpatient (IN) | payer BC, MEDICAID ==
[~2022-11-29] VITALS: Ht 185.4 cm; Wt 74.5 kg
[2022-11-29 12:36] LABS: BASOPHILS # (AUTO) 0.1 X10'3 (0-0.2); BASOPHILS % (AUTO) 0.8 % (0-1); EOSINOPHILS # (AUTO) 0.1 X10'3 (0-0.9); EOSINOPHILS % (AUTO) 0.9 % (0-6); HEMATOCRIT 39.6 % (42.0-52.0); HEMOGLOBIN 13.3 g/dl (14.0-17.9); LYMPHOCYTES # (AUTO) 0.8 X10'3 (1.1-4.8); LYMPHOCYTES % (AUTO) 13.4 % (21-51); MEAN CORPUSCULAR HEMOGLOBIN 33.4 PG (27.0-31.0); MEAN CORPUSCULAR HGB CONC 33.6 g/dL (33.0-36.5); MEAN CORPUSCULAR VOLUME 99.5 FL (78-98); MEAN PLATELET VOLUME 7.3 FL (7.4-10.4); MONOCYTES # (AUTO) 0.5 X10'3 (0-0.9); NEUTROPHILS # (AUTO) 4.8 X10'3 (1.8-7.7); NEUTROPHILS % (AUTO) 76.9 % (42-75); PLATELET COUNT 299 X10'3 (140-440); RED BLOOD COUNT 3.98 X10'6 (4.70-6.10); RED CELL DISTRIBUTION WIDTH 13.7 % (11.5-14.5); WHITE BLOOD COUNT 6.3 X10'3 (4.5-11.0)
[2022-11-29 12:40] LABS: ALANINE AMINOTRANSFERASE 19 U/L (12-78); ALBUMIN 3.2 G/DL (3.4-5.0); ALBUMIN/GLOBULIN RATIO 0.9 (1.1-1.5); ANION GAP 9 (8-16); ASPARTATE AMINO TRANSFERASE 18 U/L (10-37); BILIRUBIN,TOTAL 0.4 MG/DL (0.1-1.0); BLOOD UREA NITROGEN 6 MG/DL (7-18); BUN/CREATININE RATIO 8.2 (10.0-20.0); CALCIUM 8.5 MG/DL (8.5-10.1); CHLORIDE 97 MMOL/L (99-107); CREATININE 0.73 MG/DL (0.60-1.10); ETHANOL < 0.010 GM/DL (0.0-0.010); GLUCOSE 105 MG/DL (70-104); POTASSIUM 3.7 MMOL/L (3.5-5.1); SODIUM 134 MMOL/L (135-145); TOTAL CARBON DIOXIDE 28.1 MMOL/L (24-32); TOTAL PROTEIN 6.9 G/DL (6.4-8.2); eGFR > 90 ML/MIN
[2022-11-29 12:51] LABS: ALKALINE PHOSPHATASE 102 IU/L (46-116)
--- NOTE | 2022-11-29 14:48 | NUR ---
Recieved order for consult. Met with patient in regards to alcohol use and to see if patient was interested in resources for treatment options. Patient has been sober 7 days and wanting to go into rehab. I gave patient [facility] number to get that process started. I gave patient number for [facility] and my card to call me with any questions.
[2022-11-29] MEDS ORDERED: LORazepam 1 MG tablet PO ONE (14:50)
[2022-11-29 16:24] LABS: URINE AMPHETAMINE SCREEN NEGATIVE (Neg); URINE BARBITUATE SCREEN NEGATIVE (Neg); URINE BENZODIAZEPINES SCREEN NEGATIVE (Neg); URINE CANNABINOID SCREEN POSITIVE (Neg); URINE COCAINE SCREEN NEGATIVE (Neg); URINE METHADONE SCREEN NEGATIVE (Neg); URINE OPIATE SCREEN NEGATIVE (Neg); URINE PHENCYCLIDINE SCREEN NEGATIVE (Neg)
--- NOTE | 2022-11-29 17:39 | NUR ---
pt sleeping in his room. [facility] will evaluate the pt soon, they were waiting for tox report
[2022-11-29] MEDS ORDERED: IPRA4AER IH (19:08)
--- NOTE | 2022-11-29 19:10 | NUR ---
Patient calm and sitting up in bed. No distress observed. Continue to monitor.
--- NOTE | 2022-11-29 19:25 | NUR ---
RAMESH, Deja, evaluating patient. No distress observed. Continue to monitor.
[2022-11-29] MEDS: Cipro HC otic suspension 10ML bottle LEFT EAR SCH (20:00)
[2022-11-29] MEDS ORDERED: ipratropium 0.5 MG/2.5ML nebule NEB SCH (20:00)
--- NOTE | 2022-11-29 20:00 | NUR ---
Patient sleeping on left side. No distress observed. Continue to monitor.
[2022-11-29] MEDS ORDERED: ipratropium 0.5 MG/2.5ML nebule NEB PRN (20:37)
--- NOTE | 2022-11-29 21:53 | NUR ---
Patient continues to sleep. No distress observed. Continue to monitor.
[2022-11-29] MEDS: traZODone 50mg tablet PO SCH (22:30)
--- NOTE | 2022-11-30 00:01 | NUR ---
Patient sleeping on his right side. No distress observed. Continue to monitor.
--- NOTE | 2022-11-30 02:13 | NUR ---
Patient sleeping supine. No distress observed. Continue to monitor.
--- NOTE | 2022-11-30 03:46 | NUR ---
Patient sleepin on his left side. No distress observed. Continue to monitor.
--- NOTE | 2022-11-30 05:26 | NUR ---
Patient sleeping after getting up and going to the BR. No distress observed. Continue to monitor.
--- NOTE | 2022-11-30 06:30 | NUR ---
Patient is sleeping in bed at this time. No acute distress, bed locked/ lowest position, q15 rounds. Will CTM.
[2022-11-30] MEDS: Cipro HC otic suspension 10ML bottle LEFT EAR SCH ×2 (08:30→20:03)
--- NOTE | 2022-11-30 08:30 | NUR ---
Patient has used the BR a few times, ate breakfast and was compliant w/ physical assessment. No acute distress, bed locked/ lowest position, q15 rounds. Will CTM.
--- NOTE | 2022-11-30 10:30 | NUR ---
Patient is sleeping in bed at this time. No acute distress, bed locked/ lowest position, q15 rounds. Will CTM.
--- NOTE | 2022-11-30 11:22 | NUR ---
Patient has been accepted at [facility].
--- NOTE | 2022-11-30 12:30 | NUR ---
Patient is sitting up eating lunch at this time. No acute distress, bed locked/ lowest position, q15 rounds. Will CTM.
--- NOTE | 2022-11-30 14:32 | NUR ---
Patient was escorted to the [facility] unit by a tech and security intelligence analyst. Patient is stable at this time, with auditory haullucinations. Pt denies suicidal ideation or self harm at this time. VS: BP: 129/89, T:97.6 F, PL:0/10, P:82. Pt has been compliant with tx today as well as tolerating PO medications. Has had a good nutrtional intake and using the BR as needed. No acute distress upon transfer.
[2022-11-30 14:34] VITALS: BP 147/72
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
[2022-11-30] MEDS ORDERED: mag hydrox/Alum hydrox/simeth 30ml oral suspension PO PRN (14:55)
[2022-11-30] MEDS ORDERED: NICOTINE POLACRILEX 2 MG LOZENGE BC PRN (14:55)
[2022-11-30] MEDS ORDERED: loperamide 2mg capsule PO PRN (14:55)
[2022-11-30] MEDS ORDERED: LORazepam 1 MG tablet PO ONE (15:00)
[2022-11-30 19:00] VITALS: BP 137/94
[2022-11-30] MEDS: traZODone 50mg tablet PO SCH (20:04)
--- NOTE | 2022-12-01 | NUR ---
Nursing Progress Note: Mitch Problem: 5150 states, "you are stating you're suicidal and that you will hang yourself. Pt receives Assisted Outpatient Treatment services in [facility]. He last met with social sciences department chair in October of 2021. Mitch reports he has been living on the streets the past week, has been without medications for the week, and has not had any alcohol for the past 7 days. Interventions : 1:1 assessment, therapeutic communication, active listening, medication administration/education/monitoring, ensured contract for safety, provided clear and simple instructions, prompted/encouraged pt to come to meals, provided distraction, redirection, reality orientation, positive reinforcement, and Q15 minute safety checks. . Response: Received pt lying in bed resting. Greeted this pt who was irritable and grumpy. 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 Pt also mumbles which is difficult to understand. He refused snacks, took all HS medications and went back to sleep. Plan: Pt has demonstrated that he is gravely disabled and unable to safely care for himself in the community.
[2022-12-01 07:36] VITALS: BP 126/89
[2022-12-01] MEDS: Cipro HC otic suspension 10ML bottle LEFT EAR SCH ×2 (08:56→22:10)
[2022-12-01] MEDS: nicotine 21mg patch - 24 hr TD SCH (08:56)
[2022-12-01 09:06] LABS: CHOL/HDL RATIO 3.2 (0.00-4.99); CHOLESTEROL 146 MG/DL (0-200); HDL CHOLESTEROL 46 MG/DL (35-60); LDL CHOLESTEROL 83 MG/DL (50-100); TRIGLYCERIDES 76 MG/DL (20-135)
[2022-12-01 09:09] LABS: HEMOGLOBIN A1C 5.2 % (4.5-6.2)
[2022-12-01] MEDS: magnesium hydroxide 30ml (MOM) UD suspension PO PRN (11:56)
[2022-12-01] MEDS ORDERED: traZODone 50mg tablet PO PRN (14:05)
[2022-12-01] MEDS: CARIPRAZINE 1.5 MG CAPSULE PO SCH (15:27)
--- NOTE | 2022-12-01 16:05 | NUR ---
Malnutrition consult: Pt admit for suicidal ideations with a past psychiatric history, alcoholism, and homelessness for two weeks. Pt currently on a regular diet with average PO intake of 88% x 4 meals meeting 100% of estimated needs. Noted discrepancy in reported wt change, per RN malnutrition screen pt reports wt loss of 14-23 pounds vs nutrition consult where pt reported wt loss of 30 pounds. Pt prior admit scaled chair wt of 72.73kg and this admit standing scaled wt of 68.9kg per EMR indicate some weight loss but also using different wt scaled methods. Discussed with RN pt's appearance, RN reports pt appears to be slender at baseline and does not appear to have muscle or fat wasting at this time. Recommending adding thiamin, folate, MVM, and Vitamin B 12 due to history of alcohol abuse and elevated MCV lab if physician agreeable; discussed with RN. Pt does not have edema nor documented weakness. Pt does not meet a minimum of two malnutrition criteria at this time. LBM on 11/30 per EMR. Will continue to monitor. Recommendations: 1)continue regular diet 2)consider thiamin, folate, Vitamin B12, and MVM routine due to EtoH abuse history and elevated MCV pending physician approval 3)routine bowel care 4)weekly wt Addendum: 12/01/22 at 1605 by Mariela Liu Intern RD Amended: Links added. Addendum: 12/01/22 at [address] IAN has reviewed and approves of above note.
--- NOTE | 2022-12-01 16:20 | NUR ---
Per Dr. Willis, pt. will be started on daily thiamine, folate, B12, and multivitamin per recommendation of fuel cell designer r/t pt's history of alcohol use. This was endorsed to pt. who is agreeable with this plan.
--- NOTE | 2022-12-01 16:26 | NUR ---
Nursing Progress Note: Problem : 5150 states, "you are stating you're suicidal and that you will hang yourself. Pt receives Assisted Outpatient Treatment services in [facility]. He last met with social work instructor in October of 2021. Mitch reports he has been living on the streets the past week, has been without medications for the week, and has not had any alcohol for the past 7 days. Interventions : Introduced self and established rapport, maintained a safe and supportive environment, ensured contract for safety, provided clear and simple instructions, attempted to orient to reality, and maintained Q 15min safety checks. Response : Received pt. sleeping in bed at the beginning of the shift, he was awoken to attend breakfast in the Group Room and then retreated back to bed. 1:1 was completed at bedside, pt. presents as cooperative, anxious, agitated at times, and withdrawn. His thought process is tangental and speech hyperverbal and pt. talks over this field underwriter. He states irritably, "I don't trust anyone anymore! Not even my social work instructor!" This field underwriter provided active listening and positive encouragement and pt. reported some contentment. He then continued on making what appeared to be delusional and disorganized statements, stating, "I'll go to [place]. [facility] of crack heads, and I'm not one of them! Do you want to know who runs this community? [employer] Pt. endorses ongoing S/I, however will not discuss his current plan stating, "Let's not go into it, it just depresses me." He is able to contract for safety while on the unit. Pt. denies any current A/V/MURDOCK, and does not appear to be responding to internal stimuli. Pt. 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 Pt. remained withdrawn in bed throughout much of the day. He c/o constipation and PRN MOM and prune juice was administered, will endorse to Noc shift. Plan : Pt. continues to require medication adjustments and a safe and supportive environment.
[2022-12-01 19:00] VITALS: BP 143/95
[2022-12-01] MEDS: traZODone 50mg tablet PO SCH (22:10)
--- NOTE | 2022-12-02 01:50 | NUR ---
Nursing Progress Note: Problem : 5150 states, "you are stating you're suicidal and that you will hang yourself. Pt receives Assisted Outpatient Treatment services in [facility]. He last met with 7th grade social studies teacher in October of 2021. Mitch reports he has been living on the streets the past week, has been without medications for the week, and has not had any alcohol for the past 7 days. Interventions : Introduced self and established rapport, maintained a safe and supportive environment, ensured contract for safety, provided clear and simple instructions, attempted to orient to reality, and maintained Q 15min safety checks. Response : Patient is laying in bed following shift change. 1:1 Interview at bedside. Patient is alert. He exhibits tangential speech. Patient is delusional, he believes he knows where this typewriter tester went to school graduated from. He was wrong. Patient becomes labile when telling this typewriter tester about friends and family, he raises his voice loudly. The patient remains in bed for through the night as of this writing. Patient denies S/I, H/I, or any hallucinations. The patient is medication compliant. Plan : Pt. continues to require medication adjustments and a safe and supportive environment.
[2022-12-02] MEDS: multivitamins, therapeutics tablet PO SCH (07:36)
[2022-12-02] MEDS: thiamine 100mg tablet PO SCH (07:37)
[2022-12-02] MEDS: folic acid 0.4mg tablet PO SCH (07:37)
[2022-12-02] MEDS: cyanocobalamin 500mcg tablet PO SCH (07:37)
[2022-12-02] MEDS: Cipro HC otic suspension 10ML bottle LEFT EAR SCH ×2 (07:38→20:02)
[2022-12-02] MEDS: nicotine 21mg patch - 24 hr TD SCH (07:38)
[2022-12-02 08:00] VITALS: BP 116/80
[2022-12-02] MEDS: CARIPRAZINE 1.5 MG CAPSULE PO SCH (15:24)
[2022-12-02 15:41] LABS: HBSAG SCREEN Negative (Negative); HEP B CORE AB, TOT Negative (Negative)
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
[2022-12-02] MEDS ORDERED: traZODone 50mg tablet PO PRN ×2 (18:35)
--- NOTE | 2022-12-02 18:42 | NUR ---
Nursing Progress Note: Problem : 5150 states, "you are stating you're suicidal and that you will hang yourself. Pt receives Assisted Outpatient Treatment services in [facility]. He last met with social work associate in October of 2021. Mitch reports he has been living on the streets the past week, has been without medications for the week, and has not had any alcohol for the past 7 days. Interventions : Introduced self and established rapport, maintained a safe and supportive environment, ensured contract for safety, provided clear and simple instructions, attempted to orient to reality, and maintained Q 15min safety checks. Response : Patient out of him room following shift change. 1:1 Interview at bedside. Patient is alert. Patient continues to exhibit some tangential speech. He is hyperverbal too. Patient becomes labile when speaking about family. The patient was served with a 14 day hold by this check writer. He expected this and exhibited understanding. Plan : Pt. continues to require medication adjustments and a safe and supportive environment.
[2022-12-02 20:00] VITALS: BP 146/107
[2022-12-02] MEDS: traZODone 50mg tablet PO SCH (20:02)
[2022-12-02] MEDS ORDERED: traZODone 50mg tablet PO ONE (22:35)
[2022-12-02] MEDS ORDERED: LORazepam 1 MG tablet PO ONE (22:35)
--- NOTE | 2022-12-02 22:58 | NUR ---
Patient awoke, complains of voiding too much, inability to sleep and anxiety. PO Ativan 1 mg and Trazadone 100 mg [address] PO per Dr. Willis.
[2022-12-03 08:00] VITALS: BP 107/69
[2022-12-03] MEDS: thiamine 100mg tablet PO SCH (08:17)
[2022-12-03] MEDS: multivitamins, therapeutics tablet PO SCH (08:17)
[2022-12-03] MEDS: folic acid 0.4mg tablet PO SCH (08:17)
[2022-12-03] MEDS: cyanocobalamin 500mcg tablet PO SCH (08:17)
[2022-12-03] MEDS: nicotine 21mg patch - 24 hr TD SCH (08:18)
[2022-12-03] MEDS: Cipro HC otic suspension 10ML bottle LEFT EAR SCH ×2 (08:24→20:11)
[2022-12-03] MEDS ORDERED: traZODone 50mg tablet PO PRN (15:30)
[2022-12-03] MEDS: CARIPRAZINE 1.5 MG CAPSULE PO SCH (15:30)
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
[2022-12-03] MEDS: ipratropium/albuterol 3ml nebule NEB SCH ×2 (19:15→23:00)
[2022-12-03 20:00] VITALS: BP 149/103
[2022-12-03] MEDS: traZODone 50mg tablet PO SCH (20:11)
[2022-12-04] MEDS: ipratropium/albuterol 3ml nebule NEB SCH ×6 (02:56→22:55)
--- NOTE | 2022-12-04 04:42 | NUR ---
Nursing Progress Note: Problem : 5150 states, "you are stating you're suicidal and that you will hang yourself. Pt receives Assisted Outpatient Treatment services in [facility]. He last met with social work manager in October of 2021. Mitch reports he has been living on the streets the past week, has been without medications for the week, and has not had any alcohol for the past 7 days. Interventions : Introduced self and established rapport, maintained a safe and supportive environment, ensured contract for safety, provided clear and simple instructions, attempted to orient to reality, and maintained Q 15min safety checks. Response : Patient primarily isolated in his room following shift change. 1:1 Interview at bedside. Patient is cooperative, hyperverbal at times. He asked this check writer salesperson to look at his calender. He points to two months on the calender and and makes no sense at all in explaining what point he wants to make about the calender. The patient remains delusional. The patient is medication compliant. Plan : Pt. continues to require medication adjustments and a safe and supportive environment.
--- NOTE | 2022-12-04 06:02 | NUR ---
Patient is awake, he is sitting in the recreation room. Patient complained of indigestion, he was given Maalox. Patient then stated he was constipated and was given prune juice.
[2022-12-04] MEDS: folic acid 0.4mg tablet PO SCH (07:37)
[2022-12-04] MEDS: cyanocobalamin 500mcg tablet PO SCH (07:37)
[2022-12-04] MEDS: multivitamins, therapeutics tablet PO SCH (07:38)
[2022-12-04] MEDS: nicotine 21mg patch - 24 hr TD SCH (07:38)
[2022-12-04] MEDS: Cipro HC otic suspension 10ML bottle LEFT EAR SCH ×2 (07:38→20:20)
[2022-12-04] MEDS: thiamine 100mg tablet PO SCH (07:41)
[2022-12-04 08:00] VITALS: BP 94/62
--- NOTE | 2022-12-04 09:53 | NUR ---
0700 SVN triaged. Therapist not available
[2022-12-04] MEDS: oxybutynin 5mg tablet PO SCH ×3 (13:00→20:20)
[2022-12-04] MEDS: CARIPRAZINE 1.5 MG CAPSULE PO SCH (15:20)
--- NOTE | 2022-12-04 16:07 | NUR ---
Nursing Progress Note: Mitch Problem: 5150 states, "you are stating you're suicidal and that you will hang yourself. Pt receives Assisted Outpatient Treatment services in [facility]. He last met with social work coordinator in October of 2021. Mitch reports he has been living on the streets the past week, has been without medications for the week, and has not had any alcohol for the past 7 days. Interventions: Introduced self and established rapport, maintained a safe and supportive environment, ensured contract for safety, provided clear and simple instructions, attempted to orient to reality, and maintained Q 15min safety checks. Response: Pt awake at change of shift. Pt excitedly tells this nurse he had large BM and feels much better. Pt hyperverbal when he has someone to speak to. PT makes delusional statements throughout the day about Jews and Illuminati, and administrators of the casinos. Pt spends time in group room or rec room telling his delusions to whoever will listen. PT is pleasant and compliant. Plan: Pt. continues to require medication adjustments and a safe and supportive environment.
[2022-12-04 19:19] VITALS: BP 119/75
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
[2022-12-05] MEDS: ipratropium/albuterol 3ml nebule NEB SCH ×3 (02:38→10:50)
[2022-12-05 08:00] VITALS: BP 120/82
[2022-12-05] MEDS: oxybutynin 5mg tablet PO SCH ×3 (08:29→20:27)
[2022-12-05] MEDS: cyanocobalamin 500mcg tablet PO SCH (08:29)
[2022-12-05] MEDS: Cipro HC otic suspension 10ML bottle LEFT EAR SCH ×2 (08:29→20:27)
[2022-12-05] MEDS: nicotine 21mg patch - 24 hr TD SCH (08:29)
[2022-12-05] MEDS: multivitamins, therapeutics tablet PO SCH (08:29)
[2022-12-05] MEDS: folic acid 0.4mg tablet PO SCH (08:29)
[2022-12-05] MEDS: thiamine 100mg tablet PO SCH (08:30)
[2022-12-05] MEDS: acetaminophen 325mg tablet PO PRN ×2 (09:52→14:45)
--- NOTE | 2022-12-05 13:59 | NUR ---
5250 upheld for DTS
[2022-12-05] MEDS: CARIPRAZINE 1.5 MG CAPSULE PO SCH (14:46)
[2022-12-05] MEDS ORDERED: ipratropium/albuterol 3ml nebule NEB PRN (14:55)
--- NOTE | 2022-12-05 16:14 | NUR ---
Nursing Progress Note: Mitch Problem: 5150 states, "you are stating you're suicidal and that you will hang yourself. Pt receives Assisted Outpatient Treatment services in [facility]. He last met with nursing home social worker in October of 2021. Mitch reports he has been living on the streets the past week, has been without medications for the week, and has not had any alcohol for the past 7 days. Interventions: Introduced self and established rapport, maintained a safe and supportive environment, ensured contract for safety, provided clear and simple instructions, attempted to orient to reality, and maintained Q 15min safety checks. Response: Pt is pleasant and cooperative. Up to group room for meals and snack, participated in group. Pt speech is rapid and pressured, conversation is disorganized at times and difficult to follow. Pt voiced complaints about placement issues and local government including civil rights, comparing local government to old school Jin. Voiced complaints about his mother and living situation prior to admission. Plan: Pt. continues to require medication adjustments and a safe and supportive environment.
--- NOTE | 2022-12-05 17:56 | NUR ---
PONY RIDE ATTENDANT documentation: I have reviewed all interventions and assessments performed and documented by MARII Joaquin.
[2022-12-05 19:48] VITALS: BP 134/92
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
[2022-12-06] MEDS: nicotine 21mg patch - 24 hr TD SCH (07:45)
[2022-12-06] MEDS: cyanocobalamin 500mcg tablet PO SCH (07:45)
[2022-12-06] MEDS: multivitamins, therapeutics tablet PO SCH (07:45)
[2022-12-06] MEDS: folic acid 0.4mg tablet PO SCH (07:45)
[2022-12-06] MEDS: thiamine 100mg tablet PO SCH (07:45)
[2022-12-06] MEDS: oxybutynin 5mg tablet PO SCH ×3 (07:45→20:41)
[2022-12-06 08:00] VITALS: BP 121/78
[2022-12-06] MEDS: Cipro HC otic suspension 10ML bottle LEFT EAR SCH ×2 (08:47→20:41)
--- NOTE | 2022-12-06 09:05 | NUR ---
Pt asking for breathing treatment. Expiratory wheezing on auscultation of lungs. Denies SOB. RT at bedside.
--- NOTE | 2022-12-06 10:19 | NUR ---
Patient c/o feeling shaky and states he could be "having hypoglycemia so I ate two sugar packets." Patient BG checked and 124. Patient states feeling nervous as well and extended out hands. Explained to patient could be related to the breathing treatment as he recently had one. Patient states "oh yes, it's albuterol and its pure steroid I forgot and I started feeling it after the breathing treatment." Patient states feeling warm and needing a shower. No PRN at this time for anxiety. Patient states shower will help. Patient on shower list.
[2022-12-06] MEDS: acetaminophen 325mg tablet PO PRN ×2 (12:12→16:58)
[2022-12-06] MEDS: CARIPRAZINE 1.5 MG CAPSULE PO SCH (15:00)
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
[2022-12-06 19:58] VITALS: BP 134/94
[2022-12-06] MEDS: mirtazapine 15mg tablet PO PRN (21:10)
--- NOTE | 2022-12-06 23:23 | NUR ---
Nursing Progress Note: Mitch Problem: 5150 states, "you are stating you're suicidal and that you will hang yourself. Pt receives Assisted Outpatient Treatment services in [facility]. He last met with director social service in October of 2021. Mitch reports he has been living on the streets the past week, has been without medications for the week, and has not had any alcohol for the past 7 days. Interventions: Introduced self and established rapport, maintained a safe and supportive environment, ensured contract for safety, provided clear and simple instructions, attempted to orient to reality, and maintained Q 15min safety checks. Response: Pt awake in room at shift change, he continues to present as hypomanic. 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 His hygiene and grooming are good, affect is animated, eye contact good. He was in the milieu briefly, social with peers and staff. He did report poor sleep last night (only slept 4 hours) and requested something for sleep, so OCP contacted and order for Remeron 15mg with a MRx1 was obtained and patient received his first dose. He is currently sleeping, will continue to monitor. He denies S/I/H/I A/V/H. Plan: Pt. continues to require medication adjustments and a safe and supportive environment.
--- NOTE | 2022-12-06 23:39 | NUR ---
Pt awake at this time, requesting a snack, decline second Remeron at this time, but will notify us if he is unable to return to sleep.
[2022-12-07 08:00] VITALS: BP 111/72
[2022-12-07] MEDS: folic acid 0.4mg tablet PO SCH (08:28)
[2022-12-07] MEDS: multivitamins, therapeutics tablet PO SCH (08:28)
[2022-12-07] MEDS: thiamine 100mg tablet PO SCH (08:28)
[2022-12-07] MEDS: oxybutynin 5mg tablet PO SCH ×3 (08:28→20:06)
[2022-12-07] MEDS: cyanocobalamin 500mcg tablet PO SCH (08:28)
[2022-12-07] MEDS: Cipro HC otic suspension 10ML bottle LEFT EAR SCH ×2 (08:29→20:06)
[2022-12-07] MEDS: nicotine 21mg patch - 24 hr TD SCH (08:38)
[2022-12-07] MEDS: acetaminophen 325mg tablet PO PRN (10:09)
--- NOTE | 2022-12-07 15:17 | NUR ---
Nursing Progress Note: Mitch Problem: 5150 states, "you are stating you're suicidal and that you will hang yourself. Pt receives Assisted Outpatient Treatment services in [facility]. He last met with addiction social worker in October of 2021. Mitch reports he has been living on the streets the past week, has been without medications for the week, and has not had any alcohol for the past 7 days. Interventions: Introduced self and established rapport, maintained a safe and supportive environment, ensured contract for safety, provided clear and simple instructions, attempted to orient to reality, and maintained Q 15min safety checks. Response: Patient was found sitting in rec room at change of shift. Patient started yelling at nurse about him trying to find placement. Patient stated he had a spot at [facility] and why wont we let him go. He doesn't want to lose his spot. Patient then asked for the phone number to [facility]. Patient was later found sitting in bed when nurse brought in morning Meds. Patient became agitated and started yelling he shouldn't be homeless and why did his family treat him like this after everything he had done and paid he should not be homeless. Patient started asking for prn to help him calm down but had none prescribed.Nurse will talk to provider and try to get something ordered. Patient continued to have random outburst and loud delusional statements. Plan: Pt. continues to require medication adjustments and a safe and supportive environment. Addendum: 12/07/22 at 1747 by Fede Mccloud) GARCÍA FOURDRINIER MACHINE OPERATOR documentation: I have reviewed and agree with all interventions, assessments performed and documented by FOURDRINIER MACHINE OPERATOR
[2022-12-07] MEDS: CARIPRAZINE 1.5 MG CAPSULE PO SCH (15:34)
[2022-12-07] MEDS: mirtazapine 15mg tablet PO PRN (20:06)
[2022-12-07 20:08] VITALS: BP 120/81
--- NOTE | 2022-12-07 23:11 | NUR ---
Nursing Progress Note: Problem: 5150 states, "you are stating you're suicidal and that you will hang yourself. Pt receives Assisted Outpatient Treatment services in [facility]. He last met with social media community manager in October of 2021. Mitch reports he has been living on the streets the past week, has been without medications for the week, and has not had any alcohol for the past 7 days. Interventions: The patient is on q 15 minute safety checks. One to one with the patient to assess for medication side effects and review his medications with him. Assessed for severity of mood symptoms and for self harm risk. Response: The patient was friendly during the evening assessment. His speech was rapid and pressured. He jumped from topic to topic. He claimed to have wealth and owned a mansion in [facility] but in the next sentence talked about he homeless in [place]. He denies that he is suicidal. He denies that he has bipolar but stated he has depression and PTSD from his mother. When asked how his mood was he stated that he felt "stable, fine, not manic" He stated that he is the highest ranking fed. He has poor insight and judgement. He denied cravings for ETOH Plan: Continue hospitalization for further treatment and stabilization
[2022-12-08] MEDS: mirtazapine 15mg tablet PO PRN (00:26)
[2022-12-08] MEDS: acetaminophen 325mg tablet PO PRN ×2 (06:23→13:44)
[2022-12-08 08:00] VITALS: BP 126/91
[2022-12-08] MEDS: folic acid 0.4mg tablet PO SCH (08:28)
[2022-12-08] MEDS: thiamine 100mg tablet PO SCH (08:28)
[2022-12-08] MEDS: CARIPRAZINE 1.5 MG CAPSULE PO SCH (08:29)
[2022-12-08] MEDS: oxybutynin 5mg tablet PO SCH ×3 (08:30→20:41)
[2022-12-08] MEDS: cyanocobalamin 500mcg tablet PO SCH (08:30)
[2022-12-08] MEDS: multivitamins, therapeutics tablet PO SCH (08:30)
[2022-12-08] MEDS: LIDOcaine 5% patch TP SCH (08:31)
[2022-12-08] MEDS: nicotine 21mg patch - 24 hr TD SCH (08:31)
[2022-12-08] MEDS: Cipro HC otic suspension 10ML bottle LEFT EAR SCH ×2 (08:32→20:41)
--- NOTE | 2022-12-08 14:59 | NUR ---
Reassessment: Pt continues eating well on regular diet, documented with 100% of meals meeting estimated nutrient needs. LBM 12/07 per EMR. No nutrition intervention implemented at this time. Will continue to follow. Recommendations: 1) Continue regular diet 2) Routine Thiamine, Folic acid, Vitamin B12, and MVI d/t EtOH hx with elevated MCV 3) Bowel care PRN 4) Weekly scaled weights Addendum: 12/08/22 at [address] Amended: Links added.
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
[2022-12-08 20:00] VITALS: BP 121/79
[2022-12-08] MEDS: tizanidine 4mg tablet PO PRN (20:42)
[2022-12-08] MEDS: mirtazapine 15mg tablet PO SCH (20:42)
--- NOTE | 2022-12-08 23:50 | NUR ---
Nursing Progress Note: Problem: 5150 states, "you are stating you're suicidal and that you will hang yourself. Pt receives Assisted Outpatient Treatment services in [facility]. He last met with director social welfare in October of 2021. Mitch reports he has been living on the streets the past week, has been without medications for the week, and has not had any alcohol for the past 7 days. Interventions: The patient is on q 15 minute safety checks. One to one with the patient to assess for medication side effects and review his medications with him. Assessed for severity of mood symptoms and for self harm risk. Response: This patient primarily isolated in his room following shift change. 1:1 Interview at bedside. Patient awakens when this publications writer walked into his room. He is oriented to person, place, time, he remains somewhat delusional and paranoid, especially when discussing his family. Patient exhibits some optimism about placement, perhaps a program in [facility]? Patient tells this publications writer that he hopes to gain some weight. He presents as less Tangential than on recent shifts where this publications writer cared for him. Patient did have a couple of labile outbursts that didn't seem to have any triggering factors. The patient was compliant with medications. Plan: Continue hospitalization for further treatment and stabilization Addendum: 12/09/22 at 0220 by Isaac Sosa RN Patient is awake, can't sleep. Indio Luciano called. Orders received for Ativan 1 mg PO and Remeron 15 mg PO, both are now.
[2022-12-09] MEDS ORDERED: LORazepam 1 MG tablet PO ONE (02:15)
[2022-12-09] MEDS ORDERED: mirtazapine 15mg tablet PO ONE ×2 (02:15→21:35)
[2022-12-09] MEDS: CARIPRAZINE 1.5 MG CAPSULE PO SCH (07:59)
[2022-12-09 08:00] VITALS: BP 121/85
[2022-12-09] MEDS: Cipro HC otic suspension 10ML bottle LEFT EAR SCH ×2 (08:00→20:44)
[2022-12-09] MEDS: cyanocobalamin 500mcg tablet PO SCH (08:00)
[2022-12-09] MEDS: folic acid 0.4mg tablet PO SCH (08:00)
[2022-12-09] MEDS: oxybutynin 5mg tablet PO SCH ×3 (08:00→20:45)
[2022-12-09] MEDS: thiamine 100mg tablet PO SCH (08:00)
[2022-12-09] MEDS: nicotine 21mg patch - 24 hr TD SCH (08:01)
[2022-12-09] MEDS: LIDOcaine 5% patch TP SCH (08:02)
[2022-12-09] MEDS: multivitamins, therapeutics tablet PO SCH (08:04)
[2022-12-09] MEDS: acetaminophen 325mg tablet PO PRN (11:37)
--- NOTE | 2022-12-09 12:52 | NUR ---
CASE MANAGEMENT Assisted Mitch with calling GEN tx screening and had to leave a message. [facility], and [facility]. He was able to get through to [facility] (ph# [phone]) and he completed the screening. He was told to call daily and Mitch said he will do so. MAG Flynn Addendum: 12/09/22 at 1310 by Nieves Isidro Spoke with [facility] Auto Body Technician, Danielle (ph# [phone]). She reported she is going to drop off some clothes and mail for Mitch later today. MAG Flynn
--- NOTE | 2022-12-09 16:21 | NUR ---
Nursing Progress Note: Problem: 5150 states, "you are stating you're suicidal and that you will hang yourself. Pt receives Assisted Outpatient Treatment services in [facility]. He last met with protective services social worker in October of 2021. Mitch reports he has been living on the streets the past week, has been without medications for the week, and has not had any alcohol for the past 7 days. Interventions: The patient is on q 15 minute safety checks. One to one with the patient to assess for medication side effects and review his medications with him. Assessed for severity of mood symptoms and for self harm risk. Response: Patient was found sleeping at beginning of shift. Patient woke up to eat breakfast and take morning medications. Patient socialized with peers on the unit. Patient denies SI and HI. Patient denies A/V hallucinations, stating "I never do". Patient was noted appearing to respond to internal stimuli. Patient is hyperverbal and tangential. 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 Patient later requested tylenol for a head ache, this nurse gave patient tylenol and patient returned to rest in his room. Patient later reported tylenol was effective. Patient was seen eating lunch. Patient took his afternoon medications without issue. Plan: Continue hospitalization for further treatment and stabilization Addendum: 12/09/22 at 1840 by Fede Mccloud) GARCÍA JACK PRIZER documentation: I have reviewed and agree with all interventions, assessments performed and documented by JACK PRIZER.
[2022-12-09 20:00] VITALS: BP 115/76
[2022-12-09] MEDS: mirtazapine 15mg tablet PO SCH (20:45)
--- NOTE | 2022-12-10 01:03 | NUR ---
Nursing Progress Note: Problem: 5150 states, "you are stating you're suicidal and that you will hang yourself. Pt receives Assisted Outpatient Treatment services in [facility]. He last met with secondary social studies teacher in October of 2021. Mitch reports he has been living on the streets the past week, has been without medications for the week, and has not had any alcohol for the past 7 days. Interventions: The patient is on q 15 minute safety checks. One to one with the patient to assess for medication side effects and review his medications with him. Assessed for severity of mood symptoms and for self harm risk. Response: This patient primarily isolated in his room following shift change. 1:1 Interview at bedside. Patient awakens when this program writer walked into his room. He is oriented to person, place, time, he remains somewhat delusional. Triggering topics such as family were avoided. Patient exhibits some optimism about placement, perhaps a program in [facility]? He presents as less Tangential speech is decreased. No labile outbursts this shift. The patient was compliant with medications. A second dose of Remeron 15 mg was given per Indio HAY.
[2022-12-10] MEDS: multivitamins, therapeutics tablet PO SCH (07:45)
[2022-12-10] MEDS: oxybutynin 5mg tablet PO SCH ×3 (07:45→20:29)
[2022-12-10] MEDS: Cipro HC otic suspension 10ML bottle LEFT EAR SCH ×2 (07:45→20:29)
[2022-12-10] MEDS: folic acid 0.4mg tablet PO SCH (07:45)
[2022-12-10] MEDS: thiamine 100mg tablet PO SCH (07:45)
[2022-12-10] MEDS: cyanocobalamin 500mcg tablet PO SCH (07:45)
[2022-12-10] MEDS: CARIPRAZINE 1.5 MG CAPSULE PO SCH (07:45)
[2022-12-10] MEDS: nicotine 21mg patch - 24 hr TD SCH (07:59)
[2022-12-10 08:00] VITALS: BP 119/80
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
[2022-12-10] MEDS: acetaminophen 325mg tablet PO PRN (15:24)
[2022-12-10] MEDS: LIDOcaine 5% patch TP PRN (15:25)
--- NOTE | 2022-12-10 15:38 | NUR ---
Pt c/o 12/19 thoracic spine pain after doing exercises in his room. He was given PRN Tylenol and his PRN lidocaine patch was applied at 1524.
[2022-12-10] MEDS: mirtazapine 15mg tablet PO SCH (19:37)
[2022-12-10 20:00] VITALS: BP 127/96
[2022-12-10] MEDS: tizanidine 4mg tablet PO PRN (20:30)
[2022-12-10] MEDS ORDERED: mirtazapine 15mg tablet PO ONE (21:00)
--- NOTE | 2022-12-11 02:36 | NUR ---
Nursing Progress Note: Problem: 5150 states, "you are stating you're suicidal and that you will hang yourself. Pt receives Assisted Outpatient Treatment services in [facility]. He last met with social work therapist in October of 2021. Mitch reports he has been living on the streets the past week, has been without medications for the week, and has not had any alcohol for the past 7 days. Interventions: 1:1 assessment, therapeutic conversation, active listening, ensured contract for safety, medication administration/education/monitoring, behavior monitoring and intervention as needed; provided distraction, redirection, reality orientation, positive reinforcement, and Q 15 min safety checks. Response: This patient was observed in his room and in the community room following shift change. 1:1 Interview was conducted at bedside. The patient is cooperative and speaks freely. At times the patients speech becomes rapid and tangential. The patient rambles about he and his brother belonging to a "the [employer]," he eludes to some sort of persecution? The patient is re-directable. The patient is medication compliant. Patient was also given Remeron 30 mg at the direction of Indio HAY. This patient has been sleeping well with the additional Remeron 15 mg each night. (For a total of Remeron 30 mg each night.) Plan: Continue hospitalization for further treatment and stabilization
[2022-12-11] MEDS: tizanidine 4mg tablet PO PRN ×2 (05:45→17:53)
--- NOTE | 2022-12-11 05:46 | NUR ---
Patient is awake, C/C of back spasm. Zanaflex given as a PRN.
[2022-12-11 08:00] VITALS: BP 108/64
[2022-12-11] MEDS: CARIPRAZINE 1.5 MG CAPSULE PO SCH (08:28)
[2022-12-11] MEDS: thiamine 100mg tablet PO SCH (08:28)
[2022-12-11] MEDS: cyanocobalamin 500mcg tablet PO SCH (08:28)
[2022-12-11] MEDS: folic acid 0.4mg tablet PO SCH (08:28)
[2022-12-11] MEDS: oxybutynin 5mg tablet PO SCH ×3 (08:28→20:15)
[2022-12-11] MEDS: multivitamins, therapeutics tablet PO SCH (08:28)
[2022-12-11] MEDS: Cipro HC otic suspension 10ML bottle LEFT EAR SCH ×2 (08:29→20:15)
[2022-12-11] MEDS: nicotine 21mg patch - 24 hr TD SCH (08:29)
[2022-12-11] MEDS: acetaminophen 325mg tablet PO PRN (12:30)
--- NOTE | 2022-12-11 15:26 | NUR ---
Nursing Progress Note: Problem: 5150 states, "you are stating you're suicidal and that you will hang yourself. Pt receives Assisted Outpatient Treatment services in [facility]. He last met with protective services social worker in October of 2021. Mitch reports he has been living on the streets the past week, has been without medications for the week, and has not had any alcohol for the past 7 days. Interventions: 1:1 assessment, therapeutic conversation, active listening, ensured contract for safety, medication administration/education/monitoring, behavior monitoring and intervention as needed; provided distraction, redirection, reality orientation, positive reinforcement, and Q 15 min safety checks. Response: Patient asleep when coming on shift. woke up and was compliant with all medications. denies and mental health symptoms but continues to talk very rapidly and random. Patient ate all meals in dining area and was appropriate towards all staff. met with MD today. last BM was yesterday per patient. All needs met by staff. Will continue to monitor. Plan: Continue hospitalization for further treatment and stabilization
[2022-12-11] MEDS: LIDOcaine 5% patch TP PRN (17:53)
[2022-12-11 19:47] VITALS: BP 127/78
[2022-12-11] MEDS: mirtazapine 15mg tablet PO SCH (20:15)
--- NOTE | 2022-12-12 01:41 | NUR ---
Nursing Progress Note: Problem: 5150 states, "you are stating you're suicidal and that you will hang yourself. Pt receives Assisted Outpatient Treatment services in [facility]. He last met with criminal justice social worker in October of 2021. Mitch reports he has been living on the streets the past week, has been without medications for the week, and has not had any alcohol for the past 7 days. Interventions: 1:1 assessment, therapeutic conversation, active listening, ensured contract for safety, medication administration/education/monitoring, behavior monitoring and intervention as needed; provided distraction, redirection, reality orientation, positive reinforcement, and Q 15 min safety checks. Response: Pt approached nurses station at change of shift, "Im outta here! Im taking an Amtrak to [place] and you're never gonna find me!" Asked patient where will you go? He replied "[facility] pt talks about being royalty there. Pt is pleasant, grandiose, and making delusional statements. Pt states "Are you Grady? Ya. You're Grady, you must know about the Qanon, reptillians in [facility]." Pts speech is tangential. Pt denies s/i. Pt had snacks in the group room and took HS meds before going to bed. "these are good meds, I'm really tired. We'll get some hot toddies later." Plan: Continue hospitalization for further treatment and stabilization
[2022-12-12] MEDS: acetaminophen 325mg tablet PO PRN ×3 (04:32→16:44)
[2022-12-12 08:00] VITALS: BP 115/77
[2022-12-12] MEDS: CARIPRAZINE 1.5 MG CAPSULE PO SCH (08:43)
[2022-12-12] MEDS: cyanocobalamin 500mcg tablet PO SCH (08:43)
[2022-12-12] MEDS: thiamine 100mg tablet PO SCH (08:44)
[2022-12-12] MEDS: folic acid 0.4mg tablet PO SCH (08:44)
[2022-12-12] MEDS: Cipro HC otic suspension 10ML bottle LEFT EAR SCH ×2 (08:44→20:00)
[2022-12-12] MEDS: oxybutynin 5mg tablet PO SCH ×3 (08:44→20:32)
[2022-12-12] MEDS: multivitamins, therapeutics tablet PO SCH (08:44)
[2022-12-12] MEDS: nicotine 21mg patch - 24 hr TD SCH (08:45)
--- NOTE | 2022-12-12 13:40 | NUR ---
CASE MANAGEMENT Mitch reported he called [facility] over the weekend and they told him he needs a "higher level of care" so he told them to "f-off". Mitch said he has been trying to call [facility] but was unable to leave a message. Spoke to Barbara at [facility] (ph# [phone]). She said they do not currently have any beds and to call back later in the week. Let Mitch know that promotion writer will call on his behalf. MAG Flynn
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
--- NOTE | 2022-12-12 18:00 | NUR ---
Nursing Progress Note: Mitch Problem: 5150 states, "you are stating you're suicidal and that you will hang yourself. Pt receives Assisted Outpatient Treatment services in [facility]. He last met with social work specialist in October of 2021. Mitch reports he has been living on the streets the past week, has been without medications for the week, and has not had any alcohol for the past 7 days. Interventions: Provided 1:1 assessment, therapeutic conversation, active listening, ensured contract for safety, medication administration/education/monitoring, behavior monitoring and intervention as needed; provided distraction, redirection, reality orientation, positive reinforcement, and Q15 min safety checks. Response: Patient received sitting in the group room watching television at change of shift. He is noted to be hyperverbal yet pleasant and cooperative. Pt endorsing that he wants to go to the [facility]. Pt noted to be irritable that other facilities have given up his bed and broke contract with him. He endorsed that he feels melancholy today. Pt was receptive to scheduled mediation and 1:1 assessment. Pt has grandiose delusions of dying and coming back as a Mayan God. He endorsed that he owns multiple castles. Wants to leave this facility and go on an Amtrak to wherever the hell he wants. Denies AH. Reports being able to see shadows of ghosts. Denies SI, stating, as long as you keep my away from my family. Pt is disorganized with circumstantial/tangential speech. Pt reported later in the shift that he wants to go to [facility] in [place]. He was active on the unit the majority of the shift and is social with other peers on the unit. He was observed watching television with peers intermittently. Pt participated for all meal and snack times in the group room this shift. Plan: Pt. continues to require a safe and supportive environment.
[2022-12-12 19:21] VITALS: BP 135/78
[2022-12-12] MEDS: mirtazapine 15mg tablet PO SCH (20:32)
--- NOTE | 2022-12-13 01:13 | NUR ---
Nursing Progress Note: Mitch Problem: 5150 states, "you are stating you're suicidal and that you will hang yourself. Pt receives Assisted Outpatient Treatment services in [facility]. He last met with social media strategist in October of 2021. Mitch reports he has been living on the streets the past week, has been without medications for the week, and has not had any alcohol for the past 7 days. Interventions: Provided 1:1 assessment, therapeutic conversation, active listening, ensured contract for safety, medication administration/education/monitoring, behavior monitoring and intervention as needed; provided distraction, redirection, reality orientation, positive reinforcement, and Q15 min safety checks. Response: Pt was in his room at change of shift. Pt is pleasant but becomes agitated when talking about discharge plan. Pt speech continues to be tangential/grandiose. Talking about "[facility] Neida[facility], [facility] and [facility]" Pt denies s/i. Pt is hopeful he will get accepted into [facility], but thinks the [facility] wont help him because of how rich he is. Pt spent time in the group and had snacks, but mostly isolated to his room during the shift. Pt took HS meds and went to bed. Plan: Pt. continues to require a safe and supportive environment.
[2022-12-13 07:35] VITALS: BP 121/85
[2022-12-13] MEDS: nicotine 21mg patch - 24 hr TD SCH (08:27)
[2022-12-13] MEDS: folic acid 0.4mg tablet PO SCH (08:27)
[2022-12-13] MEDS: thiamine 100mg tablet PO SCH (08:28)
[2022-12-13] MEDS: multivitamins, therapeutics tablet PO SCH (08:28)
[2022-12-13] MEDS: CARIPRAZINE 1.5 MG CAPSULE PO SCH (08:28)
[2022-12-13] MEDS: oxybutynin 5mg tablet PO SCH ×3 (08:28→20:02)
[2022-12-13] MEDS: cyanocobalamin 500mcg tablet PO SCH (08:29)
[2022-12-13] MEDS: magnesium hydroxide 30ml (MOM) UD suspension PO PRN (11:57)
[2022-12-13] MEDS: acetaminophen 325mg tablet PO PRN (12:46)
[2022-12-13] MEDS: LIDOcaine 5% patch TP PRN (14:58)
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
[2022-12-13 19:04] VITALS: BP 146/90
[2022-12-13] MEDS: docusate sod 100mg capsule PO SCH (20:01)
[2022-12-13] MEDS: mirtazapine 15mg tablet PO SCH (20:01)
--- NOTE | 2022-12-14 02:22 | NUR ---
Nursing Progress Note: Mitch Problem: 5150 states, "you are stating you're suicidal and that you will hang yourself. Pt receives Assisted Outpatient Treatment services in [facility]. He last met with pediatric social worker in October of 2021. Mitch reports he has been living on the streets the past week, has been without medications for the week, and has not had any alcohol for the past 7 days. Interventions: Provided 1:1 assessment, therapeutic conversation, active listening, ensured contract for safety, medication administration/education/monitoring, behavior monitoring and intervention as needed; provided distraction, redirection, reality orientation, positive reinforcement, and Q15 min safety checks. Response: Pt was in his room at change of shift. Pt spent time watching tv with group but is noted to be isolating to himself. Pt is quiet this evening and seems slightly agitated but denies agitation/anxiety. Pt c/o constipation and was provided with prune juice as well as started on Colace tonight. Pt had MOM earlier in the day. Pt watched tv with peers, and had snacks with group. Pt is calm and cooperative. Pt denies s/i. Pt is med compliant with HS meds. Pt removed nicotine patch and lidocaine patch before retreating to bed. Pt declined to watch Cinema One with peers this evening. Informed patient that he would be getting a roommate and pt snapped "I dont care!" Asked pt if he is ok? He replied he is and went to sleep. Plan: Pt. continues to require a safe and supportive environment. Addendum: 12/14/22 at 0519 by Rayna Ramos RN Pt woke reporting his blood pressure felt high. 'I feel it pulsing in my hands!" Pts bp 122/90.
[2022-12-14 05:18] VITALS: BP 122/90
[2022-12-14] MEDS ORDERED: bisacodyl 10mg suppository rectal RC PRN (05:40)
[2022-12-14 08:00] VITALS: BP 121/84
[2022-12-14] MEDS: oxybutynin 5mg tablet PO SCH ×3 (09:00→20:17)
[2022-12-14] MEDS: docusate sod 100mg capsule PO SCH (09:00)
[2022-12-14] MEDS: multivitamins, therapeutics tablet PO SCH (09:00)
[2022-12-14] MEDS: CARIPRAZINE 1.5 MG CAPSULE PO SCH (09:01)
[2022-12-14] MEDS: folic acid 0.4mg tablet PO SCH (09:01)
[2022-12-14] MEDS: thiamine 100mg tablet PO SCH (09:01)
[2022-12-14] MEDS: cyanocobalamin 500mcg tablet PO SCH (09:01)
[2022-12-14] MEDS: nicotine 21mg patch - 24 hr TD SCH (09:02)
[2022-12-14] MEDS: acetaminophen 325mg tablet PO PRN (12:10)
--- NOTE | 2022-12-14 16:23 | NUR ---
Nursing Progress Note: Problem : 5150 states, "you are stating you're suicidal and that you will hang yourself. Pt receives Assisted Outpatient Treatment services in [facility]. He last met with social services coordinator in October of 2021. Mitch reports he has been living on the streets the past week, has been without medications for the week, and has not had any alcohol for the past 7 days. Interventions : Maintained a safe and supportive environment, ensured contract for safety, provided clear and simple instructions, attempted to orient to reality, provided active listening and positive encouragement, and maintained Q 15min safety checks. Response : Received pt. sleeping in bed at the beginning of the shift, he was awoken to attend breakfast in the Group Room and then retreated back to bed as is his routine. Pt. later attended group, and was observed to be up interacting appropriately with others throughout the morning. 1:1 was completed later at bedside, pt. presents as cooperative and animated. His speech remains hyperverbal and thought process is tangental making him difficult to understand at times. Pt. denies any current S/I or A/V/MURDOCK. However, he continues to make what appear to be frequent grandiose delusional statements. Pt. states, "The Trump administration hates me, "I'm a multi- billionaire!" He then points to some cut out pictures of castles on his bedroom wall and goes on to talk about how he plans to get at one of these castles when he leaves. Pt. remained up throughout the shift and was observed to be interacting appropriately with others. Plan : Pt. continues to require medication adjustments and a safe and supportive environment.
[2022-12-14 19:40] VITALS: BP 127/89
[2022-12-14] MEDS: mirtazapine 15mg tablet PO SCH (20:17)
[2022-12-14] MEDS: gabapentin 300mg capsule PO SCH (20:17)
--- NOTE | 2022-12-15 03:52 | NUR ---
Nursing Progress Note: Problem : 5150 states, "you are stating you're suicidal and that you will hang yourself. Pt receives Assisted Outpatient Treatment services in [facility]. He last met with social service agency director in October of 2021. Mitch reports he has been living on the streets the past week, has been without medications for the week, and has not had any alcohol for the past 7 days. Interventions : Maintained a safe and supportive environment, ensured contract for safety, provided clear and simple instructions, attempted to orient to reality, provided active listening and positive encouragement, and maintained Q 15min safety checks. Response : Patient is pleasant and cooperative with care but appeared depressed; compliant with medication. Nicotine patch was removed. He denied SI, HI, A/VH; no apparent delusions expressed. Patient was guarded and responded minimally to MH assessment; waved the questions of stating, "no, no. none of those." Patient participated in HS snack and watched TV in the community room prior to bed; observed sleeping and does not appear to be having difficulty. Plan : Pt. continues to require medication adjustments and a safe and supportive environment.
--- NOTE | 2022-12-15 04:11 | NUR ---
VERIFY REP documentation: I have reviewed and agree with all interventions, assessments performed and documented by Binta Ross LVN.
[2022-12-15 08:00] VITALS: BP 119/81
[2022-12-15] MEDS: folic acid 0.4mg tablet PO SCH (08:28)
[2022-12-15] MEDS: gabapentin 300mg capsule PO SCH ×2 (08:28→14:04)
[2022-12-15] MEDS: oxybutynin 5mg tablet PO SCH ×3 (08:28→20:07)
[2022-12-15] MEDS: cyanocobalamin 500mcg tablet PO SCH (08:29)
[2022-12-15] MEDS: CARIPRAZINE 1.5 MG CAPSULE PO SCH (08:29)
[2022-12-15] MEDS: thiamine 100mg tablet PO SCH (08:29)
[2022-12-15] MEDS: multivitamins, therapeutics tablet PO SCH (08:29)
[2022-12-15] MEDS: nicotine 21mg patch - 24 hr TD SCH (08:29)
--- NOTE | 2022-12-15 13:38 | NUR ---
CASE MANAGEMENT Spoke to Barbara at [facility] (ph# [phone]) to inquire if she has any beds. She placed Mitch on the wait-list and said to call back next week. MAG Flynn
--- NOTE | 2022-12-15 15:23 | NUR ---
Nursing Progress Note: Problem : 5150 states, "you are stating you're suicidal and that you will hang yourself. Pt receives Assisted Outpatient Treatment services in [facility]. He last met with child welfare social worker in October of 2021. Mitch reports he has been living on the streets the past week, has been without medications for the week, and has not had any alcohol for the past 7 days. Interventions : Maintained a safe and supportive environment, ensured contract for safety, provided clear and simple instructions, attempted to orient to reality, provided active listening and positive encouragement, and maintained Q 15min safety checks. Response : Received pt. sleeping in bed at the beginning of the shift, he was awoken to attend breakfast in the Group Room and then retreated back to bed as is his routine. Pt. attended group and the patio with others. 1:1 was completed later at bedside, pt's speech continues to be hyperverbal and his thought process appears circumstantial. Pt. continues to deny any S/I or A/V/MURDOCK. He continues to make what appear to be frequent grandiose delusional statements and also makes what appear to be some hypersexual statements this shift. Pt. states, "I'm leaving tomorrow and going to live with my fiancee. We are going to fornicate and make babies!" This pattern chart writer reviewed child welfare social worker's note and pt. is currently on the wait-list to attend [facility]. Pt. continues on in a circumstantial manner to talk about how he will never return back home because his mother has dementia, he had to share a room with his brother, and his brother's daughter got her own room. Pt. was more present on the unit in the afternoon, and was observed to be interacting appropriately with others. He questioned this pattern chart writer regarding the possibility of attending [facility], and this was endorsed to pt's child welfare social worker who will speak with him regarding this tomorrow. Plan : Pt. continues to require medication adjustments and a safe and supportive environment.
[2022-12-15 20:00] VITALS: BP 118/77
[2022-12-15] MEDS: gabapentin 400mg capsule PO SCH (20:06)
[2022-12-15] MEDS: tizanidine 4mg tablet PO PRN (20:06)
[2022-12-15] MEDS: mirtazapine 15mg tablet PO SCH (20:08)
--- NOTE | 2022-12-16 00:29 | NUR ---
Nursing Progress Note: Problem : 5150 states, "you are stating you're suicidal and that you will hang yourself. Pt receives Assisted Outpatient Treatment services in [facility]. He last met with social work program coordinator in October of 2021. Mitch reports he has been living on the streets the past week, has been without medications for the week, and has not had any alcohol for the past 7 days. Interventions : Maintained a safe and supportive environment, ensured contract for safety, provided clear and simple instructions, attempted to orient to reality, provided active listening and positive encouragement, and maintained Q 15min safety checks. Response : Patient was out and about the unit following shift change. He was observed socializing with his peers. 1:1 Interview in hallway. Patient denies S/I, H/I or any hallucinations. Patient presents as linear until he speaks of his brother, the delusional statements then began. Patient is compliant with medications. Patient is cooperative and medication compliant. Plan : Pt. continues to require medication adjustments and a safe and supportive environment.
[2022-12-16 08:00] VITALS: BP 132/83
[2022-12-16] MEDS: folic acid 0.4mg tablet PO SCH (08:01)
[2022-12-16] MEDS: multivitamins, therapeutics tablet PO SCH (08:02)
[2022-12-16] MEDS: CARIPRAZINE 1.5 MG CAPSULE PO SCH (08:02)
[2022-12-16] MEDS: cyanocobalamin 500mcg tablet PO SCH (08:03)
[2022-12-16] MEDS: thiamine 100mg tablet PO SCH (08:03)
[2022-12-16] MEDS: gabapentin 400mg capsule PO SCH ×2 (08:03→15:52)
[2022-12-16] MEDS: oxybutynin 5mg tablet PO SCH ×3 (08:03→20:37)
[2022-12-16] MEDS: nicotine 21mg patch - 24 hr TD SCH (08:04)
--- NOTE | 2022-12-16 13:43 | NUR ---
Reassessment: Pt continues eating well on regular diet, documented with mostly 100% of meals meeting estimated nutrient needs. LBM 7 per EMR. No nutrition intervention implemented at this time. Will continue to follow. Recommendations: 1) Continue regular diet 2) Routine Thiamine, Folic acid, Vitamin B12, and MVI d/t EtOH hx with elevated MCV 3) Bowel care PRN 4) Weekly scaled weights Addendum: 12/16/22 at [address] Amended: Links added.
--- NOTE | 2022-12-16 14:21 | NUR ---
Nursing Progress Note: Problem : 5150 states, "you are stating you're suicidal and that you will hang yourself. Pt receives Assisted Outpatient Treatment services in [facility]. He last met with social science manager in October of 2021. Mitch reports he has been living on the streets the past week, has been without medications for the week, and has not had any alcohol for the past 7 days. Interventions : Maintained a safe and supportive environment, ensured contract for safety, provided clear and simple instructions, attempted to orient to reality, provided active listening and positive encouragement, and maintained Q 15min safety checks. Response : Patient was received sitting in community room at beginning of shift. Patient participated for breakfast then returned to room. When patient came out he started yelling about what was on the tv. Patient continued to fixate his delusions on another patient complaining about everything they did and making wild accusations about them. Patient eventually moved on once channel was changed. Patient was positive and cooperative after that. Patient took all medications without issue. Patient is eager to talk to social science manager about placement. Plan : Pt. continues to require medication adjustments and a safe and supportive environment.
--- NOTE | 2022-12-16 19:41 | NUR ---
Nursing Progress Note: Problem : 5150 states, "you are stating you're suicidal and that you will hang yourself. Pt receives Assisted Outpatient Treatment services in [facility]. He last met with director of social work in October of 2021. Mitch reports he has been living on the streets the past week, has been without medications for the week, and has not had any alcohol for the past 7 days. Interventions : Maintained a safe and supportive environment, ensured contract for safety, provided clear and simple instructions, attempted to orient to reality, provided active listening and positive encouragement, and maintained Q 15min safety checks. Response : Patient is in his room following shift change. He is socializing with his new roommate. The patient is mostly linear until the topic came up about earthquakes, the alf that should be condemned, and the coverup by the "Masons." The patient exhibits some paranoia when discussing the Masons, his speech becomes loud and he is hyperverbal. He denies audible or visual hallucinations. Patient is cooperative with this newspaper writer. Plan : Pt. continues to require medication adjustments and a safe and supportive environment.
[2022-12-16 20:00] VITALS: BP 123/86
[2022-12-16] MEDS: mirtazapine 15mg tablet PO SCH (20:38)
[2022-12-16] MEDS: gabapentin 100mg capsule PO SCH (20:39)
[2022-12-16] MEDS: tizanidine 4mg tablet PO PRN (20:41)
[2022-12-17 08:00] VITALS: BP 120/78
[2022-12-17] MEDS: gabapentin 100mg capsule PO SCH (08:42)
[2022-12-17] MEDS: cyanocobalamin 500mcg tablet PO SCH (08:42)
[2022-12-17] MEDS: CARIPRAZINE 1.5 MG CAPSULE PO SCH (08:42)
[2022-12-17] MEDS: thiamine 100mg tablet PO SCH (08:42)
[2022-12-17] MEDS: multivitamins, therapeutics tablet PO SCH (08:42)
[2022-12-17] MEDS: oxybutynin 5mg tablet PO SCH ×3 (08:43→20:25)
[2022-12-17] MEDS: folic acid 0.4mg tablet PO SCH (08:43)
[2022-12-17] MEDS: nicotine 21mg patch - 24 hr TD SCH (08:44)
[2022-12-17] MEDS: gabapentin 300mg capsule PO SCH ×2 (14:29→20:25)
--- NOTE | 2022-12-17 16:40 | NUR ---
Nursing Progress Note: Problem : 5150 states, "you are stating you're suicidal and that you will hang yourself. Pt receives Assisted Outpatient Treatment services in [facility]. He last met with public health social worker in October of 2021. Mitch reports he has been living on the streets the past week, has been without medications for the week, and has not had any alcohol for the past 7 days. Interventions : Maintained a safe and supportive environment, ensured contract for safety, provided clear and simple instructions, attempted to orient to reality, provided active listening and positive encouragement, and maintained Q 15min safety checks. Response : Patient was found socializing with other patients at change of shift. Patient continues to be pleasant with random loud outburst. Patient request his vitamins be scheduled for night because they are making him nauseous. Dr Chan approved them being moved to 2100. Patient continues to ask when he is leaving and worried his public health social worker is trying to keep him here. Patient is also worried his family is trying to steal from him. Patient is cooperative with care and apologizes to staff after yelling at them. Plan : Pt. continues to require medication adjustments and a safe and supportive environment.
[2022-12-17 19:00] VITALS: BP 116/85
--- NOTE | 2022-12-17 19:22 | NUR ---
Nursing Progress Note: Problem : 5150 states, "you are stating you're suicidal and that you will hang yourself. Pt receives Assisted Outpatient Treatment services in [facility]. He last met with social welfare clerk in October of 2021. Mitch reports he has been living on the streets the past week, has been without medications for the week, and has not had any alcohol for the past 7 days. Interventions : Maintained a safe and supportive environment, ensured contract for safety, provided clear and simple instructions, attempted to orient to reality, provided active listening and positive encouragement, and maintained Q 15min safety checks. Response : Patient is sitting in his room following shift change. He is actively engaged in conversation with his roommate. The patient denies S/I, H/I, or any hallucinations. The patient had a bowel movement today. He states he slept well last night. Patient states he looks forward to discharge. No delusional statements as of the time of this writing. Plan : Pt. continues to require medication adjustments and a safe and supportive environment.
[2022-12-17] MEDS: mirtazapine 15mg tablet PO SCH (20:25)
[2022-12-17] MEDS: tizanidine 4mg tablet PO PRN (20:26)
[2022-12-18 07:18] VITALS: BP 131/89
[2022-12-18] MEDS: gabapentin 300mg capsule PO SCH ×3 (08:15→20:31)
[2022-12-18] MEDS: oxybutynin 5mg tablet PO SCH ×3 (08:15→20:30)
[2022-12-18] MEDS: CARIPRAZINE 1.5 MG CAPSULE PO SCH (08:16)
[2022-12-18] MEDS: nicotine 21mg patch - 24 hr TD SCH (08:17)
--- NOTE | 2022-12-18 12:35 | NUR ---
NURSING PROGRESS NOTE: Problem : 5150 states, "you are stating you're suicidal and that you will hang yourself. Pt receives Assisted Outpatient Treatment services in [facility]. He last met with criminal justice social worker in October of 2021. Mitch reports he has been living on the streets the past week, has been without medications for the week, and has not had any alcohol for the past 7 days. Interventions : Maintained a safe and supportive environment, provided clear and simple instructions, attempted to orient to reality, provided active listening and positive encouragement, maintained Q 15min safety checks. Response : Received patient sleeping at shift change. Pt woke and ambulated halls listening to headphones. Service Station Helper was going to administer medications at breakfast, however pt became loud and said "I almost choked to on those meds yesterday!" "They gave me a whole fucking cup of medicine." " "I'm leaving this [place], there is no fucking constitution! Service Station Helper asked if he wanted to wait until after breakfast. Pt stated "yes" and calmed down. Pt later apologized for the outburst. Pt also became loud when talking to his roommate. 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 Pt later went and laid down. Will continue to monitor. Patient is sitting in his room following shift change. He is actively engaged in conversation with his roommate. The patient denies S/I, H/I, or any hallucinations. The patient had a bowel movement today. He states he slept well last night. Patient states he looks forward to discharge. No delusional statements as of the time of this writing. Plan : Pt. continues to require medication adjustments and a safe and supportive environment.
[2022-12-18 19:36] VITALS: BP 119/87
[2022-12-18] MEDS: multivitamins, therapeutics tablet PO SCH (20:30)
[2022-12-18] MEDS: cyanocobalamin 500mcg tablet PO SCH (20:30)
[2022-12-18] MEDS: thiamine 100mg tablet PO SCH (20:31)
[2022-12-18] MEDS: folic acid 0.4mg tablet PO SCH (20:31)
[2022-12-18] MEDS: mirtazapine 15mg tablet PO SCH (20:37)
--- NOTE | 2022-12-19 01:40 | NUR ---
NURSING PROGRESS NOTE: Problem : 5150 states, "you are stating you're suicidal and that you will hang yourself. Pt receives Assisted Outpatient Treatment services in [facility]. He last met with director social service in October of 2021. Mitch reports he has been living on the streets the past week, has been without medications for the week, and has not had any alcohol for the past 7 days. Interventions : Maintained a safe and supportive environment, provided clear and simple instructions, attempted to orient to reality, provided active listening and positive encouragement, maintained Q 15min safety checks. Response : Patient is pleasant and cooperative with care; boisterous and hyperverbal this shift. Compliant with HS medication. Patient denied MH Sx but expresses frequent delusional thought content. 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 Thought content appears disorganized at times. Patient is social, participated in HS snack and shaved prior to bed; observed sleeping and does not appear to be having difficulty. Plan : Pt. continues to require medication adjustments and a safe and supportive environment.
--- NOTE | 2022-12-19 05:20 | NUR ---
DRILLING INSPECTOR documentation: I have reviewed and agree with all interventions, assessments performed and documented by Binta Ross LVN.
[2022-12-19 07:55] VITALS: BP 116/80
--- NOTE | 2022-12-19 08:48 | NUR ---
[facility] REFERRAL Completed and sent [facility] referral.Requested interview today or tomorrow. MAG Flynn
[2022-12-19] MEDS: oxybutynin 5mg tablet PO SCH ×3 (08:53→20:59)
[2022-12-19] MEDS: CARIPRAZINE 1.5 MG CAPSULE PO SCH (08:53)
[2022-12-19] MEDS: gabapentin 300mg capsule PO SCH ×3 (08:53→20:59)
--- NOTE | 2022-12-19 10:35 | NUR ---
[facility] INTERVIEW 12/20/22 AT 10 AM MAG Flynn
[2022-12-19] MEDS: nicotine 21mg patch - 24 hr TD SCH (11:30)
--- NOTE | 2022-12-19 13:55 | NUR ---
5270 upheld for GD
[2022-12-19] MEDS: nystatin 15 GM ointment TP SCH ×2 (16:33→20:00)
--- NOTE | 2022-12-19 17:49 | NUR ---
NURSING PROGRESS NOTE: Problem : 5150 states, "you are stating you're suicidal and that you will hang yourself. Pt receives Assisted Outpatient Treatment services in [facility]. He last met with social services specialist in October of 2021. Mitch reports he has been living on the streets the past week, has been without medications for the week, and has not had any alcohol for the past 7 days. Interventions : Maintained a safe and supportive environment, provided clear and simple instructions, attempted to orient to reality, provided active listening and positive encouragement, maintained Q 15min safety checks. Response : Patient was awake sitting in the rec room at shift change. Pt apologized to teletypewriter installer about his outburst yesterday. Pt then became tangential talking about his mother Do you know that movie Leigh Arzola, well thats my mother. Pt was compliant with medication and care. Pt was visible on unit and when in his room quite social with his roommate. Pt denies SI/HI, A/VH. Pt c/o of rash in eduarda area. Sergei RN assessed and reported there was some erythema, received order for Nystatin ointment BID. Pts 5270 was upheld. Pt has a [facility] interview 12/20/22 at 1000 and is on waitlist for [facility]. No outbursts this shift. Plan : Pt. continues to require medication adjustments and a safe and supportive environment.
[2022-12-19 19:55] VITALS: BP 127/79
[2022-12-19] MEDS: folic acid 0.4mg tablet PO SCH (20:59)
[2022-12-19] MEDS: multivitamins, therapeutics tablet PO SCH (20:59)
[2022-12-19] MEDS: cyanocobalamin 500mcg tablet PO SCH (20:59)
[2022-12-19] MEDS: mirtazapine 15mg tablet PO SCH (20:59)
[2022-12-19] MEDS: thiamine 100mg tablet PO SCH (20:59)
--- NOTE | 2022-12-20 03:53 | NUR ---
NURSING PROGRESS NOTE: Problem : 5150 states, "you are stating you're suicidal and that you will hang yourself. Pt receives Assisted Outpatient Treatment services in [facility]. He last met with social welfare research worker in October of 2021. Mitch reports he has been living on the streets the past week, has been without medications for the week, and has not had any alcohol for the past 7 days. Interventions : Maintained a safe and supportive environment, provided clear and simple instructions, attempted to orient to reality, provided active listening and positive encouragement, maintained Q 15min safety checks. Response : Patient is pleasant and cooperative with care; compliant with medication. Patient denied SI, HI, A/VH; continues to express delusional thought content and hyperverbal. Patient fixates on talking about the government. Patient was social with peers and participated in HS snack prior to bed; patient reported difficulty sleeping but no sleep aid available d/t complaint of urinary incontinence when he takes Trazodone. Plan : Pt. continues to require medication adjustments and a safe and supportive environment.
--- NOTE | 2022-12-20 05:25 | NUR ---
STEWARD[employer] documentation: I have reviewed and agree with all interventions, assessments performed and documented by Binta Ross LVN.
[2022-12-20 08:00] VITALS: BP 110/74
[2022-12-20] MEDS: CARIPRAZINE 1.5 MG CAPSULE PO SCH (08:13)
[2022-12-20] MEDS: gabapentin 300mg capsule PO SCH ×3 (08:13→20:26)
[2022-12-20] MEDS: oxybutynin 5mg tablet PO SCH ×3 (08:13→20:26)
[2022-12-20] MEDS: nicotine 21mg patch - 24 hr TD SCH (08:15)
[2022-12-20] MEDS: nystatin 15 GM ointment TP SCH ×2 (08:16→20:26)
[2022-12-20] MEDS ORDERED: hydrOXYzine 25 MG tablet PO ONE (09:45)
--- NOTE | 2022-12-20 11:05 | NUR ---
ACCEPTED AT [facility] They can take him Thurs or Fri this week. MAG Flynn
[2022-12-20] MEDS ORDERED: hydrOXYzine 25 MG tablet PO PRN (11:30)
[2022-12-20] MEDS ORDERED: IPRA4AER IH (16:22)
[2022-12-20] MEDS ORDERED: TIZA-205 PO (16:23)
[2022-12-20] MEDS ORDERED: OXYB5TAB16 PO (16:23)
[2022-12-20] MEDS ORDERED: NICO-631 TD (16:23)
[2022-12-20] MEDS ORDERED: CARI4.5C PO (16:23)
[2022-12-20] MEDS ORDERED: NYST15OI14 TP (16:23)
[2022-12-20] MEDS ORDERED: GABA600T13 PO (16:23)
[2022-12-20] MEDS ORDERED: MIRT7.5T11 PO (16:23)
[2022-12-20] MEDS ORDERED: HYDR50TA65 PO (16:23)
--- NOTE | 2022-12-20 16:59 | NUR ---
NURSING PROGRESS NOTE: Mitch Problem: 5150 states, "you are stating you're suicidal and that you will hang yourself. Pt receives Assisted Outpatient Treatment services in [facility]. He last met with social work instructor in October of 2021. Mitch reports he has been living on the streets the past week, has been without medications for the week, and has not had any alcohol for the past 7 days. Interventions: Provided 1:1 assessment, maintained a safe and supportive environment, provided clear and simple instructions, attempted to orient to reality, medication administration/education/monitoring, provided active listening and positive encouragement, maintained Q 15min safety checks. Response: Patient received walking around the unit at change of shift. Pt endorsing that he is looking forward to his interview with the [facility] today. He presents as pleasant, social, and cooperative with care. Pt joined for breakfast in the group room, noted socializing with peers. He is complaint with scheduled medication. Patient denies all MH symptoms. Does not appear to be responding to internal stimuli. Pt noted to be hyperverbal, no delusional thought content observed this shift. He approached this com writer asking for PRN medication before his interview. Pt was given a one-time dose of PO Atarax per MD order. Pt noted to be active on the unit the majority of the shift, observed watching television in the rec room with peers. He approached this com writer later in the day expressing excitement that he was accepted to the [facility]. Pt napped in his room intermittently today. He joined for all meal and snack times in the group room with peers. Plan: Pt. continues to require medication adjustments and a safe and supportive environment.
--- NOTE | 2022-12-20 17:48 | NUR ---
PRE PLANNING ADVISOR documentation: I have reviewed all interventions, assessments performed and documented by MARII Potter.
[2022-12-20] MEDS: magnesium hydroxide 30ml (MOM) UD suspension PO PRN (19:58)
[2022-12-20] MEDS: multivitamins, therapeutics tablet PO SCH (20:26)
[2022-12-20] MEDS: thiamine 100mg tablet PO SCH (20:26)
[2022-12-20] MEDS: mirtazapine 15mg tablet PO SCH (20:26)
[2022-12-20] MEDS: folic acid 0.4mg tablet PO SCH (20:26)
[2022-12-20] MEDS: cyanocobalamin 500mcg tablet PO SCH (20:26)
[2022-12-20 20:50] VITALS: BP 134/85
--- NOTE | 2022-12-21 05:06 | NUR ---
Nursing Progress Note: Mitch Problem: 5150 states, "you are stating you're suicidal and that you will hang yourself. Pt receives Assisted Outpatient Treatment services in [facility]. He last met with social media sr strategy manager in October of 2021. Mitch reports he has been living on the streets the past week, has been without medications for the week, and has not had any alcohol for the past 7 days. Interventions: Provided 1:1 assessment, maintained a safe and supportive environment, provided clear and simple instructions, attempted to orient to reality, medication administration/education/monitoring, and provided active listening with positive encouragement, maintained Q 15min safety checks. Response: Received pt in [facility] where he asked automotive service writer for MOM because he is constipated. I had to dig it out. Pt is using the headphones for distraction tonight. Pt denies SI/HI/AVH. Pt is pleasant and cooperative and is excited about going to [facility] soon. Pt is medication compliant tonight, no results from MOM yet. Pt went to sleep after medications given. Monitor for safety. Plan: Pt. continues to require medication adjustments and a safe and supportive environment.
[2022-12-21 08:00] VITALS: BP 116/84
[2022-12-21] MEDS: nystatin 15 GM ointment TP SCH ×2 (08:00→21:49)
[2022-12-21] MEDS: oxybutynin 5mg tablet PO SCH ×3 (08:05→21:47)
[2022-12-21] MEDS: gabapentin 300mg capsule PO SCH ×3 (08:05→20:00)
[2022-12-21] MEDS: CARIPRAZINE 1.5 MG CAPSULE PO SCH (08:05)
[2022-12-21] MEDS: nicotine 21mg patch - 24 hr TD SCH (08:06)
--- NOTE | 2022-12-21 16:12 | NUR ---
Nursing Progress Note: Mitch Problem: 5150 states, "you are stating you're suicidal and that you will hang yourself. Pt receives Assisted Outpatient Treatment services in [facility]. He last met with marriage and family social worker in October of 2021. Mitch reports he has been living on the streets the past week, has been without medications for the week, and has not had any alcohol for the past 7 days. Interventions: Introduced self and established rapport, maintained a safe and supportive environment, ensured contract for safety, provided clear and simple instructions, attempted to orient to reality, and maintained Q 15min safety checks. Response: Pt. received awake and standing in the martinez. He denies SI, HI, AH, VH and has a DC date with [facility] on . Pt. took all his medications without hesitation, ate all meals in the community room with cohorts and engages socially. 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 has good hygiene, well groomed, and is wearing street clothes Plan: Pt. continues to require medication adjustments and a safe and supportive environment. Addendum: 12/21/22 at 1651 by Fede Mccloud) GARCÍA COMPRESS TRUCKER documentation: I have reviewed and agree with all interventions, assessments performed and documented by MARII.
[2022-12-21 20:15] VITALS: BP 114/90
[2022-12-21] MEDS: cyanocobalamin 500mcg tablet PO SCH (21:47)
[2022-12-21] MEDS: mirtazapine 15mg tablet PO SCH (21:47)
[2022-12-21] MEDS: folic acid 0.4mg tablet PO SCH (21:48)
[2022-12-21] MEDS: thiamine 100mg tablet PO SCH (21:48)
[2022-12-21] MEDS: multivitamins, therapeutics tablet PO SCH (21:48)
--- NOTE | 2022-12-22 04:50 | NUR ---
Nursing Progress Note: Mitch Problem: 5150 states, "you are stating you're suicidal and that you will hang yourself. Pt receives Assisted Outpatient Treatment services in [facility]. He last met with social work lecturer in October of 2021. Mitch reports he has been living on the streets the past week, has been without medications for the week, and has not had any alcohol for the past 7 days. Interventions: Introduced self and established rapport, maintained a safe and supportive environment, ensured contract for safety, provided clear and simple instructions, attempted to orient to reality, and maintained Q 15min safety checks. Response: Upon turn of shift noted patient sitting up in dining room eating. Bright, smiling and socializing with cohort. Pleasant, calm and cooperative and open. Soft eyes noted. Denies MH s/sx. Delusional statements made about his pictures he has hung up. During 1:1 assessment patient was laughing so hard it was difficult to decipher what he was saying during 1:1. Reports, Youre probably going to chart that Im NUTS, NUTS, NUTS, as hes laughing hysterically. Demonstrative dramatic behavior noted. Reports, I got to use my acting experience somewhere, and struck a pose and did a pouting face. Patient denies any further cough from a few days ago. CXR negative. This morning came to nurse with complaints of rash size of a volleyball and burning sensation to groin. Upon assessment noted small amount of redness to groin crevice bilaterally. Gave patient washcloths to clean with soap and water. Reports that the burning resolved. Compliant with HS meds. No PRNs given. Removed nicotine patch. Plans are to d/c to [facility] today. Will continue to monitor. Plan: Pt. continues to require medication adjustments and a safe and supportive environment.
[2022-12-22] MEDS: nystatin 15 GM ointment TP SCH ×2 (08:25→20:00)
[2022-12-22 08:26] VITALS: BP 137/93
[2022-12-22] MEDS: nicotine 21mg patch - 24 hr TD SCH (08:26)
[2022-12-22] MEDS: CARIPRAZINE 1.5 MG CAPSULE PO SCH (08:26)
[2022-12-22] MEDS: gabapentin 300mg capsule PO SCH ×3 (08:27→20:35)
[2022-12-22] MEDS: oxybutynin 5mg tablet PO SCH ×3 (08:27→20:36)
--- NOTE | 2022-12-22 14:36 | NUR ---
DISCHARGE PLAN Mitch is going to discharge on 12/23/22, to go to [facility]. He has follow up scheduled with Dr Jeffries at [facility]. He is also followed by Charbel Robert AOAnthony. MAG Flynn
--- NOTE | 2022-12-22 16:38 | NUR ---
Nursing Progress Note: Mitch Problem: 5150 states, "you are stating you're suicidal and that you will hang yourself. Pt receives Assisted Outpatient Treatment services in [facility]. He last met with social staff worker in October of 2021. Mitch reports he has been living on the streets the past week, has been without medications for the week, and has not had any alcohol for the past 7 days. Interventions: Introduced self and established rapport, maintained a safe and supportive environment, ensured contract for safety, provided clear and simple instructions, attempted to orient to reality, and maintained Q 15min safety checks. Response: Patient was found sitting in community room socializing at beginning of shift. Patient was confirmed by social staff worker to be leaving tomorrow. Covid swab was preformed and sent to lab. Patient is excited to finally be leaving but is sad to be leaving roommate. Patient is cooperative with medications and was observed coloring in community room with roommate and other patients. Patient continues to make delusional statements about being very wealthy and gets angry when ever he talks about his family. Medications are sitting in med room ready for when patient leaves tomorrow. Plan: Pt. continues to require medication adjustments and a safe and supportive environment. Addendum: 12/22/22 at 1727 by Fede Mccloud) GARCÍA CHILD CARE COOK documentation: I have reviewed and agree with all interventions, assessments performed and documented by MARII.
[2022-12-22 19:25] VITALS: BP 125/80
[2022-12-22] MEDS: cyanocobalamin 500mcg tablet PO SCH (20:35)
[2022-12-22] MEDS: multivitamins, therapeutics tablet PO SCH (20:35)
[2022-12-22] MEDS: mirtazapine 15mg tablet PO SCH (20:35)
[2022-12-22] MEDS: thiamine 100mg tablet PO SCH (20:35)
[2022-12-22] MEDS: folic acid 0.4mg tablet PO SCH (20:36)
--- NOTE | 2022-12-23 04:33 | NUR ---
Nursing Progress Note: Mitch Problem: 5150 states, "you are stating you're suicidal and that you will hang yourself. Pt receives Assisted Outpatient Treatment services in [facility]. He last met with social work assistant in October of 2021. Mitch reports he has been living on the streets the past week, has been without medications for the week, and has not had any alcohol for the past 7 days. Interventions: Introduced self and established rapport, maintained a safe and supportive environment, ensured contract for safety, provided clear and simple instructions, attempted to orient to reality, and maintained Q 15min safety checks. Response: Upon entering room noted patient lying in bed. He greeted this nurse by abruptly sitting up and saying hello. Bright affect while reporting he discharges today. Very talkative. Delusional. Denies MH s/sx. Minimizes symptoms. Wearing clean clothes with good hygiene. Compliant with HS meds. PRN Atarax given this am. Reports, I have the jitters about discharging today. Went back to bed. Slept well. Will continue to monitor. Plan: Pt. continues to require medication adjustments and a safe and supportive environment.
[2022-12-23] MEDS: nicotine 21mg patch - 24 hr TD SCH (07:52)
[2022-12-23] MEDS: oxybutynin 5mg tablet PO SCH (07:55)
[2022-12-23] MEDS: gabapentin 300mg capsule PO SCH (07:55)
[2022-12-23] MEDS: nystatin 15 GM ointment TP SCH (07:57)
[2022-12-23] MEDS: CARIPRAZINE 1.5 MG CAPSULE PO SCH (08:00)
[2022-12-23 08:09] VITALS: BP 115/82
== END 2022-12-23 11:10 | DRG 885 ==
LOC: ER 11:40 → ED HOLD 11-30 10:30 → ADULT MH 11-30 14:27
PROVIDERS: ADMIT Psychiatry & Neurology Psychiatry; ATTEND Psychiatry & Neurology Psychiatry
DX: F31.9 Bipolar disorder, unspecified (principal); R45.851 Suicidal ideations; Z20.822 Contact with and (suspected) exposure to COVID-19; F68.A Factitious disorder imposed on another; F10.20 Alcohol dependence, uncomplicated; F12.10 Cannabis abuse, uncomplicated; F17.210 Nicotine dependence, cigarettes, uncomplicated; H66.92 Otitis media, unspecified, left ear; J44.9 Chronic obstructive pulmonary disease, unspecified; K59.00 Constipation, unspecified; R32 Unspecified urinary incontinence; G89.29 Other chronic pain; M54.9 Dorsalgia, unspecified; Y90.1 Blood alcohol level of 20-39 mg/100 ml; Z59.00 Homelessness unspecified; Z79.899 Other long term (current) drug therapy; Z80.3 Family history of malignant neoplasm of breast; Z81.1 Family history of alcohol abuse and dependence; Z81.8 Family history of other mental and behavioral disorders; Z82.0 Family history of epilepsy and other diseases of the nervous system; Z82.49 Family history of ischemic heart disease and other diseases of the circulatory system; Z82.5 Family history of asthma and other chronic lower respiratory diseases; Z91.199 Patient's noncompliance with other medical treatment and regimen due to unspecified reason; Z91.51 Personal history of suicidal behavior; Z88.8 Allergy status to other drugs, medicaments and biological substances; Z56.0 Unemployment, unspecified; Z71.51 Drug abuse counseling and surveillance of drug abuser; Z71.41 Alcohol abuse counseling and surveillance of alcoholic; Z71.6 Tobacco abuse counseling
CPT/HCPCS: 36415; 71045; 80053; 80061; 80305; 80320; 82948; 83036; 85025; 86704; 86705; 86706; 87081; 87340; 87811; 94640; 94760; 99285; A6250; Q0177

== ENCOUNTER 2023-01-31 09:57 | Emergency (ER) | payer BC, MEDICAID ==
[~2023-01-31] VITALS: Ht 185.4 cm; Wt 80.9 kg
[~2023-01-31 09:57] MED LIST changes: -ALBU6.7H14 INH; -ALBU8.5H17 IH; -ALBU8.5H17 INH; +CARI4.5C PO; -CHOL200012 PO; -DEXA4TAB67 PO; -FLUT100B3 PO; -GABA300C PO; +GABA600T13 PO; +HYDR50TA65 PO; +IPRA4AER IH; +MIRT7.5T11 PO; +NYST15OI14 TP; +OXYB5TAB16 PO; +TIZA-205 PO; -TRAZ-256 PO
[2023-01-31 10:17] VITALS: BP 119/87; PULSE 83; RESP 20; TEMP 97.3; O2SAT 97
[2023-01-31 12:37] LABS: BASOPHILS # (AUTO) 0.1 X10'3 (0-0.2); BASOPHILS % (AUTO) 0.9 % (0-1); EOSINOPHILS # (AUTO) 0.2 X10'3 (0-0.9); EOSINOPHILS % (AUTO) 2.5 % (0-6); HEMATOCRIT 41.2 % (42.0-52.0); HEMOGLOBIN 13.6 g/dl (14.0-17.9); LYMPHOCYTES # (AUTO) 1.3 X10'3 (1.1-4.8); LYMPHOCYTES % (AUTO) 20.3 % (21-51); MEAN CORPUSCULAR VOLUME 96.8 FL (78-98); MEAN PLATELET VOLUME 7.2 FL (7.4-10.4); MONOCYTES # (AUTO) 0.4 X10'3 (0-0.9); MONOCYTES % (AUTO) 6.6 % (2-12); NEUTROPHILS # (AUTO) 4.6 X10'3 (1.8-7.7); NEUTROPHILS % (AUTO) 69.7 % (42-75); PLATELET COUNT 295 X10'3 (140-440); RED BLOOD COUNT 4.26 X10'6 (4.70-6.10); RED CELL DISTRIBUTION WIDTH 14.3 % (11.5-14.5); WHITE BLOOD COUNT 6.7 X10'3 (4.5-11.0)
[2023-01-31 12:56] LABS: ALANINE AMINOTRANSFERASE 19 U/L (12-78); ALBUMIN 3.7 G/DL (3.4-5.0); ALBUMIN/GLOBULIN RATIO 1.1 (1.1-1.5); ALKALINE PHOSPHATASE 81 IU/L (46-116); ANION GAP 8 (8-16); ASPARTATE AMINO TRANSFERASE 18 U/L (10-37); BILIRUBIN,TOTAL 0.8 MG/DL (0.1-1.0); BLOOD UREA NITROGEN 12 MG/DL (7-18); CALCIUM 8.8 MG/DL (8.5-10.1); CHLORIDE 103 MMOL/L (99-107); CREATINE KINASE 80 U/L (39-308); GLUCOSE 100 MG/DL (70-104); POTASSIUM 3.8 MMOL/L (3.5-5.1); SODIUM 140 MMOL/L (135-145); TOTAL CARBON DIOXIDE 29.3 MMOL/L (24-32); TOTAL PROTEIN 7.1 G/DL (6.4-8.2); eCRCL 108 ML/MIN; eGFR > 90 ML/MIN
== END 2023-01-31 14:08 | disposition home or self-care (01) ==
LOC: ER 09:58
DX: T67.5XXA Heat exhaustion, unspecified, initial encounter (principal); J44.9 Chronic obstructive pulmonary disease, unspecified; F31.9 Bipolar disorder, unspecified; Z88.8 Allergy status to other drugs, medicaments and biological substances; X58.XXXA Exposure to other specified factors, initial encounter; Y93.89 Activity, other specified; Y92.89 Other specified places as the place of occurrence of the external cause; Y99.8 Other external cause status
CPT/HCPCS: 36415; 80053; 82550; 85025; 99283

== ENCOUNTER 2023-05-15 06:36 | Inpatient (IN) | payer BC, MEDICAID ==
[~2023-05-15] VITALS: Ht 185.4 cm; Wt 80.7 kg
[2023-05-15] VITALS (7 sets, daily range): BP systolic 126; BP diastolic 82; PULSE 96–110; RESP 14–25; TEMP 97.8; O2SAT 96–98
[2023-05-15] MEDS ORDERED: magnesium 2GM in 50ml NS 50 ML IV ONE (07:05)
[2023-05-15] MEDS ORDERED: dexamethasone sod phosphate 10mg/ml inj IV STA (07:05)
[2023-05-15] MEDS: ipratropium/albuterol 3ml nebule NEB SCH ×4 (08:01→20:33)
[2023-05-15] MEDS ORDERED: HYDROcodone/acetaminophen 10/325mg tab PO PRN (14:00)
[2023-05-15] MEDS ORDERED: potassium Cl 40MEQ/1/2NS 520ml 520 ML IV PRN (14:00)
[2023-05-15] MEDS ORDERED: ondansetron/PF 4mg/2ml inj IV PRN (14:00)
[2023-05-15] MEDS ORDERED: magnesium 4gm in 100ml NS 100 ML IV PRN (14:00)
[2023-05-15] MEDS ORDERED: magnesium Cl slow-release 64mg tablet PO PRN (14:00)
[2023-05-15] MEDS ORDERED: magnesium 2GM in 50ml NS 50 ML IV PRN (14:00)
[2023-05-15] MEDS ORDERED: mag hydrox/Alum hydrox/simeth 30ml oral suspension PO PRN (14:00)
[2023-05-15] MEDS ORDERED: potassium Cl 20 mEq SR tablet PO PRN ×2 (14:00)
[2023-05-15] MEDS ORDERED: ipratropium/albuterol 3ml nebule NEB PRN (14:00)
[2023-05-15] MEDS ORDERED: magnesium hydroxide 30ml (MOM) UD suspension PO PRN (14:00)
[2023-05-15] MEDS ORDERED: HYDROcodone/acetaminophen 5mg/325mg tablet PO PRN (14:00)
[2023-05-15] MEDS ORDERED: acetaminophen 325mg tablet PO PRN (14:00)
[2023-05-15] MEDS: methylPREDNISolone sod succ 125mg/2ml vial IV SCH ×2 (14:38→20:21)
[2023-05-15 19:19] LABS: BASOPHILS % (AUTO) 0.4 % (0-1); EOSINOPHILS % (AUTO) 0 % (0-6); HEMOGLOBIN 15.8 g/dl (14.0-17.9); LYMPHOCYTES # (AUTO) 0.4 X10'3 (1.1-4.8); MEAN CORPUSCULAR HGB CONC 34.2 g/dL (33.0-36.5); MEAN CORPUSCULAR VOLUME 93.4 FL (78-98); MEAN PLATELET VOLUME 7.9 FL (7.4-10.4); MONOCYTES % (AUTO) 0.6 % (2-12); NEUTROPHILS # (AUTO) 7.6 X10'3 (1.8-7.7); PLATELET COUNT 257 X10'3 (140-440); RED BLOOD COUNT 4.93 X10'6 (4.70-6.10); RED CELL DISTRIBUTION WIDTH 15.4 % (11.5-14.5); WHITE BLOOD COUNT 8.1 X10'3 (4.5-11.0)
[2023-05-15 19:43] LABS: ALANINE AMINOTRANSFERASE 20 U/L (12-78); ALBUMIN 3.8 G/DL (3.4-5.0); ALKALINE PHOSPHATASE 99 IU/L (46-116); ANION GAP 11 (8-16); ASPARTATE AMINO TRANSFERASE 17 U/L (10-37); BLOOD UREA NITROGEN 18 MG/DL (7-18); BUN/CREATININE RATIO 15.1 (10.0-20.0); CALCIUM 8.8 MG/DL (8.5-10.1); CHLORIDE 102 MMOL/L (99-107); CREATININE 1.19 MG/DL (0.60-1.10); GLUCOSE 265 MG/DL (70-104); POTASSIUM 4.2 MMOL/L (3.5-5.1); SODIUM 138 MMOL/L (135-145); TOTAL CARBON DIOXIDE 25.2 MMOL/L (24-32); TOTAL PROTEIN 7.7 G/DL (6.4-8.2); eCRCL 72 ML/MIN; eGFR 62 ML/MIN
[2023-05-15] MEDS ORDERED: K and/or MAG REPLACEMENT MC SCH (20:00)
[2023-05-15] MEDS: docusate sod 100mg capsule PO SCH (20:22)
[2023-05-15] MEDS: CefTRIAXone/D5W-Rocephin 1gm 50 ML IV SCH (23:13)
[2023-05-16] VITALS (11 sets, daily range): BP systolic 127–150; BP diastolic 69–82; PULSE 60–97; RESP 14–25; TEMP 98.3; O2SAT 92–97
[2023-05-16] MEDS: ipratropium/albuterol 3ml nebule NEB SCH ×5 (00:10→14:58)
[2023-05-16] MEDS: methylPREDNISolone sod succ 125mg/2ml vial IV SCH ×3 (02:48→14:22)
[2023-05-16 07:28] LABS: BASOPHILS % (AUTO) 0.3 % (0-1); EOSINOPHILS % (AUTO) 0 % (0-6); HEMATOCRIT 41.5 % (42.0-52.0); HEMOGLOBIN 14.2 g/dl (14.0-17.9); LYMPHOCYTES # (AUTO) 0.5 X10'3 (1.1-4.8); LYMPHOCYTES % (AUTO) 4.8 % (21-51); MEAN CORPUSCULAR HEMOGLOBIN 32.3 PG (27.0-31.0); MEAN CORPUSCULAR HGB CONC 34.2 g/dL (33.0-36.5); MEAN CORPUSCULAR VOLUME 94.5 FL (78-98); MEAN PLATELET VOLUME 8.3 FL (7.4-10.4); MONOCYTES # (AUTO) 0.2 X10'3 (0-0.9); MONOCYTES % (AUTO) 1.8 % (2-12); NEUTROPHILS # (AUTO) 10.1 X10'3 (1.8-7.7); NEUTROPHILS % (AUTO) 93.1 % (42-75); PLATELET COUNT 276 X10'3 (140-440); RED BLOOD COUNT 4.39 X10'6 (4.70-6.10); RED CELL DISTRIBUTION WIDTH 15.2 % (11.5-14.5); WHITE BLOOD COUNT 10.9 X10'3 (4.5-11.0)
[2023-05-16 07:51] LABS: PROTHROMBIN TIME 10.3 SECONDS (9.0-12.0)
[2023-05-16 07:56] LABS: ALANINE AMINOTRANSFERASE 14 U/L (12-78); ALBUMIN 3.6 G/DL (3.4-5.0); ALKALINE PHOSPHATASE 99 IU/L (46-116); AMYLASE 24 U/L (25-115); ANION GAP 12 (8-16); ASPARTATE AMINO TRANSFERASE 16 U/L (10-37); BILIRUBIN,TOTAL 0.9 MG/DL (0.1-1.0); BLOOD UREA NITROGEN 22 MG/DL (7-18); BUN/CREATININE RATIO 21.4 (10.0-20.0); CHLORIDE 101 MMOL/L (99-107); CREATININE 1.03 MG/DL (0.60-1.10); GLUCOSE 178 MG/DL (70-104); LIPASE 23 U/L (16-77); MAGNESIUM 2.1 MG/DL (1.5-2.4); PHOSPHORUS 2.7 MG/DL (2.3-4.5); POTASSIUM 4.3 MMOL/L (3.5-5.1); SODIUM 136 MMOL/L (135-145); TOTAL CARBON DIOXIDE 23.4 MMOL/L (24-32); TOTAL PROTEIN 7.3 G/DL (6.4-8.2); eCRCL 83 ML/MIN; eGFR 73 ML/MIN
[2023-05-16] MEDS ORDERED: enoxaparin 40mg/0.4ml syringe SUBCUT SCH (08:00)
[2023-05-16] MEDS: CefTRIAXone/D5W-Rocephin 1gm 50 ML IV SCH (08:00)
[2023-05-16] MEDS: docusate sod 100mg capsule PO SCH (09:33)
[2023-05-16] MEDS ORDERED: AZIT250T PO ×2 (12:22)
[2023-05-16] MEDS ORDERED: METH4TAB81 PO ×3 (12:22→18:27)
[2023-05-16] MEDS ORDERED: AZIT250T3 PO (18:27)
== END 2023-05-16 17:20 | disposition home or self-care (01) | DRG 202 ==
LOC: ER 06:37 → ED HOLD 14:01 → EDBEDREQ 20:22 → ORTHO 4S 21:00
PROVIDERS: ADMIT Internal Medicine; ATTEND Internal Medicine
DX: J45.901 Unspecified asthma with (acute) exacerbation (principal); F31.81 Bipolar II disorder; J44.1 Chronic obstructive pulmonary disease with (acute) exacerbation; F84.0 Autistic disorder; G89.29 Other chronic pain; M54.9 Dorsalgia, unspecified; M19.90 Unspecified osteoarthritis, unspecified site; F17.210 Nicotine dependence, cigarettes, uncomplicated; F10.20 Alcohol dependence, uncomplicated; F12.10 Cannabis abuse, uncomplicated; F41.0 Panic disorder [episodic paroxysmal anxiety]; F43.10 Post-traumatic stress disorder, unspecified; Z88.8 Allergy status to other drugs, medicaments and biological substances; Z82.5 Family history of asthma and other chronic lower respiratory diseases; Z82.49 Family history of ischemic heart disease and other diseases of the circulatory system; Z82.0 Family history of epilepsy and other diseases of the nervous system; Z80.3 Family history of malignant neoplasm of breast
CPT/HCPCS: 36415; 80053; 82150; 83690; 83735; 84100; 85025; 85610; 87081; 94640; 94760; 99285; G0378; J0696; J1100; J1650; J2930; J3475

== ENCOUNTER 2023-12-23 16:42 | Inpatient (IN) | payer BC, MEDICAID ==
[~2023-12-23] VITALS: Ht 185.4 cm; Wt 77.6 kg
[~2023-12-23 16:42] MED LIST changes: -CARI4.5C PO; +METH4TAB81 PO; -NYST15OI14 TP; -OXYB5TAB16 PO; +OXYB5TAB21 PO; -TIZA-205 PO
[2023-12-23] MEDS: normal saline 1000ML IV soln IVB ONE (17:44)
[2023-12-23] MEDS: ondansetron/PF 4mg/2ml inj IV ONE (17:51)
[2023-12-23 17:57] LABS: BASOPHILS # (AUTO) 0.1 X10'3 (0-0.2); BASOPHILS % (AUTO) 0.5 % (0-1); EOSINOPHILS % (AUTO) 0.1 % (0-6); HEMATOCRIT 47.1 % (42.0-52.0); HEMOGLOBIN 15.5 g/dl (14.0-17.9); LYMPHOCYTES % (AUTO) 7.8 % (21-51); MEAN CORPUSCULAR HEMOGLOBIN 31.8 PG (27.0-31.0); MEAN CORPUSCULAR VOLUME 96.3 FL (78-98); MEAN PLATELET VOLUME 8.3 FL (7.4-10.4); MONOCYTES # (AUTO) 0.5 X10'3 (0-0.9); MONOCYTES % (AUTO) 3.9 % (2-12); NEUTROPHILS # (AUTO) 11.3 X10'3 (1.8-7.7); NEUTROPHILS % (AUTO) 87.7 % (42-75); PLATELET COUNT 224 X10'3 (140-440); RED BLOOD COUNT 4.89 X10'6 (4.70-6.10); RED CELL DISTRIBUTION WIDTH 15.4 % (11.5-14.5); WHITE BLOOD COUNT 12.9 X10'3 (4.5-11.0)
[2023-12-23 18:19] LABS: ALBUMIN 4.3 G/DL (3.4-5.0); ANION GAP 20 (8-16); BLOOD UREA NITROGEN 11 MG/DL (7-18); BUN/CREATININE RATIO 7.4 (10.0-20.0); CHLORIDE 103 MMOL/L (99-107); CREATININE 1.48 MG/DL (0.60-1.10); SODIUM 142 MMOL/L (135-145); TOTAL CARBON DIOXIDE 19.1 MMOL/L (24-32); eCRCL 56 ML/MIN; eGFR 48 ML/MIN
[2023-12-23 18:36] LABS: POTASSIUM 4.1 MMOL/L (3.5-5.1)
[2023-12-23 18:42] LABS: GLUCOSE 42 MG/DL (70-104)
[2023-12-23] MEDS: dextrose 50%-water 50ml dispensing syringe IV ONE (18:55)
[2023-12-23 20:02] LABS: ALANINE AMINOTRANSFERASE 42 U/L (12-78); ALBUMIN/GLOBULIN RATIO 1.2 (1.1-1.5); ALKALINE PHOSPHATASE 82 IU/L (46-116); ASPARTATE AMINO TRANSFERASE 37 U/L (10-37); BILIRUBIN,TOTAL 0.9 MG/DL (0.1-1.0); ETHANOL 178 MG/DL (<10); TOTAL PROTEIN 7.9 G/DL (6.4-8.2)
[2023-12-23 20:04] LABS: BILIRUBIN,DIRECT 0.2 MG/DL (0-0.3)
[2023-12-23] MEDS: thiamine 100mg tablet PO ONE (22:44)
[2023-12-24] MEDS: LORazepam 2 mg/ml vial IV ONE ×2 (01:20→01:23)
[2023-12-24] MEDS: sodium chloride inj. 154 MEQ in Dextrose 10%-water IV solution 961.5 ML IV SCH (01:23)
[2023-12-24] MEDS ORDERED: magnesium Cl slow-release 64mg tablet PO PRN (01:45)
[2023-12-24] MEDS ORDERED: ondansetron/PF 4mg/2ml inj IV PRN (01:45)
[2023-12-24] MEDS ORDERED: magnesium sulf-water 2g/50mL 50 ML IV PRN (01:45)
[2023-12-24] MEDS ORDERED: mag hydrox/Alum hydrox/simeth 30ml oral suspension PO PRN (01:45)
[2023-12-24] MEDS ORDERED: potassium Cl 20 mEq SR tablet PO PRN ×2 (01:45)
[2023-12-24] MEDS ORDERED: acetaminophen 325mg tablet PO PRN ×2 (01:45)
[2023-12-24] MEDS ORDERED: potassium Cl 40MEQ/1/2NS 520ml 520 ML IV PRN (01:45)
[2023-12-24] MEDS ORDERED: magnesium sulf-water 4G/100mL 100 ML IV PRN (01:45)
[2023-12-24] MEDS ORDERED: magnesium hydroxide 30ml (MOM) UD suspension PO PRN (01:45)
[2023-12-24] MEDS ORDERED: LORazepam 2 mg/ml vial IV PRN (01:50)
[2023-12-24] MEDS ORDERED: haloperidol lactate 5mg/ml inj IM PRN (01:50)
[2023-12-24] MEDS ORDERED: ipratropium/albuterol 3ml nebule NEB PRN (01:50)
[2023-12-24] MEDS ORDERED: haloperidol 5mg tablet PO PRN (01:50)
[2023-12-24 01:52] VITALS: PULSE 91; RESP 20; O2SAT 94
[2023-12-24] MEDS: albuterol 2.5 MG/3 ML nebule NEB ONE (01:52)
[2023-12-24 02:10] VITALS: PULSE 87; RESP 16; O2SAT 93
[2023-12-24 03:12] LABS: POTASSIUM 4.5 MMOL/L (3.5-5.1)
[2023-12-24] MEDS: K and/or MAG REPLACEMENT MC SCH (08:00)
[2023-12-24] MEDS: thiamine 100mg/ml 2ml inj. IV SCH (10:00)
[2023-12-24] MEDS: multivitamins, therapeutics tablet PO SCH (10:00)
[2023-12-24] MEDS: heparin, porcine 5000 units/ml vial SQ SCH (10:00)
[2023-12-24] MEDS: folic acid 1mg/0.2ml inj IV SCH (10:00)
[2023-12-24] MEDS: dextrose 5%-lactated ringers 1,000 ML IV SCH (10:25)
[2023-12-24] MEDS: LORazepam 1 MG tablet PO PRN (12:07)
[2023-12-24 14:48] LABS: BILIRUBIN,URINE NEGATIVE (Neg); CLARITY,URINE CLEAR (Clear); COLOR,URINE YELLOW (Yellow); GLUCOSE, URINE NEGATIVE (Neg); KETONES,URINE NEGATIVE (Neg); LEUKOCYTE ESTERASE ,URINE NEGATIVE (Neg); NITRITES, URINE NEGATIVE (Neg); OCCULT BLOOD,URINE NEGATIVE (Neg); PH,URINE 5.5 (4.8-8.0); PROTEIN,URINE NEGATIVE (Neg); UROBILINOGEN,URINE 0.2 E.U/dL (0.2-1.0)
[2023-12-24 14:49] LABS: UA COLLECTION TYPE CLN CATCH MIDSTREAM
[2023-12-24 14:56] LABS: URINE AMPHETAMINE SCREEN NEGATIVE (Neg); URINE BARBITUATE SCREEN NEGATIVE (Neg); URINE BENZODIAZEPINES SCREEN NEGATIVE (Neg); URINE CANNABINOID SCREEN POSITIVE (Neg); URINE COCAINE SCREEN NEGATIVE (Neg); URINE METHADONE SCREEN NEGATIVE (Neg); URINE OPIATE SCREEN NEGATIVE (Neg); URINE PHENCYCLIDINE SCREEN NEGATIVE (Neg)
[2023-12-24 16:12] VITALS: PULSE 65; RESP 17; O2SAT 99
[2023-12-24 19:45] VITALS: PULSE 65; RESP 16; O2SAT 95
[2023-12-24] MEDS: albuterol 2.5 MG/3 ML nebule NEB PRN (19:45)
[2023-12-24 19:52] VITALS: PULSE 72; RESP 16
[2023-12-24] MEDS ORDERED: TRAZ-251 PO (21:08)
[2023-12-24 22:00] VITALS: BP 118/68; PULSE 70; RESP 18; TEMP 98.3; O2SAT 95
[2023-12-25 02:00] VITALS: BP 121/83; PULSE 65; RESP 16; TEMP 98.1; O2SAT 93
[2023-12-25 05:43] LABS: BASOPHILS % (AUTO) 0.8 % (0-1); EOSINOPHILS # (AUTO) 0.2 X10'3 (0-0.9); EOSINOPHILS % (AUTO) 2.9 % (0-6); HEMATOCRIT 39.7 % (42.0-52.0); HEMOGLOBIN 13.5 g/dl (14.0-17.9); LYMPHOCYTES # (AUTO) 1.5 X10'3 (1.1-4.8); LYMPHOCYTES % (AUTO) 26.7 % (21-51); MEAN CORPUSCULAR HEMOGLOBIN 32.8 PG (27.0-31.0); MEAN CORPUSCULAR VOLUME 96.7 FL (78-98); MEAN PLATELET VOLUME 8.1 FL (7.4-10.4); MONOCYTES # (AUTO) 0.4 X10'3 (0-0.9); MONOCYTES % (AUTO) 7.7 % (2-12); NEUTROPHILS # (AUTO) 3.4 X10'3 (1.8-7.7); NEUTROPHILS % (AUTO) 61.9 % (42-75); PLATELET COUNT 182 X10'3 (140-440); RED BLOOD COUNT 4.11 X10'6 (4.70-6.10); RED CELL DISTRIBUTION WIDTH 15.2 % (11.5-14.5); WHITE BLOOD COUNT 5.4 X10'3 (4.5-11.0)
[2023-12-25 05:57] LABS: APTT 29 SECONDS (22-32); PROTHROMBIN TIME 10.5 SECONDS (9.0-12.0)
[2023-12-25 06:00] VITALS: BP 129/85; PULSE 62; RESP 18; TEMP 98.8; O2SAT 96
[2023-12-25 06:16] LABS: ALANINE AMINOTRANSFERASE 36 U/L (12-78); ALBUMIN 3.1 G/DL (3.4-5.0); ALBUMIN/GLOBULIN RATIO 1.1 (1.1-1.5); ALKALINE PHOSPHATASE 73 IU/L (46-116); AMYLASE 66 U/L (25-115); ANION GAP 6 (8-16); ASPARTATE AMINO TRANSFERASE 31 U/L (10-37); BLOOD UREA NITROGEN 9 MG/DL (7-18); BUN/CREATININE RATIO 10.8 (10.0-20.0); CALCIUM 8.6 MG/DL (8.5-10.1); CHLORIDE 102 MMOL/L (99-107); CREATININE 0.83 MG/DL (0.60-1.10); GLUCOSE 111 MG/DL (70-104); LIPASE 284 U/L (16-77); MAGNESIUM 1.7 MG/DL (1.5-2.4); PHOSPHORUS 3.9 MG/DL (2.3-4.5); POTASSIUM 3.8 MMOL/L (3.5-5.1); SODIUM 136 MMOL/L (135-145); TOTAL CARBON DIOXIDE 27.6 MMOL/L (24-32); eCRCL 100 ML/MIN; eGFR > 90 ML/MIN
[2023-12-25 08:00] VITALS: RESP 16; O2SAT 96
[2023-12-25 11:00] VITALS: BP 135/95; PULSE 64; RESP 20; TEMP 98.2; O2SAT 97
[2023-12-25] MEDS: normal saline 1000ml 1,000 ML IV SCH (11:15)
[2023-12-25 11:59] VITALS: PULSE 64; RESP 16; O2SAT 98
[2023-12-25] MEDS ORDERED: thiamine tablet PO (15:24)
[2023-12-25] MEDS ORDERED: FOLI1TAB27 PO (15:24)
[2023-12-25] MEDS ORDERED: MULT-25 PO (15:24)
[2023-12-27] MEDS ORDERED: thiamine 100mg tablet PO SCH (08:00)
[2023-12-28] MEDS ORDERED: folic acid 1mg tablet PO SCH (08:00)
== END 2023-12-25 15:35 | disposition home or self-care (01) | DRG 917 ==
LOC: ER 16:42 → ED HOLD 12-24 01:47 → EDBEDREQ 12-24 02:40 → PCU 3S 12-24 21:30
PROVIDERS: ADMIT Surgery; ATTEND Internal Medicine
DX: T65.91XA Toxic effect of unspecified substance, accidental (unintentional), initial encounter (principal); G92.8 Other toxic encephalopathy; E87.29 Other acidosis; F02.83 Dementia in other diseases classified elsewhere, unspecified severity, with mood disturbance; J44.1 Chronic obstructive pulmonary disease with (acute) exacerbation; N17.9 Acute kidney failure, unspecified; E16.2 Hypoglycemia, unspecified; E86.0 Dehydration; F10.120 Alcohol abuse with intoxication, uncomplicated; F31.9 Bipolar disorder, unspecified; G89.29 Other chronic pain; R56.9 Unspecified convulsions; Y90.6 Blood alcohol level of 120-199 mg/100 ml; G30.9 Alzheimer's disease, unspecified; I25.2 Old myocardial infarction; T67.5XXA Heat exhaustion, unspecified, initial encounter; Z80.3 Family history of malignant neoplasm of breast; Z87.891 Personal history of nicotine dependence; Z88.8 Allergy status to other drugs, medicaments and biological substances; X30.XXXA Exposure to excessive natural heat, initial encounter; Y93.89 Activity, other specified; Y92.89 Other specified places as the place of occurrence of the external cause; Y99.8 Other external cause status
CPT/HCPCS: 36415; 70450; 71045; 80048; 80053; 80076; 80305; 80320; 81003; 82140; 82150; 82948; 83690; 83735; 84100; 84132; 85025; 85610; 85730; 87081; 93005; 94640; 94760; 96374; 96375; 97161; 97530; 99285; G0378; J1644; J2060; J2405; J3411; J3490; J7030; J7121

== ENCOUNTER 2024-05-15 08:11 | Emergency (ER) | payer BC, MEDICAID ==
[~2024-05-15] VITALS: Ht 185.4 cm; Wt 79.0 kg
[~2024-05-15 08:11] MED LIST changes: +ALB0.5UD IH; +DIVA500T9 PO; -GABA600T13 PO; +HYDR-3686 PO; -HYDR50TA65 PO; -IPRA4AER IH; -METH4TAB81 PO; -MIRT7.5T11 PO; +MULT-25 PO; +NICO-631 TD; +NICO-907 BC; +OLAN5TAB29 PO; -OXYB5TAB21 PO; +THIA50TA10 PO; +TRAZ-251 PO
[2024-05-15] MEDS: methylPREDNISolone sod succ 125mg/2ml vial IV ONE (08:51)
[2024-05-15] MEDS: ipratropium/albuterol 3ml nebule NEB ONE (08:55)
[2024-05-15 08:56] VITALS: PULSE 90; RESP 16; O2SAT 97
[2024-05-15 09:05] VITALS: PULSE 90; RESP 23; O2SAT 100
[2024-05-15 09:18] LABS: ALANINE AMINOTRANSFERASE 22 U/L (12-78); ALBUMIN/GLOBULIN RATIO 1.1 (1.1-1.5); ALKALINE PHOSPHATASE 88 IU/L (46-116); ANION GAP 14 (8-16); BILIRUBIN,TOTAL 0.8 MG/DL (0.1-1.0); BLOOD UREA NITROGEN 10 MG/DL (7-18); BUN/CREATININE RATIO 9.9 (10.0-20.0); CALCIUM 8.3 MG/DL (8.5-10.1); CHLORIDE 103 MMOL/L (99-107); CREATININE 1.01 MG/DL (0.60-1.10); GLUCOSE 60 MG/DL (70-104); SODIUM 141 MMOL/L (135-145); TOTAL CARBON DIOXIDE 24.4 MMOL/L (24-32); TOTAL PROTEIN 7.7 G/DL (6.4-8.2); eCRCL 83 ML/MIN; eGFR 74 ML/MIN
[2024-05-15] MEDS: predniSONE 20 mg tablet PO ONE (09:24)
[2024-05-15] MEDS: diphenhydrAMINE 25mg capsule PO ONE (09:24)
[2024-05-15] MEDS: ondansetron/PF 4mg/2ml inj IV ONE ×2 (09:24→10:09)
[2024-05-15 09:25] LABS: PRO BRAIN NATRIURETIC PEPTIDE 68 PG/ML (0-125)
[2024-05-15 09:26] LABS: ASPARTATE AMINO TRANSFERASE 28 U/L (10-37); POTASSIUM 4.8 MMOL/L (3.5-5.1)
[2024-05-15] MEDS: LORazepam 1 MG tablet PO ONE (10:11)
[2024-05-15 10:16] VITALS: BP 132/94; PULSE 84; RESP 17; O2SAT 98
[2024-05-15 10:31] LABS: BASOPHILS % (AUTO) 0.4 % (0-1); EOSINOPHILS % (AUTO) 0 % (0-6); HEMATOCRIT 43.2 % (42.0-52.0); HEMOGLOBIN 15.3 g/dl (14.0-17.9); LYMPHOCYTES # (AUTO) 0.6 X10'3 (1.1-4.8); LYMPHOCYTES % (AUTO) 7.9 % (21-51); MEAN CORPUSCULAR HEMOGLOBIN 35.4 PG (27.0-31.0); MEAN CORPUSCULAR HGB CONC 35.4 g/dL (33.0-36.5); MEAN CORPUSCULAR VOLUME 99.8 FL (78-98); MEAN PLATELET VOLUME 7.5 FL (7.4-10.4); MONOCYTES # (AUTO) 0.1 X10'3 (0-0.9); MONOCYTES % (AUTO) 1.8 % (2-12); NEUTROPHILS # (AUTO) 7.1 X10'3 (1.8-7.7); NEUTROPHILS % (AUTO) 89.9 % (42-75); PLATELET COUNT 287 X10'3 (140-440); RED BLOOD COUNT 4.33 X10'6 (4.70-6.10); RED CELL DISTRIBUTION WIDTH 14.5 % (11.5-14.5); WHITE BLOOD COUNT 7.9 X10'3 (4.5-11.0)
[2024-05-15] MEDS ORDERED: PRED20TA PO (11:07)
[2024-05-15] MEDS ORDERED: ALB0.5UD IH (11:07)
[2024-05-15] MEDS ORDERED: BUDE10.2 INH (11:09)
[2024-05-15 11:29] VITALS: TEMP 97.9
== END 2024-05-15 11:31 | disposition home or self-care (01) ==
LOC: ER 08:12
DX: J44.9 Chronic obstructive pulmonary disease, unspecified (principal); J45.909 Unspecified asthma, uncomplicated; M19.90 Unspecified osteoarthritis, unspecified site; F41.9 Anxiety disorder, unspecified; F32.A Depression, unspecified; G89.29 Other chronic pain; M54.9 Dorsalgia, unspecified; Z90.89 Acquired absence of other organs; Z98.890 Other specified postprocedural states; Z79.51 Long term (current) use of inhaled steroids; Z88.8 Allergy status to other drugs, medicaments and biological substances; Z79.899 Other long term (current) drug therapy
CPT/HCPCS: 36415; 71045; 80053; 83880; 84484; 85025; 93005; 96374; 96375; 99285; J2405; J2919; J7512; Q0163; 94760

== ENCOUNTER 2024-10-19 06:15 | Emergency (ER) | payer BC, MEDICAID ==
[~2024-10-19] VITALS: Ht 185.4 cm; Wt 68.3 kg
[~2024-10-19 06:15] MED LIST changes: +BUDE10.2 INH
[2024-10-19 06:17] VITALS: TEMP 97.6
--- NOTE | 2024-10-19 06:48 | RADIOLOGY REPORT ---
CHEST RADIOGRAPH Indication: SOB Technique: Frontal and lateral view of the chest was obtained Comparison: CHEST,TWO VIEWS on DOS: 04/03/22 FINDINGS: Lines and Tubes: None Lungs: Clear Pleura: No effusion. No pneumothorax. Cardiomediastinal contours: Unremarkable Bones: Unremarkable IMPRESSION: No evidence of acute disease.
[2024-10-19 07:29] LABS: BASOPHILS % (AUTO) 0.5 % (0-1); EOSINOPHILS # (AUTO) 0.1 X10'3 (0-0.9); EOSINOPHILS % (AUTO) 1.4 % (0-6); HEMATOCRIT 42.9 % (42.0-52.0); HEMOGLOBIN 14.8 g/dl (14.0-17.9); LYMPHOCYTES % (AUTO) 20.8 % (21-51); MEAN CORPUSCULAR HEMOGLOBIN 33.7 PG (27.0-31.0); MEAN CORPUSCULAR HGB CONC 34.4 g/dL (33.0-36.5); MEAN CORPUSCULAR VOLUME 97.9 FL (78-98); MEAN PLATELET VOLUME 8.3 FL (7.4-10.4); MONOCYTES # (AUTO) 0.4 X10'3 (0-0.9); MONOCYTES % (AUTO) 7.8 % (2-12); NEUTROPHILS # (AUTO) 3.4 X10'3 (1.8-7.7); NEUTROPHILS % (AUTO) 69.5 % (42-75); PLATELET COUNT 230 X10'3 (140-440); RED BLOOD COUNT 4.38 X10'6 (4.70-6.10); RED CELL DISTRIBUTION WIDTH 13.7 % (11.5-14.5); WHITE BLOOD COUNT 4.9 X10'3 (4.5-11.0)
[2024-10-19 07:49] LABS: ALBUMIN 4.1 G/DL (3.4-5.0); ANION GAP 12 (8-16); BLOOD UREA NITROGEN 4 MG/DL (7-18); BUN/CREATININE RATIO 4.9 (10.0-20.0); CALCIUM 8.6 MG/DL (8.5-10.1); CHLORIDE 96 MMOL/L (99-107); CREATININE 0.82 MG/DL (0.60-1.10); GLUCOSE 79 MG/DL (70-104); PRO BRAIN NATRIURETIC PEPTIDE 106 PG/ML (0-125); SODIUM 135 MMOL/L (135-145); TOTAL CARBON DIOXIDE 26.8 MMOL/L (24-32); eCRCL 88 ML/MIN; eGFR > 90 ML/MIN
[2024-10-19] MEDS: hydrOXYzine 25 MG tablet PO ONE (09:05)
[2024-10-19] MEDS ORDERED: OLAN5TAB3 PO (09:12)
[2024-10-19] MEDS ORDERED: HYDR-3686 PO (09:12)
--- NOTE | 2024-10-19 09:12 | Physician Documentation ---
History of Present Illness ~ Chief Complaint: Anxiety Stated Complaint: ANXIETY Time Seen by MD: 08:28 Primary Medical Doctor: [facility] HPI Patient is seen today with complaints of anxiety and nausea and vomiting. Patient admits to smoking THC or vaping marijuana daily. Patient states he is nauseous every day and vomits almost every morning. Patient denies any chest pain or shortness of breath or abdominal pain or diarrhea. Patient has no other concern or complaint at this time. Medication Reconciliation Allergies: Coded Allergies: lithium (Verified Allergy, Unknown, TURNS PT WHITE, 10/19/24) haloperidol (Verified Adverse Reaction, Severe, EPR, 10/19/24) Scheduled Budesonide/Formoterol Fumarate (Symbicort 160-4.5 Mcg Inhaler), 2 PUFFS INH Q12H Divalproex Sodium (Divalproex Sodium ER), 3 TAB PO HS Multivitamin with Folic Acid (Thera Tablet), 1 TAB PO DAILY Nicotine 14 MG Patch* (Habitrol 14 MG Patch*), 1 PATCH TD DAILY Olanzapine (Olanzapine), 5 MG PO HS Thiamine HCl (Vitamin B-1), 2 TAB PO DAILY Scheduled PRN Albuterol Sulfate Nebs* (Proventil Nebs*), 2.5 MG IH Q4H PRN for SOB or wheezing Hydroxyzine Hcl* (Atarax*), 50 MG PO Q8H PRN for anxiety Nicotine Polacrilex (Nicotine Lozenge), 2 MG BC Q2H PRN for NICOTINE CRAVING Trazodone HCl (Trazodone HCl), 2 TAB PO HS PRN for sleep Past Medical History Past Medical History: Seizures, Asthma, COPD, Arthritis, Chronic Back Pain, Anxiety, Bipolar, Depression Past Surgical History: orthopedic surgeries, tonsillectomy Patient History: (COPD) Chronic obstructive lung disease FATHER (Cancer) Malignant carcinoid tumor MOTHER (breast ca 1977) ([place]) Myocardial infarction GRANDFATHER OR GRANDMOTHER, (paternal grandfather) Alzheimer's disease MOTHER GRANDFATHER OR GRANDMOTHER, (maternal grandmother) Alcohol Use: Heavy Drug Use: marijuana, other Lives with: Mother Lives In: Home Review of Systems Constitutional: Denies: chills, fever, weakness Eyes: Denies: pain, blurred vision ENT: Denies: ear pain, nose pain, throat pain, mouth pain Respiratory: Denies: cough, shortness of breath Cardiovascular: Denies: chest pain, palpitations Gastrointestinal: Denies: abdominal pain, nausea, vomiting Genitourinary: Denies: burning, dysuria Male Genitalia: Denies: penile discharge, testicular pain Neurological: Denies: headache, dizziness Musculoskeletal: Denies: pain, swelling Integumentary: Denies: rash, lesions Allergic/Immunologic: Denies: hives, itching Hematologic/Lymphatic: Denies: no symptoms reported Psychiatric: Denies: depression, anxiety Physical Exam Vital Signs: Temperature: 97.6, Source: Oral, Heart Rate: 110, Respiratory Rate: 21, BP: 129/94, Pulse Oximetry: 98, Weight: 68.300 Physical Exam General: Awake and Alert, no acute distress. HEENT: Conjunctiva pink, Sclera clear, Mucus Membranes moist. Neck: Supple without masses and tenderness. Resp: Unlabored. Lungs clear to auscultation bilaterally. Heart: Regular Rate and rhythm, normal S1 and S2 without murmur, rub or gallop. Abdomen: Soft and non tender no organomegaly Extremities: No cyanosis,clubbing or edema. Skin: Warm and Dry. Progress Results/Orders Results/Orders Completed Orders - SONIYA BRASWELL Hydroxyzine Tablet (Atarax Tablet) (10/19/24 08:45) Medications Received in ER Medications (Trade) Dose Ordered Sig/Alejandra Route PRN Reason Start Time Stop Time Status Last Admin Dose Admin (Atarax tablet) 25 mg ONCE ONCE PO 10/19/24 08:45 10/19/24 08:47 DC 10/19/24 09:05 25 MG Vital Signs 10/19/24 06:17 Temp 97.6 Pulse 110 Resp 21 B/P (MAP) 129/94 Pulse Ox 98 Laboratory Tests Test 10/19/24 07:15 White Blood Count 4.9 Red Blood Count 4.38 L Hemoglobin 14.8 Hematocrit 42.9 Mean Corpuscular Volume 97.9 Mean Corpuscular Hemoglobin 33.7 H Mean Corpuscular Hemoglobin Concent 34.4 Red Cell Distribution Width 13.7 Platelet Count 230 Mean Platelet Volume 8.3 Neutrophils (%) (Auto) 69.5 Lymphocytes (%) (Auto) 20.8 L Monocytes (%) (Auto) 7.8 Eosinophils (%) (Auto) 1.4 Basophils (%) (Auto) 0.5 Neutrophils # (Auto) 3.4 Lymphocytes # (Auto) 1.0 L Monocytes # (Auto) 0.4 Eosinophils # (Auto) 0.1 Basophils # (Auto) 0.0 CBC Comment Sodium Level 135 Potassium Level 4.0 Chloride Level 96 L Carbon Dioxide Level 26.8 Anion Gap 12 Blood Urea Nitrogen 4 L Creatinine 0.82 Estimated GFR/1.73 m2 > 90 BUN/Creatinine Ratio 4.9 L Glucose Level 79 Calcium Level 8.6 Pro-B-Type Natriuretic Peptide 106 Albumin 4.1 Chemistry Comments Medical Decision Making Findings Patient is seen today with complaints of anxiety and nausea and vomiting. Patient admits to smoking THC or vaping marijuana daily. Patient states he is nauseous every day and vomits almost every morning. Patient denies any chest pain or shortness of breath or abdominal pain or diarrhea. Patient has no other concern or complaint at this time. Patient was given a dose of Zyprexa 5 mg by mouth and Zofran 4 mg ODT. Yanelis ent's symptoms improved. Patient was also given dose of hydroxyzine 25 mg by mouth in the ED today. Patient will be given prescription for Zyprexa 5 mg 1-2 tablets to be taken at night for anxiety/nausea and vomiting. Patient also given prescription for hydroxyzine 25 mg one tab 3 times a day as needed for anxiety. Patient will follow up with primary care in 2-5 days if no better as needed sooner. Return to ED with any worsening, concerning or changing symptoms. Patient was strongly advised to discontinue consumption of alcohol as well as discontinue smoking marijuana. Patient voiced understanding. Patient understands the marijuana smoking is causing his cyclic vomiting syndrome. Departure Disposition: 01 HOME / SELF CARE / HOMELESS Impression: Primary Impression: Anxiety Additional Impressions: History of marijuana use Cannabis abuse Cyclic vomiting syndrome Condition: Improved Discharge Instructions: Cyclic Vomiting Syndrome, Adult Additional Instructions: Patient was given a dose of Zyprexa 5 mg by mouth and Zofran 4 mg ODT. Patient's symptoms improved. Patient was also given dose of hydroxyzine 25 mg by mouth in the ED today. Patient will be given prescription for Zyprexa 5 mg 1-2 tablets to be taken at night for anxiety/nausea and vomiting. Patient also given prescription for hydroxyzine 25 mg one tab 3 times a day as needed for anxiety. Patient will follow up with primary care in 2-5 days if no better as needed sooner. Return to ED with any worsening, concerning or changing symptoms. Patient was strongly advised to discontinue consumption of alcohol as well as discontinue smoking marijuana. Patient voiced understanding. Patient understands the marijuana smoking is causing his cyclic vomiting syndrome. Referrals: NO PRIMARY CARE PROVIDER (PCP) Prescriptions Hydroxyzine Hcl* (Atarax*) 25 Mg Tablet 1 TAB PO Q8H for anxiety for 10 Days, #30 TAB Prov: SONIYA BRASWELL 10/19/24 Olanzapine (Zyprexa) 5 Mg Tablet 1-2 TAB PO HS for 15 Days, #30 TAB 0 Refills Prov: SONIYA BRASWELL 10/19/24 Signature Scribe Signature: No scribe Attestation: No scribe SONIYA BRASWELL October 19, 2024 09:11
[2024-10-19] MEDS: ondansetron 4mg rapidly disintigrating tab PO STA (09:37)
[2024-10-19] MEDS: OLANZapine 2.5MG tablet PO STA (09:37)
[2024-10-19 09:42] VITALS: BP 124/85; PULSE 100; RESP 19; O2SAT 98
== END 2024-10-19 09:47 | disposition home or self-care (01) ==
LOC: ER 06:15
DX: F41.9 Anxiety disorder, unspecified (principal); R11.2 Nausea with vomiting, unspecified; J44.9 Chronic obstructive pulmonary disease, unspecified; F31.9 Bipolar disorder, unspecified; M19.90 Unspecified osteoarthritis, unspecified site; F12.10 Cannabis abuse, uncomplicated; F17.290 Nicotine dependence, other tobacco product, uncomplicated; Z90.89 Acquired absence of other organs
CPT/HCPCS: 36415; 71046; 80048; 83880; 85025; 99284; Q0177

== ENCOUNTER 2024-10-22 09:47 | Emergency (ER) | payer BC, MEDICAID ==
[~2024-10-22] VITALS: Ht 185.4 cm; Wt 63.6 kg
[~2024-10-22 09:47] MED LIST changes: +OLAN5TAB3 PO
[2024-10-22 10:00] VITALS: BP 143/83; PULSE 103; TEMP 97.9; O2SAT 98
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
--- NOTE | 2024-10-22 10:56 | RADIOLOGY REPORT ---
DI SACRUM COCCYX HISTORY: FALL TECHNICAL DATA: Frontal, Osman and lateral views were obtained of the sacrum and coccyx. COMPARISON: None FINDINGS: No acute fracture or dislocation. Please note that the sacrum is somewhat obscured by bowel gas on th e frontal view. Hip joint spaces are maintained. Lower lumbar spondylosis. IMPRESSION: 1. No acute sacral fracture.
[2024-10-22 11:12] VITALS: RESP 17
[2024-10-22] MEDS: ketorolac trometh 15mg/ml vial 15 MG/ML ML IM ONE (11:12)
== END 2024-10-22 11:30 | disposition home or self-care (01) ==
LOC: ER 09:47
DX: S30.0XXA Contusion of lower back and pelvis, initial encounter (principal); J44.9 Chronic obstructive pulmonary disease, unspecified; F31.9 Bipolar disorder, unspecified; M19.90 Unspecified osteoarthritis, unspecified site; F41.9 Anxiety disorder, unspecified; Z90.89 Acquired absence of other organs; W19.XXXA Unspecified fall, initial encounter; Y93.89 Activity, other specified; Y92.89 Other specified places as the place of occurrence of the external cause; Y99.8 Other external cause status
CPT/HCPCS: 72220; 96372; 99284; J1885

== ENCOUNTER 2024-11-26 11:24 | Emergency (ER) | payer BC, MEDICAID ==
[~2024-11-26] VITALS: Ht 185.4 cm; Wt 67.1 kg
[~2024-11-26 11:24] MED LIST changes: +ASPI-1265 PO; -DIVA500T9 PO; +FOLI0.4T6 PO; -HYDR-3686 PO; -OLAN5TAB29 PO; -OLAN5TAB3 PO
[2024-11-26 11:27] VITALS: BP 124/84; PULSE 87; RESP 18; O2SAT 95
--- NOTE | 2024-11-26 11:41 | ELECTROCARDIOGRAPH REPORT ---
[facility] Test Date: 2024-11-26 Test Time: 11:37:06 Pat Name: JI GILMORE Department: EMERGENCY ROOM Room: Gender: M Cna Ltc: : 1960 Requested By: SONIYA BRASWELL Order Number: [id number] Reading MD: Measurements Intervals [place] Rate: 89 P: 68 IA: 164 QRS: 4 QRSD: 81 T: 31 QT: 377 QTc: 459 Interpretive Statements Sinus rhythm Borderline repolarization abnormality Please click the below link to view image of tracing.
--- NOTE | 2024-11-26 13:23 | Physician Documentation ---
History of Present Illness ~ Chief Complaint: Anxiety Stated Complaint: Time Seen by MD: 12:23 Primary Medical Doctor: [facility] HPI Patient is seen today with complaints of extra two Restoril germ were fair causing him anxiety yesterday. Patient states he thought he might have had an episode of atrial fibrillation yesterday and so he drank a tall boys or a large beer to help calm him down and lower his heart rate. Patient currently denies any anxiety any currently denies any suicidal ideation. Patient states he did have sudden onset of suicidal ideation earlier this morning but states he is feeling much better now. Patient denies any chest pain, shortness of breath, abdominal pain, nausea, vomiting, diarrhea. Patient denies any for chronic or excessive use of alcohol. Patient has no other concern or complaint at this time. Medication Reconciliation Allergies: Coded Allergies: lithium (Verified Allergy, Unknown, TURNS PT WHITE, 11/26/24) haloperidol (Verified Adverse Reaction, Severe, EPR, 11/26/24) Scheduled Aspirin (Aspirin), 1 TAB PO DAILY Budesonide/Formoterol Fumarate (Symbicort 160-4.5 Mcg Inhaler), 2 PUFFS INH Q12H Folic Acid* (Folic Acid*), 1 TAB PO DAILY Multivitamin with Folic Acid (Thera Tablet), 1 EACH PO Q24H Nicotine 14 MG Patch* (Habitrol 14 MG Patch*), 1 PATCH TD DAILY Thiamine HCl (Vitamin B-1), 2 TAB PO DAILY Scheduled PRN Albuterol Sulfate Nebs* (Proventil Nebs*), 2.5 MG IH Q4H PRN for SOB or wheezing Nicotine Polacrilex (Nicotine Lozenge), 2 MG BC Q2H PRN for NICOTINE CRAVING Trazodone HCl (Trazodone HCl), 2 TAB PO HS PRN for sleep Past Medical History Past Medical History: Seizures, Asthma, COPD, Arthritis, Chronic Back Pain, Anxiety, Bipolar, Depression Past Surgical History: orthopedic surgeries, tonsillectomy Patient History: (COPD) Chronic obstructive lung disease FATHER (Cancer) Malignant carcinoid tumor MOTHER (breast ca 1977) ([place]) Myocardial infarction GRANDFATHER OR GRANDMOTHER, (paternal grandfather) Alzheimer's disease MOTHER GRANDFATHER OR GRANDMOTHER, (maternal grandmother) Alcohol Use: Heavy Drug Use: marijuana, other Lives with: Alone Lives In: Home Occupation: employed Review of Systems Constitutional: Denies: chills, fever, weakness Eyes: Denies: pain, blurred vision ENT: Denies: ear pain, nose pain, throat pain, mouth pain Respiratory: Denies: cough, shortness of breath Cardiovascular: Denies: chest pain, palpitations Gastrointestinal: Denies: abdominal pain, nausea, vomiting Genitourinary: Denies: burning, dysuria Male Genitalia: Denies: penile discharge, testicular pain Neurological: Denies: headache, dizziness Musculoskeletal: Denies: pain, swelling Integumentary: Denies: rash, lesions Allergic/Immunologic: Denies: hives, itching Hematologic/Lymphatic: Denies: no symptoms reported Psychiatric: Denies: depression, anxiety Physical Exam Vital Signs: Temperature: 97.6, Source: Temporal, Heart Rate: 87, Respiratory Rate: 18, BP: 124/84, Pulse Oximetry: 95, Weight: 67.100 Physical Exam General: Awake and Alert, no acute distress. HEENT: Conjunctiva pink, Sclera clear, Mucus Membranes moist. Neck: Supple without masses and tenderness. Resp: Unlabored. Lungs clear to auscultation bilaterally. Heart: Regular Rate and rhythm, normal S1 and S2 without murmur, rub or gallop. Abdomen: Soft and non tender no organomegaly Extremities: No cyanosis,clubbing or edema. Skin: Warm and Dry. Progress Results/Orders Results/Orders Completed Orders - SONIYA BRASWELL PAC Electrocardiogram (11/26/24 11:35) Vital Signs 11/26/24 11:27 Temp 97.6 Pulse 87 Resp 18 B/P (MAP) 124/84 Pulse Ox 95 Medical Decision Making Findings Patient is seen today with complaints of extra terrestrial , aliens, germ warfare causing him anxiety yesterday. Patient states he thought he might have had an episode of atrial fibrillation yesterday and so he drank a tall boys or a large beer to help calm him down and lower his heart rate. Patient currently denies any anxiety any currently denies any suicidal ideation. Patient states he did have sudden onset of suicidal ideation earlier this morning but states he is feeling much better now. Patient denies any chest pain, shortness of breath, abdominal pain, nausea, vomiting, diarrhea. Patient denies any for chronic or excessive use of alcohol. Patient has no other concern or complaint at this time. Patient states he is feeling much better now . Patient denies any suicidal ideation. Patient was advised to slow down on the drinking or consumption of alcohol. Patient will follow up with primary care in 2-5 days if no better as needed sooner. Return to ED with any worsening, concerning or changing symptoms. Departure Disposition: 01 HOME / SELF CARE / HOMELESS Impression: Primary Impression: Anxiety Additional Impression: Anxiety attack Condition: Improved Discharge Instructions: Panic Attack Additional Instructions: Patient states he is feeling much better now . Patient denies any suicidal ideation. Patient was advised to slow down on the drinking or consumption of alcohol. Patient will follow up with primary care in 2-5 days if no better as needed sooner. Return to ED with any worsening, concerning or changing symptoms. Patient will continue close follow up with mental health and primary care and will continue his medications as currently prescribed. Referrals: NO PRIMARY CARE PROVIDER (PCP) Signature Scribe Signature: No scribe Attestation: And no scribe SONIYA BRASWELL PAC Nov 26, 2024 13:23
[2024-11-26 13:30] VITALS: TEMP 97.6
== END 2024-11-26 13:31 | disposition home or self-care (01) ==
LOC: ER 11:25
DX: F41.0 Panic disorder [episodic paroxysmal anxiety] (principal); R45.851 Suicidal ideations; F03.90 Unspecified dementia, unspecified severity, without behavioral disturbance, psychotic disturbance, mood disturbance, and anxiety; F31.9 Bipolar disorder, unspecified; J44.9 Chronic obstructive pulmonary disease, unspecified; M19.90 Unspecified osteoarthritis, unspecified site; F41.9 Anxiety disorder, unspecified; F12.90 Cannabis use, unspecified, uncomplicated; Z90.89 Acquired absence of other organs; Z79.82 Long term (current) use of aspirin
CPT/HCPCS: 93005; 99283

== ENCOUNTER 2025-02-11 04:51 | Emergency (ER) | payer BC, MEDICAID ==
[~2025-02-11] VITALS: Ht 182.9 cm; Wt 68.3 kg
[~2025-02-11 04:51] MED LIST changes: -ASPI-1265 PO; -FOLI0.4T6 PO
--- NOTE | 2025-02-11 05:11 | Physician Documentation ---
History of Present Illness ~ General Chief Complaint: Multiple Medical Complaints Stated Complaint: HEADACHE A ALS Time Seen by MD: 04:52 OK to notify your PCP?: Yes [facility] Source: patient, RN/MD, EMS, RN notes reviewed, EMS notes reviewed, old records Mode of Arrival: EMS Exam Limitations: no limitations History of Present Illness Initial Comments This patient comes by EMS to bed six. He is complaining of a headache now for three days he has a history of chronic neck pain which is clearly seen in the past medical record no history of trauma he is a heavy drinker. He is supposed to be wearing a neck brace according to the patient. He states that he has been stumbling he is nauseated was requesting some Zofran and was given it by EMS. Medication Reconciliation Allergies: Coded Allergies: lithium (Verified Allergy, Unknown, TURNS PT WHITE, 11/26/24) haloperidol (Verified Adverse Reaction, Severe, EPR, 11/26/24) Scheduled Budesonide/Formoterol Fumarate (Symbicort 160-4.5 Mcg Inhaler), 2 PUFFS INH Q12H Multivitamin with Folic Acid (Thera Tablet), 1 EACH PO Q24H Nicotine 14 MG Patch* (Habitrol 14 MG Patch*), 1 PATCH TD DAILY Prednisone* (Prednisone*), 2 TAB PO DAILY Thiamine HCl (Vitamin B-1), 2 TAB PO DAILY Scheduled PRN Albuterol Sulfate Nebs* (Proventil Nebs*), 2.5 MG IH Q4H PRN for SOB or wheezing Nicotine Polacrilex (Nicotine Lozenge), 2 MG BC Q2H PRN for NICOTINE CRAVING ONDANSETRON ODT 4mg tablet (Ondansetron Odt), 1 TABLET PO Q6H PRN for nausea/vomiting Trazodone HCl (Trazodone HCl), 2 TAB PO HS PRN for sleep albuterol inhaler (Pro-Air Inhaler), 2 PUFFS INH Q4HPRN PRN for wheezing Past Medical History Past Medical History: Seizures, Asthma, COPD, Arthritis, Chronic Back Pain, Anxiety, Bipolar, Depression Past Surgical History: orthopedic surgeries, tonsillectomy Patient History: (COPD) Chronic obstructive lung disease FATHER (Cancer) Malignant carcinoid tumor MOTHER (breast ca 1977) ([place]) Myocardial infarction GRANDFATHER OR GRANDMOTHER, (paternal grandfather) Alzheimer's disease MOTHER GRANDFATHER OR GRANDMOTHER, (maternal grandmother) Alcohol Use: Heavy Drug Use: marijuana, other Lives with: Alone Lives In: Home Occupation: employed Review of Systems All Other Systems at this time: Reviewed and Negative Physical Exam Physical Exam Vital Signs: RN Vital Signs have been reviewed: Yes, Temperature: 97.7, Source: Oral, Heart Rate: 86, Respiratory Rate: 16, BP: 112/75, Pulse Oximetry: 95, Weight: 68.300 Oxygen Flow Rate: 0 Physical Exam General: The patient is well developed, well nourished, nontoxic appearing and is in no acute distress. Moderate pain Skin: [place], warm and dry with no rashes. HEENT: Head was normocephalic and atraumatic. Eyes - pupils equal, round, reactive to light and accommodation. Extraocular movements were intact. Conjunctivae were nonicteric. Neck: Supple and nontender. There was no jugular venous distention, lymphadenopathy, thyromegaly or masses. No muscle spasms. Chest: bilaterally wheezes, no rales or rhonchi. No accessory muscle use. No dullness to percussion. Heart: Rate regular and rhythmic. S1, S2. No murmurs. Palpation of the chest wall was normal. No rubs or thrills. Abdomen: Soft, nontender and nondistended. Positive bowel sounds. No guarding or rebound. No hepatosplenomegaly or palpable masses. Extremities: No cyanosis, clubbing or edema. The patient moves all ex tremities. Pulses were equal and symmetric. Neurologic: C motor sensory grossly intact Psychologic: The patient was oriented to person, place and time. The patient demonstrated appropriate judgement and insight. Progress Results/Orders Reviewed/noted all lab results: Yes Results/Orders Orders - GRACE MARIE MD Svn Treatment (02/11/25 05:18) Completed Orders - GRACE MARIE MD Orphenadrine Citrate Inj. (Norflex Inj.) (02/11/25 05:20) Dexamethasone Tablet (Decadron Tablet) (02/11/25 05:20) Ipratropium/Albuterol Nebule (Ipratrop/A (02/11/25 05:20) Ondansetron Inj. (Zofran 4mg/2ml Vial) (02/11/25 05:30) Dexamethasone Inj (Decadron 10mg/Ml Inj) (02/11/25 05:29) Normal Saline 1000ml (0.9% Sodium Chlori (02/11/25 06:05) Vital Signs 02/11/25 02/11/25 02/11/25 02/11/25 04:52 05:13 05:32 05:32 Temp 97.7 Pulse 86 85 85 Resp 16 24 24 B/P (MAP) 112/75 Pulse Ox 95 97 97 O2 Delivery Room Air* Room Air* O2 Flow Rate 0 0 0 FiO2 N/A N/A 02/11/25 02/11/25 02/11/25 02/11/25 05:41 05:55 06:30 07:15 Temp 97.7 Pulse 71 72 75 67 Resp 18 18 22 16 B/P (MAP) 100/72 (81) 113/72 (86) 110/68 Pulse Ox 100 96 99 99 O2 Delivery Room Air* O2 Flow Rate 0 0 FiO2 N/A N/A Re-Evaluation Re-Evaluation : Re-Evaluation: Improved Progress Patient was given pain medications also fluid bolus and see has been vomiting. Patient has chronic alcoholism but no signs of pancreatitis. Patient's abdomen is soft. He had diffuse rhonchi received a nebulized treatment and had complete recovery with just one treatment. He is out of his medications. He was given steroid taper as well as albuterol and medication refills. No antibiotics were given. The patient however for his chronic pain no additional medications were given he needs to follow up with his primary care physician he spoke about how he missed his appointment because he was not feeling well. Nevertheless he needs to follow up with his outpatient physicians. Patient was then discharged home after fluid bolus but final disposition will be made by the morning physician. Continuous bus monitor interpretation shows normal sinus rhythm heart rate 80s, no ectopy, normal, my interpretation. Pulse oximetry monitor interpretation shows normal oxygenation at 97% room air, normal, my interpretation. Medical Decision Making Additional info obtained from: old records Departure Disposition: HOME / SELF CARE / HOMELESS Impression: Primary Impression: Acute on chronic neck pain Additional Impression: COPD (chronic obstructive pulmonary disease) Qualified Codes: J44.1 - Chronic obstructive pulmonary disease with (acute) exacerbation Condition: Stable Discharge Instructions: COPD and Physical Activity Referrals: NO PRIMARY CARE PROVIDER (PCP) Prescriptions ONDANSETRON ODT 4mg tablet (ONDANSETRON ODT) 4 Mg Tab.rapdis 1 TABLET PO Q6H PRN for nausea/vomiting, #12 TABLET Prov: CARLITO VIDALES MD 02/11/25 Budesonide/Formoterol Fumarate (Symbicort 160-4.5 Mcg Inhaler) 160 Mcg-4.5 M cg/Actuation Hfa.aer.ad 2 PUFFS INH Q12H for 30 Days, #10.2 GM 0 Refills Prov: GRACE MARIE MD 02/11/25 Prednisone* (Prednisone*) 20 Mg Tablet 2 TAB PO DAILY, #11 TAB Prov: GRACE MARIE MD 02/11/25 albuterol inhaler (Pro-Air Inhaler) 8.5 Gm Inhaler 2 PUFFS INH Q4HPRN PRN for wheezing for 30 Days, #18 GM Prov: GRACE MARIE MD 02/11/25 Education Educated: Patient Educated regarding: diagnosis, treatment, need for follow up Signature Scribe Signature: . Attestation: The note accurately reflects work and decisions made by me.Grace Marie MD 02/11/25 05:11 GRACE MARIE MD Feb 11, 2025 05:11
[2025-02-11] MEDS: ipratropium/albuterol 3ml nebule NEB ONE (05:29)
[2025-02-11 05:32] VITALS: PULSE 85; RESP 24; O2SAT 97
[2025-02-11 05:41] VITALS: PULSE 71; RESP 18; O2SAT 100
[2025-02-11] MEDS ORDERED: ALBU8HFA INH (05:44)
[2025-02-11] MEDS ORDERED: PRED20TA PO (05:44)
[2025-02-11] MEDS: ondansetron/PF 4mg/2ml inj IV ONE (05:45)
[2025-02-11] MEDS: dexamethasone sod phosphate 10mg/ml inj IV STA (05:45)
[2025-02-11] MEDS: orphenadrine citrate 60mg/2ml inj. IM ONE (05:46)
[2025-02-11] MEDS ORDERED: BUDE10.2 INH (05:54)
[2025-02-11 05:55] VITALS: TEMP 97.7
[2025-02-11] MEDS: normal saline 1000ML IV soln IVB ONE (06:07)
[2025-02-11] MEDS ORDERED: ONDA-243 PO (06:37)
[2025-02-11 07:15] VITALS: BP 110/68; PULSE 67; RESP 16; O2SAT 99
== END 2025-02-11 07:19 | disposition home or self-care (01) ==
LOC: ER 04:51
DX: G89.29 Other chronic pain (principal); M54.2 Cervicalgia; J44.9 Chronic obstructive pulmonary disease, unspecified; R51.9 Headache, unspecified; M19.90 Unspecified osteoarthritis, unspecified site; F31.9 Bipolar disorder, unspecified; F12.90 Cannabis use, unspecified, uncomplicated; Z88.8 Allergy status to other drugs, medicaments and biological substances; Z90.89 Acquired absence of other organs
CPT/HCPCS: 94640; 96361; 96372; 96374; 96375; 99284; J1100; J2360; J2405; J7030; 94760; 99285